=== PATIENT | male | born 1930 | race Caucasian/White ===

== ENCOUNTER 2016-11-18 13:53 | Emergency (ER) | payer OTHER, MEDICARE ==
[~2016-11-18] VITALS: Ht 170.2 cm; Wt 64.0 kg
[~2016-11-18 13:53] MED LIST: AMLO5TAB2 PO; ASPI-435 PO; ATOR-22 PO; METO50TA16 PO
[2016-11-18 13:58] VITALS: TEMP 36.5; Ht 170.2 cm; Wt 64.0 kg
[2016-11-18] MEDS ORDERED: SODIUM CHLORIDE 0.9% 1000ML 500 ML IV STA (14:10)
[2016-11-18] MEDS ORDERED: ACETAMINOPHEN 500 MG TAB PO STA (14:10)
[2016-11-18 14:51] LABS: BASO % 0.6 %; BASO ABS # 0.04 K/uL (0-0.2); COMPLETE YES; EOS % 4.3 %; HEMATOCRIT 41.6 % (42-52); IG% 0.3 %; LYMPH % 16.2 %; LYMPH ABS # 1.08 K/uL (1.2-3.4); MEAN CELL VOLUME 88.5 fL (80-100); MEAN CORPUSCULAR HEMOGLOBIN 30.9 pg (25-34); MEAN CORPUSCULAR HGB CONC 34.9 g/dl (32-36); MEAN PLATELET VOLUME 9.6 fL (7.4-10.4); MONO % 15.4 %; NEUT % 63.2 %; PLATELET COUNT 297 K/uL (130-400); WHITE BLOOD COUNT 6.68 K/uL (4.8-10.8)
--- NOTE | 2016-11-18 14:55 | EMERGENCY ROOM VISIT NOTE ---
History Report prepared by Lamaribaviva: Rom Hinojosa Under the Supervision of: Dr. Nas Mullins M.D. First contact with patient: 14:05 Chief Complaint: HEADACHE Stated Complaint: HEADACHES History of Present Illness The patient is a 86 year old male who presents to the Emergency Room with complaints of a constant headache starting about 3-4 weeks ago. The headache is located on both sides. He was evaluated by his eye doctor who prescribed him eye drops without relief. As per , he has been taking Aspirin without relief. He currently rates a pain intensity of 4-5/10. He denies any activities that improve or worsen his pain. He did not have any recent falls or injuries. He denies any history of glaucoma or sinus infections. 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 As per , he did not have any recent changes in medications. The patient denies any tick bites, fevers, chest pain, shortness of breath, focal weakness, or any other complaints. Source of History: patient, spouse/significant other Onset: about 3-4 weeks ago Position: head Timing: constant Modifying Factors (Relieving): other (eye drops, aspirin without relief) Associated Symptoms: No fevers, No chest pain, No SOB, No weakness (focal) Review of Systems See HPI for pertinent positives & negatives. A total of 10 systems reviewed and were otherwise negative. 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 (2) Diverticulosis Colon (W/O Ment Of Hemorrhage) (3) Hypertension Nos (4) Myocardial infarction (5) Vertigo Family History Cancer Diabetes mellitus FHx: lung disease Hypertension Social History Smoking Status: Never Smoker Alcohol Use: occasionally Marital Status: Housing Status: lives with significant other Occupation Status: retired Current/Historical Medications Scheduled Amlodipine Besylate (Norvasc), 5 MG PO DAILY Aspirin (Aspirin 81), 81 MG PO DAILY Atorvastatin (Lipitor), 20 MG PO DAILY Metoprolol Tartrate (Lopressor) (Lopressor), 50 MG PO BID Scheduled PRN Acetaminophen (Tylenol Arthritis Ext Rel), 650 MG PO Q8H PRN for Pain Acetaminophen (Tylenol), 500 MG PO DAILY PRN for Pain Aspirin (Aspirin Ec), 325 MG PO DIRECTED PRN for Headache Allergies Coded Allergies: Hydrochlorothiazide (Verified Allergy, Unknown, UNKNOWN, 11/18/16) Penicillins (Verified Allergy, Unknown, ., 11/18/16) Sulfa Drugs (Verified Allergy, Unknown, ITCHINESS, RED SKIN, 11/18/16) Oxycodone (Verified Adverse Reaction, Intermediate, CONSTIPATION, MALAISE , 11/18/16) Physical Exam Vital Signs Date Time Temp Pulse Resp B/P (MAP) Pulse Ox O2 Delivery O2 Flow Rate FiO2 11/18/16 16:44 58 16 162/76 97 Room Air 11/18/16 15:50 55 18 141/85 98 Room Air 11/18/16 13:58 36.5 66 18 153/86 96 Room Air Physical Exam GENERAL: Patient is in no acute distress. HEENT: No acute trauma, normocephalic atraumatic, mucous membranes moist, no throat erythema, no nasal congestion, no scleral icterus. Pupils are equal, round, and reactive to light. TMs are clear. NECK: No stridor, no adenopathy, no meningismus, trachea is midline. LUNGS: Clear to auscultation bilaterally, no wheeze, no rhonchi, breath sounds equal. HEART: Without murmurs gallops or rubs, regular rate and rhythm. ABDOMEN: Soft, nontender, bowel sounds positive, no hernias, no peritonitis. EXTREMITIES: No cyanosis or edema, full range of motion of all the joints without pain or difficulty, no signs for acute trauma. NEUROLOGIC: Oriented x 3, no acute motor or sensory deficits, no focal weakness. No pronator drift or cerebellar dysfunction. SKIN: No rash, no jaundice, no diaphoresis. Medical Decision & Procedures ER Provider Diagnostic Interpretation: CT results as stated below per my review and radiologist interpretation: CT SCAN OF THE BRAIN COMBO CLINICAL HISTORY: Headache. COMPARISON STUDY: CT of the brain dated 12/28/2014. MRI of the brain dated 12/06/2015. TECHNIQUE: Unenhanced axial CT scan of the brain is performed from the vertex to the skull base before and following the IV administration of 116 cc of Optiray 320. IV contrast was administered without complication. CT DOSE: 1074.96 mGy.cm FINDINGS: Brain parenchyma: There are age-related involutional changes noting moderate subcortical and periventricular microangiopathic change. There is no hemorrhage, mass effect, or evidence of acute territorial ischemia by CT criteria. Mosqueda-white matter is preserved. No extra-axial fluid collection is seen. Ventricles, sulci, cisterns: Prominent secondary to involutional change. Intracranial vasculature: There is atherosclerotic calcification of the cavernous carotid and vertebral arteries. Calvarium: Unremarkable. Sinuses and mastoids: The visualized paranasal sinuses are clear. The mastoid air cells are well pneumatized. Orbits: The bony orbits are grossly intact. There is a right ocular lens implant. IMPRESSION: There is no hemorrhage, enhancing mass, or evidence of acute territorial ischemia by CT criteria. Electronically signed by: Nas Armando M.D. 11/18/2016 3:49 PM Dictated Date/Time: 11/18/2016 3:46 PM Laboratory Results 11/18/16 14:35 Red Blood Count 4.70, Mean Corpuscular Volume 88.5, Mean Corpuscular Hemoglobin 30.9, Mean Corpuscular Hemoglobin Concent 34.9, Mean Platelet Volume 9.6, Neutrophils (%) (Auto) 63.2, Lymphocytes (%) (Auto) 16.2, Monocytes (%) (Auto) 15.4, Eosinophils (%) (Auto) 4.3, Basophils (%) (Auto) 0.6, Neutrophils # (Auto ) 4.22, Lymphocytes # (Auto) 1.08, Monocytes # (Auto) 1.03, Eosinophils # (Auto ) 0.29, Basophils # (Auto) 0.04 11/18/16 14:35 Test 11/18/16 14:35 White Blood Count 6.68 K/uL (4.8-10.8) Red Blood Count 4.70 M/uL (4.7-6.1) Hemoglobin 14.5 g/dL (14.0-18.0) Hematocrit 41.6 % (42-52) Mean Corpuscular Volume 88.5 fL (80-100) Mean Corpuscular Hemoglobin 30.9 pg (25-34) Mean Corpuscular Hemoglobin Concent 34.9 g/dl (32-36) Platelet Count 297 K/uL (130-400) Mean Platelet Volume 9.6 fL (7.4-10.4) Neutrophils (%) (Auto) 63.2 % Lymphocytes (%) (Auto) 16.2 % Monocytes (%) (Auto) 15.4 % Eosinophils (%) (Auto) 4.3 % Basophils (%) (Auto) 0.6 % Neutrophils # (Auto) 4.22 K/uL (1.4-6.5) Lymphocytes # (Auto) 1.08 K/uL (1.2-3.4) Monocytes # (Auto) 1.03 K/uL (0.11-0.59) Eosinophils # (Auto) 0.29 K/uL (0-0.5) Basophils # (Auto) 0.04 K/uL (0-0.2) RDW Standard Deviation 40.9 fL (36.4-46.3) RDW Coefficient of Variation 12.6 % (11.5-14.5) Immature Granulocyte % (Auto) 0.3 % Immature Granulocyte # (Auto) 0.02 K/uL (0.00-0.02) Erythrocyte Sedimentation Rate 34 mm/hr (0-14) Anion Gap 6.0 mmol/L (3-11) Est Creatinine Clear Calc Drug Dose 41.5 ml/min Estimated GFR () 64.0 Estimated GFR (Non- 55.2 BUN/Creatinine Ratio 15.9 (10-20) Calcium Level 9.0 mg/dl (8.5-10.1) Laboratory results reviewed by me. Medications Administered Medications (Trade) Dose Ordered Sig/Tyrone Route Start Time Stop Time Status Last Admin Dose Admin Sodium Chloride 500 ml @ 999 mls/hr Q31M STAT IV 11/18/16 14:10 11/18/16 14:40 DC 11/18/16 14:41 999 MLS/HR Acetaminophen (Tylenol Tab) 1,000 mg NOW STAT PO 11/18/16 14:10 11/18/16 14:13 DC 11/18/16 14:51 1,000 MG ED Course 1405: The patient was evaluated in room B11B. A complete history and physical exam was performed. 1410: Tylenol Tab 1000 mg PO, Sodium Chloride 500 ml @ 999 mls/hr IV 1528: Reevaluated the patient. His reported that he has been having some memory issues and she will talk to his PCP about it this week. Discussed results and discharge instructions: the patient and his verbalized understanding and agreement. The patient is ready for discharge. Medical Decision Medication Reconciliation: I attest that I have personally reviewed the patient' s current medication list. Blood Pressure Screening: Patient was found to have an elevated blood pressure and was referred to their primary doctor for recheck and further treatment. Differential diagnosis includes but is not limited to intracranial bleeding or mass, tension headache, migraine headache, dehydration, temporal arteritis, sinusitis. There is no leukocytosis or concerning anemia. No significant electrolyte abnormality or kidney failure. Sedimentation rate was not significantly elevated making temporal arteritis less likely. Brain CT without contrast showed no bleed. There is no sinusitis. Brain CT with contrast showed no mass or other pathology. On exam, there were no focal neurologic deficits. There was no fever. The patient did not have meningismus. Of note, the patient has had some memory issues for some time, his thinks he may have dementia. The memory issues are not acutely new she states. The patient was given IV saline, oral Tylenol. He looks well, he is not toxic. He is being discharged to follow with his doctor's office. The cause for the headache is unclear. Nothing emergent or concerning found by workup. The patient was reassured and discharged home. Impression Primary Impression: Headache Scribe Attestation The scribe's documentation has been prepared under my direction and personally reviewed by me in its entirety. I confirm that the note above accurately reflects all work, treatment, procedures, and medical decision making performed by me. Departure Information Dispostion Home / Self-Care Referrals Idris German M.D. (PCP) Forms HOME CARE DOCUMENTATION FORM, IMPORTANT VISIT INFORMATION Patient Instructions [facility] Additional Instructions tylenol for pain rest stay well hydrated see your doctor this week to talk about the headaches and memory issues brain CT scan today was ok as we discussed
[2016-11-18] MEDS ORDERED: ACET-1256 PO (15:10)
[2016-11-18] MEDS ORDERED: ASPI325T39 PO (15:10)
[2016-11-18] MEDS ORDERED: ACET-1487 PO (15:10)
[2016-11-18 15:12] LABS: BUN/CREATININE RATIO 15.9 (10-20); CREATININE 1.2 mg/dl (0.60-1.40); POTASSIUM 4.6 mmol/L (3.5-5.1)
--- NOTE | 2016-11-18 15:51 | DIAGNOSTIC IMAGING REPORT ---
CT SCAN OF THE BRAIN COMBO CLINICAL HISTORY: Headache. COMPARISON STUDY: CT of the brain dated 12/28/2014. MRI of the brain dated 12/06/2015. TECHNIQUE: Unenhanced axial CT scan of the brain is performed from the vertex to the skull base before and following the IV administration of 116 cc of Optiray 320. IV contrast was administered without complication. CT DOSE: 1074.96 mGy.cm FINDINGS: Brain parenchyma: There are age-related involutional changes noting moderate subcortical and periventricular microangiopathic change. There is no hemorrhage, mass effect, or evidence of acute territorial ischemia by CT criteria. Mosqueda-white matter is preserved. No extra-axial fluid collection is seen. Ventricles, sulci, cisterns: Prominent secondary to involutional change. Intracranial vasculature: There is atherosclerotic calcification of the cavernous carotid and vertebral arteries. Calvarium: Unremarkable. Sinuses and mastoids: The visualized paranasal sinuses are clear. The mastoid air cells are well pneumatized. Orbits: The bony orbits are grossly intact. There is a right ocular lens implant. IMPRESSION: There is no hemorrhage, enhancing mass, or evidence of acute territorial ischemia by CT criteria. Electronically signed by: Nas Armando M.D. 11/18/2016 3:49 PM Dictated Date/Time: 11/18/2016 3:46 PM
[2016-11-18 16:44] VITALS: BP 162/76; PULSE 58; O2SAT 97
[2017-02-01] MEDS ORDERED: DONE1TAB11 PO (12:59)
== END 2016-11-18 17:00 | disposition home or self-care (01) ==
LOC: C.EDB 13:54
DX: R51 Headache (principal); I65.29 Occlusion and stenosis of unspecified carotid artery; K57.30 Diverticulosis of large intestine without perforation or abscess without bleeding; I10 Essential (primary) hypertension; I25.2 Old myocardial infarction; Z79.82 Long term (current) use of aspirin; Z83.3 Family history of diabetes mellitus; Z82.49 Family history of ischemic heart disease and other diseases of the circulatory system

== ENCOUNTER → 2016-11-20 | Outpatient (CLI) | payer OTHER, MEDICARE ==
[~2016-11-20] MED LIST changes: +ACET-1256 PO; +ACET-1487 PO; +ASPI325T39 PO
--- NOTE | 2016-11-20 11:58 | DIAGNOSTIC IMAGING REPORT ---
CHEST 2 VIEWS ROUTINE CLINICAL HISTORY: R63.4 Abnormal weight [id number] weight loss. Dyspnea. Pain. COMPARISON STUDY: 02/01/2016 FINDINGS: Mild emphysematous change. No evidence for cardiac enlargement. Diaphragms are smooth. Degenerative change thoracic spine. Small calcified granuloma peripheral right midlung. IMPRESSION: Mild/moderate emphysematous change. No acute process. Electronically signed by: Juan R Carreon M.D. 11/20/2016 11:57 AM Dictated Date/Time: 11/20/2016 11:56 AM
--- NOTE | 2016-11-20 12:00 | DIAGNOSTIC IMAGING REPORT ---
C-SPINE ROUTINE 4 OR 5 VIEWS CLINICAL HISTORY: M54.2 [id number] COMPARISON STUDY: No previous studies for comparison. FINDINGS: The prevertebral soft tissues are normal. There are moderate multilevel degenerative changes with disc space narrowing most pronounced at the C6-7 level. There are exuberant osteophytes C5-6 and C6-7 levels. There is bony foraminal narrowing at the C4-5 through C6-7 level on the right, as well as the C5-6 and C6-7 levels on the left. IMPRESSION: Moderate degenerative changes within the lower cervical spine. No acute fractures or subluxations are visualized. Electronically signed by: Dariel Cruz M.D. 11/20/2016 11:58 AM Dictated Date/Time: 11/20/2016 11:57 AM
== END | disposition home or self-care (01) ==
LOC: C.RADBC 11:15
PROVIDERS: ATTEND Internal Medicine
DX: Z00.00 Encounter for general adult medical examination without abnormal findings (principal); R63.4 Abnormal weight loss; M54.2 Cervicalgia; M50.321 Other cervical disc degeneration at C4-C5 level; M50.323 Other cervical disc degeneration at C6-C7 level; J98.4 Other disorders of lung

== ENCOUNTER → 2017-03-25 | Day surgery (SDC) | payer OTHER, MEDICARE ==
[2017-03-17 11:17] VITALS: Ht 175.3 cm; Wt 63.6 kg
[~2017-03-25] VITALS: Ht 175.3 cm; Wt 63.6 kg
[~2017-03-25] MED LIST changes: +500ML BSS 0.3ML EPI 1:1000PF IRRIG ONE; +ACETAMINOPHEN 325 MG TAB PO PRN; +AMVISC PLUS 0.8ML SYRINGE INT OCU ONE; -ASPI325T39 PO; +ATROPINE SULFATE 0.1 MG/ML 5ML SYR IV PRN; +BETAXOLOL HCL 0.25% OP SUSP PER DROP CHARGE OPL SCH; +BRIMONIDINE TART 0.2% OP SOLN PER DROP CHARGE ONE; +BSS FLUSH ONE; +DONE1TAB26 PO; +ENDOCOAT 0.85ML SYRINGE INT OCU ONE; +EpHEDrine SULFATE INJ 50 MG/ML AMP IV PRN; +EpINEphrine INJ 1MG/ML AMP 1 MG/ML AMP ONE; +LACTATED RINGER'S 1000ML 500 ML IV SCH; +LIDOCAINE 4% OP SOLN DROP CHARGE ONE; +LIDOCAINE 4% OP SOLN DROP CHARGE OPL SCH; +LIDOCAINE HCL 1% MPF 2 ML VIAL ONE; +MIDAZOLAM HCL 1 MG/ML 2ML VIAL ONE; +MIX: 4ML BSS 1ML EPI 1:1000 PF INSTIL ONE; +MOXIFLOXACIN OPH SOLN PER DROP CHARGE ONE; +OCUCOAT 1 ML SOLN IO ONE; +POVIDONE-IODINE OP SOLN 30 ML BTL ONE; +PROPARACAINE 0.5% OP SOLN PER DROP CHARGE OPL SCH; +PROPOFOL IV EMULSION 10 MG/ML 20 ML VIAL IV ONE; +TOBRAMYCIN/DEXAMETHASONE OPH OINT PER APPLN CHARGE ONE
--- NOTE | 2017-03-25 11:25 | History & Physical Bridge - SC ---
H&P Re-Evaluation Bridge Note: I have examined the patient, reviewed the History & Physical and in the interval since the performance of the History & Physical I have noted the following changes of clinical significance: No changes noted
[2017-03-25] MEDS: PHENYLEPHRINE HCL 2.5% OP SOLN PER DROP CHARGE OPL SCH ×2 (11:49→11:54)
[2017-03-25] MEDS: TROPICAMIDE 1% OP SOLN PER DROP CHARGE OPL SCH ×2 (11:50→11:55)
[2017-03-25] MEDS: CYCLOPENTOLATE HCL 1% OP SOLN PER DROP CHARGE OPL SCH ×2 (11:51→11:56)
[2017-03-25] MEDS: MOXIFLOXACIN OPH SOLN PER DROP CHARGE OPL SCH ×2 (11:52→12:02)
--- NOTE | 2017-03-25 12:42 | Discharge Instructions-SurgCtr ---
Discharge Instructions Date of Service Mar 25, 2017. Visit Reason for Visit: Left Cataract Discharge Discharge Diagnosis / Problem: lens implant left eye Discharge Goals Goal(s): Improve function Activity Recommendations Activity Limitations: resume your previous activity Lifting Limitations: no more than 10 pounds Exercise/Sports Limitations: gradually increase as tolerated May Resume Sexual Activity: when tolerated Shower/Bathe: tomorrow Driving or Machine Use: resume 1 day after discharge Anesthesia . Post Anesthesia Instructions: If you have had General Anesthesia or IV Sedation: * Do not drive today. * Resume driving when surgeon permits. * Do not make important decisions or sign legal documents today. * Call surgeon for: 1. Temperature elevations greater than 101 degrees F. 2. Uncontrollable pain. 3. Excessive bleeding. 4. Persistent nausea and vomiting. 5. Medication intolerance (nausea, vomiting or rash). * For nausea and vomiting use only clear liquids such as: tea, soda, bouillon until nausea subsides, then gradually increase diet as tolerated. * If you have any concerns or questions, call your surgeon's office. If physician is unavailable and it is an emergency, call 911 or go to the nearest emergency room. . Instructions / Follow-Up Instructions / Follow-Up ACTIVITY RECOMMENDATIONS: * Light activities. * Mild irritation and blurred vision are common for the first few days. * You may walk outside, read, watch television. * Redness around the white part of the eye is common. MEDICATIONS: Resume previous medications unless instructed otherwise by your surgeon. Start all eye drops at 3 pm today: * Eye drops (today and tomorrow): Prednisone - one drop in operative eye every 3 hours while awake Ofloxacin - one drop in operative eye every 3 hours while awake SPECIAL CARE INSTRUCTIONS: * Tape plastic shield over eye to sleep at night. Call your doctor at with any concerns or problems. FOLLOW UP VISIT: Follow-up with Dr Barroso at [facility] as scheduled. Diet Recommendations Home Diet: no limitations Procedures Procedures Performed: cataract extraction with lens implant Pending Studies Studies pending at discharge: no Medical Emergencies . Who to Call and When: Medical Emergencies: If at any time you feel your situation is an emergency, please call 911 immediately. . Non-Emergent Contact Non-Emergency issues call your: Cooling Room Attendant Call Non-Emergent contact if: your pain is not controlled [phone] . . "Provider Documentation" section prepared by Tyler Barroso. .
--- NOTE | 2017-03-25 12:44 | [facility] Operative Report ---
Operative Report Date of Service Mar 25, 2017. Operative Report 1. PREOPERATIVE DIAGNOSIS: Senile nuclear cataract, left eye. 2. POSTOPERATIVE DIAGNOSIS: Senile nuclear cataract, left eye. 3. PROCEDURE: Phacoemulsification of left cataract with posterior chamber lens implant, type [employer], model MI60L, power +22.0 diopters. ANESTHESIA: Local standby. SURGEON: Dr. Barroso. COMPLICATIONS: None. OPERATING TIME: 10 minutes. 4. OPERATION AND FINDINGS: DESCRIPTION OF PROCEDURE: The left pupil was dilated. The anesthetic was administered using a topicall technique. The eft eye was prepped and draped. A speculum was placed. A clear corneal incision was formed. The chamber was filled with Amvisc Plus and Endocoat. Epinephrine solution was used. A paracentesis was placed. A capsulorrhexis was performed. The nucleus was hydrodissected. The lens was removed with phacoemulsification. Time was 7.72 seconds. The aspiration unit was used to remove the cortex. The capsule was filled with Amvisc Plus. The lens implant was folded and placed into the capsule. The incision was hydrated. The Amvisc was aspirated. The wound was secure. The chamber was deep. The pupil was round. Brimonidine, TobraDex ointment and Vigamox solution were placed. The speculum was removed. The patient was returned to the Recovery Room in stable condition. I attest to the content of the Intraoperative Record and any orders documented therein. Any exceptions are noted below. The scribe's documentation has been prepared in my presence, under my direction and personally reviewed by me in its entirety. I confirm that the note above accurately reflects all work, treatment, procedures, and medical decision making performed by me. I personally scribed for Tyler Barroso M.D. ([email or web address]) on 03/25/17 at 12:44. Electronically submitted by Elis Goldberg ([email or web address]).
[2017-03-25 12:49] VITALS: TEMP 36.5
[2017-03-25 13:07] VITALS: BP 128/78; PULSE 64; O2SAT 98
--- NOTE | 2017-03-25 13:15 | Anesthesia Progress Nt - [facility] ---
Anesthesia Post Op Note Date & Time Mar 25, 2017 at 13:15 Vital Signs Pain Intensity: 0 Vital Signs Past 12 Hours Date Time Temp Pulse Resp B/P (MAP) Pulse Ox O2 Delivery O2 Flow Rate FiO2 03/25/17 12:49 36.5 63 16 106/63 (77) 97 Room Air 03/25/17 11:39 36.6 64 20 133/78 (96) 100 Room Air Notes Mental Status: alert / awake / arousable, participated in evaluation Pt Amnestic to Procedure: Yes Nausea / Vomiting: adequately controlled Pain: adequately controlled Airway Patency, RR, SpO2: stable & adequate BP & HR: stable & adequate Hydration State: stable & adequate Anesthetic Complications: no major complications apparent
== END | disposition home or self-care (01) ==
LOC: X.SURG 11:24
PROVIDERS: ATTEND Specialist
DX: H25.12 Age-related nuclear cataract, left eye (principal); I25.10 Atherosclerotic heart disease of native coronary artery without angina pectoris; I25.2 Old myocardial infarction; I10 Essential (primary) hypertension; F41.9 Anxiety disorder, unspecified; Z87.891 Personal history of nicotine dependence; Z96.652 Presence of left artificial knee joint; Z98.41 Cataract extraction status, right eye; Z88.0 Allergy status to penicillin; Z88.2 Allergy status to sulfonamides; Z88.5 Allergy status to narcotic agent; Z79.899 Other long term (current) drug therapy

== ENCOUNTER 2018-07-27 20:03 | Observation (INO) ==
[2018-07-27] MEDS ORDERED: NITROGLYCERIN SL 0.4 MG/TAB TAB SL PRN (20:24)
[2018-07-27] MEDS ORDERED: NITROGLYCERIN SL 0.4 MG/TAB TAB ONE (20:24)
[2018-07-27 20:32] LABS: Basophils # (auto) 0.02 K/uL (0-0.2); Basophils % (auto) 0.3 %; Eosinophils % (auto) 2.8 %; Hematocrit (blood only) 46.3 % (42-52); Hemoglobin 16.4 g/dL (14.0-18.0); Immature Granulocytes # (auto) 0.03 K/uL (0.00-0.02); Immature Granulocytes % (auto) 0.4 %; Lymphocytes # (auto) 1.79 K/uL (1.2-3.4); Lymphocytes % (auto) 24.6 %; Mean Corpuscular Hgb Conc 35.4 g/dL (32-36); Mean Corpuscular Volume 89.6 fL (80-100); Mean Platelet Volume 10.1 fL (7.4-10.4); Monocytes # (auto) 1.06 K/uL (0.11-0.59); Monocytes % (auto) 14.6 %; Neutrophils # (auto) 4.17 K/uL (1.4-6.5); Neutrophils % (auto) 57.3 %; Platelet Count 210 K/uL (130-400); RDW Coefficient of Variation 12.4 % (11.5-14.5); RDW Standard Deviation 40.6 fL (36.4-46.3); Red Blood Count 5.17 M/uL (4.7-6.1); White Blood Count 7.27 K/uL (4.8-10.8)
[2018-07-27 20:49] LABS: Albumin Level 3.7 gm/dl (3.4-5.0); BUN Creatinine Ratio 11.7 (10-20); Calcium 8.9 mg/dl (8.5-10.1); Creatinine Clr Calc Pharmacy 37.1 ml/min; Est GFR (African American) 54.6; Est GFR (Non-African American) 47.1
[2018-07-27 20:52] LABS: Bilirubin,Total 0.4 mg/dl (0.2-1); Globulin 3.8 gm/dl (2.5-4.0); Total Protein 7.5 gm/dl (6.4-8.2)
--- NOTE | 2018-07-27 20:57 | XRay Report ---
SINGLE VIEW CHEST CLINICAL HISTORY: Atypical chest pain. FINDINGS: 2 AP, portable, upright chest radiographs are compared to chest x-ray and chest CT dated and 09/24/2010. The cardiomediastinal silhouette is unremarkable. Emphysema and chronic inters titial thickening are similar to previous. No airspace consolidation or pleural effusion is identifie d. Small nodular densities likely represent pleural plaques are were seen on prior examinations. Smal l calcified granulomas are noted. No pneumothorax is seen. The skeletal structures are osteopenic. Th e bony thorax is grossly intact. IMPRESSION: Emphysematous change with no acute cardiopulmonary abnormality. Electronically signed by: Nas Armando M.D. 07/27/2018 8:56 PM
--- NOTE | 2018-07-27 22:32 | History & Physical Report ---
Date of Service July 27, 2018 Assessment & Plan (1) Chest pain: Assessment: Chest pain secondary to unstable angina versus musculoskeletal pain versus gastritis/GERD -Per report, there were dynamic ST changes on EKG with chest pain. Possible ST depression seen in inferior lead. Left axis deviation and left bundle branch block stable from previous. 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 Plan -Monitor on telemetry -Continue home Lipitor 20 mg, aspirin 81 mg, and antihypertensive medicines as below. -Morning echo pending -Cardiac isos. Initial troponin negative. FEN/GI: No fluids indicated at this time. Heart healthy diet. DVT ppx: SCDs, aspirin 81 mg. CODE STATUS: Full code, no mechanical ventilation as discussed with patient's POA . She is unsure as to his wishes regarding cardiovascular resuscitation, therefore will assume full. DISPO: Telemetry (2) Abnormal ECG: -Per report, there were dynamic ST changes on EKG with chest pain. P ossible ST depression seen in inferior lead. Left axis deviation and left bundle branch block stable from previous. (3) Alzheimer's dementia: Patient is not alert to self place or time. Patient's states he will need frequent reorientation overnight. -Continue home donepezil 10 mg daily, Namenda 10 mg p.o. twice daily -Sitter as needed ordered -Ativan for anxiety agitation (4) Benign essential hypertension: Continue home metoprolol tartrate 50 mg twice daily, amlodipine 5 mg daily (5) Dyslipidemia: Continue home Lipitor 20 mg daily History of Present Illness Chief Complaint: chest pain Primary Care Provider: Idris German MD This is an 87 yo M who comes to the ED via EMS. His called after the patient complained of left sided chest pain that began at about 7:30 earlier this evening. Patient is an extremely poor historian given his dementia, he does not recall the event and does not understand why he is here in the hospital. provides history. Pt was lying down. She states she did not notice that he was sweaty or in distress, but was concerned because he said he felt pain in the left side of chest. Possible remote MD history, but she is unsure. ED course: Hypertensive, not tachycardic, afebrile, not hypoxic. CBC unremarkable. Chemistry profile reveals no significant abnormalities. Initial troponin was detectable at 0.03. Chest x-ray shows chronic emphysematous change, no acute abnormalities. Per report, possible dynamic ST changes during chest pain. Allergies Allergy/AdvReac Type Severity Reaction Status Date / Time hydrochlorothiazide Allergy Unknown UNKNOWN Verified 07/27/18 21:48 Penicillins Allergy Unknown ? UNKNOWN Verified 07/27/18 21:48 Sulfa (Sulfonamide Allergy Unknown ITCHINESS, Verified 07/27/18 21:48 Antibiotics) RED SKIN oxycodone AdvReac Intermediate CONSTIPATION, Verified 07/27/18 21:48 MALAISE Home Medications Home Medications Medication Instructions Recorded Confirmed Type acetaminophen [Tylenol Arthritis 1 - 2 tabs PO Q12H PRN 07/27/18 07/27/18 History Pain] acetaminophen [Tylenol Extra 500 mg PO QAM PRN 07/27/18 07/27/18 History Strength] amlodipine [Norvasc] 5 mg PO DAILY 07/27/18 07/27/18 History aspirin [Aspir-81] 81 mg PO DAILY 07/27/18 07/27/18 History atorvastatin [Lipitor] 20 mg PO DAILY 07/27/18 07/27/18 History donepezil [Aricept] 10 mg PO DAILY 07/27/18 07/27/18 History memantine [Namenda] 10 mg PO BID 07/27/18 07/27/18 History metoprolol succinate 50 mg PO DAILY #30 tab 07/28/18 Rx Past Med/Surg History Medical History Dyslipidemia (Chronic) Benign essential hypertension (Chronic) Alzheimer's dementia (Chronic) Heart attack (Suspected) Arthritis of neck Surgical History Hx of total knee arthroplasty Family History Other Family history non-contributory Social History Preferred Language: Kazakh Beliefs That Will Affect Care: None marital status: Current Living Situation: Spouse Feels Safe at Home: Yes Smoking Status: Unknown if ever smoked Hx Alcohol Use: No Hx Substance Use: No Review of Systems Unobtainable due to cognitive status Physical Exam Vital Signs (Past 24 Hours): Last Vital Signs Temp 36.5 C 07/27/18 20:09 Pulse 63 03/19/19 20:31 Resp 29 H 07/27/18 20:31 BP 160/83 H 07/27/18 20:31 Pulse Ox 98 07/27/18 20:31 Physical Exam: Patient is seen and examined with at bedside. Vitals noted as above and within normal limits with the exception of hypertension, tachypnea. GENERAL: Awake, not alert to person, place, and time, nontoxic-appearing, in no distress HENT: Normocephalic, atraumatic. . Mucus membranes appear moist. EYES: Normal conjunctiva. Sclera non-icteric. EOMI. NECK: Supple. Full range of motion. No JVD RESPIRATORY: Clear to auscultation. Normal work of breathing. CARDIAC: Regular rate, normal rhythm. Extremities warm and well perfused, 2+ radial pulses bilaterally; 2+ posterior tibialis pulses bilaterally. CHEST: Nontender to palpation in anterior chest. ABDOMEN: Soft, non-distended. No tenderness to palpation in all four quadrants. No rebound or guarding. No masses. Bowel sounds are normal. LOWER EXTREMITIES: Inspection of calves reveal equal size bilaterally. They are non-tender. No edema. No discoloration. NEURO: No focal gross focal motor deficits noted. Sensation in tact. CN II-XII grossly in tact. Dementia. SKIN: Rash not present. No jaundice noted. Significant lesions not present. PSYCH: [Appropriate] mood and affect. [Cooperative]. Exam as done by Sheyla Mckeon MD, Water Meter Reader. Supervising Physician Co-Signing Physician Notes Attending addendum: I have physically seen this patient, have supervised the medical residents activities, and agree with the H&P unless as otherwise noted. Assessment and Plan: Chest pain of uncertain etiology-- The patient will be admitted to telemetry for serial cardiac enzymes, serial EKG's, cardiac rhythm monitoring and a 2-D echocardiogram with Dopplers. Continue aspirin, amlodipine and metoprolol succinate. Hyperlipidemia-- Continue atorvastatin. Check a fasting lipid panel. Dementia-- Continue Namenda and donepezil. Remainder of orders and medications as noted. Resident Activity Tracking Resident Involvement: Resident Care Provided Care Provided: Adult [facility] (1) Chest pain Chest pain type: unspecified Qualified Code(s): R07.9 - Chest pain, unspecified
--- NOTE | 2018-07-28 00:11 | Emergency Department Note ---
Entered by Lexie Kothari acting as a scribe for Ambrosio Castillo MD History of Present Illness General Chief complaint: Cardiac Assessment Stated complaint: MIGHT BE HAVING A HEART ATTACK Source: patient Mode of arrival: ambulatory Limitations: no limitations History of Present Illness Provider complaint: chest pain Onset (ago): hour(s) (1.5) Location: chest and left Radiation: non-radiation Pain Consistency: + other (episode) Maximum Pain Intensity: 10 Current Pain Intensity: 3 Quality: + other (pressure/tightness) Associated symptoms: + headaches and + other (lightheaded); no cough, no diaphoresis, no fever/chills, no nausea/vomiting and no shortness of breath Treatments prior to arrival: aspirin The patient is an 87 year old male who presents to the Emergency Room with complaints of an episode of chest pain that began about 1.5 hours ago. The patient reports that the pain is located on the left side of the chain and describes it as a "pressure" and "tightness." He denies the pain radiating to his arms or neck. He also denies any shortness of breath, diaphoresis, leg pain or swelling, coughs, vomiting, fevers or abdominal pain but notes he has been slightly lightheaded. He rates his current pain a 2-3/10. Per , the patient does have a history of a heart attack. She also reports that the patient took an aspirin prior to arrival. The patient states that he has had a headache since this morning but denies any traumas or being on any blood thinners. Home Medications Home Medications Medication Instructions Recorded Confirmed Type acetaminophen [Tylenol Arthritis 1 - 2 tabs PO Q12H PRN 07/27/18 07/27/18 History Pain] acetaminophen [Tylenol Extra 500 mg PO QAM PRN 07/27/18 07/27/18 History Strength] amlodipine [Norvasc] 5 mg PO DAILY 07/27/18 07/27/18 History aspirin [Aspir-81] 81 mg PO DAILY 07/27/18 07/27/18 History atorvastatin [Lipitor] 20 mg PO DAILY 07/27/18 07/27/18 History donepezil [Aricept] 10 mg PO DAILY 07/27/18 07/27/18 History memantine [Namenda] 10 mg PO BID 07/27/18 07/27/18 History metoprolol tartrate [Lopressor] 50 mg PO DIRECTED 07/27/18 07/27/18 History Allergies Allergy/AdvReac Type Severity Reaction Status Date / Time hydrochlorothiazide Allergy Unknown UNKNOWN Verified 07/27/18 21:48 Penicillins Allergy Unknown ? 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 and A total of 10 systems reviewed and were otherwise negative Physical Exam Vital Signs Vital Signs - 24 hr 07/27/18 20:09 07/27/18 20:30 07/27/18 20:31 Temperature 36.5 C Temperature Source Oral Sepsis Recent Fever Within 48 Hours No Sepsis New/Unexplained Change in Mental Status No Sepsis Action Taken by Nursing No Action Required Pulse Rate 67 67 63 Pulse Rate from SpO2 Sensor 63 Pulse Rhythm Regular Regular Pulse Strength Normal Respiratory Rate 20 20 29 H Respiratory Effort / Characteristics Non-Labored Respiratory Depth Normal Respiratory Pattern Regular Blood Pressure 182/86 H 160/83 H Blood Pressure Mean 118 108 Blood Pressure Position Lying Pulse Oximetry 100 100 98 Oxygen Delivery Method Room Air Room Air Room Air 07/27/18 20:45 07/27/18 21:01 07/27/18 21:31 Temperature Temperature Source Sepsis Recent Fever Within 48 Hours Sepsis New/Unexplained Change in Mental Status Sepsis Action Taken by Nursing Pulse Rate 62 70 Pulse Rate from SpO2 Sensor 63 60 Pulse Rhythm Pulse Strength Respiratory Rate 27 H 22 Respiratory Effort / Characteristics Non-Labored Respiratory Depth Normal Respiratory Pattern Blood Pressure 145/67 H 136/71 Blood Pressure Mean 93 92 Blood Pressure Position Pulse Oximetry 99 98 Oxygen Delivery Method Room Air Room Air Room Air 07/27/18 22:01 07/27/18 22:11 07/27/18 22:31 Temperature Temperature Source Sepsis Recent Fever Within 48 Hours Sepsis New/Unexplained Change in Mental Status Sepsis Action Taken by Nursing Pulse Rate 59 L 76 Pulse Rate from SpO2 Sensor 59 L 55 L Pulse Rhythm Pulse Strength Respiratory Rate 16 21 Respiratory Effort / Characteristics Respiratory Depth Respiratory Pattern Blood Pressure 174/76 H 137/65 Blood Pressure Mean 108 89 Blood Pressure Position Pulse Oximetry 99 97 Oxygen Delivery Method Room Air Room Air Room Air 07/27/18 23:40 Temperature Temperature Source Sepsis Recent Fever Within 48 Hours Sepsis New/Unexplained Change in Mental Status Sepsis Action Taken by Nursing Pulse Rate 70 Pulse Rate from SpO2 Sensor Pulse Rhythm Pulse Strength Respiratory Rate 18 Respiratory Effort / Characteristics Respiratory Depth Respiratory Pattern Blood Pressure 153/77 H Blood Pressure Mean Blood Pressure Position Pulse Oximetry Oxygen Delivery Method Room Air Constitutional: Vital signs reviewed. Eyes: Pupils are equal round reactive to light. Conjunctiva are noninjected. ENT: Pharynx is clear without erythema or exudate. Mucous membranes are moist. Neck supple without meningeal signs. Respiratory: Clear to auscultation bilaterally. Breath sounds are equal bilaterally. Cardiovascular: Regular rate and rhythm. No rubs or gallops. GI: Soft, nondistended and nontender. Bowel sounds are present. Musculoskeletal: No peripheral edema. No lower extremity tenderness. Integumentary: No cyanosis. Neurological: The patient is awake and alert. No focal deficits. Psychiatric: Normal affect. Course 2019: Past medical records reviewed. The patient was evaluated in room A11B, and a complete history and physical examination were performed. 2035: The patient reports that his chest pain is now relieved after 1 sublingual. 2103: I tried to discuss the patient's case with Dr. Mckeon - [facility] Hospitalist but he stated that he is too busy with a critically-ill patient. I updated the patient on tonight's findings and on the treatment plan. He reports that he is still chest pain free. 2123: I reviewed the patient's case with Dr. Mckeon - [facility] Hospitalist. He will evaluate the patient for further management. Administered Medications Nitroglycerin (Nitrostat) 0.4 mg SL UD PRN PRN Reason: Chest Pain Stop: 08/26/18 20:23 Last Admin: 07/27/18 20:28 Dose: 0.4 mg Documented by: [id number] Discontinued Medications Nitroglycerin (Nitrostat) Confirm Administered Dose 0.4 mg .ROUTE .STK-MED ONE Stop: 07/27/18 20:25 Last Admin: 07/27/18 20: Dose: Not Given Documented by: [id number] Medical Decision Making Differential Diagnosis Differential Diagnosis includes: unstable angina, WI, pleurisy, GERD, and pneumonia. Medical Records Attestation: I reviewed the patient's medical records. Home Medications Current Medication List: was personally reviewed by me Laboratory Data Attestation: I reviewed the patient's lab results. Result diagrams: 07/27/18 20:20 07/27/18 20:20 Lab Results 07/27/18 07/27/18 07/27/18 Range/Units 20:20 20:20 20:25 WBC 7.27 (4.8-10.8) K/uL RBC 5.17 (4.7-6.1) M/uL Hgb 16.4 (14.0-18.0) g/dL Hct 46.3 (42-52) % MCV 89.6 (80-100) fL MCH 31.7 (25-34) pg MCHC 35.4 (32-36) g/dL RDW Std Deviation 40.6 (36.4-46.3) fL RDW Coeff of Danii 12.4 (11.5-14.5) % Plt Count 210 (130-400) K/uL MPV 10.1 (7.4-10.4) fL Immature Gran % (Auto) 0.4 % Neut % (Auto) 57.3 % Lymph % (Auto) 24.6 % [place] % (Auto) 14.6 % Eos % (Auto) 2.8 % Baso % (Auto) 0.3 % Immature Gran # (Auto) 0.03 H (0.00-0.02) K/uL Neut # (Auto) 4.17 (1.4-6.5) K/uL Lymph # (Auto) 1.79 (1.2-3.4) K/uL [place] # (Auto) 1.06 H (0.11-0.59) K/uL Eos # (Auto) 0.20 (0-0.5) K/uL Baso # (Auto) 0.02 (0-0.2) K/uL Sodium 143 (136-145) mmol/L Potassium 4.0 (3.5-5.1) mmol/L Chloride 110 H (98-107) mmol/L Carbon Dioxide 28 (21-32) mmol/L Anion Gap 5.0 (3-11) BUN 16 (7-18) mg/dl Creatinine 1.36 (0.6-1.4) mg/dl Est Cr Clr Drug Dosing 37.1 ml/min Est GFR ( Amer) 54.6 Est GFR (Non-Af Amer) 47.1 BUN/Creatinine Ratio 11.7 (10-20) Glucose 93 (70-99) mg/dl Calcium 8.9 (8.5-10.1) mg/dl Total Bilirubin 0.4 (0.2-1) mg/dl AST 16 (15-37) U/L ALT 22 (12-78) U/L Alkaline Phosphatase 120 H (45-117) U/L POC Troponin I < 0.03 (0-0.045) ng/ml Total Protein 7.5 (6.4-8.2) gm/dl Albumin 3.7 (3.4-5.0) gm/dl Globulin 3.8 (2.5-4.0) gm/dl Albumin/Globulin Ratio 1.0 (0.9-2) Imaging Data Radiologist's Impression: Radiology results as stated below per my review and the radiologist's interpretation: SINGLE VIEW CHEST CLINICAL HISTORY: Atypical chest pain. FINDINGS: 2 AP, portable, upright chest radiographs are compared to chest x-ray and chest CT dated 02/01/2017 and 09/24/2010. The cardiomediastinal silhouette is unremarkable. Emphysema and chronic interstitial thickening are similar to previous. No airspace consolidation or pleural effusion is identified. Small nodular densities likely represent pleural plaques are were seen on prior examinations. Small calcified granulomas are noted. No pneumothorax is seen. The skeletal structures are osteopenic. The bony thorax is grossly intact. IMPRESSION: Emphysematous change with no acute cardiopulmonary abnormality. Electronically signed by: Nas Armando M.D. 07/27/2018 8:56 PM ECG Data Attestation: I personally reviewed and interpreted this ECG as follows: Indication: chest pain Rate (beats per minute): 67 Rhythm: normal sinus Findings: + LBBB and + ST depression (slight in inferior leads that are concordant) Comparison ECG Date: from (2016) Change: no significant change (LBBB is old) Additional Comments: REPEAT EKG: sins bradycardia, 59 bpm, LBBB, no concordant ST depressions. Blood Pressure Blood Pressure Findings: Elevated blood pressure Blood Pressure Disposition: Referred to patients primary care provider MDM Narrative I did perform a limited focused review of portions of the patient's old chart on the electronic medical record. The patient has had no recent pertinent visits to this hospital. I did evaluate the patient as noted above. The patient is presenting with chest pain. He has a prior history of heart disease. He did take aspirin prior to arrival. IV access was established. The patient was placed on a continuous manager cardiac cath. I did order and personally review the patient's 12-lead EKG and chest x-ray as described above. His twelve-lead EKG shows an old left bundle branch block but he had some concordant ST depressions in the inferior leads. I did treat him with a sublingual nitroglycerin. His chest pain completely resolved after one nitroglycerin. I did order and review the patient's blood work as noted in the electronic medical record. Troponin is negative. I did repeat another twelve-lead EKG which did not demonstrate the ST depressions as seen earlier. I did discuss the test results with the patient. I did recommend hospitalization for further evaluation. I did discuss case with the hospitalist and case mgr. Impression & Plan Chest pain, Abnormal ECG Discharge Plan Visit Data Chief Complaint: Cardiac Assessment Stated Complaint: MIGHT BE HAVING A HEART ATTACK ED Provider: Ambrosio Castillo Discharge Problem: Chest pain, Abnormal ECG Patient Disposition: Being Evaluated by Hospitalist Discharge Instructions Interventions: ED Discharge Assessment Last Done: 07/27/18 23:40 Forms Stand Alone Forms: My [facility] [employer] Prescriptions Prescriptions: No Action atorvastatin [Lipitor] 20 mg tablet 20 mg PO DAILY RF: 0 donepezil [Aricept] 10 mg tablet 10 mg PO DAILY RF: 0 amlodipine [Norvasc] 5 mg tablet 5 mg PO DAILY RF: 0 aspirin [Aspir-81] 81 mg Tablet,Delayed Release (Dr/Ec) 81 mg PO DAILY RF: 0 acetaminophen [Tylenol Extra Strength] 500 mg Tablet 500 mg PO QAM PRN (Reason: Pain) RF: 0 acetaminophen [Tylenol Arthritis Pain] 650 mg Tablet Extended Release 1 - 2 tabs PO Q12H PRN (Reason: Pain) RF: 0 metoprolol tartrate [Lopressor] 50 mg tablet 50 mg PO DIRECTED RF: 0 memantine [Namenda] 10 mg tablet 10 mg PO BID RF: 0 Referrals Referrals: Idris German MD [Primary Care Provider] - Discharge Problem: Chest pain Qualifiers: Chest pain type: unspecified Qualified Code(s): R07.9 - Chest pain, unspecified The scribe's documentation has been prepared under my direction and personally reviewed by me in its entirety. I confirm that the note above accurately reflects all work, treatment, procedures, and medical decision making performed by me.
[2018-07-28] MEDS ORDERED: MAGNESIUM HYDROXIDE SUSP 30 ML UDC PO PRN (00:17)
[2018-07-28] MEDS ORDERED: NITROGLYCERIN SL 0.4 MG/TAB TAB SL PRN (00:17)
[2018-07-28] MEDS ORDERED: ACETAMINOPHEN 500 MG TAB PO PRN (00:17)
[2018-07-28] MEDS ORDERED: ONDANSETRON INJ 2 MG/ML 2 ML VIAL IV PRN (00:17)
[2018-07-28] MEDS ORDERED: ALUMINUM/MAGNESIUM SUSP 30 ML UDC PO PRN (00:17)
[2018-07-28] MEDS ORDERED: POLYETHYLENE (MIRALAX) 17 GM PACK PO PRN (00:17)
[2018-07-28] MEDS ORDERED: LORazepam 1 MG/2 ML VIAL IV PRN (00:17)
[2018-07-28 00:39] LABS: Troponin I 0.017 ng/ml (0-0.045)
[2018-07-28 04:03] VITALS: O2SAT 97
--- NOTE | 2018-07-28 08:45 | Hospitalist Progress Note ---
Date of Service July 28, 2018 Assessment & Plan (1) Chest pain: Assessment: Chest pain secondary to unstable angina versus musculoskeletal pain versus gastritis/GERD left bundle branch block is chronic confounding history of peptic ulcer Lipitor 20 mg, aspirin 81 mg, and metoprolol echo pending - (2) Abnormal ECG: -Per report, there were dynamic ST changes on EKG with chest pain. Possible ST depression seen in inferior lead. (3) Alzheimer's dementia: Patient frequently sundowns - donepezil 10 mg daily, Namenda 10 mg p.o. twice daily -Ativan for anxiety agitation (4) Benign essential hypertension: metoprolol tartrate 50 mg twice daily, amlodipine 5 mg daily (5) Dyslipidemia: Lipitor 20 mg daily Physical Exam Vital Signs (Past 24 Hours): Last Vital Signs Temp 37.1 C 07/28/18 06:50 Pulse 64 07/28/18 06:50 Resp 18 07/28/18 06:50 BP 169/92 H 07/28/18 06:50 Pulse Ox 97 07/28/18 06:50 (1) Chest pain Chest pain type: unspecified Qualified Code(s): R07.9 - Chest pain, unspecified
[2018-07-28] MEDS ORDERED: ASPIRIN 81 MG ECTAB PO SCH (09:00)
[2018-07-28] MEDS ORDERED: METOPROLOL TARTRATE 50 MG TAB PO SCH (09:00)
[2018-07-28] MEDS ORDERED: MEMANTINE HCL 10 MG TAB PO SCH (09:00)
[2018-07-28] MEDS ORDERED: DONEPEZIL HCL 10 MG TAB PO SCH (09:00)
[2018-07-28] MEDS ORDERED: ATORVASTATIN 20 MG TAB PO SCH (09:00)
[2018-07-28] MEDS ORDERED: AMLODIPINE BESYLATE 5 MG TAB PO SCH (09:00)
[2018-07-28 11:44] VITALS: TEMP 97.3
[2018-07-28 12:08] VITALS: BP 153/67; PULSE 69
--- NOTE | 2018-07-28 15:55 | Discharge Summary ---
Date of Service July 28, 2018 Admission HPI Per Admitting Provider This is an 87 yo M who comes to the ED via EMS. His called after the patient complained of left sided chest pain that began at about 7:30 earlier this evening. Patient is an extremely poor historian given his dementia, he does not recall the event and does not understand why he is here in the hospital. provides history. Pt was lying down. She states she did not notice that he was sweaty or in distress, but was concerned because he said he felt pain in the left side of chest. Possible remote [place] history, but she is unsure. ED course: Hypertensive, not tachycardic, afebrile, not hypoxic. CBC unrem arkable. Chemistry profile reveals no significant abnormalities. Initial troponin was detectable at 0.03. Chest x-ray shows chronic emphysematous change, no acute abnormalities. Per report, possible dynamic ST changes during chest pain. Principal Diagnosis Atypical chest pain, uncontrolled hypertension Discharge Exam The patient appeared well nourished and normally developed. He was pleasantly forgetful Vital signs as documented. Head exam is unremarkable. normocephalic, atraumatic Neck is without jugular venous distension, thyromegaly, or lymphademopathy Lungs are clear to auscultation and percussion. Cardiac exam reveals Rhythm is regular. First and second heart sounds normal. Abdominal exam reveals normal bowel sounds, no masses, no organomegaly Extremities are nonedematous and both pedal pulses are present Neurologic exam is A&Ox2, no focal deficits, strength is equal bilateral his is redirects quite frequently during exam Psychologically seems anxious Skin is warm Dry without bruises or lesions Discharge Data Allergies Allergy/AdvReac Type Severity Reaction Status Date / Time hydrochlorothiazide Allergy Unknown UNKNOWN Verified 07/27/18 21:48 Penicillins Allergy Unknown ? UNKNOWN Verified 07/27/18 21:48 Sulfa (Sulfonamide Allergy Unknown ITCHINESS, Verified 07/27/18 21:48 Antibiotics) RED SKIN oxycodone AdvReac Intermediate CONSTIPATION, Verified 07/27/18 21:48 MALAISE Consultations 07/27/18 20:59 ED Decision to Admit Stat 07/28/18 00:17 Consult Case Management - Discharge Planning Routine Hospital Course (1) Chest pain: Patient's forgetfulness has him not even recollecting the events of eye discomfort that led him to the hospital. He denies any recent events here in the hospital is been ambulating without any challenges. The patient had some elevation of his blood pressure this morning prior to taking his metoprolol tartrate in his symptoms occurred in the evening which is probably near 12 hours after his initial morning dose. He typically was taking tartrate only once a day. His echocardiogram was reviewed without significant valvular heart disease or regional wall motion abnormalities and decision was made to have the patient discharged home changing his tartrate to succinate hoping to have more smooth blood pressure control throughout the day. This medication changes could indicate to him is his and also based on his discharge summary Lipitor 20 mg, aspirin 81 mg, and metoprolol succinate 50 mg once a day echo without significant changes - (2) Abnormal ECG: -No dynamic EKG changes noted (3) Alzheimer's dementia: Patient frequently - donepezil 10 mg daily, Namenda 10 mg p.o. twice daily With case management speak to the patient's who felt she was quite frazzled with the patient's declining mental state. We offered to search to have the patient possibly placed temporarily in a snf facility or possibly even a Alzheimer's type unit per the patient's did not feel she was to pursue this measure at this time. The patient's did choose a home health agency she can have some help from her son and her having case management look into adult daycare to try to give the some time where she can feel safe that the patient is being cared for but also be allowed to take care of her activities of daily living. This patient is dementia is severe and he likely will graduate towards a snf facility in the short-term future (4) Benign essential hypertension: This is not been well controlled we change his metoprolol tartrate to succinate 50 mg once a day in addition to his amlodipine, 5 mg daily (5) Dyslipidemia: Lipitor 20 mg daily Total Time Total Time Spent Total Time Spent (In Minutes): greater than 30 minutes were required to prepare discharge Discharge Plan Discharge Items Patient Disposition: Home - Home Health Services Reason For Visit: CHEST PAIN Discharge Diagnosis: atypical chest pain Discharge Goals: Decrease discomfort Activity: Resume your previous activity Non-emergency contact: Primary Care Provider Call non-emergency contact if: you have any medication questions Follow-up/Referrals: Idris German MD [Primary Care Provider] - 08/06/18 3:00 pm (Please, follow up with Dr. Idris German on ThursdayAugust 06 at 3:00 pm. *If you need to change this appointment, call the office at [phone].) Diet: Regular Addtl Provider Instructions: please follow with your pcp start new toprol medicine tomorrow and stop metoprolol tartrate Prescriptions: New metoprolol succinate 50 mg tablet extended release 24 hr 50 mg PO DAILY Qty: 30 RF: 6 Continued atorvastatin [Lipitor] 20 mg tablet 20 mg PO DAILY RF: 0 donepezil [Aricept] 10 mg tablet 10 mg PO DAILY RF: 0 amlodipine [Norvasc] 5 mg tablet 5 mg PO DAILY RF: 0 aspirin [Aspir-81] 81 mg Tablet,Delayed Release (Dr/Ec) 81 mg PO DAILY RF: 0 acetaminophen [Tylenol Extra Strength] 500 mg Tablet 500 mg PO QAM PRN (Reason: Pain) RF: 0 acetaminophen [Tylenol Arthritis Pain] 650 mg Tablet Extended Release 1 - 2 tabs PO Q12H PRN (Reason: Pain) RF: 0 memantine [Namenda] 10 mg tablet 10 mg PO BID RF: 0 Discontinued metoprolol tartrate [Lopressor] 50 mg tablet 50 mg PO DIRECTED RF: 0 Stand-Alone Forms: [employer]/Other Patient Handouts: GERD Lifestyle Changes Discharge Orders: Discharge Order (Routine); Ordered 07/28/18 Ordered By: Ambrosio Rivera Admission Data Admit Date/Time: 07/27/18 23:17 Attending Provider: Ambrosio Rivera Admit Provider: Sheyla Mckeon Primary Care Provider: Idris German Other Providers: Carlos Mckeon Service: Telemetry Other Interventions: Discharge Summary Assessment (RN) Last Done: 07/28/18 14:09 DC Date/Time DO NOT enter until pt leaves facility: 07/28/18 15:34
--- NOTE | 2018-07-28 16:30 | Medical Student Progress Note ---
Date of Service July 28, 2018 Assessment & Plan (1) Chest pain: 87yo M with dementia, HTN, HLD, remote hx of [place]?, LBBB admitted after presenting with left sided chest pain. No acute changes on EKG x 3. Troponin neg x2 (0.017, 0.017). CXR no acute changes. CBC and CMP unremarkable. Echo shows no new abnormalities. Clinical suspicion is low that this chest pain was cardiac related. Given presentation and time course of event-- reflux may be a contributing factor. Requested pt sit upright for 30min after meals. No GERD medication warranted at this time as does not seem to be chronic problem. Pt BP has been elevated during hospital stay-- will change metoprolol tartrate to metoprolol succinate. Chest pain type: unspecified Qualified Code(s): R07.9 - Chest pain, unspecified Subjective 87yo M with dementia, HTN, HLD, remote hx of [place]?, LBBB admitted after presenting with left sided chest pain. pt describes that the pain was dull; occurred will laying on the couch watching TV; saw him put his hand to his left chest and became concerned-- brought him to ED. fills in details as pt is a poor historian due to Alzheimer's dementia. pain did not radiate, not positional no n/v/diaphoresis pt couldn't report if anything made it better or worse pain lasted 10min pt points to LUQ of abd when asked where the pain was. ate dinner 30 min prior to pain. no f/c/sob Physical Exam Vital Signs (Past 24 Hours): Last Vital Signs Temp 36.3 C L 07/28/18 14:09 Pulse 69 07/28/18 14:09 Resp 20 07/28/18 14:09 BP 153/67 H 07/28/18 14:09 Pulse Ox 97 07/28/18 14:09 Physical Exam: GENERAL: WD/WN, alter, difficulty answering questions due to memory impairment HEENT: Head: Atraumatic, normocephalic. Eyes: EOMI, Nose: No nasal congestion. Mouth: Moist mucous membranes, no lesions. Neck: Supple, no JVD, Nervous System: Mental status: Cranial nerves IIXII grossly intact. Motor: Strength 5/5 in all muscle groups. Chest/Lung: Clear to auscultation bilaterally. No rales, rhonchi, wheezing, or rubs. Heart: Regular rate and rhythm. Normal S1, S2. No murmurs, rubs, or gallops. Abdomen: Soft, nontender, nondistended, BS present, Extremities: No clubbing, cyanosis, or edema.
== END 2018-07-28 15:34 | disposition home health service (06) ==
LOC: 2S 20:03 → ED 20:03 → SUATTDRO 23:17 → 2S 23:40

== ENCOUNTER 2018-07-28 18:30 | Inpatient (IN) ==
[2018-07-28] MEDS ORDERED: SODIUM CHLORIDE 0.9% 500 ML IV SCH (19:15)
--- NOTE | 2018-07-28 19:56 | XRay Report ---
XR chest 1V portable CLINICAL HISTORY: near syncope mental status change COMPARISON STUDY: 07/27/2018 FINDINGS: The bones soft tissues and hemidiaphragms are normal. The cardiomediastinal silhouette is n ormal. The lungs are clear. The pulmonary vasculature is normal. Stable emphysematous change IMPRESSION: Emphysematous change. No acute process. No change from the prior study. The above report was generated using voice recognition software. It may contain grammatical, syntax or spelling errors. Electronically signed by: Juan R Carreon M.D. 07/28/2018 7:55 PM
[2018-07-28 20:09] LABS: Basophils # (auto) 0.03 K/uL (0-0.2); Basophils % (auto) 0.3 %; Eosinophils # (auto) 0.04 K/uL (0-0.5); Eosinophils % (auto) 0.4 %; Hematocrit (blood only) 48.7 % (42-52); Hemoglobin 17.6 g/dL (14.0-18.0); Immature Granulocytes # (auto) 0.06 K/uL (0.00-0.02); Immature Granulocytes % (auto) 0.5 %; Lymphocytes # (auto) 1.35 K/uL (1.2-3.4); Lymphocytes % (auto) 12.2 %; Mean Corpuscular Hgb Conc 36.1 g/dL (32-36); Mean Corpuscular Volume 88.1 fL (80-100); Monocytes # (auto) 1.27 K/uL (0.11-0.59); Monocytes % (auto) 11.5 %; Neutrophils % (auto) 75.1 %; RDW Coefficient of Variation 12.5 % (11.5-14.5); Red Blood Count 5.53 M/uL (4.7-6.1); White Blood Count 11.05 K/uL (4.8-10.8)
[2018-07-28 20:26] LABS: INR 1.2 (0.9-1.1); Partial Thromboplastin Ratio 0.9; Partial Thromboplastin Time 23.4 Seconds (21.0-31.0); Prothrombin Time 11.8 Seconds (9.0-12.0)
[2018-07-28 20:38] LABS: Albumin Level 3.8 gm/dl (3.4-5.0); BUN Creatinine Ratio 9.8 (10-20); Bilirubin,Total 0.8 mg/dl (0.2-1); Calcium 8.9 mg/dl (8.5-10.1); Creatinine Clr Calc Pharmacy 34.7 ml/min; Est GFR (African American) 46.6; Est GFR (Non-African American) 40.2; Potassium 3.7 mmol/L (3.5-5.1); Total Protein 7.8 gm/dl (6.4-8.2)
[2018-07-28] MEDS ORDERED: LORazepam 0.5 MG/1 ML VIAL IV STA (21:41)
[2018-07-28 21:45] LABS: Troponin I 0.031 ng/ml (0-0.045)
[2018-07-28] MEDS ORDERED: cefTRIAXone SODIUM 1,000 MG/50 ML BAG IV STA (23:51)
--- NOTE | 2018-07-29 01:31 | History & Physical Report ---
Date of Service July 29, 2018 Assessment & Plan (1) Altered mental status: Altered mental status/SDAT/syncope and near syncope/then developed unresponsiveness-- Unclear etiology at this time. Initial metabolic workup was normal. I then ordered a CT of brain without contrast which was negative for acute event including bleed. MRI of the brain without contrast to assess for possible stroke is ordered now and pending. EEG will be ordered. IV fluids We will consult neurology to get their opinion. NPO in the interim. Present on Admission?: Yes (2) Alzheimer's dementia: We will hold on medications at this time while NPO Present on Admission?: Yes (3) Near syncope: Presentation was most consistent with that of a CVA or seizure. MRI of brain is ordered and pending. Will order an EEG. Consult neurology Present on Admission?: Yes (4) Dyslipidemia: Present on Admission?: Yes (5) Benign essential hypertension: Hold oral medications while n.p.o. Permissive hypertension overnight Present on Admission?: Yes History of Present Illness Chief Complaint: The patient was brought to the emergency department after sudden loss of consciousness at the dinner table just prior to arrival. Primary Care Provider: Idris German MD The patient is a 87-year-old male status post hospitalization at this hospital from July 27. He had been discharged earlier in the day on the , after being admitted for chest pain with a negative cardiac workup at that time. His and son report that he appeared to be doing reasonably well until after dinner, when he suddenly lost consciousness. They said that his eyes rolled backwards, and after awakening he had a headache was sweaty and vomited. The patient himself is nonresponsive during my assessment, and family has already left, so information is gathered through ED notes. Allergies Allergy/AdvReac Type Severity Reaction Status Date / Time hydrochlorothiazide Allergy Unknown UNKNOWN Verified 07/27/18 21:48 Penicillins Allergy Unknown ? UNKNOWN Verified 07/27/18 21:48 Sulfa (Sulfonamide Allergy Unknown ITCHINESS, Verified 07/27/18 21:48 Antibiotics) RED SKIN oxycodone AdvReac Intermediate CONSTIPATION, Verified 07/27/18 21:48 MALAISE Home Medications Home Medications Medication Instructions Recorded Confirmed Type acetaminophen [Tylenol Arthritis 1 - 2 tabs PO Q12H PRN 07/27/18 07/28/18 History Pain] acetaminophen [Tylenol Extra 500 mg PO QAM PRN 07/27/18 07/28/18 History Strength] amlodipine [Norvasc] 5 mg PO DAILY 07/27/18 07/28/18 History aspirin [Aspir-81] 81 mg PO DAILY 07/27/18 07/28/18 History atorvastatin [Lipitor] 20 mg PO DAILY 07/27/18 07/28/18 History donepezil [Aricept] 10 mg PO DAILY 07/27/18 07/28/18 History memantine [Namenda] 10 mg PO BID 07/27/18 07/28/18 History metoprolol succinate 50 mg PO DAILY #30 tab 07/28/18 07/28/18 Rx Past Med/Surg History Medical History Dyslipidemia (Chronic) Benign essential hypertension (Chronic) Alzheimer's dementia (Chronic) Heart attack (Suspected) Arthritis of neck Surgical History Hx of total knee arthroplasty Family History Other Family history non-contributory Social History Preferred Language: Togolese Communication Ability: Impaired Communication Ability Comment: Dementia [employer] Required: Yes Beliefs That Will Affect Care: None marital status: Current Living Situation: Spouse Feels Safe at Home: Yes Smoking Status: Former smoker Hx Alcohol Use: No Hx Substance Use: No Review of Systems Review of systems is limited due to patient's present mental state. Physical Exam Vital Signs (Past 24 Hours): Last Vital Signs Temp 36.5 C 07/28/18 18:43 Pulse 98 H 07/28/18 23:57 Resp 18 07/28/18 23:57 BP 166/84 H 07/28/18 23:57 Pulse Ox 98 07/28/18 23:57 Physical Exam: The patient is nonresponsive, normocephalic and atraumatic, lying in bed and in no acute distress. HEENT--PERRL, EOMI, mucous membranes and oropharynx dry. Neck--supple. No JVD. No bruits. Thyroid normal, trachea midline, no adenopathy. Heart--normal S1 and S2. No murmurs, rubs or gallops. Lungs--clear bilaterally, no respiratory distress, no accessory muscle use. Abdomen--normal bowel sounds and soft. Nontender. Nondistended. Extremities--no cyanosis or clubbing. No edema. There are good distal pulses b/l. Dermatologic--normal skin turgor, normal color, no abnormal lymph nodes, no rash. Neurologic--cranial nerves II through XII grossly intact. Rheumatologic--limited exam due to mental state Psychiatric--limited exam due to mental state Results & Data Laboratory Results Laboratory Results WBC 11.05 K/uL (4.8-10.8) H 07/28/18 19:25 RBC 5.53 M/uL (4.7-6.1) 07/28/18 19:25 Hgb 17.6 g/dL (14.0-18.0) 07/28/18:25 Hct 48.7 % (42-52) 07/28/18: MCV 88.1 fL (80-100) 07/28/18:25 MCH 31.8 pg (25-34) 07/28/18: MCHC 36.1 g/dL (32-36) H 07/28/18:25 RDW Std Deviation 40.0 fL (36.4-46.3) 07/28/18:25 RDW Coeff of Danii 12.5 % (11.5-14.5) 07/28/18 19:25 Plt Count K/uL (130-400) 07/28/18: MPV fL (7.4-10.4) 07/28/18:25 Immature Gran % (Auto) 0.5 % 07/28/18 19:25 Neut % (Auto) 75.1 % 07/28/18 19:25 Lymph % (Auto) 12.2 % 07/28/18:25 Mason % (Auto) 11.5 % 07/28/18 19:25 Eos % (Auto) 0.4 % 07/28/18 19:25 Baso % (Auto) 0.3 % 07/28/18 19:25 Immature Gran # (Auto) 0.06 K/uL (0.00-0.02) H 07/28/18:25 Neut # (Auto) 8.30 K/uL (1.4-6.5) H 07/28/18 19:25 Lymph # (Auto) 1.35 K/uL (1.2-3.4) 07/28/18 19:25 Mason # (Auto) 1.27 K/uL (0.11-0.59) H 07/28/18 19:25 Eos # (Auto) 0.04 K/uL (0-0.5) 07/28/18 19:25 Baso # (Auto) 0.03 K/uL (0-0.2) 07/28/18 19:25 Plt Count ,Citrate 202 K/uL (130-400) 07/28/18 20:24 PT 11.8 Seconds (9.0-12.0) 07/28/18 20:03 INR 1.2 (0.9-1.1) H 07/28/18 20:03 APTT 23.4 Seconds (21.0-31.0) 07/28/18 20:03 PTT Ratio 0.9 07/28/18 20:03 Sodium 142 mmol/L (136-145) 07/28/18 20:03 Potassium 3.7 mmol/L (3.5-5.1) 07/28/18 20:03 Chloride 109 mmol/L (98-107) H 07/28/18 20:03 Carbon Dioxide 22 mmol/L (21-32) 07/28/18 20:03 Anion Gap 11.0 (3-11) 07/28/18 20:03 BUN 15 mg/dl (7-18) 07/28/18 20:03 Creatinine 1.55 mg/dl (0.6-1.4) H 07/28/18 20:03 Est Cr Clr Drug Dosing 34.7 ml/min 07/28/18 20:03 Est GFR ( Amer) 46.6 07/28/18 20:03 Est GFR (Non-Af Amer) 40.2 07/28/18 20:03 BUN/Creatinine Ratio 9.8 (10-20) L 07/28/18 20:03 Glucose 129 mg/dl (70-99) H 07/28/18 20:03 Calcium 8.9 mg/dl (8.5-10.1) 07/28/18 20:03 Magnesium 2.0 mg/dl (1.8-2.4) 07/28/18 20:03 Total Bilirubin 0.8 mg/dl (0.2-1) 07/28/18 20:03 AST 19 U/L (15-37) 07/28/18 20:03 ALT 22 U/L (12-78) 07/28/18 20:03 Alkaline Phosphatase 126 U/L (45-117) H 07/28/18 20:03 Troponin I 0.031 ng/ml (0-0.045) 07/28/18 20:03 Total Protein 7.8 gm/dl (6.4-8.2) 07/28/18 20:03 Albumin 3.8 gm/dl (3.4-5.0) 07/28/18 20:03 Globulin 4.0 gm/dl (2.5-4.0) 07/28/18 20:03 Albumin/Globulin Ratio 1.0 (0.9-2) 07/28/18 20:03 Lipase 175 U/L (73-393) 07/28/18 20:03 TSH 2.720 uIu/ml (0.300-4.500) 07/28/18 20:03 Diagnostic Findings [place], [place] [phone] XRay Report Patient: GÉNESIS DAVISON Date: 07/28/18 MR#: [id number]: Joi GABRIEL Acct ID:[id number]: Date: 1930[facility] Zip: [place] [address] Age: 87Location: ED Sex: M Room/Bed: Att Phy: Diagnosis: NEAR SYNCOPE, AB PAIN [place] Phy: Idris German M.D.Service Date: 07/28/18 Fam Phy: Interpreting Phy: Juan R Carreon MD Admit Phy: Ordering Phy: Jacinto Guerra M.D. cc: ~ XR chest 1V portable CLINICAL HISTORY: near syncope mental status change COMPARISON STUDY: 07/27/2018 FINDINGS: The bones soft tissues and hemidiaphragms are normal. The cardiomediastinal silhouette is normal. The lungs are clear. The pulmonary vasculature is normal. Stable emphysematous change IMPRESSION: Emphysematous change. No acute process. No change from the prior study. The above report was generated using voice recognition software. It may contain grammatical, syntax or spelling errors. Electronically signed by: Juan R Carreon M.D. 07/28/2018 7:55 PM Dictated: 07/28/181953 Transcribed: 07/28/181953 Code Status & VTE Plan Code Status Full code VTE Prophylaxis Plan VTE Prophylaxis will be ordered: Yes
--- NOTE | 2018-07-29 01:57 | Emergency Department Note ---
Entered by Serg Meng acting as a scribe for History of Present Illness General Chief complaint: Illness Stated complaint: NEAR SYNCOPE, AB PAIN Time Seen by Provider: 07/28/18 18:51 Source: patient and family History of Present Illness Provider complaint: Syncope Onset (ago): hour(s) (Just prior to arrival) Location: head Radiation: non-radiation Pain Consistency: + intermittent Relieved By: + none Exacerbated By: + none Associated symptoms: + chest pain, + diaphoresis, + fever/chills (No fever), + headaches and + nausea/vomiting The patient is an 87 year old male w/ PMHx Alzheimer's dementia, [place], dyslipidemia, and HTN who presents to the ED after losing consciousness at the dinner table just prior to arrival, per the family. They state the episode was sudden and he could not be woken up at first. They also said his eyes rolled back. Upon awakening, he had a headache, was very diaphoretic and vomited. The patient was just discharged from the hospital today and states he is currently nauseous, has the chills and has non-radiating left sided chest pain. Majority of HPI was given by family secondary to patient dementia. Home Medications Home Medications Medication Instructions Recorded Confirmed Type acetaminophen [Tylenol Arthritis 1 - 2 tabs PO Q12H PRN 07/27/18 07/28/18 History Pain] acetaminophen [Tylenol Extra 500 mg PO QAM PRN 07/27/18 07/28/18 History Strength] amlodipine [Norvasc] 5 mg PO DAILY 07/27/18 07/28/18 History aspirin [Aspir-81] 81 mg PO DAILY 07/27/18 07/28/18 History atorvastatin [Lipitor] 20 mg PO DAILY 07/27/18 07/28/18 History donepezil [Aricept] 10 mg PO DAILY 07/27/18 07/28/18 History memantine [Namenda] 10 mg PO BID 07/27/18 07/28/18 History metoprolol succinate 50 mg PO DAILY #30 tab 07/28/18 07/28/18 Rx Allergies Allergy/AdvReac Type Severity Reaction Status Date / Time hydrochlorothiazide Allergy Unknown UNKNOWN Verified 07/27/18 21:48 Penicillins Allergy Unknown ? UNKNOWN Verified 07/27/18 21:48 Sulfa (Sulfonamide Allergy Unknown ITCHINESS, Verified 07/27/18 21:48 Antibiotics) RED SKIN oxycodone AdvReac Intermediate CONSTIPATION, Verified 07/27/18 21:48 MALAISE Past Med/Surg History Medical History Dyslipidemia (Chronic) Benign essential hypertension (Chronic) Alzheimer's dementia (Chronic) Heart attack (Suspected) Arthritis of neck Surgical History Hx of total knee arthroplasty Family History Other Family history non-contributory Social History Preferred Language: Hungarian Communication Ability: Impaired Communication Ability Comment: Dementia [employer] Required: Yes Beliefs That Will Affect Care: None marital status: Current Living Situation: Spouse Feels Safe at Home: Yes Smoking Status: Former smoker Hx Alcohol Use: No Hx Substance Use: No Review of Systems See HPI for pertinent positives & negatives. and A total of 10 systems reviewed and were otherwise negative Physical Exam Vital Signs Vital Signs - 24 hr 07/29/18 01:40 07/29/18 02:27 07/29/18 02:47 Temperature 36.6 C Temperature Source Oral Pulse Rate - Lying Pulse Rate - Sitting Pulse Rate - Standing Pulse Rate 75 Pulse Rate [Finger] 67 69 Pulse Rhythm [Finger] Regular Regular Pulse Strength [Finger] Normal Normal Respiratory Rate 16 16 Respiratory Effort / Characteristics Non-Labored Non-Labored Spontaneous Respiratory Depth Normal Normal Respiratory Pattern Regular Regular Blood Pressure - Lying Blood Pressure - Sitting Blood Pressure- Standing Blood Pressure [Left Arm] Blood Pressure [Right Arm] 148/79 H 144/69 H Blood Pressure Mean [Left Arm] Blood Pressure Mean [Right Arm] 102 94 Blood Pressure Position [Left Arm] Blood Pressure Position [Right Arm] Lying Lying Pulse Oximetry 97 97 Oxygen Delivery Method Room Air Room Air 07/29/18 09:31 07/29/18 11:29 07/29/18 15:15 Temperature 36.7 C 36.5 C Temperature Source Oral Oral Pulse Rate - Lying 79 Pulse Rate - Sitting 76 Pulse Rate - Standing 93 H Pulse Rate Pulse Rate [Finger] 91 H 80 Pulse Rhythm [Finger] Pulse Strength [Finger] Respiratory Rate 18 18 Respiratory Effort / Characteristics Respiratory Depth Respiratory Pattern Blood Pressure - Lying 142/66 H Blood Pressure - Sitting 124/73 Blood Pressure- Standing 132/74 Blood Pressure [Left Arm] 136/73 189/64 H Blood Pressure [Right Arm] Blood Pressure Mean [Left Arm] 94 105 Blood Pressure Mean [Right Arm] Blood Pressure Position [Left Arm] Lying Lying Blood Pressure Position [Right Arm] Pulse Oximetry 96 98 Oxygen Delivery Method Room Air Room Air 07/29/18 16:42 07/29/18 20:00 07/29/18 23:48 Temperature 36.6 C 36.6 C Temperature Source Oral Oral Pulse Rate - Lying Pulse Rate - Sitting Pulse Rate - Standing Pulse Rate 77 Pulse Rate [Finger] 89 69 Pulse Rhythm [Finger] Pulse Strength [Finger] Respiratory Rate 22 18 Respiratory Effort / Characteristics Respiratory Depth Respiratory Pattern Blood Pressure - Lying Blood Pressure - Sitting Blood Pressure- Standing Blood Pressure [Left Arm] 176/80 H 175/81 H Blood Pressure [Right Arm] Blood Pressure Mean [Left Arm] 112 112 Blood Pressure Mean [Right Arm] Blood Pressure Position [Left Arm] Blood Pressure Position [Right Arm] Pulse Oximetry 97 98 Oxygen Delivery Method Room Air GENERAL: Well appearing, well nourished, NAD, non-toxic.Tachypneic. EYE EXAM: Normal conjunctiva. PERRL, no anisocoria and EOM's grossly intact w/o pain. OROPHARYNX: Moist MM. NECK: Supple, no nuchal rigidity, no adenopathy, non-tender. No signs of meningismus. LUNGS: Clear to auscultation. Normal chest wall mechanics. Tachypneic. HEART: NSR, no MRG. ABDOMEN: Abdomen soft, non-tender, normo-active bowel sounds, no masses, no rebound or guarding. CHEST: No reproducible chest wall pain. BACK: No CVA TTP. SKIN: No rashes and no bruising. UPPER EXTREMITIES: Upper extremities are grossly normal. LOWER EXTREMITIES: No pitting edema. No calf pain. NEURO EXAM: Alert with some repetitive speech. Follows commands. Moves all 4 extremities w/o issue. Course 1910: Past medical records reviewed. The patient was evaluated in room D03B, and a complete history and physical examination were performed. 2129: I updated and spoke with the family about the patient's results and plan for treatment. 2350: I spoke to Dr. Mckeon [facility] Hospitalist about the patient's case and he is going to accept him for further observation. Consultations Consultation #1: I spoke to Dr. Mckeon [facility] Hospitalist about the patient's case and he is going to accept him for further observation. Time: 23:50 Administered Medications Amlodipine Besylate (Norvasc) 5 mg PO QAM DIPESH Stop: 08/28/18 16:29 Last Admin: 07/29/18 17:29 Dose: 5 mg Documented by: [id number] Aspirin (Ecotrin Ectab) 81 mg PO DAILY DIPESH Stop: 08/28/18 16:29 Last Admin: 07/29/18 17:28 Dose: 81 mg Documented by: [id number] Atorvastatin Calcium (Lipitor) 20 mg PO DAILY DIPESH Stop: 08/28/18 16:29 Last Admin: 07/29/18 17:28 Dose: 20 mg Documented by: [id number] Donepezil HCl (Aricept) 10 mg PO DAILY DIPESH Stop: 08/28/18 16:29 Last Admin: 07/29/18 17:28 Dose: 10 mg Documented by: [id number] Heparin Sodium (Porcine) (Heparin Sodium (Porcine)) 5,000 units SQ Q12 DIPESH Stop: 08/28/18 08:59 Last Admin: 07/29/18 19:51 Dose: 5,000 units Documented by: [id number] Cosigned by: [id number] Admin: 07/29/18 09:24 Dose: 5,000 units Documented by: [id number] Cosigned by: [id number] Sodium Chloride (Nss 1000ml) 1,000 mls @ 80 mls/hr IV .[id number] DIPESH Stop: 08/28/18 02:15 Last Admin: 07/29/18 23:57 Dose: 80 mls/hr Documented by: [id number] Infusion: 07/29/18 23:57 Dose: 80 mls/hr Documented by: [id number] Admin: 07/29/18 15:07 Dose: 80 mls/hr Documented by: [id number] Infusion: 07/29/18 15:07 Dose: 80 mls/hr Documented by: [id number] Infusion: 07/29/18 14:32 Dose: 80 mls/hr Documented by: [id number] Admin: 07/29/18 03:00 Dose: 80 mls/hr Documented by: [id number] Memantine (Namenda) 10 mg PO BID [facility] Stop: 08/28/18 20:59 Last Admin: 07/29/18 19:50 Dose: 10 mg Documented by: [id number] Metoprolol Succinate (Toprol Xl) 50 mg PO DAILY DIPESH Stop: 08/28/18 16:29 Last Admin: 07/29/18 17:29 Dose: 50 mg Documented by: [id number] Discontinued Medications Aspirin (Ecotrin Ectab) 81 mg PO QAM DIPESH Stop: 08/28/18 16:14 Last Admin: 07/29/18 16:28 Dose: Not Given Documented by: [id number] Donepezil HCl (Aricept) 10 mg PO QAM [facility] Stop: 08/28/18 16:14 Last Admin: 07/29/18 16:28 Dose: Not Given Documented by: [id number] Sodium Chloride (Nss) 500 mls @ 999 mls/hr IV .Q31M DIPESH Stop: 07/28/18 19:45 Last Infusion: 07/28/18 20:11 Dose: 0 mls/hr Documented by: [id number] Admin: 07/28/18 19:36 Dose: 999 mls/hr Documented by: [id number] Lorazepam (Ativan) 0.5 mg in 1 mls @ 1 mls/min IV NOW STA Stop: 07/28/18 21:42 Last Admin: 07/28/18 21:57 Dose: 1 mls/min Documented by: [id number] Ceftriaxone Sodium (Rocephin) 1,000 mg in 50 mls @ 100 mls/hr IV NOW STA Stop: 07/29/18 00:20 Last Infusion: 07/29/18 00:48 Dose: 0 mls/hr Documented by: [id number] Admin: 07/29/18 00:09 Dose: 100 mls/hr Documented by: [id number] Sodium Chloride (Nss 1000ml) 500 mls @ 999 mls/hr IV .Q31M ONE Stop: 07/29/18 12:36 Last Infusion: 07/29/18 14:32 Dose: 0 mls/hr Documented by: [id number] Admin: 07/29/18 13:16 Dose: 999 mls/hr Documented by: [id number] Memantine (Namenda) 10 mg PO QAM [facility] Stop: 08/28/18 16:14 Last Admin: 07/29/18 16:29 Dose: Not Given Documented by: [id number] Medical Decision Making Medical Records Attestation: I reviewed the patient's medical records. Home Medications Current Medication List: was personally reviewed by me Laboratory Data Attestation: I reviewed the patient's lab results. Result diagrams: 07/29/18 09:08 07/29/18 09:08 Lab Results 07/28/18 07/28/18 07/28/18 Range/Units 19:25 19:25 19:25 WBC 11.05 H (4.8-10.8) K/uL RBC 5.53 (4.7-6.1) M/uL Hgb 17.6 (14.0-18.0) g/dL Hct 48.7 (42-52) % MCV 88.1 (80-100) fL MCH 31.8 (25-34) pg MCHC 36.1 H (32-36) g/dL RDW Std Deviation 40.0 (36.4-46.3) fL RDW Coeff of Danii 12.5 (11.5-14.5) % Plt Count (130-400) K/uL MPV (7.4-10.4) fL Immature Gran % (Auto) 0.5 % Neut % (Auto) 75.1 % Lymph % (Auto) 12.2 % Brooks % (Auto) 11.5 % Eos % (Auto) 0.4 % Baso % (Auto) 0.3 % Immature Gran # (Auto) 0.06 H (0.00-0.02) K/uL Neut # (Auto) 8.30 H (1.4-6.5) K/uL Lymph # (Auto) 1.35 (1.2-3.4) K/uL Brooks # (Auto) 1.27 H (0.11-0.59) K/uL Eos # (Auto) 0.04 (0-0.5) K/uL Baso # (Auto) 0.03 (0-0.2) K/uL Plt Count ,Citrate (130-400) K/uL PT Cancelled INR Cancelled APTT Cancelled PTT Ratio Cancelled Sodium Cancelled Potassium Cancelled Chloride Cancelled Carbon Dioxide Cancelled Anion Gap Cancelled BUN Cancelled Creatinine Cancelled Est Cr Clr Drug Dosing Cancelled Est GFR ( Amer) Cancelled Est GFR (Non-Af Amer) Cancelled BUN/Creatinine Ratio Cancelled Glucose Cancelled Calcium Cancelled Magnesium Cancelled Total Bilirubin Cancelled AST Cancelled ALT Cancelled Alkaline Phosphatase Cancelled Troponin I Cancelled Total Protein Cancelled Albumin Cancelled Globulin Cancelled Albumin/Globulin Ratio Cancelled Lipase Cancelled TSH Cancelled Urine Color Urine Appearance (Clear) Urine pH (4.5-7.5) Ur Specific [place] (1.000-1.030) Urine Protein (Negative) Urine Glucose (UA) (Negative) Urine Ketones (Negative) Urine Blood (Negative) Urine Nitrite (Negative) Urine Bilirubin (Negative) Urine Urobilinogen (Negative) Ur Leukocyte Esterase (Negative) Urine WBC (Auto) (0-5) /hpf Urine RBC (Auto) (0-4) /hpf U Hyaline Cast (Auto) (0-5) /lpf U Epithel Cells (Auto) (0-5) /lpf Urine Bacteria (Auto) (Negative) Ur Renal Epithelial Cell Urine Yeast 07/28/18 07/28/18 07/28/18 Range/Units 20:03 20:03 20:24 WBC (4.8-10.8) K/uL RBC (4.7-6.1) M/uL Hgb (14.0-18.0) g/dL Hct (42-52) % MCV (80-100) fL MCH (25-34) pg MCHC (32-36) g/dL RDW Std Deviation (36.4-46.3) fL RDW Coeff of Danii (11.5-14.5) % Plt Count (130-400) K/uL MPV (7.4-10.4) fL Immature Gran % (Auto) % Neut % (Auto) % Lymph % (Auto) % Brooks % (Auto) % Eos % (Auto) % Baso % (Auto) % Immature Gran # (Auto) (0.00-0.02) K/uL Neut # (Auto) (1.4-6.5) K/uL Lymph # (Auto) (1.2-3.4) K/uL Brooks # (Auto) (0.11-0.59) K/uL Eos # (Auto) (0-0.5) K/uL Baso # (Auto) (0-0.2) K/uL Plt Count ,Citrate 202 (130-400) K/uL PT 11.8 INR 1.2 H APTT 23.4 PTT Ratio 0.9 Sodium 142 Potassium 3.7 Chloride 109 H Carbon Dioxide 22 Anion Gap 11.0 BUN 15 Creatinine 1.55 H Est Cr Clr Drug Dosing 34.7 Est GFR ( Amer) 46.6 Est GFR (Non-Af Amer) 40.2 BUN/Creatinine Ratio 9.8 L Glucose 129 H Calcium 8.9 Magnesium 2.0 Total Bilirubin 0.8 AST 19 ALT 22 Alkaline Phosphatase 126 H Troponin I 0.031 Total Protein 7.8 Albumin 3.8 Globulin 4.0 Albumin/Globulin Ratio 1.0 Lipase 175 TSH 2.720 Urine Color Urine Appearance (Clear) Urine pH (4.5-7.5) Ur Specific [place] (1.000-1.030) Urine Protein (Negative) Urine Glucose (UA) (Negative) Urine Ketones (Negative) Urine Blood (Negative) Urine Nitrite (Negative) Urine Bilirubin (Negative) Urine Urobilinogen (Negative) Ur Leukocyte Esterase (Negative) Urine WBC (Auto) (0-5) /hpf Urine RBC (Auto) (0-4) /hpf U Hyaline Cast (Auto) (0-5) /lpf U Epithel Cells (Auto) (0-5) /lpf Urine Bacteria (Auto) (Negative) Ur Renal Epithelial Cell Urine Yeast 07/29/18 07/29/18 07/29/18 Range/Units 09:08 09:08 Unknown WBC 10.24 (4.8-10.8) K/uL RBC 4.94 (4.7-6.1) M/uL Hgb 15.3 (14.0-18.0) g/dL Hct 44.1 (42-52) % MCV 89.3 (80-100) fL MCH 31.0 (25-34) pg MCHC 34.7 (32-36) g/dL RDW Std Deviation 42.2 (36.4-46.3) fL RDW Coeff of Danii 13.0 (11.5-14.5) % Plt Count 216 (130-400) K/uL MPV 10.6 H (7.4-10.4) fL Immature Gran % (Auto) 0.3 % Neut % (Auto) 59.2 % Lymph % (Auto) 20.7 % Brooks % (Auto) 18.8 % Eos % (Auto) 0.7 % Baso % (Auto) 0.3 % Immature Gran # (Auto) 0.03 H (0.00-0.02) K/uL Neut # (Auto) 6.06 (1.4-6.5) K/uL Lymph # (Auto) 2.12 (1.2-3.4) K/uL Brooks # (Auto) 1.93 H (0.11-0.59) K/uL Eos # (Auto) 0.07 (0-0.5) K/uL Baso # (Auto) 0.03 (0-0.2) K/uL Plt Count ,Citrate (130-400) K/uL PT INR APTT PTT Ratio Sodium 144 Potassium 3.7 Chloride 112 H Carbon Dioxide 28 Anion Gap 4.0 BUN 22 H Creatinine 1.68 H Est Cr Clr Drug Dosing 30.1 Est GFR ( Amer) 42.3 Est GFR (Non-Af Amer) 36.5 BUN/Creatinine Ratio 12.9 Glucose 98 Calcium 8.6 Magnesium Total Bilirubin 0.6 AST 16 ALT 19 Alkaline Phosphatase 103 Troponin I Total Protein 6.8 Albumin 3.4 Globulin 3.4 Albumin/Globulin Ratio 1.0 Lipase TSH Urine Color Dark Yellow Urine Appearance Cloudy H (Clear) Urine pH 5.0 (4.5-7.5) Ur Specific [place] 1.026 (1.000-1.030) Urine Protein Trace H (Negative) Urine Glucose (UA) Negative (Negative) Urine Ketones 1+ H (Negative) Urine Blood Trace H (Negative) Urine Nitrite Negative (Negative) Urine Bilirubin Negative (Negative) Urine Urobilinogen Negative (Negative) Ur Leukocyte Esterase Trace H (Negative) Urine WBC (Auto) 5-10 H (0-5) /hpf Urine RBC (Auto) 5-10 H (0-4) /hpf U Hyaline Cast (Auto) 10-30 H (0-5) /lpf U Epithel Cells (Auto) >30 H (0-5) /lpf Urine Bacteria (Auto) Negative (Negative) Ur Renal Epithelial Cell Not Reportable Urine Yeast Not Reportable Imaging Data Radiologist's Impression: Radiology results as stated below per my review and the radiologist's interpretation: XR chest 1V portable CLINICAL HISTORY: near syncope mental status change COMPARISON STUDY: 07/27/2018 FINDINGS: The bones soft tissues and hemidiaphragms are normal. The cardiomediastinal silhouette is normal. The lungs are clear. The pulmonary vasculature is normal. Stable emphysematous change IMPRESSION: Emphysematous change. No acute process. No change from the prior study. The above report was generated using voice recognition software. It may contain grammatical, syntax or spelling errors. Electronically signed by: Juan R Carreon M.D. 07/28/2018 7:55 PM ECG Data Attestation: I personally reviewed and interpreted this ECG as follows: Indication: syncope Rate (beats per minute): 77 Rhythm: sinus with SA Findings: + other (Borderline QRS interval), + Q waves (Inferior and anterior ) and + left axis deviation Comparison ECG Date: from (07/2018) Change: the following changes noted (Sinus arrhythmia is new, rate has increased) Additional Comments: Repeat of EKG from 20:12 showed no change. Blood Pressure Blood Pressure Findings: Elevated blood pressure Blood Pressure Disposition: further management by hospitalist MDM Narrative The patient is an 87 year old male w/ PMHx Alzheimer's dementia, [place], dyslipidemia, and HTN who presents to the ED after losing consciousness at the dinner table just prior to arrival, per the family. Differential diagnosis includes etiologies such as vasovagal event, infection, hypoglycemia, electrolyte abnormalities, cardiac sources, intracerebral event, toxicologic, neurologic, as well as others were entertained. Patient was seen and evaluated the bedside. The patient reportedly had a syncopal event and associated vomiting prior to arrival. Patient on exam does not have any acute complaints. He is somewhat tachypneic. Patient does have some repetitive speech does have a known history of Alzheimer's. Patient family states that he has been compliant with medications. The patient was recently seen and admitted and discharged recently. Patient's blood work is fairly unremarkable. No overt major changes compared to yesterday. EKG does show some sinus arrhythmia but is otherwise unchanged. I did offer to admit the patient for safety issues the patient has become more agitated during his stay does live with his who is also elderly. They initially reported take the patient home but has become slightly more confused. I did speak the on-call hospitalist who agreed to further evaluate treat the patient. Patient was admitted to the medicine service. We will treat empirically for a possible UTI. The patient was given Rocephin. Impression & Plan Syncope, Agitation, Acute UTI Discharge Plan Visit Data *Final* Discharge Date/Time: 07/29/18 02:02 Chief Complaint: Illness Stated Complaint: NEAR SYNCOPE, AB PAIN ED Provider: Jacinto Guerra Discharge Problem: Syncope, Agitation, Acute UTI Patient Disposition: Admitted As Inpatient Condition: Good Discharge Instructions Interventions: ED Discharge Assessment Last Done: 07/29/18 02:02 Discharge Problem: Syncope Qualifiers: Syncope type: unspecified Qualified Code(s): R55 - Syncope and collapse The scribe's documentation has been prepared under my direction and personally reviewed by me in its entirety. I confirm that the note above accurately reflects all work, treatment, procedures, and medical decision making performed by me.
[2018-07-29] MEDS ORDERED: ONDANSETRON INJ 2 MG/ML 2 ML VIAL IV PRN (02:16)
[2018-07-29] MEDS: SODIUM CHLORIDE 0.9% 1000ML 1,000 ML IV SCH ×3 (03:00→23:57)
--- NOTE | 2018-07-29 07:09 | CT Scan Report ---
HEAD CT NONCONTRAST CT DOSE: 614.27 mGy.cm HISTORY: altered mental status TECHNIQUE: Multiaxial CT images of the head were performed without the use of intravenous contrast. A utomated exposure control was utilized for this study. A dose lowering technique was utilized adheri ng to the principles of ALARA. Comparison: Head CT 11/18/2016. Findings: The paranasal sinuses and mastoid air cells are clear. The calvarium and skull base are int act. There is no mass, hematoma, midline shift, acute infarct. White matter hypodensity is nonspecifi c but suggestive of microvascular ischemic change. The ventricles and sulci demonstrate mild age-rela annika involutional changes. Impression: No acute intracranial abnormality. Atrophy and microvascular ischemic changes. Electronically signed by: Edy Byrd M.D. 07/29/2018 7:08 AM
[2018-07-29] MEDS: HEPARIN SOD 5,000 UNIT/0.5 ML VIAL SQ SCH ×2 (09:24→19:51)
--- NOTE | 2018-07-29 09:28 | Neurology Consultation ---
Date of Consultation July 29, 2018 Assessment & Plan (1) Acute encephalopathy: This is a 87-year-old male with what sounds like a brief syncopal event at home followed by sweatiness and vomiting. Overall there is no signs or symptoms consistent with seizure or stroke. Patient may have worsening encephalopathy due to underlying dementia and acute illness. Recommendations: Agree with MRI of the brain to rule out stroke. Recommend checking UA to rule out UTI and ammonia level to rule out metabolic causes for encephalopathy. EEG done this morning showed moderate encephalopathy but no signs of seizures or epilepsy. Patient likely needs additional cardiac workup. Would consider 30-day hall monitor and follow-up with cardiology regarding syncope. Can follow-up in neurology clinic with Dr. Mascorro or our physician payroll human resources assistant if needed. History of Present Illness Reason for Consultation: Altered mental status Attending Physician: Sreedhar Thomason, History of Present Illness This is a 87-year-old male who was recently hospitalized July 27 for evaluation of chest pain. Patient went home yesterday and while he was at home had an episode which was described as loss of consciousness with eyes rolling back. When he came to he reportedly complained of a headache, was sweaty, and vomited. The patient himself does not remember these events and he does have Alzheimer's dementia which limits history. There was no reports of seizure-like activity or focal neurological deficits. Patient has no complaints this morning. Echocardiogram done on the was unremarkable with the exception of asymmetric hypertrophy of the anteroseptum CT of the head this admission was unremarkable. TSH was within normal limits. Creatinine noted to be 1.5. Outpatient notes reviewed. Patient follows with Dr. Mascorro in neurology clinic for Alzheimer's dementia on Namenda and Aricept. Past medical history includes Alzheimer's dementia, dyslipidemia, and hypertension Allergies Allergy/AdvReac Type Severity Reaction Status Date / Time hydrochlorothiazide Allergy Unknown UNKNOWN Verified 07/27/18 21:48 Penicillins Allergy Unknown ? UNKNOWN Verified 07/27/18 21:48 Sulfa (Sulfonamide Allergy Unknown ITCHINESS, Verified 07/27/18 21:48 Antibiotics) RED SKIN oxycodone AdvReac Intermediate CONSTIPATION, Verified 07/27/18 21:48 MALAISE Home Medications Home Medications Medication Instructions Recorded Confirmed Type acetaminophen [Tylenol Arthritis 1 - 2 tabs PO Q12H PRN 07/27/18 07/28/18 History Pain] acetaminophen [Tylenol Extra 500 mg PO QAM PRN 07/27/18 07/28/18 History Strength] amlodipine [Norvasc] 5 mg PO DAILY 07/27/18 07/28/18 History aspirin [Aspir-81] 81 mg PO DAILY 07/27/18 07/28/18 History atorvastatin [Lipitor] 20 mg PO DAILY 07/27/18 07/28/18 History donepezil [Aricept] 10 mg PO DAILY 07/27/18 07/28/18 History memantine [Namenda] 10 mg PO BID 07/27/18 07/28/18 History metoprolol succinate 50 mg PO DAILY #30 tab 07/28/18 07/28/18 Rx Patient History Medical History Dyslipidemia (Chronic) Benign essential hypertension (Chronic) Alzheimer's dementia (Chronic) Heart attack (Suspected) Arthritis of neck Surgical History Hx of total knee arthroplasty Family History Other Family history non-contributory Social History Preferred Language: Tajik Communication Ability: Impaired Communication Ability 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 Safety Council Required: Yes Beliefs That Will Affect Care: None marital status: Current Living Situation: Spouse Feels Safe at Home: Yes Smoking Status: Former smoker Hx Alcohol Use: No Hx Substance Use: No Review of Systems Complete review of systems otherwise negative except for the above-noted in HPI Physical Exam Vital Signs (Past 24 Hours): Last Vital Signs Temp 36.6 C 07/29/18 02:27 Pulse 75 07/29/18 02:47 Resp 16 07/29/18 02:27 BP 144/69 H 07/29/18 02:27 Pulse Ox 97 07/29/18 02:27 Physical Exam: Gen.: Patient is alert and oriented to person in no acute distress lying in bed Heart: Regular rate and rhythm Extremities: No gross deformities or rashes noted Neurological examination: Mental status: Patient is alert and oriented to person only. He is pleasant and cooperative, but a poor historian. Poor fund of knowledge. Attention concentration normal for the situation. Remote and recent memory impaired Speech is fluent without any dysarthria or aphasia noted Cranial nerves: Visual schwab intact to confrontation. Funduscopic examination was unremarkable with no signs of papilledema. Pupils equally round and reactive to light. Extraocular muscles intact without nystagmus. No facial asymmetry noted. Facial sensation intact. Tongue midline. Good palatal elevation. Good shoulder shrug bilaterally. Hearing grossly intact voice. Strength: 5/5 both proximal and distal in all extremities. No arm drift.Tone is normal. Sensation: Grossly intact to light touch in all extremities Deep tendon reflexes: +1 in bilateral biceps and patellar. Toes are downgoing to plantar stimulation bilaterally Coordination: Patient has good finger to nose without dysmetria. Station within the bed is normal.
[2018-07-29 09:30] LABS: Basophils # (auto) 0.03 K/uL (0-0.2); Basophils % (auto) 0.3 %; Eosinophils # (auto) 0.07 K/uL (0-0.5); Eosinophils % (auto) 0.7 %; Hematocrit (blood only) 44.1 % (42-52); Hemoglobin 15.3 g/dL (14.0-18.0); Immature Granulocytes # (auto) 0.03 K/uL (0.00-0.02); Immature Granulocytes % (auto) 0.3 %; Lymphocytes # (auto) 2.12 K/uL (1.2-3.4); Lymphocytes % (auto) 20.7 %; Mean Corpuscular Hgb Conc 34.7 g/dL (32-36); Mean Corpuscular Volume 89.3 fL (80-100); Mean Platelet Volume 10.6 fL (7.4-10.4); Monocytes # (auto) 1.93 K/uL (0.11-0.59); Monocytes % (auto) 18.8 %; Neutrophils # (auto) 6.06 K/uL (1.4-6.5); Neutrophils % (auto) 59.2 %; Platelet Count 216 K/uL (130-400); RDW Standard Deviation 42.2 fL (36.4-46.3); Red Blood Count 4.94 M/uL (4.7-6.1); White Blood Count 10.24 K/uL (4.8-10.8)
--- NOTE | 2018-07-29 09:37 | Procedure Note ---
EEG Procedure Note Date of Service July 29, 2018 Start / End Times Start Time: 8:14 AM End Time: 8:34 AM Referring Physician Carlos Mckeon History This is a 87-year-old male with a history of dementia and worsening mental status with episode of syncope. EEG for further evaluation of possible seizure etiology. Home Medication List Home Medications Medication Instructions Recorded Confirmed Type acetaminophen [Tylenol Arthritis 1 - 2 tabs PO Q12H PRN 07/27/18 07/28/18 History Pain] acetaminophen [Tylenol Extra 500 mg PO QAM PRN 07/27/18 07/28/18 History Strength] amlodipine [Norvasc] 5 mg PO DAILY 07/27/18 07/28/18 History aspirin [Aspir-81] 81 mg PO DAILY 07/27/18 07/28/18 History atorvastatin [Lipitor] 20 mg PO DAILY 07/27/18 07/28/18 History donepezil [Aricept] 10 mg PO DAILY 07/27/18 07/28/18 History memantine [Namenda] 10 mg PO BID 07/27/18 07/28/18 History metoprolol succinate 50 mg PO DAILY #30 tab 07/28/18 07/28/18 Rx Inpatient Medication List Heparin Sodium (Porcine) (Heparin Sodium (Porcine)) 5,000 units SQ Q12 DIPESH Stop: 08/28/18 08:59 Last Admin: 07/29/18 09:24 Dose: 5,000 units Documented by: [id number] Cosigned by: [id number] Sodium Chloride (Nss 1000ml) 1,000 mls @ 80 mls/hr IV .[id number] [facility] Stop: 08/28/18 02:15 Last Admin: 07/29/18 03:00 Dose: 80 mls/hr Documented by: [id number] Discontinued Medications Sodium Chloride (Nss) 500 mls @ 999 mls/hr IV .Q31M DIPESH Stop: 07/28/18 19:45 Last Infusion: 07/28/18 20:11 Dose: 0 mls/hr Documented by: [id number] Admin: 07/28/18 19:36 Dose: 999 mls/hr Documented by: [id number] Lorazepam (Ativan) 0.5 mg in 1 mls @ 1 mls/min IV NOW STA Stop: 07/28/18 21:42 Last Admin: 07/28/18 21:57 Dose: 1 mls/min Documented by: [id number] Ceftriaxone Sodium (Rocephin) 1,000 mg in 50 mls @ 100 mls/hr IV NOW STA Stop: 07/29/18 00:20 Last Infusion: 07/29/18 00:48 Dose: 0 mls/hr Documented by: [id number] Admin: 07/29/18 00:09 Dose: 100 mls/hr Documented by: [id number] Description This is a 21 electrode EEG with a single channel dedicated to limited EKG. The electrodes were placed in accordance with the International 10-20 system. At the start of the recording the patient was in an awake state. Background was poorly organized with a poorly formed anterior posterior gradient. Background was composed of predominantly 5-6 Hz theta frequency with intermixed alpha and beta frequencies. Hyperventilation was not done. Intermittent photic stimulation at various frequencies produced no abnormalities. Sleep was indicated by vertex waves and symmetric sleep spindles Interpretation This is an abnormal routine EEG secondary to moderate background disorganization and slowing There was no electrographic seizures or epileptiform discharges. Clinical Correlation This EEG indicates moderate encephalopathy of nonspecific etiology.
[2018-07-29 09:57] LABS: Albumin Level 3.4 gm/dl (3.4-5.0); BUN Creatinine Ratio 12.9 (10-20); Calcium 8.6 mg/dl (8.5-10.1); Creatinine Clr Calc Pharmacy 30.1 ml/min; Est GFR (African American) 42.3; Est GFR (Non-African American) 36.5; Potassium 3.7 mmol/L (3.5-5.1)
[2018-07-29 09:59] LABS: Bilirubin,Total 0.6 mg/dl (0.2-1); Globulin 3.4 gm/dl (2.5-4.0); Total Protein 6.8 gm/dl (6.4-8.2)
[2018-07-29] MEDS ORDERED: SODIUM CHLORIDE 0.9% 1000ML 500 ML IV ONE (12:06)
--- NOTE | 2018-07-29 13:51 | Family Medicine Progress Note ---
Date of Service July 29, 2018 Assessment & Plan (1) Altered mental status: Unsure of patient's neuro baseline. is a vague historian and was available for discussion but she couldn't answer if he was at his neuro baseline. She did comment that he is sleepy. There is concern that could have some cognitive impairment. After rounding in room, a page was placed to return and discuss update on patient's status. Unfortunately, this happened less than 10 minutes after discussing with her. I wasn't sure if she remembered me being in the room less than 15 minutes after talking with her. Also, nursing was attempting to get a hold of son to help answer questions so that patient could get MRI that was ordered on admission. However, she wasn't able to provide accurate phone number to contact son. Suspect altered mental status was secondary to dehydration in the setting of al zheimer's disease. He had positive orthostatics with increase in HR greater than 10 from sitting to standing, with value of 17. Metabolic workup was normal. CT of brain was negative for acute process MRI of brain could not be performed as son could not be reached to answer screening questions and is unfortunately unreliable historian. But do not suspect this test will be needed. EEG showed (2) Alzheimer's dementia: (3) Near syncope: (4) Dyslipidemia: (5) Benign essential hypertension: Supervising Physician Co-Signing Physician Notes I personally examined the patient and verified all ross points of history and exam, discussed case, and agree with decision making with Dr Cabrera. Notes no complaints. He is quite confused. seems fairly confused as well. She notes that she has been there since 11 and is been sleeping the whole time and nobody has seen him. Then shortly after we leave the room nursing page is Dr. Cabrera to return, as the wonders when somebody would be seeing the patient. Vitals noted, in general he is awake but disoriented no distress. Mucous membranes are now moist. Skin shows no rashes no pallor or icterus. Deliriumsuspect superimposed on dementiahis acute encephalopathy appears to be a mild metabolic encephalopathy most likely due to dehydration, given that his creatinine was up from before, and given that there are no other clear exacerbating factors. Certainly his ability to be okay at home seems concerning, especially given that his significant other seems to have significant confusion herself. PT/OT/case management evaluation and follow. Continue IV fluids, continue serial exams. Syncopelikely due to dehydration. Continue to follow. Given his septal asymmetric hypertrophy, it seems quite plausible that if his LV were to be at all hyperdynamic (such as what would occur with dehydration) he would be much more prone to syncope. Continue IV fluids, continue metoprolol. Subjective Caveat History Limited by Dementia. Patient oriented to self but does not know where he is and thinks it is year 2011. He has only one complaints when asked stating he is tired and denies chest pain, shortness of breath, nausea, vomiting, fever, chills, diarrhea. Physical Exam Vital Signs (Past 24 Hours): Last Vital Signs Temp 36.7 C 07/29/18 11:29 Pulse 91 H 07/29/18 11:29 Resp 18 07/29/18 11:29 BP 136/73 07/29/18 11:29 Pulse Ox 96 07/29/18 11:29 Constitutional: WD/WN, vitals as above Eyes: + anicteric sclerae and EOM intact bilaterally Neck: normal visual inspection and trachea midline Respiratory: normal respiratory effort, lungs clear to auscultation Cardiovascular: Rate/Rhythm: regular rate and regular rhythm Extremities: no pedal edema Gastrointestinal (Abdomen): Inspection/Auscultation: normal bowel sounds Percussion/Palpation: abdomen soft; abdomen nontender and no guarding Musculoskeletal: Head/Neck/Chest: normocephalic and head atraumatic Skin: no rashes, warm and dry Neurologic: moves all extremities sleeping but easily arousable Psychiatric: Orientation: oriented to person; + not oriented to place (thinks he is in home kitchen) and + not oriented to time (2011) Results & Data Laboratory Results Laboratory Results - last 24 hr 07/28/18 07/28/18 07/28/18 19:25 19:25 19:25 WBC 11.05 H RBC 5.53 Hgb 17.6 Hct 48.7 MCV 88.1 MCH 31.8 MCHC 36.1 H RDW Std Deviation 40.0 RDW Coeff of Danii 12.5 Plt Count MPV Immature Gran % (Auto) 0.5 Neut % (Auto) 75.1 Lymph % (Auto) 12.2 [place] % (Auto) 11.5 Eos % (Auto) 0.4 Baso % (Auto) 0.3 Immature Gran # (Auto) 0.06 H Neut # (Auto) 8.30 H Lymph # (Auto) 1.35 [place] # (Auto) 1.27 H Eos # (Auto) 0.04 Baso # (Auto) 0.03 Plt Count ,Citrate PT Cancelled INR Cancelled APTT Cancelled PTT Ratio Cancelled Sodium Cancelled Potassium Cancelled Chloride Cancelled Carbon Dioxide Cancelled Anion Gap Cancelled BUN Cancelled Creatinine Cancelled Est Cr Clr Drug Dosing Cancelled Est GFR ( Amer) Cancelled Est GFR (Non-Af Amer) Cancelled BUN/Creatinine Ratio Cancelled Glucose Cancelled Calcium Cancelled Magnesium Cancelled Total Bilirubin Cancelled AST Cancelled ALT Cancelled Alkaline Phosphatase Cancelled Troponin I Cancelled Total Protein Cancelled Albumin Cancelled Globulin Cancelled Albumin/Globulin Ratio Cancelled Lipase Cancelled TSH Cancelled 07/28/18 07/28/18 07/28/18 20:03 20:03 20:24 WBC RBC Hgb Hct MCV MCH MCHC RDW Std Deviation RDW Coeff of Danii Plt Count MPV Immature Gran % (Auto) Neut % (Auto) Lymph % (Auto) [place] % (Auto) Eos % (Auto) Baso % (Auto) Immature Gran # (Auto) Neut # (Auto) Lymph # (Auto) [place] # (Auto) Eos # (Auto) Baso # (Auto) Plt Count ,Citrate 202 PT 11.8 INR 1.2 H APTT 23.4 PTT Ratio 0.9 Sodium 142 Potassium 3.7 Chloride 109 H Carbon Dioxide 22 Anion Gap 11.0 BUN 15 Creatinine 1.55 H Est Cr Clr Drug Dosing 34.7 Est GFR ( Amer) 46.6 Est GFR (Non-Af Amer) 40.2 BUN/Creatinine Ratio 9.8 L Glucose 129 H Calcium 8.9 Magnesium 2.0 Total Bilirubin 0.8 AST 19 ALT 22 Alkaline Phosphatase 126 H Troponin I 0.031 Total Protein 7.8 Albumin 3.8 Globulin 4.0 Albumin/Globulin Ratio 1.0 Lipase 175 TSH 2.720 07/29/18 07/29/18 09:08 09:08 WBC 10.24 RBC 4.94 Hgb 15.3 Hct 44.1 MCV 89.3 MCH 31.0 MCHC 34.7 RDW Std Deviation 42.2 RDW Coeff of Danii 13.0 Plt Count 216 MPV 10.6 H Immature Gran % (Auto) 0.3 Neut % (Auto) 59.2 Lymph % (Auto) 20.7 [place] % (Auto) 18.8 Eos % (Auto) 0.7 Baso % (Auto) 0.3 Immature Gran # (Auto) 0.03 H Neut # (Auto) 6.06 Lymph # (Auto) 2.12 [place] # (Auto) 1.93 H Eos # (Auto) 0.07 Baso # (Auto) 0.03 Plt Count ,Citrate PT INR APTT PTT Ratio Sodium 144 Potassium 3.7 Chloride 112 H Carbon Dioxide 28 Anion Gap 4.0 BUN 22 H Creatinine 1.68 H Est Cr Clr Drug Dosing 30.1 Est GFR ( Amer) 42.3 Est GFR (Non-Af Amer) 36.5 BUN/Creatinine Ratio 12.9 Glucose 98 Calcium 8.6 Magnesium Total Bilirubin 0.6 AST 16 ALT 19 Alkaline Phosphatase 103 Troponin I Total Protein 6.8 Albumin 3.4 Globulin 3.4 Albumin/Globulin Ratio 1.0 Lipase TSH Medications Administered Heparin Sodium (Porcine) (Heparin Sodium (Porcine)) 5,000 units SQ Q12 DIPESH Stop: 08/28/18 08:59 Last Admin: 07/29/18 09:24 Dose: 5,000 units Documented by: [id number] Cosigned by: [id number] Sodium Chloride (Nss 1000ml) 1,000 mls @ 80 mls/hr IV .[id number] [facility] Stop: 08/28/18 02:15 Last Admin: 07/29/18 15:07 Dose: 80 mls/hr Documented by: [id number] Infusion: 07/29/18 15:07 Dose: 80 mls/hr Documented by: [id number] Infusion: 07/29/18 14:32 Dose: 80 mls/hr Documented by: [id number] Admin: 07/29/18 03:00 Dose: 80 mls/hr Documented by: [id number]
[2018-07-29] MEDS ORDERED: ASPIRIN 81 MG ECTAB PO SCH (16:15)
[2018-07-29] MEDS ORDERED: DONEPEZIL HCL 10 MG TAB PO SCH (16:15)
[2018-07-29] MEDS ORDERED: MEMANTINE HCL 10 MG TAB PO SCH (16:15)
[2018-07-29] MEDS: ATORVASTATIN 20 MG TAB PO SCH (17:28)
[2018-07-29] MEDS: DONEPEZIL HCL 10 MG TAB PO SCH (17:28)
[2018-07-29] MEDS: ASPIRIN 81 MG ECTAB PO SCH (17:28)
[2018-07-29] MEDS: AMLODIPINE BESYLATE 5 MG TAB PO SCH (17:29)
[2018-07-29] MEDS: METOPROLOL SUCC 50MG EXT REL TAB PO SCH (17:29)
[2018-07-29 17:43] LABS: Appearance Urine Cloudy (Clear); Bacteria Urine Automated Negative (Negative); Blood Urine Trace (Negative); Color Urine Dark Yellow; Epithelial Cell Urine Auto >30 /lpf (0-5); Glucose Urine UA Negative (Negative); Ketones Urine 1+ (Negative); Leukocyte Esterase Urine Trace (Negative); Nitrite Urine Negative (Negative); Protein Urine Trace (Negative); Specific Gravity Urine 1.026 (1.000-1.030); Urobilinogen Urine Negative (Negative)
[2018-07-29 17:51] LABS: Bilirubin Urine Negative (Negative); Ictotest Urine Negative (Negative)
[2018-07-29] MEDS: MEMANTINE HCL 10 MG TAB PO SCH (19:50)
[2018-07-30 07:03] LABS: Basophils # (auto) 0.05 K/uL (0-0.2); Basophils % (auto) 0.7 %; Eosinophils # (auto) 0.12 K/uL (0-0.5); Eosinophils % (auto) 1.7 %; Hematocrit (blood only) 40.2 % (42-52); Hemoglobin 13.8 g/dL (14.0-18.0); Immature Granulocytes # (auto) 0.02 K/uL (0.00-0.02); Immature Granulocytes % (auto) 0.3 %; Lymphocytes # (auto) 1.85 K/uL (1.2-3.4); Lymphocytes % (auto) 26.9 %; Mean Corpuscular Hgb Conc 34.3 g/dL (32-36); Mean Corpuscular Volume 90.1 fL (80-100); Mean Platelet Volume 10.3 fL (7.4-10.4); Monocytes # (auto) 1.14 K/uL (0.11-0.59); Monocytes % (auto) 16.5 %; Neutrophils # (auto) 3.71 K/uL (1.4-6.5); Neutrophils % (auto) 53.9 %; Platelet Count 176 K/uL (130-400); RDW Coefficient of Variation 12.8 % (11.5-14.5); RDW Standard Deviation 42.4 fL (36.4-46.3); Red Blood Count 4.46 M/uL (4.7-6.1); White Blood Count 6.89 K/uL (4.8-10.8)
[2018-07-30 07:41] LABS: BUN Creatinine Ratio 17.1 (10-20); Creatinine Clr Calc Pharmacy 39.4 ml/min; Est GFR (African American) 58.8; Est GFR (Non-African American) 50.7; Potassium 3.7 mmol/L (3.5-5.1)
[2018-07-30] MEDS ORDERED: ATORVASTATIN 20 MG TAB PO SCH (09:00)
[2018-07-30] MEDS ORDERED: METOPROLOL SUCC 50MG EXT REL TAB PO SCH (09:00)
[2018-07-30] MEDS: MEMANTINE HCL 10 MG TAB PO SCH (09:11)
[2018-07-30] MEDS: HEPARIN SOD 5,000 UNIT/0.5 ML VIAL SQ SCH (09:11)
[2018-07-30] MEDS: ATORVASTATIN 20 MG TAB PO SCH (09:12)
[2018-07-30] MEDS: METOPROLOL SUCC 50MG EXT REL TAB PO SCH (09:12)
[2018-07-30] MEDS: AMLODIPINE BESYLATE 5 MG TAB PO SCH (09:12)
[2018-07-30] MEDS: ASPIRIN 81 MG ECTAB PO SCH (09:13)
[2018-07-30] MEDS: DONEPEZIL HCL 10 MG TAB PO SCH (09:13)
--- NOTE | 2018-07-30 10:21 | Discharge Summary ---
Date of Service July 30, 2018 Admission HPI Per Admitting Provider The patient is a 87-year-old male status post hospitalization at this hospital from July 27. He had been discharged earlier in the day on the , after being admitted for chest pain with a negative cardiac workup at that time. His and son report that he appeared to be doing reasonably well until after dinner, when he suddenly lost consciousness. They said that his eyes rolled backwards, and after awakening he had a headache was sweaty and vomited. The patient himself is nonresponsive during my assessment, and family has already left, so information is gathered through ED notes. Admission Exam Per Admitting Provider The patient is nonresponsive, normocephalic and atraumatic, lying in bed and in no acute distress. HEENT--PERRL, EOMI, mucous membranes and oropharynx dry. Neck--supple. No JVD. No bruits. Thyroid normal, trachea midline, no adenopathy. Heart--normal S1 and S2. No murmurs, rubs or gallops. Lungs--clear bilaterally, no respiratory distress, no accessory muscle use. Abdomen--normal bowel sounds and soft. Nontender. Nondistended. Extremities--no cyanosis or clubbing. No edema. There are good distal pulses b/l. Dermatologic--normal skin turgor, normal color, no abnormal lymph nodes, no rash. Neurologic--cranial nerves II through XII grossly intact. Rheumatologic--limited exam due to mental state Psychiatric--limited exam due to mental state Principal Diagnosis Altered mental status Discharge Exam Constitutional WD/WN, vitals as above comfortable and + combative Eyes + anicteric sclerae and EOM intact bilaterally Neck normal visual inspection and trachea midline Respiratory normal respiratory effort, lungs clear to auscultation Cardiovascular Rate/Rhythm: regular rate and regular rhythm Extremities: no pedal edema Gastrointestinal (Abdomen) Inspection/Auscultation: normal bowel sounds Percussion/Palpation: abdomen soft; abdomen nontender and no guarding Musculoskeletal Head/Neck/Chest: normocephalic and head atraumatic Skin no rashes, warm and dry Neurologic moves all extremities and awake Psychiatric Orientation: alert, oriented to person and cooperative; + not oriented to place (knew was in the hospital today, but thought city was [place], improved) and + not oriented to time (cannot name year/president but stated month of August, which is improvement) Eye Contact: good eye contact Discharge Data Allergies Allergy/AdvReac Type Severity Reaction Status Date / Time hydrochlorothiazide Allergy Unknown UNKNOWN Verified 07/27/18 21:48 Penicillins Allergy Unknown ? UNKNOWN Verified 07/27/18 21:48 Sulfa (Sulfonamide Allergy Unknown ITCHINESS, Verified 07/27/18 21:48 Antibiotics) RED SKIN oxycodone AdvReac Intermediate CONSTIPATION, Verified 07/27/18 21:48 MALAISE Consultations 07/28/18 23:51 ED Decision to Admit Stat 07/29/18 02:16 Consult Neurology Routine 07/30/18 08:16 Consult Case Management - Discharge Planning Routine Ordered Studies 07/29/18 00:16 CT head/brain wo con Urgent - no acute process 07/30/18 02:16 MR brain wo con Stat - was not performed as no reliable historian for screening questions for safety Hospital Course (1) Altered mental status: Unsure of patient's neuro baseline. is a vague historian and was available for discussion but she couldn't answer if he was at his neuro baseline. She did comment that he is sleepy. There is concern that could have some cognitive impairment. After rounding in room, a page was placed to return and discuss update on patient's status. Unfortunately, this happened less than 10 minutes after discussing with her. I wasn't sure if she remembered me being in the room less than 15 minutes after talking with her. Also, nursing was attempting to get a hold of son to help answer questions so that patient could get MRI that was ordered on admission. However, she wasn't able to provide accurate phone number to contact son. Suspect altered mental status was secondary to dehydration in the setting of alzheimer's disease. He had positive orthostatics with increase in HR greater than 10 from sitting to standing, with value of 17. Metabolic workup was normal. CT of brain was negative for acute process MRI of brain could not be performed as son could not be reached to answer screening questions and is unfortunately unreliable historian. But do not suspect this test will be needed. EEG showed On day of discharge, he is improved. He is alert, which has improved. His orientation was improved, he knew he was at a hospital (yesterday thought kitchen at home). He thought city was [place] that hospital is in right now. He deferred answering what year or who the president was as he "doesn't pay attention to that stuff." He was able to get close proximity to the month with August. Daughter in law present and notes that he and actually do fairly OK taking care of themselves at home - expressed concerns on what we saw yesterday/made her aware -- she noted that mother in law was underslept and overstressed, but there are family nearby to help keep an eye on things. Foster that they were safe at home, asked case management to set up home nursing. * Suspect episode was secondary to dehydration in the setting of alzheimer's dementia. * Reinforced to stay hydrated, discussed to make sure he drinks water following drinking coffee. (2) Alzheimer's dementia: continue with Aricept 10mg daily and Namenda 10mg PO BID (3) Near syncope: appears secondary to dehydration, supported by positive orthostatics here, rise in creatinine from pre-renal cause of volume down, positive orthostatics, and also resolution with IV fluids (4) Dyslipidemia: Continue with Lipitor 20mg PO day (5) Benign essential hypertension: Continue with Amlodipine 5mg daily Continue with Metoprolol succinate 50mg ana Total Time Total Time Spent Total Time Spent (In Minutes): >30 Total Time Includes: Examination of the Patient, Discharge Planning and Medication Reconciliation Discharge Plan Discharge Items Patient Disposition: Home - Home Health Services Reason For Visit: ALTERED MENTAL STATUS Discharge Diagnosis: Altered Mental Status Condition: Good Discharge Goals: Prevent disease and Therapeutic intervention Activity: Per 'Additional Instructions' section Non-emergency contact: Primary Care Provider Call non-emergency contact if: you have any medication questions, your symptoms worsen and your temperature is above 100.5 Follow-up/Referrals: Idris German MD [Primary Care Provider] - Diet: Heart Healthy Addtl Provider Instructions: You were admitted for Altered Mental Status and decreased alertness. This is suspected to be from being dehydrated. You were treated with IV fluids that appeared to have improved your symptoms. Blood work performed did not show any infection. Your urine was checked for any potential bladder or urinary tract infection, which it did not show any infection. Your other blood work showed that your electrolyte levels were normal. You also had imaging of your head with a CT head that did not show any acute disease. You did have a raise in your creatinine level, which was caused by being dehydration. This value improved within normal levels on discharge, which again supports that you were dehydrated as this value improved with IV fluids. Please ensure you drink 60 ounces of water per day to stay hydrated. Please contact your primary care physician for next available appointment for hospital follow up. Prescriptions: Continued atorvastatin [Lipitor] 20 mg tablet 20 mg PO DAILY RF: 0 donepezil [Aricept] 10 mg tablet 10 mg PO DAILY RF: 0 amlodipine [Norvasc] 5 mg tablet 5 mg PO DAILY RF: 0 aspirin [Aspir-81] 81 mg Tablet,Delayed Release (Dr/Ec) 81 mg PO DAILY RF: 0 acetaminophen [Tylenol Extra Strength] 500 mg Tablet 500 mg PO QAM PRN (Reason: Pain) RF: 0 acetaminophen [Tylenol Arthritis Pain] 650 mg Tablet Extended Release 1 - 2 tabs PO Q12H PRN (Reason: Pain) RF: 0 memantine [Namenda] 10 mg tablet 10 mg PO BID RF: 0 metoprolol succinate 50 mg tablet extended release 24 hr 50 mg PO DAILY Qty: 30 RF: 6 Stand-Alone Forms: [facility]/Other Patient Handouts: Dehydration Discharge Orders: Discharge Order (Routine); Ordered 07/30/18 Ordered By: Mohan Cabrera Admission Data Admit Date/Time: 07/29/18 01:30 Attending Provider: Sreedhar Thomason Admit Provider: Carlos Mckeon Primary Care Provider: Idris German Other Providers: Carlos Mckeon ; Maico Mascorro Service: Telemetry Medical Other Interventions: Discharge Summary Assessment (RN) Last Done: 07/30/18 13:27 DC Date/Time DO NOT enter until pt leaves facility: 07/30/18 14:15 Supervising Physician Co-Signing Physician Notes I personally examined the patient and verified all ross points of history and exam, discussed case, and agree with decision making with Dr Cabrera feeling better wants to go home. family present. no issues with them going home after discussion with family vitals noted nad breathing unlabored no pallor or icterus, mmm metabolic encephalopathy caused by dehydration (VAISHNAVI on ?possible baseline CKD2) likely from poor oral intake -- improved with rehydration, encouraged 60+ounces fluid daily (and gave family strategies to help make this easier/easier to track given the dementia) syncope - most likely was dehydration + septal hypertrophy accentuated by dehydration. stable for home. no room to increase beta aj w HR ~60. stable for home, home nursing, PCP f/u otherwise as above
[2018-07-30] MEDS: SODIUM CHLORIDE 0.9% 1000ML 1,000 ML IV SCH (12:20)
== END 2018-07-30 14:15 | disposition home health service (06) | DRG 682 ==
LOC: ED 18:30 → 2N 07-29 01:30 → SUATTDRO 07-29 01:30 → 2N 07-29 02:02

== ENCOUNTER 2019-12-28 08:35 | Inpatient (IN) ==
[2019-12-28] MEDS ORDERED: SODIUM CHLORIDE 0.9% 500 ML IV SCH (08:45)
--- NOTE | 2019-12-28 08:49 | Emergency Department Note ---
Impression & Plan Dehydration, VAISHNAVI (acute kidney injury), Syncope ED Provider Note NAME: GÉNESIS DAVISON AGE: 89 SEX: M : 1930 ARRIVES VIA: Ambulance INFORMANT: Patient, ED PROVIDER(S): Jacinto Guerra MD Chief Complaint: Possible sycnope, decreased mentation HPI: History is limited secondary to the patient's history of dementia and ability to communicate. They receive medical command call as the patient currently resides at [facility] and there is concern about the possibility of syncope as the patient may have had some decreased arousability. No reported falls. Patient's BSG prior to arrival is in the 90s. No reported infectious symptoms. EMS did state that they thought he was pale and diaphoretic on arrival. His initial blood pressure was in the 80s. The patient did receive 4 mg of IV Zofran and 500 cc bolus of normal saline fluid. Patient's blood pressure has improved. ROS: Unable to obtain secondary to the patient's history of dementia. Past medical history: See below Surgical history: See below Social history: See below Physical Exam: GENERAL: Nontoxic, intermittently communicative. EYE EXAM: Normal conjunctiva. PERRL, no anisocoria and EOM's grossly intact w/o pain. NECK: Supple, no nuchal rigidity, no adenopathy, non-tender. No signs of meningismus. LUNGS: Clear to auscultation. Normal chest wall mechanics. HEART: NSR, no MRG. ABDOMEN: Abdomen soft, non-tender, normo-active bowel sounds, no masses, no rebound or guarding. BACK: No CVA TTP. SKIN: No rashes and no bruising. UPPER EXTREMITIES: Upper extremities are grossly normal. LOWER EXTREMITIES: Grossly normal, no edema. NEURO EXAM: A&O x3, cranial nerves II-XII grossly intact, normal speech, moves all 4 extremities on command w/o issue. Differential diagnoses: Infection, dehydration, metabolic abnormality, hypo/hyperglycemia, electrolyte disturbance, anemia, hypoxia, cardiac sources, intracerebral event, toxicologic, neurologic, as well as other pathologies. Course: Patient was seen and evaluated the bedside. Full history physical exam was performed. EKG: Indication: Syncope weakness Normal sinus rhythm, rate of 68, wide QRS and prolonged QT, left bundle branch block pleasant with T wave inversions in the lateral leads slight elevation in V3. The patient may have some slight concordant elevation in V5 which does appear slightly changed from his prehospital as well as his prior EKG completed September 08, 2019. Repeat EKG Normal sinus rhythm, rate of 61, wide QRS mild prolonged QTC, left bundle branch block, T wave inversion in the high lateral leads and the slight elevation in V5 does not appear as pronounced. Imaging Studies: Radiology results as stated below per my review in the radiologist's interpretation: Cardiac monitoring: An order was placed for continuous cardiac monitoring. The monitor shows a rate of 54 with sinus bradycardia rhythm. MDM: Patient was seen due to concern for possible syncope. Patient did have blood are completed along with an EKG troponin chest x-ray. The patient may have some mild concordant elevation in V5. Patient's repeat EKG does not appear as pronou nced. Patient's repeat EKG is relatively unchanged but the slight elevation in V5 does not appear to be as pronounced. Patient has a normal white count H&H and platelet count. Kidney function is slightly worsened compared to prior with creatinine 1.6. The patient did receive a total of 1 L of IV fluids. TSH unremarkable. Troponin is detectable but not elevated. Given the undifferentiated story possible syncope as well as potential EKG changes I did speak the on-call hospitalist and the patient was admitted to the [facility] physician group by Dr. Martinez. Past Med/Surg History Medical History Alzheimer's dementia Arthritis of neck Benign essential hypertension Dyslipidemia Heart attack Hypertension Surgical History History of colonoscopy History of hernia repair History of vasectomy Hx of total knee arthroplasty Family History Father , age 73 stroke and [place] Myocardial infarction Stroke Mother , age 73 parkinson's Parkinsons disease Brother Prostate cancer Unknown Heart disease Hypertension Liver cancer Lung cancer Osteoarthritis Social History Smoking Status: Former smoker Smoking End Date: 1999 about; Second Hand Exposure: No; Do You Dip or Chew Tobacco: No; Tobacco Cessation Education Requested by Patient: No Hx Alcohol Use: No Hx Substance Use: No Preferred Language: Andorran Communication Ability: Impaired Communication Ability Comment: follows commands, alert to person only, history of dementia Mail Carrier And Clerk Required: No Beliefs That Will Affect Care: None marital status: Current Living Situation: Personal Care Facility Current Living Situation Comment: [facility] residence current occupational status: retired How many Children do You have: 6 Other Information That Helps Us Care for You: No Feels Safe at Home: Yes Safety Concerns: Feels Safe At This Time Allergies Allergies Allergy/AdvReac Type Severity Reaction Status Date / Time hydrochlorothiazide Allergy Unknown UNKNOWN Verified 12/28/19 09:21 Penicillins Allergy Unknown ? UNKNOWN Verified 12/28/19 09:21 Sulfa (Sulfonamide Allergy Unknown ITCHINESS, Verified 12/28/19 09:21 Antibiotics) RED SKIN oxycodone AdvReac Intermediate CONSTIPATION, Verified 12/28/19 09:21 MALAISE Home Meds Home Medications Medication Instructions Recorded Confirmed food supplemt, lactose-reduced 1 ea PO TID 09/08/19 12/28/19 [Ensure] Previous Rx's Medication Instructions Recorded acetaminophen 500 mg tablet 500 mg PO QAM PRN #90 tab 05/10/19 acetaminophen 650 mg 650 mg PO Q12H PRN #90 tab 05/10/19 tablet,extended release aspirin 81 mg tablet,delayed 81 mg PO DAILY #90 tab 05/10/19 release atorvastatin 20 mg tablet 20 mg PO DAILY #90 tab 05/10/19 donepezil 10 mg tablet 10 mg PO DAILY #90 tab 05/10/19 memantine 10 mg tablet 10 mg PO BID 90 Days #180 tab 05/10/19 metoprolol succinate 50 mg 50 mg PO DAILY #90 tab 05/10/19 tablet,extended release 24 hr amlodipine 5 mg tablet 5 mg PO DAILY #90 tab 05/30/19 Results & Data (ED) Vital Signs Vital Signs - 24 hr 12/28/19 08:40 12/28/19 08:47 12/28/19 08:52 Temperature 36.4 C L Temperature Source Oral Pulse Rate 66 56 L 63 Pulse Rate from SpO2 Sensor 56 L 60 Pulse Rhythm Regular Pulse Strength Normal Respiratory Rate 18 14 14 Respiratory Effort / Characteristics Non-Labored Spontaneous Respiratory Depth Normal Respiratory Pattern Regular Blood Pressure 133/69 133/69 Blood Pressure Mean 90 84 Blood Pressure Position Lying Pulse Oximetry 100 97 97 Oxygen Delivery Method Room Air Room Air Room Air Sepsis Recent Fever Within 48 Hours No Sepsis New/Unexplained Change in Mental Status No Sepsis Action Taken by Nursing No Action Required 12/28/19 09:07 12/28/19 09:13 12/28/19 09:30 Temperature Temperature Source Pulse Rate 80 57 L 68 Pulse Rate from SpO2 Sensor 66 57 L 73 Pulse Rhythm Pulse Strength Respiratory Rate 15 19 13 Respiratory Effort / Characteristics Respiratory Depth Respiratory Pattern Blood Pressure 131/67 139/81 Blood Pressure Mean 90 98 Blood Pressure Position Pulse Oximetry 96 95 96 Oxygen Delivery Method Room Air Room Air Room Air Sepsis Recent Fever Within 48 Hours Sepsis New/Unexplained Change in Mental Status Sepsis Action Taken by Nursing 12/28/19 09:31 12/28/19 10:00 12/28/19 10:01 Temperature Temperature Source Pulse Rate 71 66 74 Pulse Rate from SpO2 Sensor 79 66 75 Pulse Rhythm Pulse Strength Respiratory Rate 15 19 19 Respiratory Effort / Characteristics Respiratory Depth Respiratory Pattern Blood Pressure 124/64 Blood Pressure Mean 95 Blood Pressure Position Pulse Oximetry 96 98 98 Oxygen Delivery Method Room Air Room Air Room Air Sepsis Recent Fever Within 48 Hours Sepsis New/Unexplained Change in Mental Status Sepsis Action Taken by Nursing 12/28/19 10:30 12/28/19 10:31 Temperature Temperature Source Pulse Rate 72 63 Pulse Rate from SpO2 Sensor 64 63 Pulse Rhythm Pulse Strength Respiratory Rate 20 15 Respiratory Effort / Characteristics Respiratory Depth Respiratory Pattern Blood Pressure 139/62 Blood Pressure Mean 81 Blood Pressure Position Pulse Oximetry 98 96 Oxygen Delivery Method Room Air Room Air Sepsis Recent Fever Within 48 Hours Sepsis New/Unexplained Change in Mental Status Sepsis Action Taken by Assisted Medications Current Medication List: was personally reviewed by me Laboratory Data Attestation: I reviewed the patient's lab results. Result diagrams: 12/28/19 08:55 12/28/19 08:55 Lab Results 12/28/19 12/28/19 12/28/19 Range/Units 08:55 08:55 08:59 WBC 9.95 (4.8-10.8) K/uL RBC 4.79 (4.7-6.1) M/uL Hgb 15.1 (14.0-18.0) g/dL Hct 43.9 (42-52) % MCV 91.6 (80-100) fL MCH 31.5 (25-34) pg MCHC 34.4 (32-36) g/dL RDW Std Deviation 43.1 (36.4-46.3) fL RDW Coeff of Danii 12.9 (11.5-14.5) % Plt Count 219 (130-400) K/uL MPV 10.5 H (7.4-10.4) fL Immature Gran % (Auto) 0.4 % Neut % (Auto) 59.6 % Lymph % (Auto) 23.0 % Bartholomew % (Auto) 15.0 % Eos % (Auto) 1.6 % Baso % (Auto) 0.4 % Neut # (Auto) 5.93 (1.4-6.5) K/uL Lymph # (Auto) 2.29 (1.2-3.4) K/uL Bartholomew # (Auto) 1.49 H (0.11-0.59) K/uL Eos # (Auto) 0.16 (0-0.5) K/uL Baso # (Auto) 0.04 (0-0.2) K/uL Immature Gran # (Auto) 0.04 H (0.00-0.02) K/uL Sodium 143 (136-145) mmol/L Potassium 3.9 (3.5-5.1) mmol/L Chloride 110 H (98-107) mmol/L Carbon Dioxide 26 (21-32) mmol/L Anion Gap 7.0 (3-11) BUN 23 H (7-18) mg/dl Creatinine 1.60 H (0.6-1.4) mg/dl Est Cr Clr Drug Dosing 32.1 ml/min Est GFR ( Amer) 44.2 Est GFR (Non-Af Amer) 38.2 BUN/Creatinine Ratio 14.3 (10-20) Glucose 96 (70-99) mg/dl Calcium 8.9 (8.5-10.1) mg/dl Phosphorus 4.4 (2.5-4.9) mg/dl Total Bilirubin 0.6 (0.2-1) mg/dl AST 22 (15-37) U/L ALT 27 (12-78) U/L Alkaline Phosphatase 97 (45-117) U/L POC Troponin I 0.03 (0-0.045) ng/ml Troponin I 0.027 (0-0.045) ng/ml Total Protein 6.7 (6.4-8.2) gm/dl Albumin 3.2 L (3.4-5.0) gm/dl Globulin 3.5 (2.5-4.0) gm/dl Albumin/Globulin Ratio 0.9 (0.9-2) TSH 3.810 (0.300-4.500) uIu/ml Administered Medications Potassium Chloride/Sodium Chloride (1/2 Nss + 20meq Kcl 1000ml) 20 meq in 1,000 mls @ 125 mls/hr IV .Q8H DIPESH Stop: 01/27/20 11:14 Last Admin: 12/28/19 12:35 Dose: 125 mls/hr Documented by: [id number] Discontinued Medications Sodium Chloride (Nss) 500 mls @ 999 mls/hr IV .Q31M DIPESH Stop: 12/28/19 09:15 Last Infusion: 12/28/19 09:46 Dose: 0 mls/hr Documented by: [id number] Admin: 12/28/19 09:15 Dose: 999 mls/hr Documented by: [id number] Discharge Plan Visit Data Chief Complaint: Syncope ED Provider: Jacinto Guerra Discharge Problem: Dehydration, VAISHNAVI (acute kidney injury), Syncope Patient Disposition: Admitted As Inpatient Discharge Instructions Interventions: ED Discharge Assessment Last Done: 12/28/19 11:05 Discharge Problem: Syncope Qualifiers: Syncope type: unspecified Qualified Code(s): R55 - Syncope and collapse
[2019-12-28 09:05] LABS: Basophils # (auto) 0.04 K/uL (0-0.2); Basophils % (auto) 0.4 %; Eosinophils # (auto) 0.16 K/uL (0-0.5); Eosinophils % (auto) 1.6 %; Hematocrit (blood only) 43.9 % (42-52); Hemoglobin 15.1 g/dL (14.0-18.0); Immature Granulocytes # (auto) 0.04 K/uL (0.00-0.02); Immature Granulocytes % (auto) 0.4 %; Lymphocytes # (auto) 2.29 K/uL (1.2-3.4); Mean Corpuscular Hemoglobin 31.5 pg (25-34); Mean Corpuscular Hgb Conc 34.4 g/dL (32-36); Mean Corpuscular Volume 91.6 fL (80-100); Mean Platelet Volume 10.5 fL (7.4-10.4); Monocytes # (auto) 1.49 K/uL (0.11-0.59); Neutrophils # (auto) 5.93 K/uL (1.4-6.5); Neutrophils % (auto) 59.6 %; Platelet Count 219 K/uL (130-400); RDW Coefficient of Variation 12.9 % (11.5-14.5); RDW Standard Deviation 43.1 fL (36.4-46.3); Red Blood Count 4.79 M/uL (4.7-6.1); White Blood Count 9.95 K/uL (4.8-10.8)
--- NOTE | 2019-12-28 09:09 | CT Scan Report ---
CT head/brain wo con CLINICAL HISTORY: Syncope COMPARISON STUDY: 09/08/2019 TECHNIQUE: Axial CT of the brain is performed from the vertex to the skull base. IV contrast was not administered for this examination. A dose lowering technique was utilized adhering to the principles of ALARA. CT DOSE: 614.27 mGy.cm FINDINGS: No intra or extra-axial mass lesions are visualized. There is no CT evidence of acute cortical infarc tion. There is no evidence of midline shift. There is no acute hemorrhage. No calvarial fractures ar e visualized. There are patchy white matter hypodensities likely on a small vessel basis. There is persistent ventricular dilatation similar to the prior study and likely secondary to volume loss. There is no evidence of acute sinusitis IMPRESSION: No acute intracranial findings ACT 112: Negative or not required by law. Electronically signed by: Dariel Cruz M.D. 12/28/2019 9:08 AM
--- NOTE | 2019-12-28 09:14 | XRay Report ---
XR chest 1V portable CLINICAL HISTORY: weakness COMPARISON STUDY: 09/08/2019 FINDINGS: The cardiac and mediastinal contours are normal. There is no evidence of focal pulmonary co nsolidation. There is no evidence of failure. No pleural effusions are visualized.[ IMPRESSION: No active disease in the chest. ACT 112: Negative or not required by law. Electronically signed by: Dareil rCuz M.D. 12/28/2019 9:13 AM
[2019-12-28 09:36] LABS: Albumin Level 3.2 gm/dl (3.4-5.0); BUN Creatinine Ratio 14.3 (10-20); Calcium 8.9 mg/dl (8.5-10.1); Creatinine Clr Calc Pharmacy 32.1 ml/min; Est GFR (African American) 44.2; Est GFR (Non-African American) 38.2; Potassium 3.9 mmol/L (3.5-5.1)
[2019-12-28 09:47] LABS: Albumin Globulin Ratio 0.9 (0.9-2); Bilirubin,Total 0.6 mg/dl (0.2-1); Globulin 3.5 gm/dl (2.5-4.0); Phosphorus 4.4 mg/dl (2.5-4.9); Thyroid Stimulating Hormone 3.81 uIu/ml (0.300-4.500); Total Protein 6.7 gm/dl (6.4-8.2); Troponin I 0.027 ng/ml (0-0.045)
--- NOTE | 2019-12-28 11:06 | History & Physical Report ---
Date of Service December 28, 2019 Assessment & Plan (1) Syncope: Suspect combination of dehydration from not drinking and excessive antihypertensive use. Rx Hold anti-hypertensives, IV fluids Ix Monitor on telemetry for arrhythmia, trend troponin to assess for PR, TTE (2) Benign essential hypertension: Holding amlodipine and metoprolol. However he is already have this today. (3) Dyslipidemia: Continue atorvastatin 20 mg p.o. daily (4) LBBB (left bundle branch block): Noted not to be new (5) Alzheimer's dementia: Risk of delirium while admitted. Continue memantine and donepezil (6) DVT prophylaxis: Not for SCDs given falls risk Chemical prophylaxis deferred given low risk, recent fall, increased risk of delirium Admission and Anticipated Discharge Date Admission Date: 12/28/2019 History of Present Illness Chief Complaint: Syncopal episode Primary Care Provider: Raad Askewfranklin Martell is an 89-year-old male who presents to the ER via EMS from [facility] due to a syncopal event this morning. The patient or his at bedside are unable to provide any history. Discussed with nurse Raad who reports he took all his usual morning medication. While being helped up with the nursing assistants he became pale, fainted and unresponsive. This is never happened before. He was pale appearing, breathing but otherwise nonresponsive, diaphoretic. He sat him up and he would have occasional eyes rolling to the back of his head with unresponsive episodes for 30 seconds at a time. This will occur every 3 to 5 minutes. They called 911. When EMS arrived his systolic blood pressure was in the 80s, he appeared pale and diaphoretic at that time. She reports no changes to medication in the last few weeks. He has been otherwise well. He is DNR/DNI. Allergies Allergy/AdvReac Type Severity Reaction Status Date / Time hydrochlorothiazide Allergy Unknown UNKNOWN Verified 12/28/19 09:21 Penicillins Allergy Unknown ? UNKNOWN Verified 12/28/19 09:21 Sulfa (Sulfonamide Allergy Unknown ITCHINESS, Verified 12/28/19 09:21 Antibiotics) RED SKIN oxycodone AdvReac Intermediate CONSTIPATION, Verified 12/28/19 09:21 MALAISE Home Medications Home Medications Medication Instructions Recorded Confirmed Type acetaminophen 500 mg tablet 500 mg PO QAM PRN #90 tab 05/10/19 12/28/19 Rx acetaminophen 650 mg 650 mg PO Q12H PRN #90 tab 05/10/19 12/28/19 Rx tablet,extended release aspirin 81 mg tablet,delayed 81 mg PO DAILY #90 tab 05/10/19 12/28/19 Rx release atorvastatin 20 mg tablet 20 mg PO DAILY #90 tab 05/10/19 12/28/19 Rx donepezil 10 mg tablet 10 mg PO DAILY #90 tab 05/10/19 12/28/19 Rx memantine 10 mg tablet 10 mg PO BID 90 Days #180 tab 05/10/19 12/28/19 Rx metoprolol succinate 50 mg 50 mg PO DAILY #90 tab 05/10/19 12/28/19 Rx tablet,extended release 24 hr amlodipine 5 mg tablet 5 mg PO DAILY #90 tab 05/30/19 12/28/19 Rx food supplemt, lactose-reduced 1 ea PO TID 09/08/19 12/28/19 History [Ensure] Past Med/Surg History Medical History Alzheimer's dementia Arthritis of neck Benign essential hypertension Dyslipidemia Heart attack Hypertension Surgical History History of colonoscopy History of hernia repair History of vasectomy Hx of total knee arthroplasty Family History Father , age 73 stroke and PR Myocardial infarction Stroke Mother , age 73 parkinson's Parkinsons disease Brother Prostate cancer Unknown Heart disease Hypertension Liver cancer Lung cancer Osteoarthritis Social History Smoking Status: Former smoker Smoking End Date: 1999 about; Second Hand Exposure: No; Do You Dip or Chew Tobacco: No; Tobacco Cessation Education Requested by Patient: No Hx Alcohol Use: No Hx Substance Use: No Preferred Language: Botswanan Communication Ability: Impaired Communication Ability Comment: follows commands, alert to person only, history of dementia Raise Drill Operator Required: No Beliefs That Will Affect Care: None marital status: Current Living Situation: Personal Care Facility Current Living Situation Comment: [facility] residence current occupational status: retired How many Children do You have: 6 Other Information That Helps Us Care for You: No Feels Safe at Home: Yes Safety Concerns: Feels Safe At This Time Review of Systems Review of Systems: Unobtainable due to cognitive status Physical Exam Constitutional: well developed and + frail appearing; + not well nourished and no acute distress Eyes: PERRL, conjunctivae normal, anicteric sclerae ENMT: external ear and nose normal, oropharynx normal Neck: trachea midline, no thyromegaly Respiratory: normal respiratory effort, lungs clear to auscultation Cardiovascular: RRR, no murmur, no edema Gastrointestinal (Abdomen): normal bowel sounds, soft, nontender, no hepatosplenomegaly Musculoskeletal: no cyanosis or clubbing, extremities motor strength 5/5 Skin: no rashes, warm and dry Neurologic: moves all extremities (Difficult neurological exam as patient has difficulty following directions due to chronic cognitive impairment) and awake Psychiatric: Orientation: alert; + not oriented to person (Tells me it is his sitting next to him but does not know her name), + not oriented to place and + not oriented to time Genitourinary: no CVA tenderness Lymphatic: no cervical or axillary lymphadenopathy Results & Data Results & Data ([facility] Vital Signs (Past 12 Hours) Vital Signs Temp Pulse Resp BP Pulse Ox 12/28/19 11:00 65 19 127/68 96 12/28/19 10:31 63 15 96 12/28/19 10:30 72 20 139/62 98 12/28/19 10:01 74 19 98 12/28/19 10:00 66 19 124/64 98 12/28/19 09:31 71 15 96 12/28/19 09:30 68 13 139/81 96 12/28/19 09:13 57 L 19 131/67 95 12/28/19 09:07 80 15 96 12/28/19 08:52 63 14 97 12/28/19 08:47 56 L 14 133/69 97 12/28/19 08:40 36.4 C L 66 18 133/69 100 Diagnostic Findings XR chest 1V portable IMPRESSION: No active disease in the chest. CT head/brain wo con IMPRESSION: No acute intracranial findings ECG Rate (beats per minute): 68 Findings: + LBBB (Not new) Comparison ECG Date: from (September 08, 2019) Change: the following changes noted (PACs no longer present) Code Status & VTE Plan Code Status DNR/DNI VTE Prophylaxis Plan VTE Prophylaxis will be ordered: No Reason for no VTE drug order: Treatment not indicated Reason for no VTE mechanical prophylaxis: Treatment not indicated PG Care Time/CCT Total # of Minutes Spent Total Time Spent with Patient: Total time spent is greater than 50% in coordination of care (as documented) at patient's floor/unit and/or counseling patient: Coding Level of Care Code 12338 Initial Inpt Care Lvl 3 Diagnoses Syncope R55 Benign essential hypertension I10 Dyslipidemia E78.5 LBBB (left bundle branch block) I44.7 Alzheimer's dementia G30.9; F02.80 DVT prophylaxis Z29.9
[2019-12-28] MEDS ORDERED: ONDANSETRON INJ 2 MG/ML 2 ML VIAL IV PRN (11:49)
[2019-12-28] MEDS ORDERED: ACETAMINOPHEN 325 MG TAB PO PRN (11:49)
[2019-12-28] MEDS ORDERED: ALUMINUM/MAGNESIUM SUSP 30 ML UDC PO PRN (11:49)
[2019-12-28] MEDS ORDERED: POLYETHYLENE (MIRALAX) 17 GM PACK PO PRN (11:49)
--- NOTE | 2019-12-28 12:34 | Electrocardiogram Report ---
Test Reason : Blood Pressure : / mmHG Vent. Rate : 068 BPM Atrial Rate : 068 BPM P-R Int : 160 ms QRS Dur : 126 ms QT Int : 472 ms P-R-T Axes : 070 -15 135 degrees QTc Int : 501 ms Normal sinus rhythm Left bundle branch block Abnormal ECG When compared with ECG of 08-SEP-2019 16:21, Premature atrial complexes are no longer Present Confirmed by Tyler Cunha ([id number]) on 12/28/2019 12:34:01 PM Referred By: ED Confirmed By:Tyler Cunha
[2019-12-28] MEDS: SODIUM CHLOR 0.45% + 20MEQ KCL 20 MEQ/1,000 ML BAG IV SCH ×2 (12:35→20:21)
--- NOTE | 2019-12-28 12:35 | Electrocardiogram Report ---
Test Reason : Blood Pressure : / mmHG Vent. Rate : 061 BPM Atrial Rate : 061 BPM P-R Int : 158 ms QRS Dur : 122 ms QT Int : 482 ms P-R-T Axes : 076 -08 161 degrees QTc Int : 485 ms Normal sinus rhythm Left bundle branch block Abnormal ECG When compared with ECG of 28-DEC-2019 08:40, (unconfirmed) No significant change was found Confirmed by Tyler Cunha ([id number]) on 12/28/2019 12:35:06 PM Referred By: REFERRED SELF Confirmed By:Tyler Cunha
--- NOTE | 2019-12-28 13:18 | XRay Report ---
[facility] CLINICAL HISTORY: fecal impaction COMPARISON STUDY: CT of the abdomen and pelvis March 25, 2011. FINDINGS: There is a large amount of stool within the rectum. There is a moderate amount stool within the colon. There is no evidence for a bowel obstruction. Pelvic calcifications could reflect phlebol iths or bladder calculi. IMPRESSION: 1. Large amount stool within the rectum. Moderate amount stool within the colon. 2. No evidence for a bowel obstruction. ACT 112: Negative or not required by law. Electronically signed by: Guillaume Irwin M.D. 12/28/2019 1:16 PM
--- NOTE | 2019-12-28 15:33 | XCELERA ---
[id number]
[2019-12-28] MEDS ORDERED: POLYETHYLENE (MIRALAX) 17 GM PACK PO ONE (17:40)
[2019-12-28 19:36] LABS: Appearance Urine Clear (Clear); Bilirubin Urine Negative (Negative); Blood Urine Negative (Negative); Color Urine Yellow; Glucose Urine UA Negative (Negative); Ketones Urine Negative (Negative); Leukocyte Esterase Urine Negative (Negative); Nitrite Urine Negative (Negative); Protein Urine Negative (Negative); Specific Gravity Urine 1.017 (1.000-1.030); Urobilinogen Urine Negative (Negative); pH Urine 7.5 (4.5-7.5)
[2019-12-28] MEDS: POLYETHYLENE (MIRALAX) 17 GM PACK PO SCH (20:22)
[2019-12-28] MEDS: MEMANTINE HCL 10 MG TAB PO SCH (20:23)
[2019-12-29] MEDS: SODIUM CHLOR 0.45% + 20MEQ KCL 20 MEQ/1,000 ML BAG IV SCH ×3 (05:20→22:03)
[2019-12-29 07:27] LABS: Basophils # (auto) 0.05 K/uL (0-0.2); Basophils % (auto) 0.5 %; Eosinophils # (auto) 0.21 K/uL (0-0.5); Eosinophils % (auto) 2.2 %; Hematocrit (blood only) 42.3 % (42-52); Hemoglobin 14.4 g/dL (14.0-18.0); Immature Granulocytes # (auto) 0.04 K/uL (0.00-0.02); Immature Granulocytes % (auto) 0.4 %; Lymphocytes # (auto) 2.21 K/uL (1.2-3.4); Lymphocytes % (auto) 23.4 %; Mean Corpuscular Hemoglobin 31.3 pg (25-34); Mean Platelet Volume 10.6 fL (7.4-10.4); Monocytes # (auto) 1.19 K/uL (0.11-0.59); Monocytes % (auto) 12.6 %; Neutrophils # (auto) 5.76 K/uL (1.4-6.5); Neutrophils % (auto) 60.9 %; Platelet Count 206 K/uL (130-400); RDW Coefficient of Variation 12.9 % (11.5-14.5); RDW Standard Deviation 43.4 fL (36.4-46.3); White Blood Count 9.46 K/uL (4.8-10.8)
[2019-12-29 08:00] LABS: BUN Creatinine Ratio 13.6 (10-20); Calcium 8.4 mg/dl (8.5-10.1); Creatinine Clr Calc Pharmacy 37.4 ml/min; Est GFR (African American) 55.3; Est GFR (Non-African American) 47.7
[2019-12-29 08:05] LABS: Albumin Globulin Ratio 0.9 (0.9-2); Bilirubin,Total 0.6 mg/dl (0.2-1); Globulin 3.2 gm/dl (2.5-4.0); Total Protein 6.2 gm/dl (6.4-8.2); Troponin I 0.022 ng/ml (0-0.045)
[2019-12-29] MEDS: DONEPEZIL HCL 10 MG TAB PO SCH (08:25)
[2019-12-29] MEDS: ATORVASTATIN 20 MG TAB PO SCH (08:25)
[2019-12-29] MEDS: MEMANTINE HCL 10 MG TAB PO SCH ×2 (08:25→20:56)
[2019-12-29] MEDS: POLYETHYLENE (MIRALAX) 17 GM PACK PO SCH ×3 (08:26→20:55)
[2019-12-29] MEDS: ASPIRIN 81 MG ECTAB PO SCH (09:39)
--- NOTE | 2019-12-29 23:21 | Hospitalist Progress Note ---
Date of Service December 29, 2019 Assessment & Plan (1) Syncope: Suspect combination of dehydration from not drinking and excessive antihypertensive use. Rx Hold anti-hypertensives, IV fluids at 125cc/hr initially, decreased to 100cc/hr today no arrhythmia, troponin negative, echo with preserved EF, no evidence of aortic stenosis continue therapy, plan for discharge tomorrow, will likely hold BP medications or at least reduce (2) Benign essential hypertension: Holding amlodipine and metoprolol BP up to 150's systolic but pretty stable question if he needs any BP control, check BP tomorrow if elevated > 160 then would only add back the Norvasc (3) Dyslipidemia: Continue atorvastatin 20 mg p.o. daily (4) LBBB (left bundle branch block): Noted not to be new (5) Alzheimer's dementia: Risk of delirium while admitted. Continue memantine and donepezil (6) DVT prophylaxis: Not for SCDs given falls risk Chemical prophylaxis deferred given low risk, recent fall, increased risk of delirium Admission and Anticipated Discharge Date Admission Date: December 29, 2019 Subjective patient doing well today after aggressive IV fluids and rest he is eating okay today, not great BP is stable, actually a little elevated which is okay in this patient's age group labs show normal CBC, Cr improved to 1.33 from 1.6, electrolytes stable d/w CM, keep here today, will change to full admission since he will be staying some issues with voiding, going frequently, bladder scanned for 390mL, ordered straight cath Review of Systems Review of Systems: Unobtainable due to cognitive status Physical Exam Constitutional: well developed, + thin and + disheveled; no acute distress Eyes: PERRL, conjunctivae normal, anicteric sclerae ENMT: external ear and nose normal, oropharynx normal Mouth: + poor dentition Neck: trachea midline, no thyromegaly Respiratory: normal respiratory effort, lungs clear to auscultation Cardiovascular: RRR, no murmur, no edema Gastrointestinal (Abdomen): normal bowel sounds, soft, nontender, no hepatosplenomegaly Musculoskeletal: no cyanosis or clubbing, extremities motor strength 5/5 Skin: no rashes, warm and dry Neurologic: patellar DTR's 2+ bilat, sensation intact and PERRL, EOMI, accommodation nl, no face palsy, no dysarthria Psychiatric: Orientation: alert, oriented to person and cooperative; + not oriented to place and + not oriented to time Lymphatic: no cervical or axillary lymphadenopathy Results & Data Results & Data ([facility]) Vital Signs (Past 12 Hours) Vital Signs Temp Pulse Pulse Resp BP Pulse Ox 12/29/19 19:40 36.3 C L 84 22 153/76 H 98 12/29/19 16:30 64 12/29/19 15:12 36.8 C 74 18 138/80 99 12/29/19 15:11 36.5 C 74 18 138/80 99 Laboratory Results Laboratory Results - last 24 hr 12/29/19 12/29/19 07:00 07:00 WBC 9.46 RBC 4.60 L Hgb 14.4 Hct 42.3 MCV 92.0 MCH 31.3 MCHC 34.0 RDW Std Deviation 43.4 RDW Coeff of Danii 12.9 Plt Count 206 MPV 10.6 H Immature Gran % (Auto) 0.4 Neut % (Auto) 60.9 Lymph % (Auto) 23.4 [place] % (Auto) 12.6 Eos % (Auto) 2.2 Baso % (Auto) 0.5 Neut # (Auto) 5.76 Lymph # (Auto) 2.21 [place] # (Auto) 1.19 H Eos # (Auto) 0.21 Baso # (Auto) 0.05 Immature Gran # (Auto) 0.04 H Sodium 139 Potassium 4.0 Chloride 109 H Carbon Dioxide 25 Anion Gap 6.0 BUN 18 Creatinine 1.33 Est Cr Clr Drug Dosing 37.4 Est GFR ( Amer) 55.3 Est GFR (Non-Af Amer) 47.7 BUN/Creatinine Ratio 13.6 Glucose 86 Calcium 8.4 L Total Bilirubin 0.6 AST 21 ALT 22 Alkaline Phosphatase 96 Troponin I 0.022 Total Protein 6.2 L Albumin 3.0 L Globulin 3.2 Albumin/Globulin Ratio 0.9 Medications Administered Current Inpatient Medications Acetaminophen (Acetaminophen 325 Mg Tab) 650 mg PO Q4H PRN PRN Reason: Pain or Fever Stop: 01/27/20 11:48 Al Hydrox/Mg Hydrox/Simethicone (Aluminum/Magnesium Susp 30 Ml Udc) 15 ml PO Q4H PRN PRN Reason: Dyspepsia Stop: 01/27/20 11:48 Aspirin (Aspirin 81 Mg Ectab) 81 mg PO DAILY DIPESH Stop: 01/28/20 08:59 Last Admin: 12/29/19 09:39 Dose: 81 mg Documented by: Atorvastatin Calcium (Atorvastatin 20 Mg Tab) 20 mg PO DAILY DIPESH Stop: 01/28/20 08:59 Last Admin: 12/29/19 08:25 Dose: 20 mg Documented by: Donepezil HCl (Donepezil Hcl 10 Mg Tab) 10 mg PO DAILY DIPESH Stop: 01/28/20 08:59 Last Admin: 12/29/19 08:25 Dose: 10 mg Documented by: Potassium Chloride/Sodium Chloride (1/2 Nss + 20meq Kcl 1000ml) 20 meq in 1,000 mls @ 125 mls/hr IV .Q8H [facility] Stop: 01/27/20 11:14 Last Admin: 12/29/19 22:03 Dose: 125 mls/hr Documented by: Memantine (Memantine Hcl 10 Mg Tab) 10 mg PO BID DIPESH Stop: 01/27/20 20:59 Last Admin: 12/29/19 20:56 Dose: 10 mg Documented by: Ondansetron HCl (Ondansetron Inj 2 Mg/Ml 2 Ml Vial) 4 mg IV Q6H PRN PRN Reason: Nausea Stop: 01/27/20 11:48 Polyethylene Glycol (Polyethylene (Miralax) 17 Gm Pack) 17 gm PO DAILY PRN PRN Reason: Constipation Stop: 01/27/20 11:48 Polyethylene Glycol (Polyethylene (Miralax) 17 Gm Pack) 17 gm PO TID DIPESH Stop: 01/27/20 20:59 Last Admin: 12/29/19 20:55 Dose: Not Given Documented by: PG Care Time/CCT Total # of Minutes Spent Total Time Spent with Patient: Total time spent is greater than 50% in coordination of care (as documented) at patient's floor/unit and/or counseling patient: Coding Level of Care Code 72627 Subseq Hosp Care Lvl 2 Diagnoses Syncope R55 Benign essential hypertension I10 Dyslipidemia E78.5 LBBB (left bundle branch block) I44.7 Alzheimer's dementia G30.9; F02.80 DVT prophylaxis Z29.9
[2019-12-30] MEDS ORDERED: Nursing to Pharmacy Communication SCH (00:30)
[2019-12-30] MEDS: SODIUM CHLOR 0.45% + 20MEQ KCL 20 MEQ/1,000 ML BAG IV SCH (05:31)
[2019-12-30] MEDS: MEMANTINE HCL 10 MG TAB PO SCH (07:58)
[2019-12-30] MEDS: POLYETHYLENE (MIRALAX) 17 GM PACK PO SCH (07:59)
[2019-12-30] MEDS: ATORVASTATIN 20 MG TAB PO SCH (07:59)
[2019-12-30] MEDS: DONEPEZIL HCL 10 MG TAB PO SCH (07:59)
[2019-12-30] MEDS ORDERED: AMLODIPINE BESYLATE 5 MG TAB PO SCH (09:00)
[2019-12-30] MEDS: ASPIRIN 81 MG ECTAB PO SCH (09:01)
--- NOTE | 2019-12-30 12:50 | Discharge Summary ---
Date of Service December 30, 2019 Admission HPI Per Admitting Provider Raymundo Martell is an 89-year-old male who presents to the ER via EMS from [facility] due to a syncopal event this morning. The patient or his at bedside are unable to provide any history. Discussed with nurse [facility] who reports he took all his usual morning medication. While being helped up with the nursing assistants he became pale, fainted and unresponsive. This is never happened before. He was pale ap pearing, breathing but otherwise nonresponsive, diaphoretic. He sat him up and he would have occasional eyes rolling to the back of his head with unresponsive episodes for 30 seconds at a time. This will occur every 3 to 5 minutes. They called 911. When EMS arrived his systolic blood pressure was in the 80s, he appeared pale and diaphoretic at that time. She reports no changes to medication in the last few weeks. He has been otherwise well. He is DNR/DNI. Principal Diagnosis Syncope due to dehydration Discharge Exam Constitutional well developed, + thin and + disheveled; no acute distress Eyes PERRL, conjunctivae normal, anicteric sclerae ENMT external ear and nose normal, oropharynx normal Mouth: + poor dentition Neck trachea midline, no thyromegaly Respiratory normal respiratory effort, lungs clear to auscultation Cardiovascular RRR, no murmur, no edema Gastrointestinal (Abdomen) normal bowel sounds, soft, nontender, no hepatosplenomegaly Musculoskeletal no cyanosis or clubbing, extremities motor strength 5/5 Skin no rashes, warm and dry Neurologic patellar DTR's 2+ bilat, sensation intact and PERRL, EOMI, accommodation nl, no face palsy, no dysarthria Psychiatric Orientation: alert, oriented to person and cooperative; + not oriented to place and + not oriented to time Lymphatic no cervical or axillary lymphadenopathy Discharge Data Allergies Allergy/AdvReac Type Severity Reaction Status Date / Time hydrochlorothiazide Allergy Unknown UNKNOWN Verified 12/28/19 09:21 Penicillins Allergy Unknown ? UNKNOWN Verified 12/28/19 09:21 Sulfa (Sulfonamide Allergy Unknown ITCHINESS, Verified 12/28/19 09:21 Antibiotics) RED SKIN oxycodone AdvReac Intermediate CONSTIPATION, Verified 12/28/19 09:21 MALAISE Consultations 12/28/19 10:27 ED Decision to Admit Stat Ordered Studies 12/28/19 08:39 CT head/brain wo con Stat Hospital Course (1) Syncope: Suspect combination of dehydration from not drinking and excessive antihypertensive use. Rx Hold anti-hypertensives, IV fluids at 125cc/hr initially, decreased to 100cc/hr day prior to discharge and then discontinued no arrhythmia, troponin negative, echo with preserved EF, no evidence of aortic stenosis continue therapy, plan for discharge back to [facility] (2) Benign essential hypertension: initially held amlodipine and metoprolol due to low BP on arrival BP up to 170 systolic the morning of discharge when off his medications will resume Norvasc 5mg daily, continue to hold metoprolol reasonable BP goal for this patient would be 160 systolic given his age and fraility (3) Dyslipidemia: Continue atorvastatin 20 mg p.o. daily (4) LBBB (left bundle branch block): Noted not to be new (5) Alzheimer's dementia: Risk of delirium while admitted. Continue memantine and donepezil (6) Acute renal failure (ARF): ARF present on arrival resolved with IV fluids Total Time Total Time Spent Total Time Spent (In Minutes): 32 minutes Total Time Includes: Examination of the Patient, Discharge Planning and Medication Reconciliation Discharge Plan Discharge Items Patient Disposition: [facility] Reason For Visit: SYNCOPE,DEHYDRATION Discharge Diagnosis: Syncope due to dehydration Low blood pressure due to excessive anti-hypertensives Condition on Discharge: Good Goals: maintain nutrition and hydration discontinue metoprolol to allow for higher blood pressures Activity: Resume your previous activity Weightbearing: Full weightbearing Non-emergency contact: Primary Care Provider Call non-emergency contact if: you have any medication questions and your symptoms worsen Follow-up/Referrals: Raad [Primary Care Provider] - Diet: Regular Addtl Attending Provider Instructions: Medications: please note that metoprolol has been STOPPED Syncope, dehydration, hypotensive passed out due to combination of poor oral intake and anti-hypertensives causing low blood pressure resolved with IV fluids and holding BP medications BP up to 170 systolic this morning off of medications, will resume Norvasc 5mg daily, continue to hold metoprolol stay well hydrated no arrhythmia seen on monitor, echocardiogram normal EF and no aortic stenosis if he would have recurrent episodes of syncope, I would recommend stopping the Donepezil as it can cause syncope and likely not helping his dementia discharge back to [facility] Pending Studies at Discharge: No Stand-Alone Forms: My [employer], Smoking Cessation Skilled Items Patient informed of condition?: Yes DNR: Yes Discharge Level of Care: Other Communicable Disease: No Discharge Prognosis: Stable Lines: None Urinary Catheter: No Medications and DC Order Prescriptions: Continued acetaminophen [Tylenol Extra Strength] 500 mg tablet 500 mg PO QAM PRN (Reason: Pain) Qty: 90 RF: 3 acetaminophen [Tylenol Arthritis Pain] 650 mg tablet extended release 650 mg PO Q12H PRN (Reason: Pain) Qty: 90 RF: 1 aspirin [Aspir-81] 81 mg tablet,delayed release (DR/EC) 81 mg PO DAILY Qty: 90 RF: 3 atorvastatin 20 mg tablet 20 mg PO DAILY Qty: 90 RF: 3 donepezil [Aricept] 10 mg tablet 10 mg PO DAILY Qty: 90 RF: 3 memantine [Namenda] 10 mg tablet 10 mg PO BID 90 Days Qty: 180 RF: 3 amlodipine [Norvasc] 5 mg tablet 5 mg PO DAILY Qty: 90 RF: 3 Ensure Liquid 1 ea PO TID RF: 0 Discontinued metoprolol succinate 50 mg tablet extended release 24 hr 50 mg PO DAILY Qty: 90 RF: 1 Discharge Orders: Discharge Order (Routine); Ordered 12/30/19 Ordered By: Jr Valente Admission Data Admit Date/Time: 12/29/19 17:01 Attending Provider: Jr Valente Admit Provider: Cristiano Martinez Primary Care Provider: Raad, Other Providers: Cristiano Martinez Other Interventions: Discharge Summary Assessment (RN) Last Done: 12/30/19 13:46 Coding Level of Care Code D/C Day Management >30 mins Diagnoses Syncope R55 Benign essential hypertension I10 Dyslipidemia E78.5 LBBB (left bundle branch block) I44.7 Alzheimer's dementia G30.9; F02.80 Acute renal failure (ARF) N17.9
== END 2019-12-30 14:13 | disposition home or self-care (01) | DRG 641 ==
LOC: ED 08:35 → 2N 08:35 → SUATTDRO 10:32 → 2N 11:05

== ENCOUNTER 2020-04-26 21:19 | Observation (INO) ==
[2020-04-26] MEDS ORDERED: ACETAMINOPHEN 1,000 MG/100 ML VIAL IV STA (22:14)
[2020-04-26] MEDS ORDERED: SODIUM CHLORIDE 0.9% 1000ML 500 ML IV ONE (22:14)
--- NOTE | 2020-04-26 22:21 | Emergency Department Note ---
Impression & Plan Respiratory distress, Tachypnea, Fever, COVID-19 ED Provider Note NAME: GÉNESIS DAVISON AGE: 89 SEX: M : 1930 ARRIVES VIA: Ambulance INFORMANT: [ems, nursing] ED PROVIDER(S): [Nas Mullins MD] CHIEF COMPLAINT: Shortness of breath HISTORY OF PRESENT ILLNESS: The patient is an 89-year-old male who resides at [facility]. He was found to be Covid positive recently. Tonight, he seemed to be having some difficulty breathing and was sent by ambulance to the ED. Patient has dementia, he cannot really give me any history. He does not answer questions when questions are asked. Given the circumstances, no further history obtainable. Of note, patient does present with DNR paperwork. REVIEW OF SYSTEMS: Unobtainable given the mental state and dementia. PMHx/PSHx: See Below SOCIAL HISTORY: See Below. PHYSICAL EXAM: GENERAL: Patient is in mild respiratory distress. HEENT: No acute trauma, normocephalic atraumatic, mucous membranes moist, no nasal congestion, no scleral icterus. NECK: No stridor, no adenopathy, no meningismus, trachea is midline. LUNGS: No obvious wheezing, increased respiratory rate, mild respiratory distress. HEART: Regular rate and rhythm, equal radial pulses bilaterally. ABDOMEN: Soft, nontender, bowel sounds positive, no hernias, no peritonitis. EXTREMITIES: No cyanosis or edema, full range of motion of all the joints without pain or difficulty, no signs for acute trauma. NEUROLOGIC: Awake, does not answer any questions. No focal motor deficits. SKIN: No rash, no jaundice, no diaphoresis. DIFFERENTIAL DIAGNOSIS: Sepsis, UTI, pneumonia, metabolic abnormality, coronavirus, dehydration, electrolyte abnormalities, cardiac sources, intracerebral event, toxicologic, neurologic, as well as other pathologies. EMERGENCY DEPARTMENT COURSE/PROCEDURES: ECG: Indication was shortness of breath. The ECG shows a normal sinus rhythm with a rate of 98. 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 There were inverted T waves in the lateral leads. There was some ST elevation across the anterior leads. The QTc was 520. Compared to an ECG from 10 January 2020, the rate has increased. The lateral T wave inversions appear similar. The anterior ST elevation appears similar. Continuous Cardiac Monitoring: An order was placed for continuous cardiac monitoring. The monitor shows a rate of 72 with normal sinus rhythm. Critical Care Note: I have personally spent 45 minutes of critical care time in the direct management of this patient. This includes bedside care, interpreta tion of diagnostic studies, and testing, discussion with consultants, patient, and family members, and other required patient management activities. This 45 minutes is in excess of all separately billable procedures. MEDICAL DECISION MAKING: There is no leukocytosis or concerning anemia. There is a normal platelet count. No coagulopathy. Creatinine was somewhat elevated at 1.65, this type of elevation has been documented before when looking back at his previous laboratory testing. Lactic acid level was ordered but the result is still pending. There was no significant liver enzyme elevation. Procalcitonin level returned normal. ECG showed a sinus rhythm, no acute ischemia. Cardiac enzyme testing x1 is not consistent with acute cardiac injury. Urinalysis does not show infection. Chest film showed some subtle chronic findings, no obvious pneumonia, no CHF. On exam, patient was febrile and seemed dyspneic. He had an increased respiratory rate. The patient received IV Tylenol for his fever. He was given IV saline. I did speak with [facility]. Nursing staff there were concerned about the patient's dyspnea this evening. His O2 saturation on room air for them was in the mid 80s. The patient does not typically wear oxygen. They felt he seemed more confused and was having a very hard time catching his breath. He was sent by ambulance for evaluation at our hospital. Patient is clearly dyspneic, he is febrile with COVID-19. He had a very low O2 saturation earlier today. Given the circumstances, hospitalization is warranted. I have ordered for a CT of the chest to better evaluate the lungs not only for pneumonia but for the possibility of PE. The patient is going to be hospitalized. I did speak with case management, the on-call hospitalist was consulted. Of note, the patient did arrive with DNR paperwork. Past Med/Surg History Medical History VAISHNAVI (acute kidney injury) Alzheimer's dementia Arthritis of neck Benign essential hypertension Dehydration Dyslipidemia Heart attack Hypertension Syncope Surgical History History of colonoscopy History of hernia repair History of vasectomy Hx of total knee arthroplasty Family History Father , age 73 stroke and [place] Myocardial infarction Stroke Mother , age 73 parkinson's Parkinsons disease Brother Prostate cancer Unknown Heart disease Hypertension Liver cancer Lung cancer Osteoarthritis Social History Smoking Status: Unknown if ever smoked Second Hand Exposure: No; Hx Alcohol Use: No Hx Substance Use: No Preferred Language: Nepali Communication Ability: Impaired 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 UNKNOWN Verified 04/26/20 23:11 Sulfa (Sulfonamide Allergy Unknown ITCHINESS, Verified 04/26/20 23:11 Antibiotics) RED SKIN oxycodone AdvReac Intermediate CONSTIPATION, Verified 04/26/20 23:11 MALAISE Home Meds Home Medications Medication Instructions Recorded Confirmed Ensure 1 ea PO TID 09/08/19 04/26/20 acetaminophen 325 mg PO Q4 PRN MDD 3g 04/26/20 04/26/20 aspirin [Aspirin Low Dose] 81 mg PO DAILY 04/26/20 04/26/20 metoprolol succinate 50 mg PO DAILY 04/26/20 04/26/20 polyethylene glycol 3350 [Miralax] 17 g PO DAILY PRN 04/26/20 04/26/20 tramadol 50 mg PO Q4 PRN 04/26/20 04/26/20 Previous Rx's Medication Instructions Recorded acetaminophen 500 mg tablet 500 mg PO QAM PRN #90 tab 05/10/19 acetaminophen 650 mg 650 mg PO Q12H PRN #90 tab 05/10/19 tablet,extended release donepezil 10 mg tablet 10 mg PO DAILY #90 tab 05/10/19 memantine 10 mg tablet 10 mg PO BID 90 Days #180 tab 05/10/19 amlodipine 5 mg tablet 5 mg PO DAILY #90 tab 05/30/19 atorvastatin 20 mg tablet 20 mg PO DAILY #90 tab 03/19/20 Results & Data (ED) Vital Signs Vital Signs - 24 hr 04/26/20 21:31 04/26/20 21:32 04/26/20 22:00 Temperature 38.7 C H Temperature Source Oral Pulse Rate 87 90 85 Pulse Rate from SpO2 Sensor Respiratory Rate 30 H 28 H 28 H Respiratory Effort / Characteristics Non-Labored Blood Pressure 110/69 139/79 136/66 Blood Pressure Mean 78 99 84 Blood Pressure Position Lying Pulse Oximetry 97 98 98 Oxygen Delivery Method Room Air Room Air Sepsis Recent Fever Within 48 Hours Yes Sepsis New/Unexplained Change in Mental Status No Sepsis Action Taken by Nursing No Action Required 04/26/20 22:30 04/26/20 23:00 04/26/20 23:30 Temperature Temperature Source Pulse Rate 77 72 75 Pulse Rate from SpO2 Sensor 77 72 Respiratory Rate 30 H 23 19 Respiratory Effort / Characteristics Blood Pressure 124/69 151/71 H 137/75 Blood Pressure Mean 90 109 104 Blood Pressure Position Pulse Oximetry 98 98 95 Oxygen Delivery Method Room Air Room Air Sepsis Recent Fever Within 48 Hours Sepsis New/Unexplained Change in Mental Status Sepsis Action Taken by Longterm Medications Current Medication List: was personally reviewed by me Laboratory Data Attestation: I reviewed the patient's lab results. Result diagrams: 04/26/20 21:51 04/26/20 21:51 Lab Results 04/26/20 04/26/20 04/26/20 Range/Units 21:51 21:51 21:51 WBC 6.00 (4.8-10.8) K/uL RBC 5.54 (4.7-6.1) M/uL Hgb 17.1 (14.0-18.0) g/dL Hct 50.3 (42-52) % MCV 90.8 (80-100) fL MCH 30.9 (25-34) pg MCHC 34.0 (32-36) g/dL RDW Std Deviation 42.4 (36.4-46.3) fL RDW Coeff of Danii 12.7 (11.5-14.5) % Plt Count 176 (130-400) K/uL MPV 11.6 H (7.4-10.4) fL Immature Gran % (Auto) 0.3 % Neut % (Auto) 65.3 % Lymph % (Auto) 12.7 % [place] % (Auto) 20.5 % Eos % (Auto) 1.0 % Baso % (Auto) 0.2 % Neut # (Auto) 3.92 (1.4-6.5) K/uL Lymph # (Auto) 0.76 L (1.2-3.4) K/uL [place] # (Auto) 1.23 H (0.11-0.59) K/uL Eos # (Auto) 0.06 (0-0.5) K/uL Baso # (Auto) 0.01 (0-0.2) K/uL Immature Gran # (Auto) 0.02 (0.00-0.02) K/uL PT 11.8 (9.0-12.0) Seconds INR 1.1 (0.9-1.1) APTT 26.8 (21.0-31.0) Seconds PTT Ratio 1.0 Sodium 141 (136-145) mmol/L Potassium 4.1 (3.5-5.1) mmol/L Chloride 108 H (98-107) mmol/L Carbon Dioxide 23 (21-32) mmol/L Anion Gap 9.0 (3-11) BUN 33 H (7-18) mg/dl Creatinine 1.65 H (0.6-1.4) mg/dl Est Cr Clr Drug Dosing Not Reportable Est GFR ( Amer) 42.6 Est GFR (Non-Af Amer) 36.8 BUN/Creatinine Ratio 20.1 H (10-20) Glucose 107 H (70-99) mg/dl Calcium 9.0 (8.5-10.1) mg/dl Magnesium 2.1 (1.8-2.4) mg/dl Total Bilirubin 0.6 (0.2-1) mg/dl AST 23 (15-37) U/L ALT 22 (12-78) U/L Alkaline Phosphatase 106 (45-117) U/L Troponin I 0.025 (0-0.045) ng/ml Total Protein 8.3 H (6.4-8.2) gm/dl Albumin 3.4 (3.4-5.0) gm/dl Globulin 4.9 H (2.5-4.0) gm/dl Albumin/Globulin Ratio 0.7 L (0.9-2) Procalcitonin (0-0.5) ng/ml Urine Color Urine Appearance (Clear) Urine pH (4.5-7.5) Ur Specific [place] (1.000-1.030) Urine Protein (Negative) Urine Glucose (UA) (Negative) Urine Ketones (Negative) Urine Blood (Negative) Urine Nitrite (Negative) Urine Bilirubin (Negative) Urine Urobilinogen (Negative) Ur Leukocyte Esterase (Negative) Urine WBC (Auto) (0-5) /hpf Urine RBC (Auto) (0-4) /hpf U Hyaline Cast (Auto) (0-5) /lpf U Epithel Cells (Auto) (0-5) /lpf Urine Bacteria (Auto) (Negative) 04/26/20 04/26/20 Range/Units 21:51 23:00 WBC (4.8-10.8) K/uL RBC (4.7-6.1) M/uL Hgb (14.0-18.0) g/dL Hct (42-52) % MCV (80-100) fL MCH (25-34) pg MCHC (32-36) g/dL RDW Std Deviation (36.4-46.3) fL RDW Coeff of Danii (11.5-14.5) % Plt Count (130-400) K/uL MPV (7.4-10.4) fL Immature Gran % (Auto) % Neut % (Auto) % Lymph % (Auto) % [place] % (Auto) % Eos % (Auto) % Baso % (Auto) % Neut # (Auto) (1.4-6.5) K/uL Lymph # (Auto) (1.2-3.4) K/uL [place] # (Auto) (0.11-0.59) K/uL Eos # (Auto) (0-0.5) K/uL Baso # (Auto) (0-0.2) K/uL Immature Gran # (Auto) (0.00-0.02) K/uL PT (9.0-12.0) Seconds INR (0.9-1.1) APTT (21.0-31.0) Seconds PTT Ratio Sodium (136-145) mmol/L Potassium (3.5-5.1) mmol/L Chloride (98-107) mmol/L Carbon Dioxide (21-32) mmol/L Anion Gap (3-11) BUN (7-18) mg/dl Creatinine (0.6-1.4) mg/dl Est Cr Clr Drug Dosing Est GFR ( Amer) Est GFR (Non-Af Amer) BUN/Creatinine Ratio (10-20) Glucose (70-99) mg/dl Calcium (8.5-10.1) mg/dl Magnesium (1.8-2.4) mg/dl Total Bilirubin (0.2-1) mg/dl AST (15-37) U/L ALT (12-78) U/L Alkaline Phosphatase (45-117) U/L Troponin I (0-0.045) ng/ml Total Protein (6.4-8.2) gm/dl Albumin (3.4-5.0) gm/dl Globulin (2.5-4.0) gm/dl Albumin/Globulin Ratio (0.9-2) Procalcitonin 0.05 (0-0.5) ng/ml Urine Color Dark Yellow Urine Appearance Clear (Clear) Urine pH 5.0 (4.5-7.5) Ur Specific [place] 1.025 (1.000-1.030) Urine Protein Trace H (Negative) Urine Glucose (UA) Negative (Negative) Urine Ketones Trace H (Negative) Urine Blood Negative (Negative) Urine Nitrite Negative (Negative) Urine Bilirubin Negative (Negative) Urine Urobilinogen Negative (Negative) Ur Leukocyte Esterase Negative (Negative) Urine WBC (Auto) 0 (0-5) /hpf Urine RBC (Auto) 0-4 (0-4) /hpf U Hyaline Cast (Auto) 0 (0-5) /lpf U Epithel Cells (Auto) 0-5 (0-5) /lpf Urine Bacteria (Auto) Negative (Negative) Administered Medications Discontinued Medications Sodium Chloride (Nss 1000ml) 500 mls @ 999 mls/hr IV .Q31M ONE Stop: 04/26/20 22:44 Last Infusion: 04/26/20 23:12 Dose: 0 mls/hr Documented by: [id number] Admin: 04/26/20 22:43 Dose: 999 mls/hr Documented by: [id number] Acetaminophen (Ofirmev) 1,000 mg in 100 mls @ 400 mls/hr IV NOW STA Stop: 04/26/20 22:28 Last Infusion: 04/26/20 22:57 Dose: 0 mls/hr Documented by: [id number] Admin: 04/26/20 22:42 Dose: 400 mls/hr Documented by: [id number] Imaging Data Attestation: I personally reviewed and interpreted this imaging study as follows: My Impression: Chest x-ray: There is no pneumonia, pneumothorax or free air. There are some subtle chronic findings seen. The film looks similar to previous chest films. Radiologist's Impression: Chest CT for PE: Pending. Discharge Plan Visit Data Chief Complaint: Shortness of Breath/Dyspnea Stated Complaint: SOB, COVID + ED Provider: Nas Mullins Discharge Problem: Respiratory distress, Tachypnea, Fever, COVID-19 Patient Disposition: Admitted As Inpatient Condition: Fair Forms Stand Alone Forms: My [facility] Prescriptions Prescriptions: No Action acetaminophen [Tylenol Extra Strength] 500 mg tablet 500 mg PO QAM PRN (Reason: Pain) Qty: 90 RF: 3 acetaminophen [Tylenol Arthritis Pain] 650 mg tablet extended release 650 mg PO Q12H PRN (Reason: Pain) Qty: 90 RF: 1 donepezil [Aricept] 10 mg tablet 10 mg PO DAILY Qty: 90 RF: 3 memantine [Namenda] 10 mg tablet 10 mg PO BID 90 Days Qty: 180 RF: 3 amlodipine [Norvasc] 5 mg tablet 5 mg PO DAILY Qty: 90 RF: 3 atorvastatin 20 mg tablet 20 mg PO DAILY Qty: 90 RF: 3 Ensure Liquid 1 ea PO TID RF: 0 metoprolol succinate 50 mg tablet extended release 24 hr 50 mg PO DAILY RF: 0 tramadol 50 mg tablet 50 mg PO Q4 PRN (Reason: Moderate Pain (Scale Score 5-6)) RF: 0 polyethylene glycol 3350 [Miralax] 17 gram/dose Powder 17 g PO DAILY PRN (Reason: Constipation) RF: 0 aspirin [Aspirin Low Dose] 81 mg Tablet,Delayed Release (Dr/Ec) 81 mg PO DAILY RF: 0 acetaminophen 325 mg Tablet 325 mg PO Q4 MDD 3g PRN (Reason: Fever Or Pain) RF: 0 [facility]errals [facility] - Discharge Problem: Fever Qualifiers: Fever type: unspecified Qualified Code(s): R50.9 - Fever, unspecified
[2020-04-26 22:30] LABS: Basophils # (auto) 0.01 K/uL (0-0.2); Basophils % (auto) 0.2 %; Eosinophils # (auto) 0.06 K/uL (0-0.5); Hematocrit (blood only) 50.3 % (42-52); Hemoglobin 17.1 g/dL (14.0-18.0); Immature Granulocytes # (auto) 0.02 K/uL (0.00-0.02); Immature Granulocytes % (auto) 0.3 %; Lymphocytes # (auto) 0.76 K/uL (1.2-3.4); Lymphocytes % (auto) 12.7 %; Mean Corpuscular Hemoglobin 30.9 pg (25-34); Mean Corpuscular Volume 90.8 fL (80-100); Mean Platelet Volume 11.6 fL (7.4-10.4); Monocytes # (auto) 1.23 K/uL (0.11-0.59); Monocytes % (auto) 20.5 %; Neutrophils # (auto) 3.92 K/uL (1.4-6.5); Neutrophils % (auto) 65.3 %; Platelet Count 176 K/uL (130-400); RDW Coefficient of Variation 12.7 % (11.5-14.5); RDW Standard Deviation 42.4 fL (36.4-46.3); Red Blood Count 5.54 M/uL (4.7-6.1)
[2020-04-26 22:37] LABS: Alanine Aminotransferase 22 U/L (12-78); Albumin Level 3.4 gm/dl (3.4-5.0); Aspartate Aminotransferase 23 U/L (15-37); BUN Creatinine Ratio 20.1 (10-20); Blood Urea Nitrogen 33 mg/dl (7-18); Carbon Dioxide 23 mmol/L (21-32); Chloride 108 mmol/L (98-107); Est GFR (African American) 42.6; Est GFR (Non-African American) 36.8; Glucose 107 mg/dl (70-99); Magnesium 2.1 mg/dl (1.8-2.4); Potassium 4.1 mmol/L (3.5-5.1); Sodium 141 mmol/L (136-145)
[2020-04-26 22:41] LABS: INR 1.1 (0.9-1.1); Partial Thromboplastin Time 26.8 Seconds (21.0-31.0); Prothrombin Time 11.8 Seconds (9.0-12.0)
[2020-04-26 22:42] LABS: Albumin Globulin Ratio 0.7 (0.9-2); Alkaline Phosphatase 106 U/L (45-117); Bilirubin,Total 0.6 mg/dl (0.2-1); Globulin 4.9 gm/dl (2.5-4.0); Total Protein 8.3 gm/dl (6.4-8.2); Troponin I 0.025 ng/ml (0-0.045)
[2020-04-26 23:17] LABS: Appearance Urine Clear (Clear); Bacteria Urine Automated Negative (Negative); Bilirubin Urine Negative (Negative); Blood Urine Negative (Negative); Cast Urine Automated 0 /lpf (0-5); Color Urine Dark Yellow; Epithelial Cell Urine Auto 0-5 /lpf (0-5); Glucose Urine UA Negative (Negative); Ketones Urine Trace (Negative); Leukocyte Esterase Urine Negative (Negative); Nitrite Urine Negative (Negative); Protein Urine Trace (Negative); RBC Urine Automated 0-4 /hpf (0-4); Specific Gravity Urine 1.025 (1.000-1.030); Urobilinogen Urine Negative (Negative); WBC Urine Automated 0 /hpf (0-5)
[2020-04-27] MEDS ORDERED: OPTIRAY 320 125ml IV ONE (00:15)
--- NOTE | 2020-04-27 01:00 | History & Physical Report ---
Date of Service April 27, 2020 Assessment & Plan (1) COVID-19: 89yo C male resident at [facility] with recently diagnosed Covid-19 presents with reported hypoxia at his nursing facility. Patient is tachypneic here, initially with some mild respiratory distress. His saturations have been ac ceptable on room air since arrival. He is lymphopenic, has elevation of BUN and Cr that may be secondary to Covid-19 vs volume contraction. -Admit to medical -Maintain isolation precautions - Airborne and Contact -Check inflammatory markers - ESR, CRP, Ferritin, Ddimer -Check BNP -Continuous pulse oximetry with supplemental O2 as needed if saturations on room air are <94% -No indication for Remdesivir or Decadron at this time -Tylenol PRN Present on Admission?: Yes (2) Respiratory distress: Patient with reported respiratory distress and hypoxia prior to arrival. Currently comfortable with adequate saturation on room air. custodial states that they are unable to accept him back at this time as he needs to have supplemental oxygen arranged. ?if respiratory distress secondary to Covid-19, possible aspiration event? Procalcitonin negative. No obvious infiltrated noted on imaging -Monitor saturation -Supplemental O2 as needed Present on Admission?: Yes (3) Dyslipidemia: Chronic -Continue Atorvastatin Present on Admission?: Yes (4) Benign essential hypertension: Blood pressure stable -Continue Amlodipine -Continue Metoprolol Present on Admission?: Yes (5) Alzheimer's dementia: Patient with poor functional baseline. Does not answer questions or follow commands at this time per ER attending's assessment -Continue Memantine -Continue Aricept -Delirium prevention strategies with maintenance of sleep/wake cycle and frequent orientation where needed Present on Admission?: Yes (6) VAISHNAVI (acute kidney injury): Elevation of BUN and Cr. ?secondary to Covid-19 infection -Gentle IVF with LR at 80mL/hr x 1 liter -Avoid nephrotoxic agents -Renal dosing where needed -Repeat chemistry in AM F/E/N - LR at 80mL/hr, monitor electrolytes, AHA diet as tolerated with aspiration precautions Ppx - Lovenox 30 BID Code - DNR/DNI per review of paperwork Dispo - Observation to medical with isolation precautions Present on Admission?: Yes History of Present Illness Chief Complaint: Hypoxemia Primary Care Provider: [facility] Azarfranklin Martell is an 89yo C male presenting from [facility] with recently diagnosed Covid-19, fever and hypoxemia. Patient with dementia and unable to provide details of events prior to arrival. History obtained through discussion with ER attending and chart review. Patient was recently diagnosed with Covid-19. He was reportedly hypoxic on room air this evening with saturations in the mid 80's. The nursing staff at [facility] also reported that he was in some respiratory distress with tachypnea and slighlty more confused than baseline. Upon arrival to the ER he was found to be febrile at 38.7, tachypneic at 30 breaths/minute. Oxygenation has been adequate on room air - ranging 95-98% ER Course: Tylenol 1gm, NSS x 500mL Allergies Allergy/AdvReac Type Severity Reaction Status Date / Time hydrochlorothiazide Allergy Unknown UNKNOWN Verified 04/26/20 23:11 Penicillins Allergy Unknown ? UNKNOWN Verified 04/26/20 23:11 Sulfa (Sulfonamide Allergy Unknown ITCHINESS, Verified 04/26/20 23:11 Antibiotics) RED SKIN oxycodone AdvReac Intermediate CONSTIPATION, Verified 04/26/20 23:11 MALAISE Home Medications Medication Instructions Recorded Confirmed Type acetaminophen 500 mg tablet 500 mg PO QAM PRN #90 tab 05/10/19 04/26/20 Rx acetaminophen 650 mg 650 mg PO Q12H PRN #90 tab 05/10/19 04/26/20 Rx tablet,extended release donepezil 10 mg tablet 10 mg PO DAILY #90 tab 05/10/19 04/26/20 Rx memantine 10 mg tablet 10 mg PO BID 90 Days #180 tab 05/10/19 04/26/20 Rx amlodipine 5 mg tablet 5 mg PO DAILY #90 tab 05/30/19 04/26/20 Rx Ensure 1 ea PO TID 09/08/19 04/26/20 History atorvastatin 20 mg tablet 20 mg PO DAILY #90 tab 03/19/20 04/26/20 Rx acetaminophen 325 mg PO Q4 PRN MDD 3g 04/26/20 04/26/20 History aspirin [Aspirin Low Dose] 81 mg PO DAILY 04/26/20 04/26/20 History metoprolol succinate 50 mg PO DAILY 04/26/20 04/26/20 History polyethylene glycol 3350 [Miralax] 17 g PO DAILY PRN 04/26/20 04/26/20 History tramadol 50 mg PO Q4 PRN 04/26/20 04/26/20 History Past Med/Surg History Medical History (Updated 04/27/20 @ 00:54 by Darcy Hartmann DO) VAISHNAVI (acute kidney injury) Alzheimer's dementia Arthritis of neck Benign essential hypertension Dehydration Dyslipidemia Heart attack Hypertension Syncope Surgical History History of colonoscopy History of hernia repair History of vasectomy Hx of total knee arthroplasty Family History Father , age 73 stroke and [place] Myocardial infarction Stroke Mother , age 73 parkinson's Parkinsons disease Brother Prostate cancer Unknown Heart disease Hypertension Liver cancer Lung cancer Osteoarthritis Social History Smoking Status: Unknown if ever smoked Second Hand Exposure: No; Hx Alcohol Use: No Hx Substance Use: No Preferred Language: [place] Communication Ability: Impaired Lab Tester Required: No Beliefs That Will Affect Care: None marital status: Current Living Situation: Personal Care Facility Current Living Situation Comment: [facility] residence current occupational status: retired How many Children do You have: 6 Feels Safe at Home: Yes Assistive Devices: Glasses Review of Systems Review of Systems: Unobtainable due to cognitive status Physical Exam Physical Exam: Physical exam deferred in setting of Covid-19. Please see ER note for details of physical exam. Patient resting comfortably in bed with no respiratory distress Results & Data Results & Data ([facility]) Vital Signs (Past 12 Hours) Vital Signs Temp Pulse Resp BP Pulse Ox 04/27/20 00:11 83 20 148/84 H 97 04/26/20 23:30 75 19 137/75 95 04/26/20 23:00 72 23 151/71 H 98 04/26/20 22:30 77 30 H 124/69 98 04/26/20 22:00 85 28 H 136/66 98 04/26/20 21:32 38.7 C H 90 28 H 139/79 98 04/26/20 21:31 87 30 H 110/69 97 Laboratory Results Lab Results 04/26/20 04/26/20 04/26/20 Range/Units 21:51 21:51 21:51 WBC 6.00 (4.8-10.8) K/uL RBC 5.54 (4.7-6.1) M/uL Hgb 17.1 (14.0-18.0) g/dL Hct 50.3 (42-52) % MCV 90.8 (80-100) fL MCH 30.9 (25-34) pg MCHC 34.0 (32-36) g/dL RDW Std Deviation 42.4 (36.4-46.3) fL RDW Coeff of Danii 12.7 (11.5-14.5) % Plt Count 176 (130-400) K/uL MPV 11.6 H (7.4-10.4) fL Immature Gran % (Auto) 0.3 % Neut % (Auto) 65.3 % Lymph % (Auto) 12.7 % [place] % (Auto) 20.5 % Eos % (Auto) 1.0 % Baso % (Auto) 0.2 % Neut # (Auto) 3.92 (1.4-6.5) K/uL Lymph # (Auto) 0.76 L (1.2-3.4) K/uL [place] # (Auto) 1.23 H (0.11-0.59) K/uL Eos # (Auto) 0.06 (0-0.5) K/uL Baso # (Auto) 0.01 (0-0.2) K/uL Immature Gran # (Auto) 0.02 (0.00-0.02) K/uL PT 11.8 (9.0-12.0) Seconds INR 1.1 (0.9-1.1) APTT 26.8 (21.0-31.0) Seconds PTT Ratio 1.0 Sodium 141 (136-145) mmol/L Potassium 4.1 (3.5-5.1) mmol/L Chloride 108 H (98-107) mmol/L Carbon Dioxide 23 (21-32) mmol/L Anion Gap 9.0 (3-11) BUN 33 H (7-18) mg/dl Creatinine 1.65 H (0.6-1.4) mg/dl Est Cr Clr Drug Dosing Not Reportable Est GFR ( Amer) 42.6 Est GFR (Non-Af Amer) 36.8 BUN/Creatinine Ratio 20.1 H (10-20) Glucose 107 H (70-99) mg/dl Lactate (0.4-2.0) mmol/L Calcium 9.0 (8.5-10.1) mg/dl Magnesium 2.1 (1.8-2.4) mg/dl Total Bilirubin 0.6 (0.2-1) mg/dl AST 23 (15-37) U/L ALT 22 (12-78) U/L Alkaline Phosphatase 106 (45-117) U/L Troponin I 0.025 (0-0.045) ng/ml Total Protein 8.3 H (6.4-8.2) gm/dl Albumin 3.4 (3.4-5.0) gm/dl Globulin 4.9 H (2.5-4.0) gm/dl Albumin/Globulin Ratio 0.7 L (0.9-2) Procalcitonin (0-0.5) ng/ml Urine Color Urine Appearance (Clear) Urine pH (4.5-7.5) Ur Specific [place] (1.000-1.030) Urine Protein (Negative) Urine Glucose (UA) (Negative) Urine Ketones (Negative) Urine Blood (Negative) Urine Nitrite (Negative) Urine Bilirubin (Negative) Urine Urobilinogen (Negative) Ur Leukocyte Esterase (Negative) Urine WBC (Auto) (0-5) /hpf Urine RBC (Auto) (0-4) /hpf U Hyaline Cast (Auto) (0-5) /lpf U Epithel Cells (Auto) (0-5) /lpf Urine Bacteria (Auto) (Negative) 04/26/20 04/26/20 04/26/20 Range/Units 21:51 23:00 23:49 WBC (4.8-10.8) K/uL RBC (4.7-6.1) M/uL Hgb (14.0-18.0) g/dL Hct (42-52) % MCV (80-100) fL MCH (25-34) pg MCHC (32-36) g/dL RDW Std Deviation (36.4-46.3) fL RDW Coeff of Danii (11.5-14.5) % Plt Count (130-400) K/uL MPV (7.4-10.4) fL Immature Gran % (Auto) % Neut % (Auto) % Lymph % (Auto) % [place] % (Auto) % Eos % (Auto) % Baso % (Auto) % Neut # (Auto) (1.4-6.5) K/uL Lymph # (Auto) (1.2-3.4) K/uL [place] # (Auto) (0.11-0.59) K/uL Eos # (Auto) (0-0.5) K/uL Baso # (Auto) (0-0.2) K/uL Immature Gran # (Auto) (0.00-0.02) K/uL PT (9.0-12.0) Seconds INR (0.9-1.1) APTT (21.0-31.0) Seconds PTT Ratio Sodium (136-145) mmol/L Potassium (3.5-5.1) mmol/L Chloride (98-107) mmol/L Carbon Dioxide (21-32) mmol/L Anion Gap (3-11) BUN (7-18) mg/dl Creatinine (0.6-1.4) mg/dl Est Cr Clr Drug Dosing Est GFR ( Amer) Est GFR (Non-Af Amer) BUN/Creatinine Ratio (10-20) Glucose (70-99) mg/dl Lactate 1.6 (0.4-2.0) mmol/L Calcium (8.5-10.1) mg/dl Magnesium (1.8-2.4) mg/dl Total Bilirubin (0.2-1) mg/dl AST (15-37) U/L ALT (12-78) U/L Alkaline Phosphatase (45-117) U/L Troponin I (0-0.045) ng/ml Total Protein (6.4-8.2) gm/dl Albumin (3.4-5.0) gm/dl Globulin (2.5-4.0) gm/dl Albumin/Globulin Ratio (0.9-2) Procalcitonin 0.05 (0-0.5) ng/ml Urine Color Dark Yellow Urine Appearance Clear (Clear) Urine pH 5.0 (4.5-7.5) Ur Specific [place] 1.025 (1.000-1.030) Urine Protein Trace H (Negative) Urine Glucose (UA) Negative (Negative) Urine Ketones Trace H (Negative) Urine Blood Negative (Negative) Urine Nitrite Negative (Negative) Urine Bilirubin Negative (Negative) Urine Urobilinogen Negative (Negative) Ur Leukocyte Esterase Negative (Negative) Urine WBC (Auto) 0 (0-5) /hpf Urine RBC (Auto) 0-4 (0-4) /hpf U Hyaline Cast (Auto) 0 (0-5) /lpf U Epithel Cells (Auto) 0-5 (0-5) /lpf Urine Bacteria (Auto) Negative (Negative) Diagnostic Findings CTA Chest - Per STAT-rad: comparison is made to CT chest 09/24/10 - No acute PE. Mild peribronchial thickening within the right greater than left lower lobes. Mild opacities within the basilar right greater than left lower lobes, compatible with dependent atelectasis and possible superimposed infectious/inflammatory process such as aspiration pneumonitis. Multifocal areas of pleural thickening as seen previously. Large cystic structure measuring up to 8cm in greatest axial dimension is visualized beneath the right hemidiaphragm, posterior to the right hepatic lobe, likelyl arising from the kidney and only partially included in the field of view Code Status & VTE Plan VTE Prophylaxis Plan VTE Prophylaxis will be ordered: Yes PG Care Time/CCT Total # of Minutes Spent Total Time Spent with Patient: Total time spent is greater than 50% in coordination of care (as documented) at patient's floor/unit and/or counseling patient: Coding Level of Care Code 30956 OBS Care - Level 3 Diagnoses COVID-19 U07.1 Respiratory distress R06.03 Dyslipidemia E78.5 Benign essential hypertension I10 Alzheimer's dementia G30.9; F02.80 Alzheimer's disease onset: unspecified onset Dementia behavioral disturbance: without behavioral disturbance VAISHNAVI (acute kidney injury) N17.9 (1) Alzheimer's dementia Alzheimer's disease onset: unspecified onset Dementia behavioral disturbance: without behavioral disturbance Qualified Code(s): G30.9 - Alzheimer's disease, unspecified; F02.80 - Dementia in other diseases classified elsewhere without behavioral disturbance
[2020-04-27] MEDS ORDERED: LACTATED RINGER'S 1,000 ML IV SCH (02:15)
[2020-04-27] MEDS ORDERED: ONDANSETRON INJ 2 MG/ML 2 ML VIAL IV PRN (02:15)
[2020-04-27] MEDS ORDERED: POLYETHYLENE (MIRALAX) 17 GM PACK PO PRN (02:15)
[2020-04-27] MEDS ORDERED: traMADol HCL 50 MG TABLET PO PRN (02:15)
[2020-04-27] MEDS ORDERED: ACETAMINOPHEN 325 MG TAB PO PRN (02:15)
[2020-04-27 02:48] LABS: C Reactive Protein 1.98 mg/dl (0-0.29); Ferritin 445.6 ng/ml (8-388); NT Pro B Type Natriuretic Pept 1054 pg/ml (0-1800); Phosphorus 2.3 mg/dl (2.5-4.9)
[2020-04-27 03:05] LABS: D Dimer 440 ug/L FEU (0-500)
[2020-04-27] MEDS: ENOXAPARIN INJ 30 MG/0.3 ML SYR SQ SCH ×2 (03:33→18:14)
[2020-04-27] MEDS: ASPIRIN 81 MG ECTAB PO SCH (07:26)
[2020-04-27] MEDS: DONEPEZIL HCL 10 MG TAB PO SCH (07:27)
[2020-04-27] MEDS: amLODIPine BESYLATE 5 MG TAB PO SCH (07:28)
[2020-04-27] MEDS: METOPROLOL SUCC 50MG EXT REL TAB PO SCH (07:29)
[2020-04-27] MEDS: ATORVASTATIN 20 MG TAB PO SCH (07:29)
[2020-04-27] MEDS: MEMANTINE HCL 10 MG TAB PO SCH ×2 (07:30→20:31)
--- NOTE | 2020-04-27 07:52 | CT Scan Report ---
CHEST CTA for PULMONARY ARTERIES CT DOSE: 549.56 mGycm HISTORY: Shortness of breath. Positive Covid. TECHNIQUE: Multiaxial CT images of the chest were performed following the intravenous administration of contrast to evaluate the pulmonary arteries. Maximal intensity projection images were also obtaine d. A dose lowering technique was utilized adhering to the principles of ALARA. COMPARISON STUDY: Chest CTA 02/01/2017. FINDINGS: Limited views of the upper abdomen demonstrate normal liver and spleen. There is a large ri ght renal cyst which is partially visualized. The adrenal glands unremarkable. The heart is mildly en larged. A few prominent right hilar lymph nodes which are likely reactive. Normal caliber thoracic ao rta with no evidence for dissection. The right lower lobe segmental and subsegmental pulmonary arteri es are nondiagnostic due to the motion artifact. Otherwise, no filling defects within the remaining p ulmonary arteries to suggest pulmonary embolus. No fractures within the visualized osseous structures . No pneumothorax. Mild emphysema. A few punctate calcified granulomas are seen within the lungs. Bro nchial wall thickening most pronounced within the lower lobes with a few partially opacified bilatera l lower lobe bronchi. Small patchy densities within the lower lobes posteriorly. This favors dependen t change. A pneumonia is considered less likely but not entirely excluded. A few small noncalcified p leural plaques. IMPRESSION: 1. No evidence for pulmonary embolus with limitations as described above. 2. Noncalcified pleural plaques are again noted. 3. Mild bronchial wall thickening most pronounced within the lower lobes with a few partially opacifi ed lower lobe bronchi. Small patchy density within the lower lobes posteriorly favor dependent change /atelectasis. A low-grade aspiration pneumonitis cannot be excluded. 4. Additional findings as described above. ACT 112: Negative or not required by law. Electronically signed by: Edy Byrd M.D. 04/27/2020 7:51 AM
--- NOTE | 2020-04-27 08:08 | XRay Report ---
XR chest 1V portable HISTORY: SEPSIS COMPARISON: Chest 01/10/2020. FINDINGS: Cardiac silhouette remains borderline enlarged. Interstitial thickening at the lung bases. Otherwise, lungs are clear. No pleural effusions. No pneumothorax. No evidence for pulmonary edema. IMPRESSION: Bibasilar interstitial thickening which favors dependent change/atelectasis. A low-grade pneumonitis cannot be excluded. ACT 112: Negative or not required by law. Electronically signed by: Edy Byrd M.D. 04/27/2020 8:07 AM
[2020-04-27] MEDS ORDERED: NON-FORMULARY MEDICATION (Food Supplemt, Lactose-Reduced [Ensure] Liquid) PO SCH (09:00)
[2020-04-27 09:36] LABS: Basophils # (auto) 0.02 K/uL (0-0.2); Basophils % (auto) 0.3 %; Eosinophils # (auto) 0.11 K/uL (0-0.5); Eosinophils % (auto) 1.4 %; Hematocrit (blood only) 44.9 % (42-52); Immature Granulocytes # (auto) 0.02 K/uL (0.00-0.02); Immature Granulocytes % (auto) 0.3 %; Lymphocytes # (auto) 1.44 K/uL (1.2-3.4); Lymphocytes % (auto) 18.9 %; Mean Corpuscular Hemoglobin 30.7 pg (25-34); Mean Corpuscular Hgb Conc 33.4 g/dL (32-36); Mean Corpuscular Volume 91.8 fL (80-100); Mean Platelet Volume 11.1 fL (7.4-10.4); Monocytes # (auto) 1.19 K/uL (0.11-0.59); Monocytes % (auto) 15.6 %; Neutrophils # (auto) 4.83 K/uL (1.4-6.5); Neutrophils % (auto) 63.5 %; Platelet Count 154 K/uL (130-400); RDW Coefficient of Variation 13.1 % (11.5-14.5); RDW Standard Deviation 43.8 fL (36.4-46.3); Red Blood Count 4.89 M/uL (4.7-6.1); White Blood Count 7.61 K/uL (4.8-10.8)
[2020-04-27 09:50] LABS: Albumin Level 2.9 gm/dl (3.4-5.0); BUN Creatinine Ratio 21.5 (10-20); Calcium 8.2 mg/dl (8.5-10.1); Creatinine Clr Calc Pharmacy 38.4 ml/min; Est GFR (Non-African American) 44.9; Potassium 4.1 mmol/L (3.5-5.1)
[2020-04-27 09:57] LABS: Albumin Globulin Ratio 0.7 (0.9-2); Bilirubin,Total 0.5 mg/dl (0.2-1); Total Protein 6.9 gm/dl (6.4-8.2)
--- NOTE | 2020-04-27 12:52 | Hospitalist Progress Note ---
Date of Service April 27, 2020 Assessment & Plan (1) COVID-19: 89yo C male resident at [facility] with recently diagnosed Covid-19 presents with reported hypoxia at his nursing facility, however he has not been hypoxic here at all. Patient initially was tachypneic here, but this is now resolved and was in the setting of fever upon admission. Very stable on room air since admission with pulse ox 99% No further fever since admission, dehydration has improved with IV fluids He is tolerating p.o. Of note, as per report from the personal long-term, his Covid test was positive first on 04/19, then he had an inconclusive repeat result on 04/23. ESR minimally elevated for age at 42, D-dimer is normal at 440, and procalcitonin is negative CT angiogram of chest with minimal bronchial wall thickening in the lower lobes and a few partially opacified lower lobe bronchi, with small patchy density in the lower lobes posteriorly favoring dependent change/atelectasis but cannot exclude low-grade aspiration pneumonitis -Continued stay on observation as he was just admitted after midnight today- watch for return of fevers and hypoxia -Maintain isolation precautions - Airborne and Contact -Continuous pulse oximetry with supplemental O2 as needed if saturations on room air are <94% -No indication for Remdesivir or Decadron at this time -Tylenol PRN (2) Respiratory distress: Patient with reported respiratory distress and hypoxia prior to arrival as above. Currently comfortable with adequate saturation on room air. ?if respiratory distress secondary to Covid-19, possible aspiration event? CT angiogram chest with findings as above Procalcitonin negative-no antibiotics needed at this time -Monitor saturation -Supplemental O2 as needed (3) Dyslipidemia: Chronic -Continue Atorvastatin (4) Benign essential hypertension: Blood pressure stable -Continue Amlodipine -Continue Metoprolol and aspirin (5) Alzheimer's dementia: Patient with poor functional baseline. Does not answer questions or follow commands at this time It appears based on previous notes that he is usually oriented x1 and tends to get agitated with nursing care -Continue Memantine -Continue Aricept -Delirium prevention strategies with maintenance of sleep/wake cycle and frequent orientation where needed (6) VAISHNAVI (acute kidney injury): Elevation of BUN and Cr. Upon admission likely secondary to poor p.o. intake and febrile illness from Covid-19 infection -Received gentle IVF with LR at 80mL/hr x 1 liter and creatinine now down to 1.4 -Discontinue IV fluids -Avoid nephrotoxic agents -Renal dosing where needed -No further labs needed (7) DVT prophylaxis: Ppx - Lovenox 30 BID Code - DNR/DNI per review of paperwork Dispo -continued stay on observation to medical with isolation precautions, but most likely can discharge back to personal long-term on 04/28 if remains stable without fever or hypoxia Admission and Anticipated Discharge Date Admission Date: April 27, 2020 Subjective Patient was sleeping when I saw him but would wake up and answer simple questions with yes or no answers. He denied pain or shortness of breath. He appeared comfortable and was not requiring any oxygen. I offered him a drink of water and he sat up and took some sips from the straw while he held it for him. Review of Systems Review of Systems: Unobtainable due to cognitive status Physical Exam Constitutional: WD/WN, vitals as above Eyes: + anicteric sclerae Neck: trachea midline, no thyromegaly Respiratory: normal respiratory effort, lungs clear to auscultation Cardiovascular: RRR, no murmur, no edema Chest (Breasts): Chest: normal inspection of chest Gastrointestinal (Abdomen): normal bowel sounds, soft, nontender, no hepatosplenomegaly Musculoskeletal: Extremities: extremities normal to inspection; no cyanosis and no clubbing Skin: no rashes, warm and dry Neurologic: moves all extremities and awake; no focal motor deficits Psychiatric: Orientation: alert and oriented to person; + uncooperative (Would not sit up when asked to listen to his back) Lymphatic: no lymphedema Results & Data Results & Data ([facility]) Vital Signs (Past 12 Hours) Vital Signs Temp Pulse Pulse Resp BP BP Pulse Ox 04/27/20 07:23 36.3 C L 65 14 134/58 L 98 04/27/20 02:00 36.6 C 65 18 128/76 93 04/27/20 01:30 68 16 116/60 95 04/27/20 01:00 68 17 118/57 L 94 04/27/20 00:55 36.9 C Laboratory Results 04/27/20 04/27/20 04/27/20 Range/Units 09:12 09:12 04:15 WBC 7.61 (4.8-10.8) K/uL RBC 4.89 (4.7-6.1) M/uL Hgb 15.0 (14.0-18.0) g/dL Hct 44.9 (42-52) % MCV 91.8 (80-100) fL MCH 30.7 (25-34) pg MCHC 33.4 (32-36) g/dL RDW Std Deviation 43.8 (36.4-46.3) fL RDW Coeff of Danii 13.1 (11.5-14.5) % Plt Count 154 (130-400) K/uL MPV 11.1 H (7.4-10.4) fL Immature Gran % (Auto) 0.3 % Neut % (Auto) 63.5 % Lymph % (Auto) 18.9 % Cuming % (Auto) 15.6 % Eos % (Auto) 1.4 % Baso % (Auto) 0.3 % Neut # (Auto) 4.83 (1.4-6.5) K/uL Lymph # (Auto) 1.44 (1.2-3.4) K/uL Cuming # (Auto) 1.19 H (0.11-0.59) K/uL Eos # (Auto) 0.11 (0-0.5) K/uL Baso # (Auto) 0.02 (0-0.2) K/uL Immature Gran # (Auto) 0.02 (0.00-0.02) K/uL ESR (0-14) mm/hr PT (9.0-12.0) Seconds INR (0.9-1.1) APTT (21.0-31.0) Seconds PTT Ratio D-Dimer (0-500) ug/L FEU Sodium 142 (136-145) mmol/L Potassium 4.1 (3.5-5.1) mmol/L Chloride 111 H (98-107) mmol/L Carbon Dioxide 28 (21-32) mmol/L Anion Gap 3.0 (3-11) BUN 30 H (7-18) mg/dl Creatinine 1.40 (0.6-1.4) mg/dl Est Cr Clr Drug Dosing 38.4 ml/min Est GFR ( Amer) 52.0 Est GFR (Non-Af Amer) 44.9 BUN/Creatinine Ratio 21.5 H (10-20) Glucose 91 (70-99) mg/dl Lactate (0.4-2.0) mmol/L Calcium 8.2 L (8.5-10.1) mg/dl Phosphorus (2.5-4.9) mg/dl Ferritin (8-388) ng/ml Total Bilirubin 0.5 (0.2-1) mg/dl AST 19 (15-37) U/L ALT 19 (12-78) U/L Alkaline Phosphatase 93 (45-117) U/L Troponin I (0-0.045) ng/ml C-Reactive Protein (0-0.29) mg/dl NT-Pro-B Natriuret Pep (0-1800) pg/ml Total Protein 6.9 (6.4-8.2) gm/dl Albumin 2.9 L (3.4-5.0) gm/dl Globulin 4.0 (2.5-4.0) gm/dl Albumin/Globulin Ratio 0.7 L (0.9-2) Procalcitonin (0-0.5) ng/ml Urine Color Urine Appearance (Clear) Urine pH (4.5-7.5) Ur Specific [place] (1.000-1.030) Urine Protein (Negative) Urine Glucose (UA) (Negative) Urine Ketones (Negative) Urine Blood (Negative) Urine Nitrite (Negative) Urine Bilirubin (Negative) Urine Urobilinogen (Negative) Ur Leukocyte Esterase (Negative) Urine WBC (Auto) (0-5) /hpf Urine RBC (Auto) (0-4) /hpf U Hyaline Cast (Auto) (0-5) /lpf U Epithel Cells (Auto) (0-5) /lpf Urine Bacteria (Auto) (Negative) Nasal Screen MRSA (PCR) Negative (Negative) Bld Cult Staph aureus PCR Blood Culture MRSA PCR 04/26/20 04/26/20 04/26/20 Range/Units 23:49 23:49 23:49 WBC (4.8-10.8) K/uL RBC (4.7-6.1) M/uL Hgb (14.0-18.0) g/dL Hct (42-52) % MCV (80-100) fL MCH (25-34) pg MCHC (32-36) g/dL RDW Std Deviation (36.4-46.3) fL RDW Coeff of Danii (11.5-14.5) % Plt Count (130-400) K/uL MPV (7.4-10.4) fL Immature Gran % (Auto) % Neut % (Auto) % Lymph % (Auto) % Cuming % (Auto) % Eos % (Auto) % Baso % (Auto) % Neut # (Auto) (1.4-6.5) K/uL Lymph # (Auto) (1.2-3.4) K/uL Cuming # (Auto) (0.11-0.59) K/uL Eos # (Auto) (0-0.5) K/uL Baso # (Auto) (0-0.2) K/uL Immature Gran # (Auto) (0.00-0.02) K/uL ESR 40 H (0-14) mm/hr PT (9.0-12.0) Seconds INR (0.9-1.1) APTT (21.0-31.0) Seconds PTT Ratio D-Dimer 440 (0-500) ug/L FEU Sodium (136-145) mmol/L Potassium (3.5-5.1) mmol/L Chloride (98-107) mmol/L Carbon Dioxide (21-32) mmol/L Anion Gap (3-11) BUN (7-18) mg/dl Creatinine (0.6-1.4) mg/dl Est Cr Clr Drug Dosing ml/min Est GFR ( Amer) Est GFR (Non-Af Amer) BUN/Creatinine Ratio (10-20) Glucose (70-99) mg/dl Lactate (0.4-2.0) mmol/L Calcium (8.5-10.1) mg/dl Phosphorus (2.5-4.9) mg/dl Ferritin (8-388) ng/ml Total Bilirubin (0.2-1) mg/dl AST (15-37) U/L ALT (12-78) U/L Alkaline Phosphatase (45-117) U/L Troponin I (0-0.045) ng/ml C-Reactive Protein (0-0.29) mg/dl NT-Pro-B Natriuret Pep (0-1800) pg/ml Total Protein (6.4-8.2) gm/dl Albumin (3.4-5.0) gm/dl Globulin (2.5-4.0) gm/dl Albumin/Globulin Ratio (0.9-2) Procalcitonin (0-0.5) ng/ml Urine Color Urine Appearance (Clear) Urine pH (4.5-7.5) Ur Specific [place] (1.000-1.030) Urine Protein (Negative) Urine Glucose (UA) (Negative) Urine Ketones (Negative) Urine Blood (Negative) Urine Nitrite (Negative) Urine Bilirubin (Negative) Urine Urobilinogen (Negative) Ur Leukocyte Esterase (Negative) Urine WBC (Auto) (0-5) /hpf Urine RBC (Auto) (0-4) /hpf U Hyaline Cast (Auto) (0-5) /lpf U Epithel Cells (Auto) (0-5) /lpf Urine Bacteria (Auto) (Negative) Nasal Screen MRSA (PCR) (Negative) Bld Cult Staph aureus PCR Pending Blood Culture MRSA PCR Pending 04/26/20 04/26/20 04/26/20 Range/Units 23:49 23:00 21:51 WBC (4.8-10.8) K/uL RBC (4.7-6.1) M/uL Hgb (14.0-18.0) g/dL Hct (42-52) % MCV (80-100) fL MCH (25-34) pg MCHC (32-36) g/dL RDW Std Deviation (36.4-46.3) fL RDW Coeff of Danii (11.5-14.5) % Plt Count (130-400) K/uL MPV (7.4-10.4) fL Immature Gran % (Auto) % Neut % (Auto) % Lymph % (Auto) % Cuming % (Auto) % Eos % (Auto) % Baso % (Auto) % Neut # (Auto) (1.4-6.5) K/uL Lymph # (Auto) (1.2-3.4) K/uL Cuming # (Auto) (0.11-0.59) K/uL Eos # (Auto) (0-0.5) K/uL Baso # (Auto) (0-0.2) K/uL Immature Gran # (Auto) (0.00-0.02) K/uL ESR (0-14) mm/hr PT (9.0-12.0) Seconds INR (0.9-1.1) APTT (21.0-31.0) Seconds PTT Ratio D-Dimer (0-500) ug/L FEU Sodium (136-145) mmol/L Potassium (3.5-5.1) mmol/L Chloride (98-107) mmol/L Carbon Dioxide (21-32) mmol/L Anion Gap (3-11) BUN (7-18) mg/dl Creatinine (0.6-1.4) mg/dl Est Cr Clr Drug Dosing ml/min Est GFR ( Amer) Est GFR (Non-Af Amer) BUN/Creatinine Ratio (10-20) Glucose (70-99) mg/dl Lactate 1.6 (0.4-2.0) mmol/L Calcium (8.5-10.1) mg/dl Phosphorus (2.5-4.9) mg/dl Ferritin (8-388) ng/ml Total Bilirubin (0.2-1) mg/dl AST (15-37) U/L ALT (12-78) U/L Alkaline Phosphatase (45-117) U/L Troponin I (0-0.045) ng/ml C-Reactive Protein (0-0.29) mg/dl NT-Pro-B Natriuret Pep (0-1800) pg/ml Total Protein (6.4-8.2) gm/dl Albumin (3.4-5.0) gm/dl Globulin (2.5-4.0) gm/dl Albumin/Globulin Ratio (0.9-2) Procalcitonin 0.05 (0-0.5) ng/ml Urine Color Dark Yellow Urine Appearance Clear (Clear) Urine pH 5.0 (4.5-7.5) Ur Specific [place] 1.025 (1.000-1.030) Urine Protein Trace H (Negative) Urine Glucose (UA) Negative (Negative) Urine Ketones Trace H (Negative) Urine Blood Negative (Negative) Urine Nitrite Negative (Negative) Urine Bilirubin Negative (Negative) Urine Urobilinogen Negative (Negative) Ur Leukocyte Esterase Negative (Negative) Urine WBC (Auto) 0 (0-5) /hpf Urine RBC (Auto) 0-4 (0-4) /hpf U Hyaline Cast (Auto) 0 (0-5) /lpf U Epithel Cells (Auto) 0-5 (0-5) /lpf Urine Bacteria (Auto) Negative (Negative) Nasal Screen MRSA (PCR) (Negative) Bld Cult Staph aureus PCR Blood Culture MRSA PCR 04/26/20 04/26/20 Range/Units 21:51 21:51 WBC (4.8-10.8) K/uL RBC (4.7-6.1) M/uL Hgb (14.0-18.0) g/dL Hct (42-52) % MCV (80-100) fL MCH (25-34) pg MCHC (32-36) g/dL RDW Std Deviation (36.4-46.3) fL RDW Coeff of Danii (11.5-14.5) % Plt Count (130-400) K/uL MPV (7.4-10.4) fL Immature Gran % (Auto) % Neut % (Auto) % Lymph % (Auto) % Cuming % (Auto) % Eos % (Auto) % Baso % (Auto) % Neut # (Auto) (1.4-6.5) K/uL Lymph # (Auto) (1.2-3.4) K/uL Cuming # (Auto) (0.11-0.59) K/uL Eos # (Auto) (0-0.5) K/uL Baso # (Auto) (0-0.2) K/uL Immature Gran # (Auto) (0.00-0.02) K/uL ESR (0-14) mm/hr PT 11.8 (9.0-12.0) Seconds INR 1.1 (0.9-1.1) APTT 26.8 (21.0-31.0) Seconds PTT Ratio 1.0 D-Dimer (0-500) ug/L FEU Sodium (136-145) mmol/L Potassium (3.5-5.1) mmol/L Chloride (98-107) mmol/L Carbon Dioxide (21-32) mmol/L Anion Gap (3-11) BUN (7-18) mg/dl Creatinine (0.6-1.4) mg/dl Est Cr Clr Drug Dosing ml/min Est GFR ( Amer) Est GFR (Non-Af Amer) BUN/Creatinine Ratio (10-20) Glucose (70-99) mg/dl Lactate (0.4-2.0) mmol/L Calcium (8.5-10.1) mg/dl Phosphorus 2.3 L (2.5-4.9) mg/dl Ferritin 445.6 H (8-388) ng/ml Total Bilirubin 0.6 (0.2-1) mg/dl AST (15-37) U/L ALT (12-78) U/L Alkaline Phosphatase 106 (45-117) U/L Troponin I 0.025 (0-0.045) ng/ml C-Reactive Protein 1.98 H (0-0.29) mg/dl NT-Pro-B Natriuret Pep 1054 (0-1800) pg/ml Total Protein 8.3 H (6.4-8.2) gm/dl Albumin (3.4-5.0) gm/dl Globulin 4.9 H (2.5-4.0) gm/dl Albumin/Globulin Ratio 0.7 L (0.9-2) Procalcitonin (0-0.5) ng/ml Urine Color Urine Appearance (Clear) Urine pH (4.5-7.5) Ur Specific [place] (1.000-1.030) Urine Protein (Negative) Urine Glucose (UA) (Negative) Urine Ketones (Negative) Urine Blood (Negative) Urine Nitrite (Negative) Urine Bilirubin (Negative) Urine Urobilinogen (Negative) Ur Leukocyte Esterase (Negative) Urine WBC (Auto) (0-5) /hpf Urine RBC (Auto) (0-4) /hpf U Hyaline Cast (Auto) (0-5) /lpf U Epithel Cells (Auto) (0-5) /lpf Urine Bacteria (Auto) (Negative) Nasal Screen MRSA (PCR) (Negative) Bld Cult Staph aureus PCR Blood Culture MRSA PCR PG Care Time/CCT Total # of Minutes Spent Total Time Spent with Patient: Total time spent is greater than 50% in coordination of care (as documented) at patient's floor/unit and/or counseling patient: Coding Level of Care Code None Diagnoses COVID-19 U07.1 Respiratory distress R06.03 Dyslipidemia E78.5 Benign essential hypertension I10 Alzheimer's dementia G30.9; F02.80 Alzheimer's disease onset: unspecified onset Dementia behavioral disturbance: without behavioral disturbance VAISHNAVI (acute kidney injury) N17.9 DVT prophylaxis Z29.9 (1) Alzheimer's dementia Alzheimer's disease onset: unspecified onset Dementia behavioral disturbance: without behavioral disturbance Qualified Code(s): G30.9 - Alzheimer's disease, unspecified; F02.80 - Dementia in other diseases classified elsewhere without behavioral disturbance
[2020-04-27] MEDS ORDERED: VANCOMYCIN HCL 1,500 MG in SODIUM CHLORIDE 0.9% 500 ML IV ONE (22:49)
[2020-04-27] MEDS ORDERED: VANCOMYCIN CONSULT ACTIVE PRN (22:49)
--- NOTE | 2020-04-28 06:02 | Electrocardiogram Report ---
Test Reason : Blood Pressure : / mmHG Vent. Rate : 098 BPM Atrial Rate : 098 BPM P-R Int : 144 ms QRS Dur : 120 ms QT Int : 408 ms P-R-T Axes : 078 -47 111 degrees QTc Int : 520 ms Normal sinus rhythm Left axis deviation Left bundle branch block Abnormal ECG When compared with ECG of 10-JAN-2020 15:02, Vent. rate has increased BY 36 BPM Confirmed by Dc Ramírez ([id number]) on 04/28/2020 6:02:24 AM Referred By: Kanhollie Confirmed By:Dc Ramírez
[2020-04-28] MEDS: ENOXAPARIN INJ 30 MG/0.3 ML SYR SQ SCH (06:30)
[2020-04-28] MEDS: ASPIRIN 81 MG ECTAB PO SCH (07:25)
[2020-04-28] MEDS: ATORVASTATIN 20 MG TAB PO SCH (07:26)
[2020-04-28] MEDS: MEMANTINE HCL 10 MG TAB PO SCH (07:26)
[2020-04-28] MEDS: amLODIPine BESYLATE 5 MG TAB PO SCH (07:26)
[2020-04-28] MEDS: METOPROLOL SUCC 50MG EXT REL TAB PO SCH (07:27)
[2020-04-28] MEDS: DONEPEZIL HCL 10 MG TAB PO SCH (07:37)
[2020-04-28 08:39] LABS: Creatinine Clr Calc Pharmacy 47.1 ml/min; Est GFR (African American) 66.6; Est GFR (Non-African American) 57.5
--- NOTE | 2020-04-28 09:16 | Pharmacy Report ---
Pharmacy Abx Initial Consult - Date of Service April 28, 2020 - Pharmacy Dosing Scope Date of Consult: 04/27/20 Consultation requested by: Dr. Thomas Pharmacy is consulted to initiate Vancomycin IV dosing therapy, order appropriate labs and adjust drug dose/frequency. - Subjective The patient is a 89 year old M admitted on 04/27/20 00:18. - Objective Height: 5 ft 10 in Weight: 76.9 kg Vital Signs (Past 12hrs): Vital Signs Temp Pulse Resp BP Pulse Ox 04/28/20 07:39 36.6 C 74 16 149/81 H 94 04/28/20 07:09 36.6 C 74 16 149/81 H 94 04/27/20 23:44 36.8 C 85 18 175/80 H 100 Lab Results (24hrs): Laboratory Tests (24 Hours) 04/28/20 04/28/20 04/27/20 07:23 07:23 09:12 WBC Neut # (Auto) Creatinine 1.14 1.40 Est Cr Clr Drug Dosing 47.1 38.4 Random Vancomycin 15.9 04/27/20 09:12 WBC 7.61 Neut # (Auto) 4.83 Creatinine Est Cr Clr Drug Dosing Random Vancomycin - Risk Factors for Resistance * Resident in a [facility]ci or extended-care facility - Assessment & Plan Assessment 89 year old M admitted with Covid-19 and VAISHNAVI from assisted living/ [facility] facility. Currently blood culture 1 of 2 positive for G+ cocci. Vancomycin started last night for possible Bacteremia with loading dose. Since patient had poor renal function on admission a loading dose of Vanco was ordered and a random Vanc level was checked this AM. Laboratory Tests 04/28/20 07:23 Random Vancomycin 15.9 Plan Vancomycin IV * Estimated PK Parameters: Vd 0.7 L/kg, Manav 0.039 hr-1, t1/2 17.7 hr * Loading dose: 1500 mg (20 mg/kg) IV x 1 dose given yesterday close to midnight. * Random Vanc level today AM of 15.9 mcg/ml shows patient is ready for a re- dose. * Maintenance dose: 1250 mg IV (16.3 mg/kg) every 24 hours ordered to start today at 1000. * Goal trough level for Bacteremia: 15 to 20 mcg/mL * Trough level ordered for 04/30/20 before dose at 1000. Pharmacy will continue to follow and will adjust dose/frequency as necessary. Thank you.
[2020-04-28] MEDS ORDERED: VANCOMYCIN HCL 1,250 MG in SODIUM CHLORIDE 0.9% 250 ML IV SCH (10:00)
--- NOTE | 2020-04-28 16:37 | Discharge Summary ---
Date of Service April 28, 2020 Admission HPI Per Admitting Provider Raymundo Martell is an 89yo C male presenting from [facility] with recently diagnosed Covid-19, fever and hypoxemia. Patient with dementia and unable to provide details of events prior to arrival. History obtained through discussion with ER attending and chart review. Patient was recently diagnosed with Covid-19. He was reportedly hypoxic on room air this evening with saturations in the mid 80's. The nursing staff at [facility] also reported that he was in some respiratory distress with tachypnea and slighlty more confused than baseline. Upon arrival to the ER he was found to be febrile at 38.7, tachypneic at 30 breaths/minute. Oxygenation has been adequate on room air - ranging 95-98% ER Course: Tylenol 1gm, NSS x 500mL Principal Diagnosis COVID 19 pneumonia Discharge Exam Constitutional WD/WN, vitals as above + thin and + frail appearing; no acute distress Neck trachea midline, no thyromegaly Respiratory normal respiratory effort, lungs clear to auscultation Cardiovascular RRR, no murmur, no edema Gastrointestinal (Abdomen) normal bowel sounds, soft, nontender, no hepatosplenomegaly Musculoskeletal no cyanosis or clubbing, extremities motor strength 5/5 Skin no rashes, warm and dry Neurologic patellar DTR's 2+ bilat, sensation intact and PERRL, EOMI, accommodation nl, no face palsy, no dysarthria + confused; no focal motor deficits Psychiatric Orientation: alert, oriented to person and + guarded; + not oriented to place and + not oriented to time Lymphatic no cervical or axillary lymphadenopathy Discharge Data Allergies Allergy/AdvReac Type Severity Reaction Status Date / Time hydrochlorothiazide Allergy Unknown UNKNOWN Verified 04/26/20 23:11 Penicillins Allergy Unknown ? UNKNOWN Verified 04/26/20 23:11 Sulfa (Sulfonamide Allergy Unknown ITCHINESS, Verified 04/26/20 23:11 Antibiotics) RED SKIN oxycodone AdvReac Intermediate CONSTIPATION, Verified 04/26/20 23:11 MALAISE Consultations 04/26/20 23:52 ED Decision to Admit Stat Ordered Studies 04/26/20 23:23 CT angio chest PE protocol Urgent Hospital Course (1) COVID-19: 89yo C male resident at [facility] with recently diagnosed Covid-19 presents with reported hypoxia at his nursing facility, however he has not been hypoxic here at all. Patient initially was tachypneic here, but this is now resolved and was in the setting of fever upon admission. Very stable on room air since admission with pulse ox 99% No further fever since admission, dehydration has improved with IV fluids He is tolerating p.o. Of note, as per report from the personal intermediate, his Covid test was positive first on 04/19, then he had an inconclusive repeat result on 04/23. ESR minimally elevated for age at 40, D-dimer is normal at 440, and procalcitonin is negative CT angiogram of chest with minimal bronchial wall thickening in the lower lobes and a few partially opacified lower lobe bronchi, with small patchy density in the lower lobes posteriorly favoring dependent change/atelectasis but cannot exclude low-grade aspiration pneumonitis -observed on medical floor, never had hypoxia, no need for dexamethasone -No indication for Remdesivir at this time -Tylenol PRN can return to personal intermediate, monitor for any worsening symptoms (2) Respiratory distress: Patient with reported respiratory distress and hypoxia prior to arrival as above. Currently comfortable with adequate saturation on room air. ?if respiratory distress secondary to Covid-19, possible aspiration event? CT angiogram chest with findings as above Procalcitonin negative-no antibiotics needed at this time -Monitor saturation -Supplemental O2 never needed while on observation (3) Dyslipidemia: Chronic -Continue Atorvastatin (4) Benign essential hypertension: Blood pressure stable -Continue Amlodipine -Continue Metoprolol and aspirin (5) Alzheimer's dementia: Patient with poor functional baseline. Does not answer questions or follow commands at this time It appears based on previous notes that he is usually oriented x1 and tends to get agitated with nursing care -Continue Memantine -Continue Aricept -Delirium prevention strategies with maintenance of sleep/wake cycle and frequent orientation where needed (6) VAISHNAVI (acute kidney injury): Elevation of BUN and Cr. Upon admission likely secondary to poor p.o. intake and febrile illness from Covid-19 infection -Received gentle IVF with LR at 80mL/hr x 1 liter and creatinine now down to 1.1 which is his baseline -Discontinue IV fluids -Avoid nephrotoxic agents -Renal dosing where needed -No further labs needed (7) DVT prophylaxis: Ppx - Lovenox 30 BID Code - DNR/DNI per review of paperwork Dispo - discharge back to personal intermediate Total Time Total Time Spent Total Time Spent (In Minutes): 35 Total Time Includes: Examination of the Patient, Discharge Planning and Medication Reconciliation Discharge Plan Discharge Items Patient Disposition: Personal [facility] Living Reason For Visit: COVID-19 Discharge Diagnosis: COVID 19 infection Acute kidney injury Dehydration Condition on Discharge: Good Goals: encourage him to eat and drink Activity: Resume your previous activity Non-emergency contact: Primary Care Provider Call non-emergency contact if: you have any medication questions, your symptoms worsen and you have a fever Follow-up/Referrals: Raad [Primary Care Provider] - Diet: Regular Addtl Attending Provider Instructions: Medications: no changes COVID 19 positive: has not required oxygen his entire stay, no respiratory distress had a fever at time of admission, late evening 04/26 no fever since that time he was hydrated with IV fluids, his BUN/Cr have returned to baseline encourage him to eat and drink monitor for any worsening symptoms he is 9 days out from his positive test on 04/19 Pending Studies at Discharge: No Stand-Alone Forms: My teextee, Smoking Cessation Skilled Items Patient informed of condition?: Yes DNR: Yes Discharge Level of Care: Other Communicable Disease: Yes Discharge Prognosis: Stable Lines: None Urinary Catheter: No Medications and DC Order Prescriptions: Continued acetaminophen [Tylenol Extra Strength] 500 mg tablet 500 mg PO QAM PRN (Reason: Pain) Qty: 90 RF: 3 acetaminophen [Tylenol Arthritis Pain] 650 mg tablet extended release 650 mg PO Q12H PRN (Reason: Pain) Qty: 90 RF: 1 donepezil [Aricept] 10 mg tablet 10 mg PO DAILY Qty: 90 RF: 3 memantine [Namenda] 10 mg tablet 10 mg PO BID 90 Days Qty: 180 RF: 3 amlodipine [Norvasc] 5 mg tablet 5 mg PO DAILY Qty: 90 RF: 3 atorvastatin 20 mg tablet 20 mg PO DAILY Qty: 90 RF: 3 Ensure Liquid 1 ea PO TID RF: 0 metoprolol succinate 50 mg tablet extended release 24 hr 50 mg PO DAILY RF: 0 tramadol 50 mg tablet 50 mg PO Q4 PRN (Reason: Moderate Pain (Scale Score 5-6)) RF: 0 polyethylene glycol 3350 [Miralax] 17 gram/dose Powder 17 g PO DAILY PRN (Reason: Constipation) RF: 0 aspirin [Aspirin Low Dose] 81 mg Tablet,Delayed Release (Dr/Ec) 81 mg PO DAILY RF: 0 acetaminophen 325 mg Tablet 325 mg PO Q4 MDD 3g PRN (Reason: Fever Or Pain) RF: 0 Discharge Orders: Discharge Order (Routine); Ordered 04/28/20 Ordered By: Jr Hernandez/Other Patient Handouts: COVID-19 Prevention, Caring for Someone Who Has COVID-19 Admission Data Admit Date/Time: 04/27/20 00:18 Attending Provider: Jr Valente Admit Provider: Darcy Hartmann Primary Care Provider: Raad, Other Providers: Darcy Hartmann Other Interventions: Discharge Summary Assessment (RN) Last Done: 04/28/20 16:20 Coding Level of Care Code 52099 OBS Care - Discharge Diagnoses COVID-19 U07.1 Respiratory distress R06.03 Dyslipidemia E78.5 Benign essential hypertension I10 Alzheimer's dementia G30.9; F02.80 Alzheimer's disease onset: unspecified onset Dementia behavioral disturbance: without behavioral disturbance VAISHNAVI (acute kidney injury) N17.9 DVT prophylaxis Z29.9
[2020-04-30] MEDS ORDERED: VANCOMYCIN TROUGH ONE (09:30)
== END 2020-04-28 18:55 | disposition home or self-care (01) ==
LOC: 3E 21:19 → ED 21:19 → SUATTDRO 04-27 00:18 → 3E 04-27 01:51

== ENCOUNTER 2020-09-01 23:21 | Inpatient (IN) ==
[2020-09-01] MEDS ORDERED: SODIUM CHLORIDE 0.9% 1000ML 1,000 ML IV SCH (23:30)
[2020-09-01] MEDS ORDERED: CEFEPIME 2,000 MG/20 ML VIAL IV STA (23:33)
--- NOTE | 2020-09-01 23:38 | Emergency Department Note ---
History of Present Illness General Chief complaint: Respiratory Problems Stated complaint: FEVER; LOSS OF APPETITE; DOES NOT RESPOND Time Seen by Provider: 09/01/20 23:22 Source: EMS Mode of arrival: EMS Limitations: altered mental status History of Present Illness Provider complaint: Altered mental status Onset (ago): day(s) 3 This is an 89-year-old male brought in by EMS due to altered mental status. EMS reports halfway staff told them he had been more lethargic than usual over the last approximately 3 days. They states he does intermittently have episodes like this and this is not uncommon. Patient does have a prior history of dementia. Patient has been vaccinated for coronavirus. They state this evening he seemed more confused and began to feel warm as though he was developing a fever. EMS reports he did feel warm for them however otherwise had stable vital signs. Patient otherwise unable to provide any additional history. Pt seen during a time of high acuity and national emergency pandemic while wearing PPE. Home Medications Medication Instructions Recorded Confirmed Type acetaminophen 500 mg tablet 500 mg PO QAM PRN #90 tab 05/10/19 09/02/20 Rx acetaminophen 650 mg 650 mg PO Q12H PRN #90 tab 05/10/19 09/02/20 Rx tablet,extended release donepezil 10 mg tablet 10 mg PO DAILY #90 tab 05/10/19 09/02/20 Rx memantine 10 mg tablet 10 mg PO BID 90 Days #180 tab 05/10/19 09/02/20 Rx amlodipine 5 mg tablet 5 mg PO DAILY #90 tab 05/30/19 09/02/20 Rx Ensure 1 ea PO TID 09/08/19 09/02/20 History atorvastatin 20 mg tablet 20 mg PO DAILY #90 tab 03/19/20 09/02/20 Rx acetaminophen 325 mg PO Q4 PRN MDD 3g 04/26/20 09/02/20 History aspirin [Aspirin Low Dose] 81 mg PO DAILY 04/26/20 09/02/20 History metoprolol succinate 50 mg PO DAILY 04/26/20 09/02/20 History tramadol 50 mg PO Q4 PRN 04/26/20 09/02/20 History tctzdzzm-ynb-AL-lycopen-lutein 1 tab PO DAILY 09/02/20 09/02/20 History [Centrum Silver] sertraline 25 mg PO DAILY 09/02/20 09/02/20 History Allergies Allergy/AdvReac Type Severity Reaction Status Date / Time hydrochlorothiazide Allergy Unknown UNKNOWN Verified 09/02/20 00:25 Penicillins Allergy Unknown ? UNKNOWN Verified 09/02/20 00:25 Sulfa (Sulfonamide Allergy Unknown ITCHINESS, Verified 09/02/20 00:25 Antibiotics) RED SKIN oxycodone AdvReac Intermediate CONSTIPATION, Verified 09/02/20 00:25 MALAISE Past Med/Surg History Medical History VAISHNAVI (acute kidney injury) Alzheimer's dementia Arthritis of neck Benign essential hypertension Dehydration Dyslipidemia Fever Heart attack Hypertension Respiratory distress Syncope Tachypnea Surgical History History of colonoscopy History of hernia repair History of vasectomy Hx of total knee arthroplasty Family History Father , age 73 stroke and [place] Myocardial infarction Stroke Mother , age 73 parkinson's Parkinsons disease Brother Prostate cancer Unknown Heart disease Hypertension Liver cancer Lung cancer Osteoarthritis Social History Smoking Status: Unknown if ever smoked Second Hand Exposure: No; Hx Substance Use: No Preferred Language: Chilean Communication Ability: Effective Partition Assembler Required: No Beliefs That Will Affect Care: None marital status: Current Living Situation: Correction Current Living Situation Comment: [facility] residence current occupational status: retired How many Children do You have: 6 Feels Safe at Home: Declines to Answer Assistive Devices: None Review of Systems See HPI for pertinent positives & negatives. Unobtainable due to cognitive status Physical Exam Vital Signs Vital Signs - 24 hr 09/01/20 23:24 09/01/20 23:30 09/01/20 23:31 Temperature 38.6 C H Temperature Source Rectal Pulse Rate 88 78 79 Pulse Rate from SpO2 Sensor 80 Respiratory Rate 22 36 H 21 Respiratory Effort / Characteristics Blood Pressure 169/96 H 169/96 H Blood Pressure Mean 120 120 Pulse Oximetry 97 98 97 Oxygen Delivery Method Room Air Room Air Sepsis Recent Fever Within 48 Hours Yes Sepsis New/Unexplained Change in Mental Status Yes Sepsis Action Taken by Nursing Physician Notified 09/01/20 23:36 09/01/20 23:45 09/01/20 23:46 Temperature Temperature Source Pulse Rate 95 H 82 82 Pulse Rate from SpO2 Sensor 82 86 82 Respiratory Rate 23 46 H 41 H Respiratory Effort / Characteristics Blood Pressure 170/75 H Blood Pressure Mean 106 Pulse Oximetry 97 90 98 Oxygen Delivery Method Sepsis Recent Fever Within 48 Hours Sepsis New/Unexplained Change in Mental Status Sepsis Action Taken by Nursing 09/02/20 00:00 09/02/20 00:01 09/02/20 00:02 Temperature Temperature Source Pulse Rate 78 82 87 Pulse Rate from SpO2 Sensor 80 83 89 Respiratory Rate 33 H 15 21 Respiratory Effort / Characteristics Blood Pressure 162/83 H Blood Pressure Mean 109 Pulse Oximetry 98 97 94 Oxygen Delivery Method Sepsis Recent Fever Within 48 Hours Sepsis New/Unexplained Change in Mental Status Sepsis Action Taken by Nursing 09/02/20 00:15 09/02/20 00:16 09/02/20 00:27 Temperature Temperature Source Pulse Rate 92 H 88 Pulse Rate from SpO2 Sensor 91 H 90 Respiratory Rate 40 H 27 H Respiratory Effort / Characteristics Blood Pressure 146/117 H Blood Pressure Mean 126 Pulse Oximetry 100 98 97 Oxygen Delivery Method Room Air Sepsis Recent Fever Within 48 Hours Sepsis New/Unexplained Change in Mental Status Sepsis Action Taken by Nursing 09/02/20 00:30 09/02/20 00:31 09/02/20 00:45 Temperature Temperature Source Pulse Rate 87 80 80 Pulse Rate from SpO2 Sensor 82 79 81 Respiratory Rate 33 H 28 H 37 H Respiratory Effort / Characteristics Labored Blood Pressure 170/76 H Blood Pressure Mean 107 Pulse Oximetry 96 96 97 Oxygen Delivery Method Room Air Sepsis Recent Fever Within 48 Hours Sepsis New/Unexplained Change in Mental Status Sepsis Action Taken by Nursing 09/02/20 00:46 Temperature Temperature Source Pulse Rate 79 Pulse Rate from SpO2 Sensor 79 Respiratory Rate 46 H Respiratory Effort / Characteristics Blood Pressure 146/86 H Blood Pressure Mean 106 Pulse Oximetry 97 Oxygen Delivery Method Sepsis Recent Fever Within 48 Hours Sepsis New/Unexplained Change in Mental Status Sepsis Action Taken by Nursing GENERAL: alert, well appearing, well nourished, anxious appearing, non-toxic, warm to touch EYE EXAM: normal conjunctiva, PERRL and EOM's grossly intact OROPHARYNX: no exudate, no erythema, lips, buccal mucosa, and tongue normal and mucous membranes are dry NECK: supple, no nuchal rigidity, no adenopathy, non-tender LUNGS: Clear to auscultation. Normal chest wall mechanics, no w/r/r, tachypneic HEART: no murmurs, S1 normal and S2 normal, tachycardic ABDOMEN: abdomen soft, non-tender, normo-active bowel sounds, no masses, no rebound or guarding. BACK: Back is symmetrical on inspection and there is no deformity, no midline tenderness, no CVA tenderness. SKIN: no rashes and no bruising, no petechiae UPPER EXTREMITIES: upper extremities are grossly normal. FROM, nml pulses b/l. LOWER EXTREMITIES: No pitting edema. FROM, nml pulses b/l. NEURO EXAM: Patient awake, alert, will follow simple commands, did answer yes and no to 1 or 2 questions but otherwise cannot participate and cannot give any additional history, no obvious focal neuro deficit, no facial droop Course Course 0042: Discussed with Dr Hartmann. Administered Medications Amlodipine Besylate (Amlodipine Besylate 5 Mg Tab) 5 mg PO DAILY [facility] Stop: 10/02/20 08:59 Last Admin: 09/02/20 08:14 Dose: 5 mg Documented by: [id number] Aspirin (Aspirin 81 Mg Ectab) 81 mg PO DAILY DIP[facility] Stop: 10/02/20 08:59 Last Admin: 09/02/20 08:14 Dose: 81 mg Documented by: [id number] Atorvastatin Calcium (Atorvastatin 20 Mg Tab) 20 mg PO DAILY [facility] Stop: 10/02/20 08:59 Last Admin: 09/02/20 08:14 Dose: 20 mg Documented by: [id number] Donepezil HCl (Donepezil Hcl 10 Mg Tab) 10 mg PO DAILY [facility] Stop: 10/02/20 08:59 Last Admin: 09/02/20 08:14 Dose: 10 mg Documented by: [id number] Enoxaparin Sodium (Enoxaparin Inj 40 Mg/0.4 Ml Syr) 40 mg SQ QAM [facility] Stop: 10/02/20 08:59 Last Admin: 09/02/20 08:15 Dose: 40 mg Documented by: [id number] Cefepime HCl 1,000 mg/ Syringe 11.3 mls @ 5.5 mls/min IV Q24H [facility]; Protocol Stop: 09/12/20 21:59 Last Admin: 09/02/20 23:18 Dose: 5.5 mls/min Documented by: [id number] Parenteral Electrolytes (Normosol-R) 1,000 mls @ 80 mls/hr IV .[id number] DIP[facility] Stop: 10/02/20 13:44 Last Admin: 09/03/20 03:06 Dose: 80 mls/hr Documented by: [id number] Infusion: 09/03/20 02:28 Dose: 80 mls/hr Documented by: [id number] Admin: 09/02/20 13:58 Dose: 80 mls/hr Documented by: [id number] Memantine (Memantine Hcl 10 Mg Tab) 10 mg PO BID [facility] Stop: 10/02/20 08:59 Last Admin: 09/02/20 23:19 Dose: 10 mg Documented by: [id number] Admin: 09/02/20 08:14 Dose: 10 mg Documented by: [id number] Metoprolol Succinate (Metoprolol Succ 50mg Ext Rel Tab) 50 mg PO DAILY [facility] Stop: 10/02/20 08:59 Last Admin: 09/02/20 08:15 Dose: 50 mg Documented by: [id number] Sertraline HCl (Sertraline Hcl 50 Mg Tablet) 25 mg PO DAILY [facility] Stop: 10/02/20 08:59 Last Admin: 09/02/20 08:14 Dose: 25 mg Documented by: [id number] Discontinued Medications Sodium Chloride (Nss 1000ml) 1,000 mls @ 999 mls/hr IV .Q1H1M [facility]IP[facility] Stop: 09/02/20 00:30 Last Infusion: 09/02/20 01:04 Dose: 0 mls/hr Documented by: [id number] Admin: 09/02/20 00:03 Dose: 999 mls/hr Documented by: [id number] Cefepime HCl (Maxipime) 2,000 mg in 20 mls @ 5 mls/min IV NOW STA Stop: 09/01/20 23:36 Last Admin: 09/02/20 00:02 Dose: 5 mls/min Documented by: [id number] Acetaminophen (Ofirmev) 1,000 mg in 100 mls @ 400 mls/hr IV NOW STA Stop: 09/02/20 00:45 Last Infusion: 09/02/20 01:05 Dose: 0 mls/hr Documented by: [id number] Admin: 09/02/20 00:50 Dose: 400 mls/hr Documented by: [id number] Sodium Chloride (Nss 1000ml) 1,000 mls @ 250 mls/hr IV .Q4H [facility]IP[facility] Stop: 10/02/20 00:44 Last Admin: 09/02/20 06:10 Dose: Not Given Documented by: [id number] Infusion: 09/02/20 06:10 Dose: 0 mls/hr Documented by: [id number] Admin: 09/02/20 00:52 Dose: 250 mls/hr Documented by: [id number] Lactated Ringer's (Lr) 1,000 mls @ 100 mls/hr IV .Q10H [facility]IP[facility] Stop: 09/02/20 14:52 Last Infusion: 09/02/20 13:49 Dose: 0 mls/hr Documented by: [id number] Admin: 09/02/20 06:08 Dose: 100 mls/hr Documented by: [id number] Medical Decision Making Differential Diagnosis Differential diagnosis: Etiologies such as viral syndrome, otitis, pharyngitis, pneumonia, influenza, meningitis, urinary tract infection, sepsis, bacteremia, as well as others were entertained. Medical Records Attestation: I reviewed the patient's medical records. Home Medications Current Medication List: was personally reviewed by me Laboratory Data Attestation: I reviewed the patient's lab results. Result diagrams: 09/02/20 06:27 09/02/20 05:27 Lab Results 09/01/20 09/01/20 09/01/20 Range/Units 23:30 23:50 23:50 WBC 18.20 H (4.8-10.8) K/uL RBC 4.69 L (4.7-6.1) M/uL Hgb 14.8 (14.0-18.0) g/dL Hct 42.3 (42-52) % MCV 90.2 (80-100) fL MCH 31.6 (25-34) pg MCHC 35.0 (32-36) g/dL RDW Std Deviation 40.8 (36.4-46.3) fL RDW Coeff of Danii 12.4 (11.5-14.5) % Plt Count 258 (130-400) K/uL MPV 10.3 (7.4-10.4) fL Immature Gran % (Auto) 0.2 % Neut % (Auto) 80.7 % Lymph % (Auto) 7.0 % Glasscock % (Auto) 11.4 % Eos % (Auto) 0.5 % Baso % (Auto) 0.2 % Neut # (Auto) 14.68 H (1.4-6.5) K/uL Lymph # (Auto) 1.27 (1.2-3.4) K/uL Glasscock # (Auto) 2.08 H (0.11-0.59) K/uL Eos # (Auto) 0.09 (0-0.5) K/uL Baso # (Auto) 0.04 (0-0.2) K/uL Immature Gran # (Auto) 0.04 H (0.00-0.02) K/uL PT 10.6 (9.0-12.0) Seconds INR 1.0 (0.9-1.1) APTT 22.5 (21.0-31.0) Seconds PTT Ratio 0.9 Sodium (136-145) mmol/L Potassium (3.5-5.1) mmol/L Chloride (98-107) mmol/L Carbon Dioxide (21-32) mmol/L Anion Gap (3-11) BUN (7-18) mg/dl Creatinine (0.6-1.4) mg/dl Est Cr Clr Drug Dosing ml/min Est GFR ( Amer) Est GFR (Non-Af Amer) BUN/Creatinine Ratio (10-20) Glucose (70-99) mg/dl Lactate (0.4-2.0) mmol/L Calcium (8.5-10.1) mg/dl Magnesium (1.8-2.4) mg/dl Total Bilirubin (0.2-1) mg/dl AST (15-37) U/L ALT (12-78) U/L Alkaline Phosphatase (45-117) U/L Troponin I (0-0.045) ng/ml Total Protein (6.4-8.2) gm/dl Albumin (3.4-5.0) gm/dl Globulin (2.5-4.0) gm/dl Albumin/Globulin Ratio (0.9-2) Procalcitonin (0-0.5) ng/ml Urine Color Yellow Urine Appearance Cloudy A (Clear) Urine pH 8.0 H (4.5-7.5) Ur Specific Garibaldi 1.014 (1.000-1.030) Urine Protein Negative (Negative) Urine Glucose (UA) Negative (Negative) Urine Ketones Negative (Negative) Urine Blood Negative (Negative) Urine Nitrite Positive A (Negative) Urine Bilirubin Negative (Negative) Urine Urobilinogen Negative (Negative) Ur Leukocyte Esterase 1+ H (Negative) Urine WBC (Auto) >30 H (0-5) /hpf Urine RBC (Auto) 0-4 (0-4) /hpf U Hyaline Cast (Auto) 1-5 (0-5) /lpf U Epithel Cells (Auto) 0-5 (0-5) /lpf Urine Bacteria (Auto) 1+ H (Negative) COVID-19 Eval Order SARS-CoV-2 (PCR) (Negative) Influenza Type A (PCR) (Neg) Influenza Type B (PCR) (Neg) RSV (RT-PCR) (Neg) 09/01/20 09/01/20 09/01/20 Range/Units 23:50 23:50 23:50 WBC (4.8-10.8) K/uL RBC (4.7-6.1) M/uL Hgb (14.0-18.0) g/dL Hct (42-52) % MCV (80-100) fL MCH (25-34) pg MCHC (32-36) g/dL RDW Std Deviation (36.4-46.3) fL RDW Coeff of Danii (11.5-14.5) % Plt Count (130-400) K/uL MPV (7.4-10.4) fL Immature Gran % (Auto) % Neut % (Auto) % Lymph % (Auto) % Glasscock % (Auto) % Eos % (Auto) % Baso % (Auto) % Neut # (Auto) (1.4-6.5) K/uL Lymph # (Auto) (1.2-3.4) K/uL Glasscock # (Auto) (0.11-0.59) K/uL Eos # (Auto) (0-0.5) K/uL Baso # (Auto) (0-0.2) K/uL Immature Gran # (Auto) (0.00-0.02) K/uL PT (9.0-12.0) Seconds INR (0.9-1.1) APTT (21.0-31.0) Seconds PTT Ratio Sodium 141 (136-145) mmol/L Potassium 4.1 (3.5-5.1) mmol/L Chloride 109 H (98-107) mmol/L Carbon Dioxide 25 (21-32) mmol/L Anion Gap 7.0 (3-11) BUN 26 H (7-18) mg/dl Creatinine 1.39 (0.6-1.4) mg/dl Est Cr Clr Drug Dosing 38.7 ml/min Est GFR ( Amer) 52.4 Est GFR (Non-Af Amer) 45.2 BUN/Creatinine Ratio 18.5 (10-20) Glucose 100 H (70-99) mg/dl Lactate 3.4 H* (0.4-2.0) mmol/L Calcium 9.0 (8.5-10.1) mg/dl Magnesium 2.1 (1.8-2.4) mg/dl Total Bilirubin 0.7 (0.2-1) mg/dl AST 15 (15-37) U/L ALT 23 (12-78) U/L Alkaline Phosphatase 99 (45-117) U/L Troponin I 0.023 (0-0.045) ng/ml Total Protein 7.4 (6.4-8.2) gm/dl Albumin 3.2 L (3.4-5.0) gm/dl Globulin 4.2 H (2.5-4.0) gm/dl Albumin/Globulin Ratio 0.8 L (0.9-2) Procalcitonin < 0.05 (0-0.5) ng/ml Urine Color Urine Appearance (Clear) Urine pH (4.5-7.5) Ur Specific Garibaldi (1.000-1.030) Urine Protein (Negative) Urine Glucose (UA) (Negative) Urine Ketones (Negative) Urine Blood (Negative) Urine Nitrite (Negative) Urine Bilirubin (Negative) Urine Urobilinogen (Negative) Ur Leukocyte Esterase (Negative) Urine WBC (Auto) (0-5) /hpf Urine RBC (Auto) (0-4) /hpf U Hyaline Cast (Auto) (0-5) /lpf U Epithel Cells (Auto) (0-5) /lpf Urine Bacteria (Auto) (Negative) COVID-19 Eval Order SARS-CoV-2 (PCR) (Negative) Influenza Type A (PCR) (Neg) Influenza Type B (PCR) (Neg) RSV (RT-PCR) (Neg) 09/02/20 09/02/20 Range/Units 00:10 00:10 WBC (4.8-10.8) K/uL RBC (4.7-6.1) M/uL Hgb (14.0-18.0) g/dL Hct (42-52) % MCV (80-100) fL MCH (25-34) pg MCHC (32-36) g/dL RDW Std Deviation (36.4-46.3) fL RDW Coeff of Danii (11.5-14.5) % Plt Count (130-400) K/uL MPV (7.4-10.4) fL Immature Gran % (Auto) % Neut % (Auto) % Lymph % (Auto) % Glasscock % (Auto) % Eos % (Auto) % Baso % (Auto) % Neut # (Auto) (1.4-6.5) K/uL Lymph # (Auto) (1.2-3.4) K/uL Glasscock # (Auto) (0.11-0.59) K/uL Eos # (Auto) (0-0.5) K/uL Baso # (Auto) (0-0.2) K/uL Immature Gran # (Auto) (0.00-0.02) K/uL PT (9.0-12.0) Seconds INR (0.9-1.1) APTT (21.0-31.0) Seconds PTT Ratio Sodium (136-145) mmol/L Potassium (3.5-5.1) mmol/L Chloride (98-107) mmol/L Carbon Dioxide (21-32) mmol/L Anion Gap (3-11) BUN (7-18) mg/dl Creatinine (0.6-1.4) mg/dl Est Cr Clr Drug Dosing ml/min Est GFR ( Amer) Est GFR (Non-Af Amer) BUN/Creatinine Ratio (10-20) Glucose (70-99) mg/dl Lactate (0.4-2.0) mmol/L Calcium (8.5-10.1) mg/dl Magnesium (1.8-2.4) mg/dl Total Bilirubin (0.2-1) mg/dl AST (15-37) U/L ALT (12-78) U/L Alkaline Phosphatase (45-117) U/L Troponin I (0-0.045) ng/ml Total Protein (6.4-8.2) gm/dl Albumin (3.4-5.0) gm/dl Globulin (2.5-4.0) gm/dl Albumin/Globulin Ratio (0.9-2) Procalcitonin (0-0.5) ng/ml Urine Color Urine Appearance (Clear) Urine pH (4.5-7.5) Ur Specific Garibaldi (1.000-1.030) Urine Protein (Negative) Urine Glucose (UA) (Negative) Urine Ketones (Negative) Urine Blood (Negative) Urine Nitrite (Negative) Urine Bilirubin (Negative) Urine Urobilinogen (Negative) Ur Leukocyte Esterase (Negative) Urine WBC (Auto) (0-5) /hpf Urine RBC (Auto) (0-4) /hpf U Hyaline Cast (Auto) (0-5) /lpf U Epithel Cells (Auto) (0-5) /lpf Urine Bacteria (Auto) (Negative) COVID-19 Eval Order CovFluRsv at [facility] SARS-CoV-2 (PCR) NEGATIVE (Negative) Influenza Type A (PCR) Negative (Neg) Influenza Type B (PCR) Negative (Neg) RSV (RT-PCR) Negative (Neg) Imaging Data Radiologist's Impression: Chest X-Ray 09/01/20 23:30 SINGLE VIEW CHEST CLINICAL HISTORY: Sepsis. Fever. FINDINGS: An AP, portable, upright chest radiograph is compared to study dated 05/04/2020. Correlation is made with chest CT dated 04/27/2020. The heart is enlarged noting mild atherosclerotic calcification of the thoracic aorta. The pulmonary vasculature is noncongested. Chronic interstitial thickening is similar to previous. No airspace consolidation or large pleural effusion is identified. No pneumothorax is seen. The skeletal structures are osteopenic. The bony thorax is grossly intact. Degenerative change is seen throughout the thoracic spine. IMPRESSION: Cardiomegaly with no active disease in the chest. ACT 112: Negative or not required by law. Electronically signed by: Nas Armando M.D. 09/02/2020 12:02 AM ECG Data Attestation: I personally reviewed and interpreted this ECG as follows: Indication: + altered mental status Rate (beats per minute): 82 Rhythm: + normal sinus ECG Intervals/blocks: + Left bundle branch block and + Prolonged QT ECG Union: + Left axis deviation ECG ST segments: + Nonspecific ST abnormalities MDM Narrative This is an 89-year-old male who presents via EMS from a local halfway facility. Patient with hx of dementia and NH staff felt he was more lethargic than usual. Patient here was warm to the touch, tachypneic and tachycardic initially, and there was concern for sepsis. Patient was found to be incontinent of urine, there was a strong odor to the urine. Labs are drawn and sent for sepsis evaluation. Patient was not hypotensive, he was given 30 mL/kg based on ideal body weight. Patient with leukocytosis noted, and likely urinary source of infection. Patient started on cefepime IV. Given elevated lactic acid, I am concerned for evolving sepsis at this time. No evidence of acute kidney injury, pro calcitonin reassuring. EKG otherwise unchanged. Patient remained hemodynamically stable here, case discussed with hospitalist for additional evaluation and management. Given benign abdominal exam, I do not suspect obstructive uropathy or pyelonephritis at this time. An order was placed for continuous cardiac monitoring. The monitor shows a rate of _76_ with _normal sinus_ rhythm. Impression & Plan Sepsis, Alzheimer's dementia, LBBB (left bundle branch block), Acute UTI (urinary tract infection), AMS (altered mental status) Discharge Plan Visit Data Chief Complaint: Respiratory Problems Stated Complaint: FEVER; LOSS OF APPETITE; DOES NOT RESPOND ED Provider: Dayana Johnson Discharge Problem: Sepsis, Alzheimer's dementia, LBBB (left bundle branch block), Acute UTI (urinary tract infection), AMS (altered mental status) Patient Disposition: Admitted As Inpatient Discharge Instructions Interventions: ED Discharge Assessment Last Done: 09/02/20 04:23 Discharge Problem: Sepsis Qualifiers: Sepsis type: sepsis due to unspecified organism Sepsis acute organ dysfunction status: without acute organ dysfunction Qualified Code(s): A41.9 - Sepsis, unspecified organism AMS (altered mental status) Qualifiers: Altered mental status type: unspecified Qualified Code(s): R41.82 - Altered mental status, unspecified
[2020-09-01 23:46] LABS: Appearance Urine Cloudy (Clear); Bacteria Urine Automated 1+ (Negative); Bilirubin Urine Negative (Negative); Blood Urine Negative (Negative); Color Urine Yellow; Epithelial Cell Urine Auto 0-5 /lpf (0-5); Glucose Urine UA Negative (Negative); Ketones Urine Negative (Negative); Leukocyte Esterase Urine 1+ (Negative); Nitrite Urine Positive (Negative); Protein Urine Negative (Negative); RBC Urine Automated 0-4 /hpf (0-4); Specific Gravity Urine 1.014 (1.000-1.030); Urobilinogen Urine Negative (Negative); WBC Urine Automated >30 /hpf (0-5)
[2020-09-02 00:02] LABS: Basophils # (auto) 0.04 K/uL (0-0.2); Basophils % (auto) 0.2 %; Eosinophils # (auto) 0.09 K/uL (0-0.5); Eosinophils % (auto) 0.5 %; Hematocrit (blood only) 42.3 % (42-52); Hemoglobin 14.8 g/dL (14.0-18.0); Immature Granulocytes # (auto) 0.04 K/uL (0.00-0.02); Immature Granulocytes % (auto) 0.2 %; Lymphocytes # (auto) 1.27 K/uL (1.2-3.4); Mean Corpuscular Hemoglobin 31.6 pg (25-34); Mean Corpuscular Volume 90.2 fL (80-100); Mean Platelet Volume 10.3 fL (7.4-10.4); Monocytes # (auto) 2.08 K/uL (0.11-0.59); Monocytes % (auto) 11.4 %; Neutrophils # (auto) 14.68 K/uL (1.4-6.5); Neutrophils % (auto) 80.7 %; Platelet Count 258 K/uL (130-400); RDW Coefficient of Variation 12.4 % (11.5-14.5); RDW Standard Deviation 40.8 fL (36.4-46.3); Red Blood Count 4.69 M/uL (4.7-6.1)
--- NOTE | 2020-09-02 00:03 | XRay Report ---
SINGLE VIEW CHEST CLINICAL HISTORY: Sepsis. Fever. FINDINGS: An AP, portable, upright chest radiograph is compared to study dated 05/04/2020. Correlatio n is made with chest CT dated 04/27/2020. The heart is enlarged noting mild atherosclerotic calcifica tion of the thoracic aorta. The pulmonary vasculature is noncongested. Chronic interstitial thickenin g is similar to previous. No airspace consolidation or large pleural effusion is identified. No pneum othorax is seen. The skeletal structures are osteopenic. The bony thorax is grossly intact. Degenerat ha change is seen throughout the thoracic spine. IMPRESSION: Cardiomegaly with no active disease in the chest. ACT 112: Negative or not required by law. Electronically signed by: Nas Armando M.D. 09/02/2020 12:02 AM
[2020-09-02 00:14] LABS: Partial Thromboplastin Ratio 0.9; Partial Thromboplastin Time 22.5 Seconds (21.0-31.0); Prothrombin Time 10.6 Seconds (9.0-12.0)
[2020-09-02 00:31] LABS: Albumin Globulin Ratio 0.8 (0.9-2); Albumin Level 3.2 gm/dl (3.4-5.0); BUN Creatinine Ratio 18.5 (10-20); Bilirubin,Total 0.7 mg/dl (0.2-1); Creatinine Clr Calc Pharmacy 38.7 ml/min; Est GFR (African American) 52.4; Est GFR (Non-African American) 45.2; Globulin 4.2 gm/dl (2.5-4.0); Magnesium 2.1 mg/dl (1.8-2.4); Potassium 4.1 mmol/L (3.5-5.1); Total Protein 7.4 gm/dl (6.4-8.2); Troponin I 0.023 ng/ml (0-0.045)
[2020-09-02] MEDS ORDERED: ACETAMINOPHEN 1,000 MG/100 ML VIAL IV STA (00:31)
[2020-09-02] MEDS: SODIUM CHLORIDE 0.9% 1000ML 1,000 ML IV SCH ×2 (00:52→06:10)
[2020-09-02 02:20] LABS: Influenza A virus by PCR Negative (Neg); Influenza B virus by PCR Negative (Neg); RSV by PCR Negative (Neg); SARS CoV2 RNA(COVID-19) InHosp NEGATIVE (Negative)
--- NOTE | 2020-09-02 03:19 | History & Physical Report ---
Date of Service September 02, 2020 Assessment & Plan (1) Sepsis: Patient febrile, tachycardic, tachypneic, leukocytosis with WBC=18.2 with neutrophil predominance and bands. Lactic acid elevated initially to 3.4, improved to 2 with IVF. Most likely source is urine - positive UA. CXR with no PNA. Covid-19 is NEGATIVE. Patient mildly hypertensive at present, otherwise HD stable -Admit to medical with ttelemetry -Check VBG, Procalcitonin -Follow cultures -Cefepime 1gm IV q 12 hours -Tylenol PRN fever Present on Admission?: Yes (2) Dyslipidemia: Chronic -Continue Atorvastatin 20mg daily Present on Admission?: Yes (3) Alzheimer's dementia: Patient awake, oriented x 0. Not following commands presently. Uncertain baseline functional status -Continue Aricept -Continue Namenda -Frequent orientation/delirium prevention strategies Present on Admission?: Yes (4) Benign essential hypertension: Blood pressure elevated -Continue Amlodipine 5mg po daily -Contineu metoprolol -Continue to monitor F/E/N - LR at 100mL/hr x 1 liter, electrolytes WNL, AHA diet as tolerated with aspiration precautions Ppx - Lovenox Code - DNR/DNI per review of records Dispo - Admit to medical Present on Admission?: Yes History of Present Illness Chief Complaint: fever, sepsis Primary Care Provider: Kanhollie Patient is a poor historian due to underlying dementia as well as possible metabolic encephalopathy from infection. History obtained through chart review and discussion with ER. staff. Raymundo Martell is an 89yo C male NH resident with history of Dementia, HTN and HLP. Patient has been lethargic at the [facility] for the last 3 days. Today he was found to be febrile therefore was brought to the ER. No additional complaints - no cough, SOB, chest pain. Patient had Covid-19 infection in April 2020 In the ER patient febrile, tachycardic and tachypneic. Blood pressure maintained as well as appropriate saturation on room air. ER Course: Acetaminophen, Cefepime, NSS x 2L Allergies Allergy/AdvReac Type Severity Reaction Status Date / Time hydrochlorothiazide Allergy Unknown UNKNOWN Verified 09/02/20 00:25 Penicillins Allergy Unknown ? UNKNOWN Verified 09/02/20 00:25 Sulfa (Sulfonamide Allergy Unknown ITCHINESS, Verified 09/02/20 00:25 Antibiotics) RED SKIN oxycodone AdvReac Intermediate CONSTIPATION, Verified 09/02/20 00:25 MALAISE Home Medications Medication Instructions Recorded Confirmed Type acetaminophen 500 mg tablet 500 mg PO QAM PRN #90 tab 05/10/19 09/02/20 Rx acetaminophen 650 mg 650 mg PO Q12H PRN #90 tab 05/10/19 09/02/20 Rx tablet,extended release donepezil 10 mg tablet 10 mg PO DAILY #90 tab 05/10/19 09/02/20 Rx memantine 10 mg tablet 10 mg PO BID 90 Days #180 tab 05/10/19 09/02/20 Rx amlodipine 5 mg tablet 5 mg PO DAILY #90 tab 05/30/19 09/02/20 Rx Ensure 1 ea PO TID 09/08/19 09/02/20 History atorvastatin 20 mg tablet 20 mg PO DAILY #90 tab 03/19/20 09/02/20 Rx acetaminophen 325 mg PO Q4 PRN MDD 3g 04/26/20 09/02/20 History aspirin [Aspirin Low Dose] 81 mg PO DAILY 04/26/20 09/02/20 History metoprolol succinate 50 mg PO DAILY 04/26/20 09/02/20 History tramadol 50 mg PO Q4 PRN 04/26/20 09/02/20 History wdqoehdj-wrn-XY-lycopen-lutein 1 tab PO DAILY 09/02/20 09/02/20 History [Centrum Silver] sertraline 25 mg PO DAILY 09/02/20 09/02/20 History Past Med/Surg History Medical History VAISHNAVI (acute kidney injury) Alzheimer's dementia Arthritis of neck Benign essential hypertension Dehydration Dyslipidemia Fever Heart attack Hypertension Respiratory distress Syncope Tachypnea Surgical History History of colonoscopy History of hernia repair History of vasectomy Hx of total knee arthroplasty Family History Father , age 73 stroke and [place] Myocardial infarction Stroke Mother , age 73 parkinson's Parkinsons disease Brother Prostate cancer Unknown Heart disease Hypertension Liver cancer Lung cancer Osteoarthritis Social History (Reviewed 09/02/20 @ 03:06 by MARVIN Curiel Smoking Status: Unknown if ever smoked Second Hand Exposure: No; Hx Substance Use: No Preferred Language: Colombian Communication Ability: Effective 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 Beliefs That Will Affect Care: None marital status: Current Living Situation: Longterm Current Living Situation Comment: [facility] residence current occupational status: retired How many Children do You have: 6 Feels Safe at Home: Declines to Answer Assistive Devices: None Review of Systems Review of Systems: Unobtainable due to cognitive status Patient denies pain or discomfort Physical Exam Physical Exam: General: patient resting comfortably, NAD, ill in appearance, not oriented, following some commands Skin: warm, dry, intact, no rashes or lesions HEENT: NC/AT, PERRL, EOMI, anicteric sclera, conjunctiva without injection, external ear normal to inspection and nontender, nares patent, moist mucus membranes, dentition intact, no oropharyngeal lesions, neck supple, trachea midline, no LAD, no thyromegaly, no JVD Heart: +S1/S2, regular, tachycardic, no m/r/g Lungs: equal air entry bilaterally, no rales/rhonchi/wheezes Abd: +BS, soft, NT/ND, no masses/organomegaly/ascites Ext: warm, 2+ pulses in UE/LE bilaterally, no clubbing/cyanosis or edema Neuro: nonfocal Results & Data Results & Data ([facility]) Vital Signs (Past 12 Hours) Vital Signs Temp Pulse Resp BP Pulse Ox 09/02/20 02:30 67 26 H 160/62 H 95 09/02/20 02:16 80 18 93 09/02/20 02:15 73 16 148/78 H 94 09/02/20 02:01 65 13 77 L 09/02/20 02:00 70 19 137/72 96 09/02/20 01:46 68 23 95 09/02/20 01:45 68 26 H 130/68 95 09/02/20 01:31 71 21 96 09/02/20 01:30 72 41 H 133/74 96 09/02/20 01:16 74 34 H 95 09/02/20 01:15 75 35 H 145/71 H 94 09/02/20 01:01 104 H 22 96 09/02/20 01:00 79 41 H 156/88 H 96 09/02/20 00:47 81 39 H 97 09/02/20 00:46 79 46 H 146/86 H 97 09/02/20 00:45 80 37 H 97 09/02/20 00:31 80 28 H 96 09/02/20 00:30 87 33 H 170/76 H 96 09/02/20 00:27 97 09/02/20 00:16 88 27 H 98 09/02/20 00:15 92 H 40 H 146/117 H 100 09/02/20 00:02 87 21 94 09/02/20 00:01 82 15 162/83 H 97 09/02/20 00:00 78 33 H 98 09/01/20 23:46 82 41 H 98 09/01/20 23:45 82 46 H 170/75 H 90 09/01/20 23:36 95 H 23 97 09/01/20 23:31 79 21 169/96 H 97 09/01/20 23:30 78 36 H 98 09/01/20 23:24 38.6 C H 88 22 169/96 H 97 Laboratory Results Lab Results 09/01/20 09/01/20 09/01/20 Range/Units 23:30 23:50 23:50 WBC 18.20 H (4.8-10.8) K/uL RBC 4.69 L (4.7-6.1) M/uL Hgb 14.8 (14.0-18.0) g/dL Hct 42.3 (42-52) % MCV 90.2 (80-100) fL MCH 31.6 (25-34) pg MCHC 35.0 (32-36) g/dL RDW Std Deviation 40.8 (36.4-46.3) fL RDW Coeff of Danii 12.4 (11.5-14.5) % Plt Count 258 (130-400) K/uL MPV 10.3 (7.4-10.4) fL Immature Gran % (Auto) 0.2 % Neut % (Auto) 80.7 % Lymph % (Auto) 7.0 % Weber % (Auto) 11.4 % Eos % (Auto) 0.5 % Baso % (Auto) 0.2 % Neut # (Auto) 14.68 H (1.4-6.5) K/uL Lymph # (Auto) 1.27 (1.2-3.4) K/uL Weber # (Auto) 2.08 H (0.11-0.59) K/uL Eos # (Auto) 0.09 (0-0.5) K/uL Baso # (Auto) 0.04 (0-0.2) K/uL Immature Gran # (Auto) 0.04 H (0.00-0.02) K/uL PT 10.6 (9.0-12.0) Seconds INR 1.0 (0.9-1.1) APTT 22.5 (21.0-31.0) Seconds PTT Ratio 0.9 Sodium (136-145) mmol/L Potassium (3.5-5.1) mmol/L Chloride (98-107) mmol/L Carbon Dioxide (21-32) mmol/L Anion Gap (3-11) BUN (7-18) mg/dl Creatinine (0.6-1.4) mg/dl Est Cr Clr Drug Dosing ml/min Est GFR ( Amer) Est GFR (Non-Af Amer) BUN/Creatinine Ratio (10-20) Glucose (70-99) mg/dl Lactate (0.4-2.0) mmol/L Calcium (8.5-10.1) mg/dl Magnesium (1.8-2.4) mg/dl Total Bilirubin (0.2-1) mg/dl AST (15-37) U/L ALT (12-78) U/L Alkaline Phosphatase (45-117) U/L Troponin I (0-0.045) ng/ml Total Protein (6.4-8.2) gm/dl Albumin (3.4-5.0) gm/dl Globulin (2.5-4.0) gm/dl Albumin/Globulin Ratio (0.9-2) Procalcitonin (0-0.5) ng/ml Urine Color Yellow Urine Appearance Cloudy A (Clear) Urine pH 8.0 H (4.5-7.5) Ur Specific [place] 1.014 (1.000-1.030) Urine Protein Negative (Negative) Urine Glucose (UA) Negative (Negative) Urine Ketones Negative (Negative) Urine Blood Negative (Negative) Urine Nitrite Positive A (Negative) Urine Bilirubin Negative (Negative) Urine Urobilinogen Negative (Negative) Ur Leukocyte Esterase 1+ H (Negative) Urine WBC (Auto) >30 H (0-5) /hpf Urine RBC (Auto) 0-4 (0-4) /hpf U Hyaline Cast (Auto) 1-5 (0-5) /lpf U Epithel Cells (Auto) 0-5 (0-5) /lpf Urine Bacteria (Auto) 1+ H (Negative) COVID-19 Eval Order SARS-CoV-2 (PCR) (Negative) Influenza Type A (PCR) (Neg) Influenza Type B (PCR) (Neg) RSV (RT-PCR) (Neg) 09/01/20 09/01/20 09/01/20 Range/Units 23:50 23:50 23:50 WBC (4.8-10.8) K/uL RBC (4.7-6.1) M/uL Hgb (14.0-18.0) g/dL Hct (42-52) % MCV (80-100) fL MCH (25-34) pg MCHC (32-36) g/dL RDW Std Deviation (36.4-46.3) fL RDW Coeff of Danii (11.5-14.5) % Plt Count (130-400) K/uL MPV (7.4-10.4) fL Immature Gran % (Auto) % Neut % (Auto) % Lymph % (Auto) % Weber % (Auto) % Eos % (Auto) % Baso % (Auto) % Neut # (Auto) (1.4-6.5) K/uL Lymph # (Auto) (1.2-3.4) K/uL Weber # (Auto) (0.11-0.59) K/uL Eos # (Auto) (0-0.5) K/uL Baso # (Auto) (0-0.2) K/uL Immature Gran # (Auto) (0.00-0.02) K/uL PT (9.0-12.0) Seconds INR (0.9-1.1) APTT (21.0-31.0) Seconds PTT Ratio Sodium 141 (136-145) mmol/L Potassium 4.1 (3.5-5.1) mmol/L Chloride 109 H (98-107) mmol/L Carbon Dioxide 25 (21-32) mmol/L Anion Gap 7.0 (3-11) BUN 26 H (7-18) mg/dl Creatinine 1.39 (0.6-1.4) mg/dl Est Cr Clr Drug Dosing 38.7 ml/min Est GFR ( Amer) 52.4 Est GFR (Non-Af Amer) 45.2 BUN/Creatinine Ratio 18.5 (10-20) Glucose 100 H (70-99) mg/dl Lactate 3.4 H* (0.4-2.0) mmol/L Calcium 9.0 (8.5-10.1) mg/dl Magnesium 2.1 (1.8-2.4) mg/dl Total Bilirubin 0.7 (0.2-1) mg/dl AST 15 (15-37) U/L ALT 23 (12-78) U/L Alkaline Phosphatase 99 (45-117) U/L Troponin I 0.023 (0-0.045) ng/ml Total Protein 7.4 (6.4-8.2) gm/dl Albumin 3.2 L (3.4-5.0) gm/dl Globulin 4.2 H (2.5-4.0) gm/dl Albumin/Globulin Ratio 0.8 L (0.9-2) Procalcitonin < 0.05 (0-0.5) ng/ml Urine Color Urine Appearance (Clear) Urine pH (4.5-7.5) Ur Specific [place] (1.000-1.030) Urine Protein (Negative) Urine Glucose (UA) (Negative) Urine Ketones (Negative) Urine Blood (Negative) Urine Nitrite (Negative) Urine Bilirubin (Negative) Urine Urobilinogen (Negative) Ur Leukocyte Esterase (Negative) Urine WBC (Auto) (0-5) /hpf Urine RBC (Auto) (0-4) /hpf U Hyaline Cast (Auto) (0-5) /lpf U Epithel Cells (Auto) (0-5) /lpf Urine Bacteria (Auto) (Negative) COVID-19 Eval Order SARS-CoV-2 (PCR) (Negative) Influenza Type A (PCR) (Neg) Influenza Type B (PCR) (Neg) RSV (RT-PCR) (Neg) 09/02/20 09/02/20 09/02/20 Range/Units 00:10 00:10 02:31 WBC (4.8-10.8) K/uL RBC (4.7-6.1) M/uL Hgb (14.0-18.0) g/dL Hct (42-52) % MCV (80-100) fL MCH (25-34) pg MCHC (32-36) g/dL RDW Std Deviation (36.4-46.3) fL RDW Coeff of Danii (11.5-14.5) % Plt Count (130-400) K/uL MPV (7.4-10.4) fL Immature Gran % (Auto) % Neut % (Auto) % Lymph % (Auto) % Weber % (Auto) % Eos % (Auto) % Baso % (Auto) % Neut # (Auto) (1.4-6.5) K/uL Lymph # (Auto) (1.2-3.4) K/uL Weber # (Auto) (0.11-0.59) K/uL Eos # (Auto) (0-0.5) K/uL Baso # (Auto) (0-0.2) K/uL Immature Gran # (Auto) (0.00-0.02) K/uL PT (9.0-12.0) Seconds INR (0.9-1.1) APTT (21.0-31.0) Seconds PTT Ratio Sodium (136-145) mmol/L Potassium (3.5-5.1) mmol/L Chloride (98-107) mmol/L Carbon Dioxide (21-32) mmol/L Anion Gap (3-11) BUN (7-18) mg/dl Creatinine (0.6-1.4) mg/dl Est Cr Clr Drug Dosing ml/min Est GFR ( Amer) Est GFR (Non-Af Amer) BUN/Creatinine Ratio (10-20) Glucose (70-99) mg/dl Lactate 2.0 (0.4-2.0) mmol/L Calcium (8.5-10.1) mg/dl Magnesium (1.8-2.4) mg/dl Total Bilirubin (0.2-1) mg/dl AST (15-37) U/L ALT (12-78) U/L Alkaline Phosphatase (45-117) U/L Troponin I (0-0.045) ng/ml Total Protein (6.4-8.2) gm/dl Albumin (3.4-5.0) gm/dl Globulin (2.5-4.0) gm/dl Albumin/Globulin Ratio (0.9-2) Procalcitonin (0-0.5) ng/ml Urine Color Urine Appearance (Clear) Urine pH (4.5-7.5) Ur Specific [place] (1.000-1.030) Urine Protein (Negative) Urine Glucose (UA) (Negative) Urine Ketones (Negative) Urine Blood (Negative) Urine Nitrite (Negative) Urine Bilirubin (Negative) Urine Urobilinogen (Negative) Ur Leukocyte Esterase (Negative) Urine WBC (Auto) (0-5) /hpf Urine RBC (Auto) (0-4) /hpf U Hyaline Cast (Auto) (0-5) /lpf U Epithel Cells (Auto) (0-5) /lpf Urine Bacteria (Auto) (Negative) COVID-19 Eval Order CovFluRsv at [facility] SARS-CoV-2 (PCR) NEGATIVE (Negative) Influenza Type A (PCR) Negative (Neg) Influenza Type B (PCR) Negative (Neg) RSV (RT-PCR) Negative (Neg) Diagnostic Findings SINGLE VIEW CHEST CLINICAL HISTORY: Sepsis. Fever. FINDINGS: An AP, portable, upright chest radiograph is compared to study dated 05/04/2020. Correlation is made with chest CT dated 04/27/2020. The heart is enlarged noting mild atherosclerotic calcification of the thoracic aorta. The pulmonary vasculature is noncongested. Chronic interstitial thickening is similar to previous. No airspace consolidation or large pleural effusion is identified. No pneumothorax is seen. The skeletal structures are osteopenic. The bony thorax is grossly intact. Degenerative change is seen throughout the thoracic spine. IMPRESSION: Cardiomegaly with no active disease in the chest. ACT 112: Negative or not required by law. Electronically signed by: Nas Armando M.D. 09/02/2020 12:02 AM Dictated: 09/02/20 0001Transcribed: 09/02/20 0001 ECG Additional Comments: EKG wtih NSR at 82, left axis deviation, IS=576, FJI=060, CVr=228 PG Care Time/CCT Total # of Minutes Spent Total Time Spent with Patient: Total time spent is greater than 50% in coordination of care (as documented) at patient's floor/unit and/or counseling patient: Coding Level of Care Code 28404 Initial Inpt Care Lvl 3 Diagnoses Sepsis A41.9 Sepsis type: sepsis due to unspecified organism Sepsis acute organ dysfunction status: unspecified Dyslipidemia E78.5 Alzheimer's dementia G30.9; F02.80 Benign essential hypertension I10 (1) Sepsis Sepsis type: sepsis due to unspecified organism Sepsis acute organ dysfunction status: unspecified Qualified Code(s): A41.9 - Sepsis, unspecified organism
[2020-09-02] MEDS ORDERED: traMADol HCL 50 MG TABLET PO PRN (04:53)
[2020-09-02] MEDS ORDERED: ONDANSETRON INJ 2 MG/ML 2 ML VIAL IV PRN (04:53)
[2020-09-02] MEDS ORDERED: ACETAMINOPHEN 325 MG TAB PO PRN (04:53)
[2020-09-02] MEDS ORDERED: LACTATED RINGER'S 1,000 ML IV SCH (04:53)
[2020-09-02 05:36] LABS: Base Excess VBG 1.1 mEq/L; HCO3 VBG 26 mmol/L; PCO2 VBG 41 mmHg (38-50); PO2 VBG 27 mmHg; pH VBG 7.42 (7.36-7.41)
[2020-09-02 05:37] LABS: Oxygen Saturation VBG < 60.0 %
[2020-09-02] MEDS ORDERED: ACETAMINOPHEN 500 MG TAB PO PRN (05:44)
[2020-09-02] MEDS: MEMANTINE HCL 10 MG TAB PO SCH ×2 (08:14→23:19)
[2020-09-02] MEDS: ATORVASTATIN 20 MG TAB PO SCH (08:14)
[2020-09-02] MEDS: SERTRALINE HCL 50 MG TABLET PO SCH (08:14)
[2020-09-02] MEDS: ASPIRIN 81 MG ECTAB PO SCH (08:14)
[2020-09-02] MEDS: amLODIPine BESYLATE 5 MG TAB PO SCH (08:14)
[2020-09-02] MEDS: DONEPEZIL HCL 10 MG TAB PO SCH (08:14)
[2020-09-02] MEDS: METOPROLOL SUCC 50MG EXT REL TAB PO SCH (08:15)
[2020-09-02] MEDS: ENOXAPARIN INJ 40 MG/0.4 ML SYR SQ SCH (08:15)
[2020-09-02] MEDS ORDERED: NON-FORMULARY MEDICATION (Food Supplemt, Lactose-Reduced [Ensure] Liquid) PO SCH (09:00)
--- NOTE | 2020-09-02 09:48 | Electrocardiogram Report ---
Test Reason : Blood Pressure : / mmHG Vent. Rate : 082 BPM Atrial Rate : 082 BPM P-R Int : 150 ms QRS Dur : 116 ms QT Int : 438 ms P-R-T Axes : 081 -52 097 degrees QTc Int : 511 ms Normal sinus rhythm Left axis deviation Left bundle branch block Prolonged QT Abnormal ECG When compared with ECG of 04-MAY-2020 07:08, Premature atrial complexes are no longer Present Confirmed by Shaun Ridley ([id number]) on 09/02/2020 9:48:22 AM Referred By: Raad Confirmed By:Shaun Ridley
[2020-09-02 10:35] LABS: Hematocrit (blood only) 39.7 % (42-52); Hemoglobin 13.8 g/dL (14.0-18.0); Mean Corpuscular Hemoglobin 31.9 pg (25-34); Mean Corpuscular Hgb Conc 34.8 g/dL (32-36); Mean Corpuscular Volume 91.7 fL (80-100); Mean Platelet Volume 10.9 fL (7.4-10.4); Platelet Count 230 K/uL (130-400); RDW Coefficient of Variation 12.7 % (11.5-14.5); RDW Standard Deviation 43.1 fL (36.4-46.3); Red Blood Count 4.33 M/uL (4.7-6.1); White Blood Count 14.83 K/uL (4.8-10.8)
--- NOTE | 2020-09-02 10:48 | Hospitalist Progress Note ---
Date of Service September 02, 2020 Assessment & Plan (1) Sepsis: Patient febrile, tachycardic, tachypneic, leukocytosis with WBC=18.2 with neutrophil predominance and bands. Lactic acid elevated initially to 3.4, improved to 2 with IVF. Most likely source is urine - positive UA. CXR with no PNA. Covid-19 is NEGATIVE. Patient mildly hypertensive on admission, otherwise HD stable Sepsis suspected secondary to UTI Admit to medical with telemetry (of note patient was admitted to med/surg) EKG on admission with normal sinus rhythm, left axis deviation, left bundle branch block, prolonged QT and was read as an abnormal EKG however compared to April 2020 only changes are premature atrial complexes no longer. (Last echocardiogram December 2019 with left ventricular systolic function normal, EF 60 to 65%. Severe concentric LVH, no wall motion abnormalities. There is mild mitral regurgitation mild tricuspid regurgitation Chest x-ray on admission without acute process however should be noted that the patient did have a history of COVID-19 in April 2020 but did not require any remdesivir or Decadron. Repeat COVID-19 testing negative on admission It does appear that his blood cultures 1 out of 2 sets did have coag negative staph not lugdunensis during that time but no note of treatment and antibiotics were not given. Repeat blood cultures are pending as the patient did have a reported fever at [facility] prior to admission --> temperature was found to be elevated up to 38.6 C evening of 09/01 Continued on cefepime 1 g every 12 hours VBG -- with pH 7.42 however all other values are within normal limits with PCO2 41, PO2 27, HCO3 26 Lactic acid 3.4 but improved to 2.0 on repeat after fluids Procalcitonin negative UA on admission cloudy with nitrates, 1+ leuk esterase, greater than 30 WBCs 1+ bacteria Blood cultures are pending and will need to continue to monitor No further temperatures WBC decreased from 18-14.8 K Tylenol as needed for fever Normosol @ 80cc/hr AHA diet - Urine culture growing Gram(-) bacilli. Continue cefepime while awaiting speciation. (2) Dyslipidemia: Chronic Continue Atorvastatin 20mg daily (3) Alzheimer's dementia: Patient awake, oriented x 0. Not following commands at times but agreeable to care at times when explained to patient. Uncertain baseline functional status Continue Aricept, [facility] staff to frequently orient play delirium prevention strategies (4) Benign essential hypertension: Blood pressure elevated on admission Continued on amlodipine 5 mg, metoprolol succinate 50 mg p.o. daily Blood pressure 157/74 Continue to monitor (5) CKD (chronic kidney disease) stage 3, GFR 30-59 ml/min: Baseline Cr appears to range from 1.1 - 1.4. - Cr presently 1.47, so mildly higher than baseline, but not reaching level of acute kidney injury. - Monitor (6) DVT prophylaxis: Admission and Anticipated Discharge Date Admission Date: September 02, 2020 Supervising Physician Co-Signing Physician Notes CAITLIN Supervision Note: I did not personally see or examine the patient today, but I verified all ross points of CAITLIN Thompson's assessment and plan with the following exceptions/additions: None Subjective BRIDGE NOTE (ADMITTED AFTER MIDNIGHT) Patient seen sitting up in bed eating lunch. No specific complaints voiced. Feels weak, no pain. Able to follow commands but not oriented. Hard of hearing but pleasant and responsive to repeat questioning. Physical Exam Physical Exam: General: patient resting comfortably, NAD, ill in appearance, not oriented, following some commands Skin: warm, dry, intact, no rashes or lesions HEENT: NC/AT, PERRL, EOMI, anicteric sclera, conjunctiva without injection, external ear normal to inspection and nontender, nares patent, slightly mucus membranes, dentition intact, no oropharyngeal lesions, neck supple, trachea midline, no LAD, no thyromegaly, no JVD Heart: +S1/S2, regular, tachycardic, no m/r/g Lungs: equal air entry bilaterally, no rales/rhonchi/wheezes Abd: +BS, soft, NT/ND, no masses/organomegaly/ascites Ext: warm, 2+ pulses in UE/LE bilaterally, no clubbing/cyanosis or edema Neuro: nonfocal Results & Data Results & Data ([facility]) Vital Signs (Past 12 Hours) Vital Signs Temp Pulse Pulse Resp BP BP Pulse Ox 09/02/20 07:20 68 16 157/74 H 96 09/02/20 04:53 37.0 C 73 20 162/82 H 96 09/02/20 04:23 36.9 C 67 20 139/64 98 09/02/20 04:00 20 95 09/02/20 03:30 18 95 09/02/20 03:00 18 95 09/02/20 02:30 67 20 160/62 H 95 09/02/20 02:16 80 18 93 09/02/20 02:15 73 16 148/78 H 94 09/02/20 02:01 65 13 77 L 09/02/20 02:00 70 22 137/72 95 09/02/20 01:46 68 23 95 09/02/20 01:45 68 26 H 130/68 95 09/02/20 01:31 71 21 96 09/02/20 01:30 72 20 133/74 94 09/02/20 01:16 74 34 H 95 09/02/20 01:15 75 35 H 145/71 H 94 09/02/20 01:01 104 H 22 96 09/02/20 01:00 79 20 156/88 H 95 09/02/20 00:47 81 39 H 97 09/02/20 00:46 79 46 H 146/86 H 97 09/02/20 00:45 80 37 H 97 09/02/20 00:31 80 28 H 96 09/02/20 00:30 87 33 H 170/76 H 96 09/02/20 00:27 97 09/02/20 00:16 88 27 H 98 09/02/20 00:15 92 H 40 H 146/117 H 100 09/02/20 00:02 87 21 94 09/02/20 00:01 82 15 162/83 H 97 09/02/20 00:00 78 33 H 98 09/01/20 23:46 82 41 H 98 09/01/20 23:45 82 46 H 170/75 H 90 09/01/20 23:36 95 H 23 97 09/01/20 23:31 79 21 169/96 H 97 09/01/20 23:30 78 36 H 98 09/01/20 23:24 38.6 C H 88 22 169/96 H 97 Laboratory Results 09/02/20 09/02/20 09/02/20 Range/Units 06:27 06:00 05:26 WBC 14.83 H (4.8-10.8) K/uL RBC 4.33 L (4.7-6.1) M/uL Hgb 13.8 L (14.0-18.0) g/dL Hct 39.7 L (42-52) % MCV 91.7 (80-100) fL MCH 31.9 (25-34) pg MCHC 34.8 (32-36) g/dL RDW Std Deviation 43.1 (36.4-46.3) fL RDW Coeff of Danii 12.7 (11.5-14.5) % Plt Count 230 (130-400) K/uL MPV 10.9 H (7.4-10.4) fL Immature Gran % (Auto) % Neut % (Auto) % Lymph % (Auto) % Bureau % (Auto) % Eos % (Auto) % Baso % (Auto) % Neut # (Auto) (1.4-6.5) K/uL Lymph # (Auto) (1.2-3.4) K/uL Bureau # (Auto) (0.11-0.59) K/uL Eos # (Auto) (0-0.5) K/uL Baso # (Auto) (0-0.2) K/uL Immature Gran # (Auto) (0.00-0.02) K/uL PT (9.0-12.0) Seconds INR (0.9-1.1) APTT (21.0-31.0) Seconds PTT Ratio VBG pH 7.42 H (7.36-7.41) VBG pCO2 41 (38-50) mmHg VBG pO2 27 mmHg VBG HCO3 26 mmol/L VBG O2 Saturation < 60.0 % VBG Base Excess 1.1 mEq/L Barometric Pressure 726.4 mm/Hg Sodium (136-145) mmol/L Potassium (3.5-5.1) mmol/L Chloride (98-107) mmol/L Carbon Dioxide (21-32) mmol/L Anion Gap (3-11) BUN (7-18) mg/dl Creatinine (0.6-1.4) mg/dl Est Cr Clr Drug Dosing ml/min Est GFR ( Amer) Est GFR (Non-Af Amer) BUN/Creatinine Ratio (10-20) Glucose (70-99) mg/dl Lactate (0.4-2.0) mmol/L Calcium (8.5-10.1) mg/dl Magnesium (1.8-2.4) mg/dl Total Bilirubin (0.2-1) mg/dl AST (15-37) U/L ALT (12-78) U/L Alkaline Phosphatase (45-117) U/L Troponin I (0-0.045) ng/ml Total Protein (6.4-8.2) gm/dl Albumin (3.4-5.0) gm/dl Globulin (2.5-4.0) gm/dl Albumin/Globulin Ratio (0.9-2) Procalcitonin (0-0.5) ng/ml Urine Color Urine Appearance (Clear) Urine pH (4.5-7.5) Ur Specific [place] (1.000-1.030) Urine Protein (Negative) Urine Glucose (UA) (Negative) Urine Ketones (Negative) Urine Blood (Negative) Urine Nitrite (Negative) Urine Bilirubin (Negative) Urine Urobilinogen (Negative) Ur Leukocyte Esterase (Negative) Urine WBC (Auto) (0-5) /hpf Urine RBC (Auto) (0-4) /hpf U Hyaline Cast (Auto) (0-5) /lpf U Epithel Cells (Auto) (0-5) /lpf Urine Bacteria (Auto) (Negative) Nasal Screen MRSA (PCR) Negative (Negative) COVID-19 Eval Order SARS-CoV-2 (PCR) (Negative) Influenza Type A (PCR) (Neg) Influenza Type B (PCR) (Neg) RSV (RT-PCR) (Neg) 09/02/20 09/02/20 09/02/20 Range/Units 05:26 02:31 00:10 WBC (4.8-10.8) K/uL RBC (4.7-6.1) M/uL Hgb (14.0-18.0) g/dL Hct (42-52) % MCV (80-100) fL MCH (25-34) pg MCHC (32-36) g/dL RDW Std Deviation (36.4-46.3) fL RDW Coeff of Danii (11.5-14.5) % Plt Count (130-400) K/uL MPV (7.4-10.4) fL Immature Gran % (Auto) % Neut % (Auto) % Lymph % (Auto) % Bureau % (Auto) % Eos % (Auto) % Baso % (Auto) % Neut # (Auto) (1.4-6.5) K/uL Lymph # (Auto) (1.2-3.4) K/uL Bureau # (Auto) (0.11-0.59) K/uL Eos # (Auto) (0-0.5) K/uL Baso # (Auto) (0-0.2) K/uL Immature Gran # (Auto) (0.00-0.02) K/uL PT (9.0-12.0) Seconds INR (0.9-1.1) APTT (21.0-31.0) Seconds PTT Ratio VBG pH (7.36-7.41) VBG pCO2 (38-50) mmHg VBG pO2 mmHg VBG HCO3 mmol/L VBG O2 Saturation % VBG Base Excess mEq/L Barometric Pressure mm/Hg Sodium (136-145) mmol/L Potassium (3.5-5.1) mmol/L Chloride (98-107) mmol/L Carbon Dioxide (21-32) mmol/L Anion Gap (3-11) BUN (7-18) mg/dl Creatinine (0.6-1.4) mg/dl Est Cr Clr Drug Dosing ml/min Est GFR ( Amer) Est GFR (Non-Af Amer) BUN/Creatinine Ratio (10-20) Glucose (70-99) mg/dl Lactate 2.0 (0.4-2.0) mmol/L Calcium (8.5-10.1) mg/dl Magnesium (1.8-2.4) mg/dl Total Bilirubin (0.2-1) mg/dl AST (15-37) U/L ALT (12-78) U/L Alkaline Phosphatase (45-117) U/L Troponin I (0-0.045) ng/ml Total Protein (6.4-8.2) gm/dl Albumin (3.4-5.0) gm/dl Globulin (2.5-4.0) gm/dl Albumin/Globulin Ratio (0.9-2) Procalcitonin < 0.05 (0-0.5) ng/ml Urine Color Urine Appearance (Clear) Urine pH (4.5-7.5) Ur Specific [place] (1.000-1.030) Urine Protein (Negative) Urine Glucose (UA) (Negative) Urine Ketones (Negative) Urine Blood (Negative) Urine Nitrite (Negative) Urine Bilirubin (Negative) Urine Urobilinogen (Negative) Ur Leukocyte Esterase (Negative) Urine WBC (Auto) (0-5) /hpf Urine RBC (Auto) (0-4) /hpf U Hyaline Cast (Auto) (0-5) /lpf U Epithel Cells (Auto) (0-5) /lpf Urine Bacteria (Auto) (Negative) Nasal Screen MRSA (PCR) (Negative) COVID-19 Eval Order SARS-CoV-2 (PCR) NEGATIVE (Negative) Influenza Type A (PCR) Negative (Neg) Influenza Type B (PCR) Negative (Neg) RSV (RT-PCR) Negative (Neg) 09/02/20 09/01/20 09/01/20 Range/Units 00:10 23:50 23:50 WBC (4.8-10.8) K/uL RBC (4.7-6.1) M/uL Hgb (14.0-18.0) g/dL Hct (42-52) % MCV (80-100) fL MCH (25-34) pg MCHC (32-36) g/dL RDW Std Deviation (36.4-46.3) fL RDW Coeff of Danii (11.5-14.5) % Plt Count (130-400) K/uL MPV (7.4-10.4) fL Immature Gran % (Auto) % Neut % (Auto) % Lymph % (Auto) % Bureau % (Auto) % Eos % (Auto) % Baso % (Auto) % Neut # (Auto) (1.4-6.5) K/uL Lymph # (Auto) (1.2-3.4) K/uL Bureau # (Auto) (0.11-0.59) K/uL Eos # (Auto) (0-0.5) K/uL Baso # (Auto) (0-0.2) K/uL Immature Gran # (Auto) (0.00-0.02) K/uL PT (9.0-12.0) Seconds INR (0.9-1.1) APTT (21.0-31.0) Seconds PTT Ratio VBG pH (7.36-7.41) VBG pCO2 (38-50) mmHg VBG pO2 mmHg VBG HCO3 mmol/L VBG O2 Saturation % VBG Base Excess mEq/L Barometric Pressure mm/Hg Sodium (136-145) mmol/L Potassium (3.5-5.1) mmol/L Chloride (98-107) mmol/L Carbon Dioxide (21-32) mmol/L Anion Gap (3-11) BUN (7-18) mg/dl Creatinine (0.6-1.4) mg/dl Est Cr Clr Drug Dosing ml/min Est GFR ( Amer) Est GFR (Non-Af Amer) BUN/Creatinine Ratio (10-20) Glucose (70-99) mg/dl Lactate 3.4 H* (0.4-2.0) mmol/L Calcium (8.5-10.1) mg/dl Magnesium (1.8-2.4) mg/dl Total Bilirubin (0.2-1) mg/dl AST (15-37) U/L ALT (12-78) U/L Alkaline Phosphatase (45-117) U/L Troponin I (0-0.045) ng/ml Total Protein (6.4-8.2) gm/dl Albumin (3.4-5.0) gm/dl Globulin (2.5-4.0) gm/dl Albumin/Globulin Ratio (0.9-2) Procalcitonin < 0.05 (0-0.5) ng/ml Urine Color Urine Appearance (Clear) Urine pH (4.5-7.5) Ur Specific [place] (1.000-1.030) Urine Protein (Negative) Urine Glucose (UA) (Negative) Urine Ketones (Negative) Urine Blood (Negative) Urine Nitrite (Negative) Urine Bilirubin (Negative) Urine Urobilinogen (Negative) Ur Leukocyte Esterase (Negative) Urine WBC (Auto) (0-5) /hpf Urine RBC (Auto) (0-4) /hpf U Hyaline Cast (Auto) (0-5) /lpf U Epithel Cells (Auto) (0-5) /lpf Urine Bacteria (Auto) (Negative) Nasal Screen MRSA (PCR) (Negative) COVID-19 Eval Order CovFluRsv at [facility] SARS-CoV-2 (PCR) (Negative) Influenza Type A (PCR) (Neg) Influenza Type B (PCR) (Neg) RSV (RT-PCR) (Neg) 09/01/20 09/01/20 09/01/20 Range/Units 23:50 23:50 23:50 WBC 18.20 H (4.8-10.8) K/uL RBC 4.69 L (4.7-6.1) M/uL Hgb 14.8 (14.0-18.0) g/dL Hct 42.3 (42-52) % MCV 90.2 (80-100) fL MCH 31.6 (25-34) pg MCHC 35.0 (32-36) g/dL RDW Std Deviation 40.8 (36.4-46.3) fL RDW Coeff of Danii 12.4 (11.5-14.5) % Plt Count 258 (130-400) K/uL MPV 10.3 (7.4-10.4) fL Immature Gran % (Auto) 0.2 % Neut % (Auto) 80.7 % Lymph % (Auto) 7.0 % Bureau % (Auto) 11.4 % Eos % (Auto) 0.5 % Baso % (Auto) 0.2 % Neut # (Auto) 14.68 H (1.4-6.5) K/uL Lymph # (Auto) 1.27 (1.2-3.4) K/uL Bureau # (Auto) 2.08 H (0.11-0.59) K/uL Eos # (Auto) 0.09 (0-0.5) K/uL Baso # (Auto) 0.04 (0-0.2) K/uL Immature Gran # (Auto) 0.04 H (0.00-0.02) K/uL PT 10.6 (9.0-12.0) Seconds INR 1.0 (0.9-1.1) APTT 22.5 (21.0-31.0) Seconds PTT Ratio 0.9 VBG pH (7.36-7.41) VBG pCO2 (38-50) mmHg VBG pO2 mmHg VBG HCO3 mmol/L VBG O2 Saturation % VBG Base Excess mEq/L Barometric Pressure mm/Hg Sodium 141 (136-145) mmol/L Potassium 4.1 (3.5-5.1) mmol/L Chloride 109 H (98-107) mmol/L Carbon Dioxide 25 (21-32) mmol/L Anion Gap 7.0 (3-11) BUN 26 H (7-18) mg/dl Creatinine 1.39 (0.6-1.4) mg/dl Est Cr Clr Drug Dosing 38.7 ml/min Est GFR ( Amer) 52.4 Est GFR (Non-Af Amer) 45.2 BUN/Creatinine Ratio 18.5 (10-20) Glucose 100 H (70-99) mg/dl Lactate (0.4-2.0) mmol/L Calcium 9.0 (8.5-10.1) mg/dl Magnesium 2.1 (1.8-2.4) mg/dl Total Bilirubin 0.7 (0.2-1) mg/dl AST 15 (15-37) U/L ALT 23 (12-78) U/L Alkaline Phosphatase 99 (45-117) U/L Troponin I 0.023 (0-0.045) ng/ml Total Protein 7.4 (6.4-8.2) gm/dl Albumin 3.2 L (3.4-5.0) gm/dl Globulin 4.2 H (2.5-4.0) gm/dl Albumin/Globulin Ratio 0.8 L (0.9-2) Procalcitonin (0-0.5) ng/ml Urine Color Urine Appearance (Clear) Urine pH (4.5-7.5) Ur Specific [place] (1.000-1.030) Urine Protein (Negative) Urine Glucose (UA) (Negative) Urine Ketones (Negative) Urine Blood (Negative) Urine Nitrite (Negative) Urine Bilirubin (Negative) Urine Urobilinogen (Negative) Ur Leukocyte Esterase (Negative) Urine WBC (Auto) (0-5) /hpf Urine RBC (Auto) (0-4) /hpf U Hyaline Cast (Auto) (0-5) /lpf U Epithel Cells (Auto) (0-5) /lpf Urine Bacteria (Auto) (Negative) Nasal Screen MRSA (PCR) (Negative) COVID-19 Eval Order SARS-CoV-2 (PCR) (Negative) Influenza Type A (PCR) (Neg) Influenza Type B (PCR) (Neg) RSV (RT-PCR) (Neg) 09/01/20 Range/Units 23:30 WBC (4.8-10.8) K/uL RBC (4.7-6.1) M/uL Hgb (14.0-18.0) g/dL Hct (42-52) % MCV (80-100) fL MCH (25-34) pg MCHC (32-36) g/dL RDW Std Deviation (36.4-46.3) fL RDW Coeff of Danii (11.5-14.5) % Plt Count (130-400) K/uL MPV (7.4-10.4) fL Immature Gran % (Auto) % Neut % (Auto) % Lymph % (Auto) % Bureau % (Auto) % Eos % (Auto) % Baso % (Auto) % Neut # (Auto) (1.4-6.5) K/uL Lymph # (Auto) (1.2-3.4) K/uL Bureau # (Auto) (0.11-0.59) K/uL Eos # (Auto) (0-0.5) K/uL Baso # (Auto) (0-0.2) K/uL Immature Gran # (Auto) (0.00-0.02) K/uL PT (9.0-12.0) Seconds INR (0.9-1.1) APTT (21.0-31.0) Seconds PTT Ratio VBG pH (7.36-7.41) VBG pCO2 (38-50) mmHg VBG pO2 mmHg VBG HCO3 mmol/L VBG O2 Saturation % VBG Base Excess mEq/L Barometric Pressure mm/Hg Sodium (136-145) mmol/L Potassium (3.5-5.1) mmol/L Chloride (98-107) mmol/L Carbon Dioxide (21-32) mmol/L Anion Gap (3-11) BUN (7-18) mg/dl Creatinine (0.6-1.4) mg/dl Est Cr Clr Drug Dosing ml/min Est GFR ( Amer) Est GFR (Non-Af Amer) BUN/Creatinine Ratio (10-20) Glucose (70-99) mg/dl Lactate (0.4-2.0) mmol/L Calcium (8.5-10.1) mg/dl Magnesium (1.8-2.4) mg/dl Total Bilirubin (0.2-1) mg/dl AST (15-37) U/L ALT (12-78) U/L Alkaline Phosphatase (45-117) U/L Troponin I (0-0.045) ng/ml Total Protein (6.4-8.2) gm/dl Albumin (3.4-5.0) gm/dl Globulin (2.5-4.0) gm/dl Albumin/Globulin Ratio (0.9-2) Procalcitonin (0-0.5) ng/ml Urine Color Yellow Urine Appearance Cloudy A (Clear) Urine pH 8.0 H (4.5-7.5) Ur Specific [place] 1.014 (1.000-1.030) Urine Protein Negative (Negative) Urine Glucose (UA) Negative (Negative) Urine Ketones Negative (Negative) Urine Blood Negative (Negative) Urine Nitrite Positive A (Negative) Urine Bilirubin Negative (Negative) Urine Urobilinogen Negative (Negative) Ur Leukocyte Esterase 1+ H (Negative) Urine WBC (Auto) >30 H (0-5) /hpf Urine RBC (Auto) 0-4 (0-4) /hpf U Hyaline Cast (Auto) 1-5 (0-5) /lpf U Epithel Cells (Auto) 0-5 (0-5) /lpf Urine Bacteria (Auto) 1+ H (Negative) Nasal Screen MRSA (PCR) (Negative) COVID-19 Eval Order SARS-CoV-2 (PCR) (Negative) Influenza Type A (PCR) (Neg) Influenza Type B (PCR) (Neg) RSV (RT-PCR) (Neg) Diagnostic Findings Chest X-Ray 09/01/20 23:30 SINGLE VIEW CHEST CLINICAL HISTORY: Sepsis. Fever. FINDINGS: An AP, portable, upright chest radiograph is compared to study dated 05/04/2020. Correlation is made with chest CT dated 04/27/2020. The heart is enlarged noting mild atherosclerotic calcification of the thoracic aorta. The pulmonary vasculature is noncongested. Chronic interstitial thickening is similar to previous. No airspace consolidation or large pleural effusion is identified. No pneumothorax is seen. The skeletal structures are osteopenic. The bony thorax is grossly intact. Degenerative change is seen throughout the thoracic spine. IMPRESSION: Cardiomegaly with no active disease in the chest. ACT 112: Negative or not required by law. Electronically signed by: Nas Armando M.D. 09/02/2020 12:02 AM PG Care Time/CCT Total # of Minutes Spent Total Time Spent with Patient: Total time spent is greater than 50% in coordination of care (as documented) at patient's floor/unit and/or counseling patient: Coding Level of Care Code None Diagnoses Sepsis A41.9 Sepsis acute organ dysfunction status: unspecified Sepsis type: sepsis due to unspecified organism Dyslipidemia E78.5 Alzheimer's dementia G30.9; F02.80 Benign essential hypertension I10 CKD (chronic kidney disease) stage 3, GFR 30-59 ml/min N18.30 DVT prophylaxis Z29.9 (1) Sepsis Sepsis acute organ dysfunction status: unspecified Sepsis type: sepsis due to unspecified organism Qualified Code(s): A41.9 - Sepsis, unspecified organism
[2020-09-02 11:12] LABS: BUN Creatinine Ratio 18.6 (10-20); Calcium 8.3 mg/dl (8.5-10.1); Creatinine Clr Calc Pharmacy 37.8 ml/min; Est GFR (African American) 51.1; Est GFR (Non-African American) 44.1; Potassium 4.8 mmol/L (3.5-5.1)
[2020-09-02] MEDS: NORMOSOL-R 1,000 ML IV SCH (13:58)
[2020-09-02] MEDS: CEFEPIME 1,000 MG in SYRINGE 0 ML IV SCH (23:18)
[2020-09-03] MEDS: NORMOSOL-R 1,000 ML IV SCH ×2 (03:06→14:05)
[2020-09-03 06:21] LABS: Basophils # (auto) 0.03 K/uL (0-0.2); Basophils % (auto) 0.2 %; Eosinophils # (auto) 0.08 K/uL (0-0.5); Eosinophils % (auto) 0.6 %; Hematocrit (blood only) 36.3 % (42-52); Hemoglobin 12.5 g/dL (14.0-18.0); Immature Granulocytes # (auto) 0.02 K/uL (0.00-0.02); Immature Granulocytes % (auto) 0.1 %; Lymphocytes # (auto) 1.65 K/uL (1.2-3.4); Lymphocytes % (auto) 12.3 %; Mean Corpuscular Hemoglobin 31.2 pg (25-34); Mean Corpuscular Hgb Conc 34.4 g/dL (32-36); Mean Corpuscular Volume 90.5 fL (80-100); Mean Platelet Volume 10.7 fL (7.4-10.4); Monocytes # (auto) 1.31 K/uL (0.11-0.59); Monocytes % (auto) 9.8 %; Neutrophils # (auto) 10.34 K/uL (1.4-6.5); Platelet Count 214 K/uL (130-400); RDW Coefficient of Variation 12.8 % (11.5-14.5); RDW Standard Deviation 42.5 fL (36.4-46.3); Red Blood Count 4.01 M/uL (4.7-6.1); White Blood Count 13.43 K/uL (4.8-10.8)
[2020-09-03 06:54] LABS: BUN Creatinine Ratio 18.1 (10-20); Calcium 8.3 mg/dl (8.5-10.1); Creatinine Clr Calc Pharmacy 36.6 ml/min; Est GFR (Non-African American) 42.3; Potassium 3.9 mmol/L (3.5-5.1)
[2020-09-03] MEDS: METOPROLOL SUCC 50MG EXT REL TAB PO SCH (07:41)
[2020-09-03] MEDS: SERTRALINE HCL 50 MG TABLET PO SCH (07:41)
[2020-09-03] MEDS: ATORVASTATIN 20 MG TAB PO SCH (07:42)
[2020-09-03] MEDS: amLODIPine BESYLATE 5 MG TAB PO SCH (07:42)
[2020-09-03] MEDS: ASPIRIN 81 MG ECTAB PO SCH (07:42)
[2020-09-03] MEDS: ENOXAPARIN INJ 40 MG/0.4 ML SYR SQ SCH (07:42)
[2020-09-03] MEDS: DONEPEZIL HCL 10 MG TAB PO SCH (07:42)
[2020-09-03] MEDS: MEMANTINE HCL 10 MG TAB PO SCH ×2 (07:43→21:57)
--- NOTE | 2020-09-03 15:19 | Hospitalist Progress Note ---
Date of Service September 03, 2020 Assessment & Plan (1) Sepsis: Patient febrile, tachycardic, tachypneic, leukocytosis with WBC=18.2 with neutrophil predominance and bands. Lactic acid elevated initially to 3.4, improved to 2 with IVF. Most likely source is urine - positive UA. CXR with no PNA. Covid-19 is NEGATIVE. Patient mildly hypertensive on admission, otherwise HD stable Sepsis suspected secondary to UTI Admit to medical with telemetry (of note patient was admitted to med/surg) EKG on admission with normal sinus rhythm, left axis deviation, left bundle branch block, prolonged QT and was read as an abnormal EKG however compared to April 2020 only changes are premature atrial complexes no longer. (Last echocardiogram December 2019 with left ventricular systolic function normal, EF 60 to 65%. Severe concentric LVH, no wall motion abnormalities. There is mild mitral regurgitation mild tricuspid regurgitation Chest x-ray on admission without acute process however should be noted that the patient did have a history of COVID-19 in April 2020 but did not require any remdesivir or Decadron. Repeat COVID-19 testing negative on admission It does appear that his blood cultures 1 out of 2 sets did have coag negative staph not lugdunensis during that time but no note of treatment and antibiotics were not given. Repeat blood cultures are pending as the patient did have a reported fever at [facility] prior to admission --> temperature was found to be elevated up to 38.6 C evening of 09/01 Continued on cefepime 1 g every 12 hours VBG -- with pH 7.42 however all other values are within normal limits with PCO2 41, PO2 27, HCO3 26 Lactic acid 3.4 but improved to 2.0 on repeat after fluids Procalcitonin negative UA on admission cloudy with nitrates, 1+ leuk esterase, greater than 30 WBCs 1+ bacteria Blood cultures are pending and will need to continue to monitor No further temperatures WBC decreased from 18-14.8 K Tylenol as needed for fever Normosol @ 80cc/hr AHA diet - Urine culture growing Gram(-) bacilli. Continue cefepime while awaiting speciation. (2) CKD (chronic kidney disease) stage 3, GFR 30-59 ml/min: Baseline Cr appears to range from 1.1 - 1.4. - Cr presently 1.47, so mildly higher than baseline, but not reaching level of acute kidney injury. - Monitor (3) Benign essential hypertension: Blood pressure elevated on admission Continued on amlodipine 5 mg, metoprolol succinate 50 mg p.o. daily Blood pressure 157/74 Continue to monitor (4) Dyslipidemia: Chronic Continue Atorvastatin 20mg daily (5) Alzheimer's dementia: Patient awake, oriented x 0. Not following commands at times but agreeable to care at times when explained to patient. Uncertain baseline functional status Continue [facility] staff to frequently orient play delirium prevention strategies (6) DVT prophylaxis: Admission and Anticipated Discharge Date Admission Date: September 02, 2020 Subjective Unable to participate today either due to hearing or dementia. For any question, he answers "Yes", "No", or "I don't know." but switches them all interchangably answering the same question (eg "Are you having shortness of breath?") with all 3 at different times. Able to follow simple commands. Review of Systems Review of Systems: Unobtainable due to cognitive status Physical Exam Constitutional: WD/WN, vitals as above Eyes: EOM intact bilaterally; no conjunctival abnormality ENMT: external ear and nose normal, oropharynx normal Neck: trachea midline, no thyromegaly normal visual inspection Respiratory: normal respiratory effort, lungs clear to auscultation no respiratory distress Cardiovascular: RRR, no murmur, no edema Gastrointestinal (Abdomen): Inspection/Auscultation: abdomen normal to inspection; abdomen not distended Musculoskeletal: no cyanosis or clubbing, extremities motor strength 5/5 Skin: no rashes, warm and dry Neurologic: moves all extremities and awake Psychiatric: Orientation: alert, oriented to person and cooperative Results & Data Results & Data ([facility]) Vital Signs (Past 12 Hours) Vital Signs Temp Pulse Resp BP Pulse Ox 09/03/20 08:24 36.6 C 64 16 142/65 H 95 PG Care Time/CCT Total # of Minutes Spent Total Time Spent with Patient: Total time spent is greater than 50% in coordination of care (as documented) at patient's floor/unit and/or counseling patient: Coding Level of Care Code 70700 Subseq Hosp Care Lvl 3 Diagnoses Sepsis A41.9 Sepsis type: sepsis due to unspecified organism Sepsis acute organ dysfunction status: without acute organ dysfunction CKD (chronic kidney disease) stage 3, GFR 30-59 ml/min N18.30 Benign essential hypertension I10 Dyslipidemia E78.5 Alzheimer's dementia G30.9; F02.80 DVT prophylaxis Z29.9 (1) Sepsis Sepsis type: sepsis due to unspecified organism Sepsis acute organ dysfunction status: without acute organ dysfunction Qualified Code(s): A41.9 - Sepsis, unspecified organism
[2020-09-03] MEDS: CEFEPIME 1,000 MG in SYRINGE 0 ML IV SCH (21:58)
[2020-09-04] MEDS: NORMOSOL-R 1,000 ML IV SCH (02:26)
[2020-09-04 07:48] LABS: Hematocrit (blood only) 37.9 % (42-52); Hemoglobin 13.2 g/dL (14.0-18.0); Mean Corpuscular Hemoglobin 31.4 pg (25-34); Mean Corpuscular Hgb Conc 34.8 g/dL (32-36); Mean Platelet Volume 10.7 fL (7.4-10.4); Platelet Count 198 K/uL (130-400); RDW Coefficient of Variation 12.6 % (11.5-14.5); RDW Standard Deviation 41.5 fL (36.4-46.3); Red Blood Count 4.21 M/uL (4.7-6.1); White Blood Count 9.37 K/uL (4.8-10.8)
[2020-09-04 07:53] LABS: BUN Creatinine Ratio 21.3 (10-20); Calcium 8.4 mg/dl (8.5-10.1); Creatinine Clr Calc Pharmacy 45.5 ml/min; Est GFR (African American) 63.9; Est GFR (Non-African American) 55.2; Magnesium 2.1 mg/dl (1.8-2.4); Potassium 3.8 mmol/L (3.5-5.1)
[2020-09-04] MEDS: MEMANTINE HCL 10 MG TAB PO SCH ×2 (08:28→21:07)
[2020-09-04] MEDS: DONEPEZIL HCL 10 MG TAB PO SCH (08:29)
[2020-09-04] MEDS: SERTRALINE HCL 50 MG TABLET PO SCH (08:29)
[2020-09-04] MEDS: ATORVASTATIN 20 MG TAB PO SCH (08:30)
[2020-09-04] MEDS: amLODIPine BESYLATE 5 MG TAB PO SCH (08:30)
[2020-09-04] MEDS: ASPIRIN 81 MG ECTAB PO SCH (08:30)
[2020-09-04] MEDS: METOPROLOL SUCC 50MG EXT REL TAB PO SCH ×2 (08:30→08:39)
[2020-09-04] MEDS: ENOXAPARIN INJ 40 MG/0.4 ML SYR SQ SCH ×2 (08:30→08:39)
--- NOTE | 2020-09-04 13:01 | Hospitalist Progress Note ---
Date of Service September 04, 2020 Assessment & Plan (1) Sepsis: Patient febrile, tachycardic, tachypneic, leukocytosis with WBC=18.2 with neutrophil predominance and bands. Lactic acid elevated initially to 3.4, improved to 2 with IVF. Most likely source is urine - positive UA. CXR with no PNA. Covid-19 is NEGATIVE. Patient mildly hypertensive on admission, otherwise HD stable Sepsis suspected secondary to UTI Admit to medical with telemetry (of note patient was admitted to med/surg) EKG on admission with normal sinus rhythm, left axis deviation, left bundle branch block, prolonged QT and was read as an abnormal EKG however compared to April 2020 only changes are premature atrial complexes no longer. (Last echocardiogram December 2019 with left ventricular systolic function normal, EF 60 to 65%. Severe concentric LVH, no wall motion abnormalities. There is mild mitral regurgitation mild tricuspid regurgitation Chest x-ray on admission without acute process however should be noted that the patient did have a history of COVID-19 in April 2020 but did not require any remdesivir or Decadron. Repeat COVID-19 testing negative on admission It does appear that his blood cultures 1 out of 2 sets did have coag negative staph not lugdunensis during that time but no note of treatment and antibiotics were not given. Repeat blood cultures are pending as the patient did have a reported fever at [facility] prior to admission --> temperature was found to be elevated up to 38.6 C evening of 09/01 Continued on cefepime 1 g every 12 hours VBG -- with pH 7.42 however all other values are within normal limits with PCO2 41, PO2 27, HCO3 26 Lactic acid 3.4 but improved to 2.0 on repeat after fluids Procalcitonin negative UA on admission cloudy with nitrates, 1+ leuk esterase, greater than 30 WBCs 1+ bacteria Blood cultures are pending and will need to continue to monitor No further temperatures WBC decreased from 18-14.8 K Tylenol as needed for fever Normosol @ 80cc/hr [facility] diet - Urine culture growing ciprofloxacin-sensitive E. coli. Will switch to ceftr iaxone while inpatient and can switch to Cipro to finish out 7-day course when ready for discharge. (2) CKD (chronic kidney disease) stage 3, GFR 30-59 ml/min: Baseline Cr appears to range from 1.1 - 1.4. - Cr presently 1.2, so at baseline. - Monitor (3) Benign essential hypertension: Blood pressure elevated on admission. Blood pressure today is 130/70. - Continued on amlodipine 5 mg, metoprolol succinate 50 mg p.o. daily - Continue to monitor (4) Dyslipidemia: Chronic Continue Atorvastatin 20mg daily (5) Alzheimer's dementia: Patient awake, oriented x 0. Very pleasant, but really not able to answer any questions due to either hearing loss or dementia. - Continue Aricept, Namenda - Hospital staff to frequently orient play delirium prevention strategies (6) DVT prophylaxis: Lovenox 40 mg SQ daily Admission and Anticipated Discharge Date Admission Date: September 02, 2020 Subjective Unable to give ROS. Answers "Yes" "No" and "I don't know." in general sequence, even to same question asked several times. Physical Exam Constitutional: WD/WN, vitals as above Eyes: EOM intact bilaterally; no conjunctival abnormality ENMT: external ear and nose normal, oropharynx normal Neck: trachea midline, no thyromegaly normal visual inspection Respiratory: normal respiratory effort, lungs clear to auscultation no respiratory distress Cardiovascular: RRR, no murmur, no edema Gastrointestinal (Abdomen): Inspection/Auscultation: abdomen normal to inspection; abdomen not distended Musculoskeletal: no cyanosis or clubbing, extremities motor strength 5/5 Skin: no rashes, warm and dry Neurologic: moves all extremities and awake Psychiatric: Orientation: alert, oriented to person and cooperative Results & Data Results & Data ([facility]) Vital Signs (Past 12 Hours) Vital Signs Temp Pulse Resp BP Pulse Ox 09/04/20 11:45 87 131/68 09/04/20 08:26 36.6 C 62 16 152/94 H 95 PG Care Time/CCT Total # of Minutes Spent Total Time Spent with Patient: Total time spent is greater than 50% in coordination of care (as documented) at patient's floor/unit and/or counseling patient: Coding Level of Care Code 99178 Subseq Hosp Care Lvl 2 Diagnoses Sepsis A41.9 Sepsis type: sepsis due to unspecified organism Sepsis acute organ dysfunction status: without acute organ dysfunction CKD (chronic kidney disease) stage 3, GFR 30-59 ml/min N18.30 Benign essential hypertension I10 Dyslipidemia E78.5 Alzheimer's dementia G30.9; F02.80 DVT prophylaxis Z29.9 (1) Sepsis Sepsis type: sepsis due to unspecified organism Sepsis acute organ dysfunction status: without acute organ dysfunction Qualified Code(s): A41.9 - Sepsis, unspecified organism
[2020-09-04] MEDS ORDERED: cefTRIAXone SODIUM 2,000 MG in DEXTROSE 5% 50 ML IV SCH (22:00)
[2020-09-05 08:25] LABS: Hematocrit (blood only) 39.3 % (42-52); Hemoglobin 13.3 g/dL (14.0-18.0); Mean Corpuscular Hemoglobin 30.7 pg (25-34); Mean Corpuscular Hgb Conc 33.8 g/dL (32-36); Mean Corpuscular Volume 90.8 fL (80-100); Mean Platelet Volume 10.9 fL (7.4-10.4); Platelet Count 183 K/uL (130-400); RDW Coefficient of Variation 12.8 % (11.5-14.5); RDW Standard Deviation 42.5 fL (36.4-46.3); Red Blood Count 4.33 M/uL (4.7-6.1); White Blood Count 10.62 K/uL (4.8-10.8)
[2020-09-05 08:46] LABS: Calcium 8.6 mg/dl (8.5-10.1); Creatinine Clr Calc Pharmacy 44.4 ml/min; Est GFR (Non-African American) 53.5; Potassium 4.2 mmol/L (3.5-5.1)
[2020-09-05] MEDS: amLODIPine BESYLATE 5 MG TAB PO SCH (10:06)
[2020-09-05] MEDS: ATORVASTATIN 20 MG TAB PO SCH (10:06)
[2020-09-05] MEDS: ASPIRIN 81 MG ECTAB PO SCH (10:06)
[2020-09-05] MEDS: MEMANTINE HCL 10 MG TAB PO SCH (10:06)
[2020-09-05] MEDS: SERTRALINE HCL 50 MG TABLET PO SCH (10:07)
[2020-09-05] MEDS: METOPROLOL SUCC 50MG EXT REL TAB PO SCH (10:07)
[2020-09-05] MEDS: ENOXAPARIN INJ 40 MG/0.4 ML SYR SQ SCH (10:08)
[2020-09-05] MEDS: DONEPEZIL HCL 10 MG TAB PO SCH (10:08)
--- NOTE | 2020-09-05 11:04 | Hospitalist Progress Note ---
Date of Service September 05, 2020 Assessment & Plan (1) Sepsis: Patient febrile, tachycardic, tachypneic, leukocytosis with WBC=18.2 with neutrophil predominance and bands. Lactic acid elevated initially to 3.4, improved to 2 with IVF. Most likely source is urine - positive UA. CXR with no PNA. Covid-19 is NEGATIVE. Patient mildly hypertensive on admission, otherwise HD stable Sepsis suspected secondary to UTI Admit to medical with telemetry (of note patient was admitted to med/surg) EKG on admission with normal sinus rhythm, left axis deviation, left bundle branch block, prolonged QT and was read as an abnormal EKG however compared to April 2020 only changes are premature atrial complexes no longer. (Last echocardiogram December 2019 with left ventricular systolic function normal, EF 60 to 65%. Severe concentric LVH, no wall motion abnormalities. There is mild mitral regurgitation mild tricuspid regurgitation Chest x-ray on admission without acute process however should be noted that the patient did have a history of COVID-19 in April 2020 but did not require any remdesivir or Decadron. Repeat COVID-19 testing negative on admission It does appear that his blood cultures 1 out of 2 sets did have coag negative staph not lugdunensis during that time but no note of treatment and antibiotics were not given. Repeat blood cultures are pending as the patient did have a reported fever at [facility] prior to admission --> temperature was found to be elevated up to 38.6 C evening of 09/01 Initially treated with cefepime, then switched to Rocephin based on E. coli s ensitivities. He will be discharged on oral Cipro. VBG -- with pH 7.42 however all other values are within normal limits with PCO2 41, PO2 27, HCO3 26 Lactic acid 3.4 but improved to 2.0 on repeat after fluids Procalcitonin negative UA on admission cloudy with nitrates, 1+ leuk esterase, greater than 30 WBCs 1+ bacteria Blood cultures are negative - Urine culture growing ciprofloxacin-sensitive E. coli. Will switch to ceftriaxone while inpatient and can switch to Cipro to finish out 7-day course when ready for discharge. (2) CKD (chronic kidney disease) stage 3, GFR 30-59 ml/min: Baseline Cr appears to range from 1.1 - 1.4. - Cr at baseline. - Monitor (3) Benign essential hypertension: Blood pressure elevated on admission but now normal - Continued on amlodipine 5 mg, metoprolol succinate 50 mg p.o. daily - Continue to monitor (4) Dyslipidemia: Chronic Continue Atorvastatin 20mg daily (5) Alzheimer's dementia: Supportive care. Continue Aricept, Namenda (6) DVT prophylaxis: Lovenox 40 mg SQ daily Disposition: Return to [facility] today, September 05 Admission and Anticipated Discharge Date Admission Date: September 02, 2020 Subjective Severe dementia. Nonverbal with me. Afebrile. Vital signs stable. E. coli isolated in the urine. Sensitivities noted. He will be discharged on oral Cipro. Return to [facility] home today. Review of Systems Review of Systems: All systems reviewed & are unremarkable except as noted in HPI & below Physical Exam Physical Exam: General-alert, severe baseline dementia, no fevers, no chills HEENT-head atraumatic and normocephalic, TMs intact bilaterally, pupils equal and reactive to light, extraocular muscles intact Neck-no lymphadenopathy or thyromegaly, trachea midline Chest-clear to auscultation percussion. No rales wheezing or rhonchi Cardiac-regular rate and rhythm, normal S1 and S2, no murmurs Abdomen-normal bowel sounds, nontender, no hepatosplenomegaly Extremities-no cyanosis, clubbing, or edema Neuro-cranial nerves II through XII intact, motor and sensory function within normal limits, strength symmetrical , no focal deficits Psych-severe baseline dementia Results & Data Results & Data ([facility]) Vital Signs (Past 12 Hours) Vital Signs Temp Pulse Resp BP Pulse Ox 09/05/20 07:50 36.6 C 72 16 144/77 H 95 09/05/20 00:02 36.7 C 63 16 147/76 H 99 Laboratory Results 09/05/20 07:50 09/05/20 07:50 PG Care Time/CCT Total # of Minutes Spent Total Time Spent with Patient: Total time spent is greater than 50% in coordination of care (as documented) at patient's floor/unit and/or counseling patient: Coding Level of Care Code 03437 Subseq Hosp Care Lvl 3 Diagnoses Sepsis A41.9 Sepsis type: sepsis due to unspecified organism Sepsis acute organ dysfunction status: without acute organ dysfunction CKD (chronic kidney disease) stage 3, GFR 30-59 ml/min N18.30 Benign essential hypertension I10 Dyslipidemia E78.5 Alzheimer's dementia G30.9; F02.80 DVT prophylaxis Z29.9 (1) Sepsis Sepsis type: sepsis due to unspecified organism Sepsis acute organ dysfunction status: without acute organ dysfunction Qualified Code(s): A41.9 - Sepsis, unspecified organism
--- NOTE | 2020-09-06 14:33 | Discharge Summary ---
Date of Service September 06, 2020 Admission HPI Per Admitting Provider Patient is a poor historian due to underlying dementia as well as possible metabolic encephalopathy from infection. History obtained through chart review and discussion with ER. staff. Raymundo Martell is an 89yo C male NH resident with history of Dementia, HTN and HLP. Patient has been [facility]argic [facility] [place] [facility] for the last 3 days. Today he was found to be febrile therefore was brought to the ER. No additional complaints - no cough, SOB, chest pain. Patient had Covid-19 infection in April 2020 In the ER patient febrile, tachycardic and tachypneic. Blood pressure maintained as well as appropriate saturation on room air. ER Course: Acetaminophen, Cefepime, NSS x 2L Principal Diagnosis Sepsis Discharge Data Allergies Allergy/AdvReac Type Severity Reaction Status Date / Time hydrochlorothiazide Allergy Unknown UNKNOWN Verified 09/02/20 00:25 Penicillins Allergy Unknown ? UNKNOWN Verified 09/02/20 00:25 Sulfa (Sulfonamide Allergy Unknown ITCHINESS, Verified 09/02/20 00:25 Antibiotics) RED SKIN oxycodone AdvReac Intermediate CONSTIPATION, Verified 09/02/20 00:25 MALAISE Consultations 09/02/20 01:07 ED Decision to Admit Stat Hospital Course (1) Sepsis: Patient febrile, tachycardic, tachypneic, leukocytosis with WBC=18.2 with neutrophil predominance and bands. Lactic acid elevated initially to 3.4, improved to 2 with IVF. Most likely source is urine - positive UA. CXR with no PNA. Covid-19 is NEGATIVE. Patient mildly hypertensive on admission, otherwise HD stable Sepsis suspected secondary to UTI Admit to medical with telemetry (of note patient was admitted to med/surg) EKG on admission with normal sinus rhythm, left axis deviation, left bundle branch block, prolonged QT and was read as an abnormal EKG however compared to April 2020 only changes are premature atrial complexes no longer. (Last echocardiogram December 2019 with left ventricular systolic function normal, EF 60 to 65%. Severe concentric LVH, no wall motion abnormalities. There is mild mitral regurgitation mild tricuspid regurgitation Chest x-ray on admission without acute process however should be noted that the patient did have a history of COVID-19 in April 2020 but did not require any remdesivir or Decadron. Repeat COVID-19 testing negative on admission It does appear that his blood cultures 1 out of 2 sets did have coag negative staph not lugdunensis during that time but no note of treatment and antibiotics were not given. Repeat blood cultures are pending as the patient did have a reported fever at [facility] prior to admission --> temperature was found to be elevated up to 38.6 C evening of 09/01 Initially treated with cefepime, then switched to Rocephin based on E. coli sensitivities. He will be discharged on oral Cipro. VBG -- with pH 7.42 however all other values are within normal limits with PCO2 41, PO2 27, HCO3 26 Lactic acid 3.4 but improved to 2.0 on repeat after fluids Procalcitonin negative UA on admission cloudy with nitrates, 1+ leuk esterase, greater than 30 WBCs 1+ bacteria Blood cultures are negative - Urine culture growing ciprofloxacin-sensitive E. coli. Will switch to ceftriaxone while inpatient and can switch to Cipro to finish out 7-day course when ready for discharge. (2) CKD (chronic kidney disease) stage 3, GFR 30-59 ml/min: Baseline Cr appears to range from 1.1 - 1.4. - Cr at baseline. - Monitor (3) Benign essential hypertension: Blood pressure elevated on admission but now normal - Continued on amlodipine 5 mg, metoprolol succinate 50 mg p.o. daily - Continue to monitor (4) Dyslipidemia: Chronic Continue Atorvastatin 20mg daily (5) Alzheimer's dementia: Supportive care. Continue Aricept, Namenda (6) DVT prophylaxis: Lovenox 40 mg SQ daily Disposition: Return to [facility] today, September 05 Total Time Total Time Spent Total Time Spent (In Minutes): 35 minutes Total Time Includes: Examination of the Patient, Discharge Planning and Medication Reconciliation Discharge Plan Discharge Items Patient Disposition: Personal Intermediate Reason For Visit: SEPSIS Discharge Diagnosis: E. coli UTI, sepsis Activity: Resume your previous activity Non-emergency contact: Primary Care Provider Call non-emergency contact if: you have any medication questions Follow-up/Referrals: Kanhollie, [Primary Care Provider] - Diet: Heart Healthy Addtl Attending Provider Instructions: Take Cipro for 5 more days Pending Studies at Discharge: No Stand-Alone Forms: TwitChat, Smoking Cessation Skilled Items Patient informed of condition?: Yes DNR: Yes Discharge Level of Care: Other Communicable Disease: No Discharge Prognosis: Stable Lines: None Urinary Catheter: No Medications and DC Order Prescriptions: New ciprofloxacin HCl [Cipro] 500 mg tablet 500 mg PO BID Qty: 10 RF: 0 Continued acetaminophen [Tylenol Extra Strength] 500 mg tablet 500 mg PO QAM PRN (Reason: Pain) Qty: 90 RF: 3 acetaminophen [Tylenol Arthritis Pain] 650 mg tablet extended release 650 mg PO Q12H PRN (Reason: Pain) Qty: 90 RF: 1 donepezil [Aricept] 10 mg tablet 10 mg PO DAILY Qty: 90 RF: 3 memantine [Namenda] 10 mg tablet 10 mg PO BID 90 Days Qty: 180 RF: 3 amlodipine [Norvasc] 5 mg tablet 5 mg PO DAILY Qty: 90 RF: 3 atorvastatin 20 mg tablet 20 mg PO DAILY Qty: 90 RF: 3 Ensure Liquid 1 ea PO TID RF: 0 metoprolol succinate 50 mg tablet extended release 24 hr 50 mg PO DAILY RF: 0 tramadol 50 mg tablet 50 mg PO Q4 PRN (Reason: Moderate Pain (Scale Score 5-6)) RF: 0 aspirin [Aspirin Low Dose] 81 mg Tablet,Delayed Release (Dr/Ec) 81 mg PO DAILY RF: 0 acetaminophen 325 mg Tablet 325 mg PO Q4 MDD 3g PRN (Reason: Fever Or Pain) RF: 0 sertraline 25 mg tablet 25 mg PO DAILY RF: 0 Centrum Silver 0.4-300-250 mg-mcg-mcg Tablet 1 tab PO DAILY RF: 0 Discharge Orders: Discharge Order (Routine); Ordered 09/05/20 Ordered By: Serg Hernandez/Other Patient Handouts: Urinary Tract Infections in Men Admission Data Admit Date/Time: 09/02/20 01:54 Attending Provider: Serg Bonds Admit Provider: Darcy Hartmann [facility] Other Providers: Estrada Harvey Other Interventions: Discharge Summary Assessment (RN) Last Done: 09/05/20 14:44 Coding Level of Care Code D/C Day Management >30 mins Diagnoses Sepsis A41.9 Sepsis type: sepsis due to unspecified organism Sepsis acute organ dysfunction status: without acute organ dysfunction CKD (chronic kidney disease) stage 3, GFR 30-59 ml/min N18.30 Benign essential hypertension I10 Dyslipidemia E78.5 Alzheimer's dementia G30.9; F02.80 DVT prophylaxis Z29.9
--- NOTE | 2020-09-18 11:41 | Coding Query ---
To promote full compliance with coding requirements relating to patient care, provider participation is requested in all cases of care rep uncertainty. Please assist us with the question(s) below: Coding Question(s): The query below was placed to Dr. Bonds, however, Dr. Bonds will be out for some time and I was given permission to query another provider. The diagnosis below was documented in the H&P, and on the Admission HPI section at the top of the Discharge Summary, then subsequently fell off all further documentation. Please indicate if it is still a possible diagnosis or ruled out. Physician's Response(s): POSSIBLE METABOLIC ENCEPHALOPATHY from infection ( ) Diagnosed and POA ( ) Diagnosed and not POA ( x ) Ruled out ( ) Other (please specify) ) MTDD
== END 2020-09-05 16:08 | disposition home or self-care (01) | DRG 872 ==
LOC: ED 23:21 → 3W 09-02 01:54 → SUATTDRO 09-02 01:54 → 3W 09-02 04:23

== ENCOUNTER 2021-10-02 04:01 | Inpatient (IN) ==
[2021-10-02] MEDS ORDERED: SODIUM CHLORIDE 0.9% 1000ML 1,000 ML IV SCH (04:30)
[2021-10-02 04:43] LABS: Basophils # (auto) 0.02 K/uL (0-0.2); Basophils % (auto) 0.2 %; Eosinophils # (auto) 0.01 K/uL (0-0.5); Eosinophils % (auto) 0.1 %; Hematocrit (blood only) 39.5 % (42-52); Hemoglobin 13.5 g/dL (14.0-18.0); Immature Granulocytes # (auto) 0.02 K/uL (0.00-0.02); Immature Granulocytes % (auto) 0.2 %; Lymphocytes # (auto) 1.04 K/uL (1.2-3.4); Lymphocytes % (auto) 11.7 %; Mean Corpuscular Hemoglobin 31.8 pg (25-34); Mean Corpuscular Hgb Conc 34.2 g/dL (32-36); Mean Corpuscular Volume 92.9 fL (80-100); Mean Platelet Volume 10.7 fL (7.4-10.4); Monocytes # (auto) 1.16 K/uL (0.11-0.59); Neutrophils # (auto) 6.64 K/uL (1.4-6.5); Neutrophils % (auto) 74.8 %; Platelet Count 183 K/uL (130-400); RDW Coefficient of Variation 14.1 % (11.5-14.5); RDW Standard Deviation 47.9 fL (36.4-46.3); Red Blood Count 4.25 M/uL (4.7-6.1); White Blood Count 8.89 K/uL (4.8-10.8)
[2021-10-02] MEDS ORDERED: ACETAMINOPHEN 650 MG SUPP PR STA (04:50)
[2021-10-02 04:59] LABS: INR 1.1 (0.9-1.1); Partial Thromboplastin Time 27.9 Seconds (21.0-31.0); Prothrombin Time 11.9 Seconds (9.0-12.0)
--- NOTE | 2021-10-02 05:01 | Emergency Department Note ---
Impression & Plan Influenza A, Altered mental status, Right lower lobe pneumonia Admit to the [facility] ED Provider Note NAME: GÉNESIS DAVISON AGE: 89 SEX: M ARRIVES VIA: Ambulance INFORMANT: EMS ED PROVIDER(S): Gladys Ward DO CHIEF COMPLAINT: Unresponsiveness and fever PLAN: Disposition: Admit to the [facility] Condition: Guarded MEDICAL DECISION MAKING: This is an 89-year-old male patient with dementia who presents to the emergency department from [facility] with an altered mental state. The patient was noted to be febrile and showing signs of sepsis. He received a liter of normal saline solution as he had signs of dehydration. There was concern for possible urosepsis as he has a history of this however the urine was not convincingly positive for infection. He was influenza A positive and had a right lower lobe pneumonia on chest x-ray. The patient has a significant alteration to his mental status as he is completely obtunded and somnolent. The patient remains hemodynamically stable. [facility]. Triage Nursing notes reviewed and agree with them. Prior medical records reviewed Vital Signs: reviewed and remarkable for fever Differential diagnosis: Sepsis, UTI, pneumonia, COVID, intracranial process ER treatment provided: Rectal Tylenol, IV normal saline bolus Diagnostics interpreted by me: ECG: Normal sinus rhythm at a rate of 95 with T wave inversions in leads V6 and lead I compared to an EKG from 09/01/2020 this is somewhat concerning for ischemia. No ectopy. Cardiac Monitoring: Normal sinus rhythm at 88 Laboratory studies: See below Imaging studies: As Per my interpretation Portable chest x-ray: Right lower lobe airspace opacity concerning for pneumonia HPI: 89/M arrives for evaluation of fever and altered mental status. According to EMS, the patient had a fever over the past couple of days which was being treated at the home. Over the past 24 hours, the patient has had an alteration of mental status until he became unresponsive later this evening. ROS: Unobtainable due to alteration in mental status PAST MEDICAL HISTORY:See Below PAST SURGICAL HISTORY:See Below FAMILY HISTORY:See Below SOCIAL HISTORY: Lives at [facility] HOME MEDICATIONS: See list ALLERGIES: See list VITALS:See Below PHYSICAL EXAMINATION: General: The patient was in an unresponsive state. He did not follow commands. He would grimace to pain. HEENT: Head - normocephalic and atraumatic Pupils are equal, round, and reactive to light. Extraocular eye muscles are intact, and sclera are anicteric. Nose - moist nasal mucosa without discharge. Mouth - moist buccal mucosa. Oropharynx is nonerythematous and there is no tonsillar exudate or edema noted. Neck: Supple; no cervical lymphadenopathy Heart: Regular rate and rhythm. There is a normal S1 and S2 with no murmurs, clicks, or gallops appreciated. Lungs: Clear to auscultation bilaterally with no wheezes, rales, or rhonchi. Abdomen: Soft, completely nontender, nondistended, with good bowel sounds. There are no palpable pulsatile masses or hepatosplenomegaly. There is no guarding, rigidity, or rebound noted. Extremities: No evidence of cyanosis, clubbing, or edema. There are easily palpable peripheral pulses. Skin: warm and dry with good turgor and no rashes. ED COURSE: Times/Reassessments: 415: The patient was evaluated in room B9. A complete history and physical was performed. A septic protocol was performed. An order was placed for continuous cardiac monitoring. The patient was in a normal sinus rhythm at a rate of 88. Laboratory studies were drawn as above. The patient was bolused with 1 L of normal saline solution. He was given rectal Tylenol. He was catheterized for a urine specimen. He had a chest x-ray which was concerning for right lower lobe pneumonia. I discussed the case with the [facility] Hospitalist and they will evaluate for further management. Gladys Ward DO Past Med/Surg History Medical History (Updated 10/02/21 @ 19:31 by Gladys Ward DO) VAISHNAVI (acute kidney injury) Alzheimer's dementia Arthritis of neck Benign essential hypertension Dehydration Dyslipidemia Fever Heart attack Hypertension LBBB (left bundle branch block) Respiratory distress Syncope Tachypnea Surgical History History of colonoscopy History of hernia repair History of vasectomy Hx of total knee arthroplasty Family History Father , age 73 stroke and [place] Myocardial infarction Stroke Mother , age 73 parkinson's Parkinsons disease Brother Prostate cancer Unknown Heart disease Hypertension Liver cancer Lung cancer Osteoarthritis Social History Smoking Status: Unknown if ever smoked Second Hand Exposure: No; Hx Substance Use: No Preferred Language: Georgian Communication Ability: Effective Doctor Of Naturopathic Medicine Required: No Beliefs That Will Affect Care: None marital status: Current Living Situation: Assisted Current Living Situation Comment: [facility] residence current occupational status: retired How many Children do You have: 6 Feels Safe at Home: Yes Assistive Devices: None Allergies Allergies Allergy/AdvReac Type Severity Reaction Status Date / Time hydrochlorothiazide Allergy Unknown UNKNOWN Verified 10/02/21 06:39 Penicillins Allergy Unknown ? UNKNOWN Verified 10/02/21 06:39 Sulfa (Sulfonamide Allergy Unknown ITCHINESS, Verified 10/02/21 06:39 Antibiotics) RED SKIN oxycodone AdvReac Intermediate CONSTIPATION, Verified 10/02/21 06:39 MALAISE Home Meds Home Medications Medication Instructions Recorded Confirmed acetaminophen 325 mg tablet 325 mg PO Q4 PRN MDD 3g 04/26/20 10/02/21 aspirin 81 mg tablet,delayed 81 mg PO QAM 04/26/20 10/02/21 release (Aspirin Low Dose) tramadol 50 mg tablet 50 mg PO Q6H PRN 04/26/20 10/02/21 [id number] acid 0.4 1 tab PO QAM 09/02/20 10/02/21 mg-lycopene 300 mcg-lutein 250 mcg tablet (Centrum Silver) sertraline 25 mg tablet 25 mg PO QAM 09/02/20 10/02/21 amlodipine 2.5 mg tablet 2.5 mg PO QAM 09/21/20 10/02/21 metoprolol succinate 25 mg 25 mg PO QAM 09/21/20 10/02/21 tablet,extended release 24 hr atorvastatin 20 mg tablet 20 mg PO QAM 10/03/20 10/02/21 donepezil 10 mg tablet (Aricept) 10 mg PO QAM 10/03/20 10/02/21 polyethylene glycol 3350 17 17 g PO 3XWK 01/19/21 10/02/21 gram/dose oral powder (Miralax) Previous Rx's Medication Instructions Recorded acetaminophen 650 mg 650 mg PO Q12H PRN #90 tab 05/10/19 tablet,extended release (Tylenol Arthritis Pain) memantine 10 mg tablet (Namenda) 10 mg PO BID 90 Days #180 tab 05/10/19 Results & Data (ED) Vital Signs Vital Signs - 24 hr 10/02/21 04:03 10/02/21 04:32 10/02/21 05:06 Temperature 39.1 C H 39.1 C H Temperature Source Oral Rectal Pulse Rate 88 Pulse Rate [Apical] 78 Pulse Rhythm [Apical] Regular Pulse Strength [Apical] Normal Respiratory Rate 22 20 Respiratory Effort / Characteristics Non-Labored Spontaneous Non-Labored Spontaneous Respiratory Depth Normal Respiratory Pattern Regular Blood Pressure 144/71 H Blood Pressure [Right Arm] 141/71 H Blood Pressure Mean 95 Blood Pressure Mean [Right Arm] 94 Blood Pressure Position [Right Arm] Semi-fowlers Pulse Oximetry 95 95 94 Oxygen Delivery Method Room Air Room Air Room Air Oxygen Flow Rate Sepsis Recent Fever Within 48 Hours Yes Sepsis New/Unexplained Change in Mental Status Yes Sepsis Action Taken by Nursing Physician Notified 10/02/21 06:00 10/02/21 06:12 Temperature Temperature Source Pulse Rate Pulse Rate [Apical] 76 Pulse Rhythm [Apical] Regular Pulse Strength [Apical] Normal Respiratory Rate 18 20 Respiratory Effort / Characteristics Non-Labored Spontaneous Non-Labored Spontaneous Respiratory Depth Normal Respiratory Pattern Regular Blood Pressure Blood Pressure [Right Arm] 141/71 H Blood Pressure Mean Blood Pressure Mean [Right Arm] 94 Blood Pressure Position [Right Arm] Semi-fowlers Pulse Oximetry 98 98 Oxygen Delivery Method Nasal Cannula Nasal Cannula Oxygen Flow Rate 2 2 Sepsis Recent Fever Within 48 Hours Sepsis New/Unexplained Change in Mental Status Sepsis Action Taken by Nursing Laboratory Data Result diagrams: 10/02/21 04:14 10/02/21 04:14 Lab Results 10/02/21 10/02/21 10/02/21 Range/Units 04:14 04:14 04:14 WBC 8.89 (4.8-10.8) K/uL RBC 4.25 L (4.7-6.1) M/uL Hgb 13.5 L (14.0-18.0) g/dL Hct 39.5 L (42-52) % MCV 92.9 (80-100) fL MCH 31.8 (25-34) pg MCHC 34.2 (32-36) g/dL RDW Std Deviation 47.9 H (36.4-46.3) fL RDW Coeff of Danii 14.1 (11.5-14.5) % Plt Count 183 (130-400) K/uL MPV 10.7 H (7.4-10.4) fL Immature Gran % (Auto) 0.2 % Neut % (Auto) 74.8 % Lymph % (Auto) 11.7 % Bent % (Auto) 13.0 % Eos % (Auto) 0.1 % Baso % (Auto) 0.2 % Neut # (Auto) 6.64 H (1.4-6.5) K/uL Lymph # (Auto) 1.04 L (1.2-3.4) K/uL Bent # (Auto) 1.16 H (0.11-0.59) K/uL Eos # (Auto) 0.01 (0-0.5) K/uL Baso # (Auto) 0.02 (0-0.2) K/uL Immature Gran # (Auto) 0.02 (0.00-0.02) K/uL PT 11.9 (9.0-12.0) Seconds INR 1.1 (0.9-1.1) APTT 27.9 (21.0-31.0) Seconds PTT Ratio 1.0 Sodium (136-145) mmol/L Potassium (3.5-5.1) mmol/L Chloride (98-107) mmol/L Carbon Dioxide (21-32) mmol/L Anion Gap (3-11) BUN (6-23) mg/dl Creatinine (0.6-1.4) mg/dl Est Cr Clr Drug Dosing Est GFR ( Amer) ml/min Est GFR (Non-Af Amer) ml/min BUN/Creatinine Ratio (10-20) Glucose (70-99(Fasting)) mg/dl Lactate (0.4-2.0) mmol/L Calcium (8.5-10.1) mg/dl Magnesium (1.7-2.4) mg/dl Total Bilirubin (0.2-1.0) mg/dl AST (13-39) U/L ALT (7-52) U/L Alkaline Phosphatase (34-104) U/L Troponin I High Sens 157.0 H* (0-20) pg/ml Total Protein (6.0-8.3) gm/dl Albumin (3.4-5.0) gm/dl Globulin (2.5-4.0) gm/dl Albumin/Globulin Ratio (0.9-2) Urine Color Urine Appearance (Clear) Urine pH (4.5-7.5) Ur Specific Girard (1.000-1.030) Urine Protein (Negative) Urine Glucose (UA) (Negative) Urine Ketones (Negative) Urine Blood (Negative) Urine Nitrite (Negative) Urine Bilirubin (Negative) Urine Urobilinogen (Negative) Ur Leukocyte Esterase (Negative) Urine WBC (Auto) (0-5) /hpf Urine RBC (Auto) (0-4) /hpf U Hyaline Cast (Auto) (0-5) /lpf U Epithel Cells (Auto) (0-5) /lpf Urine Bacteria (Auto) (Negative) Urine Yeast SARS-CoV-2 (PCR) (Negative) Influenza Type A (PCR) (Neg) Influenza Type B (PCR) (Neg) RSV (RT-PCR) (Neg) 10/02/21 10/02/21 10/02/21 Range/Units 04:14 04:14 04:35 WBC (4.8-10.8) K/uL RBC (4.7-6.1) M/uL Hgb (14.0-18.0) g/dL Hct (42-52) % MCV (80-100) fL MCH (25-34) pg MCHC (32-36) g/dL RDW Std Deviation (36.4-46.3) fL RDW Coeff of Danii (11.5-14.5) % Plt Count (130-400) K/uL MPV (7.4-10.4) fL Immature Gran % (Auto) % Neut % (Auto) % Lymph % (Auto) % Bent % (Auto) % Eos % (Auto) % Baso % (Auto) % Neut # (Auto) (1.4-6.5) K/uL Lymph # (Auto) (1.2-3.4) K/uL Bent # (Auto) (0.11-0.59) K/uL Eos # (Auto) (0-0.5) K/uL Baso # (Auto) (0-0.2) K/uL Immature Gran # (Auto) (0.00-0.02) K/uL PT (9.0-12.0) Seconds INR (0.9-1.1) APTT (21.0-31.0) Seconds PTT Ratio Sodium 140 (136-145) mmol/L Potassium 4.1 (3.5-5.1) mmol/L Chloride 109 H (98-107) mmol/L Carbon Dioxide 23 (21-32) mmol/L Anion Gap 8 (3-11) BUN 26 H (6-23) mg/dl Creatinine 1.57 H (0.6-1.4) mg/dl Est Cr Clr Drug Dosing Not Reportable Est GFR ( Amer) 44.6 ml/min Est GFR (Non-Af Amer) 38.5 ml/min BUN/Creatinine Ratio 16.6 (10-20) Glucose 114 H (70-99(Fasting)) mg/dl Lactate 1.3 (0.4-2.0) mmol/L Calcium 8.7 (8.5-10.1) mg/dl Magnesium 1.9 (1.7-2.4) mg/dl Total Bilirubin 0.3 (0.2-1.0) mg/dl AST 35 (13-39) U/L ALT 16 (7-52) U/L Alkaline Phosphatase 71 (34-104) U/L Troponin I High Sens (0-20) pg/ml Total Protein 6.7 (6.0-8.3) gm/dl Albumin 3.4 (3.4-5.0) gm/dl Globulin 3.3 (2.5-4.0) gm/dl Albumin/Globulin Ratio 1.0 (0.9-2) Urine Color Urine Appearance (Clear) Urine pH (4.5-7.5) Ur Specific Girard (1.000-1.030) Urine Protein (Negative) Urine Glucose (UA) (Negative) Urine Ketones (Negative) Urine Blood (Negative) Urine Nitrite (Negative) Urine Bilirubin (Negative) Urine Urobilinogen (Negative) Ur Leukocyte Esterase (Negative) Urine WBC (Auto) (0-5) /hpf Urine RBC (Auto) (0-4) /hpf U Hyaline Cast (Auto) (0-5) /lpf U Epithel Cells (Auto) (0-5) /lpf Urine Bacteria (Auto) (Negative) Urine Yeast SARS-CoV-2 (PCR) NEGATIVE (Negative) Influenza Type A (PCR) Positive A* (Neg) Influenza Type B (PCR) Negative (Neg) RSV (RT-PCR) Negative (Neg) 10/02/21 Range/Units 04:54 WBC (4.8-10.8) K/uL RBC (4.7-6.1) M/uL Hgb (14.0-18.0) g/dL Hct (42-52) % MCV (80-100) fL MCH (25-34) pg MCHC (32-36) g/dL RDW Std Deviation (36.4-46.3) fL RDW Coeff of Danii (11.5-14.5) % Plt Count (130-400) K/uL MPV (7.4-10.4) fL Immature Gran % (Auto) % Neut % (Auto) % Lymph % (Auto) % Bent % (Auto) % Eos % (Auto) % Baso % (Auto) % Neut # (Auto) (1.4-6.5) K/uL Lymph # (Auto) (1.2-3.4) K/uL Bent # (Auto) (0.11-0.59) K/uL Eos # (Auto) (0-0.5) K/uL Baso # (Auto) (0-0.2) K/uL Immature Gran # (Auto) (0.00-0.02) K/uL PT (9.0-12.0) Seconds INR (0.9-1.1) APTT (21.0-31.0) Seconds PTT Ratio Sodium (136-145) mmol/L Potassium (3.5-5.1) mmol/L Chloride (98-107) mmol/L Carbon Dioxide (21-32) mmol/L Anion Gap (3-11) BUN (6-23) mg/dl Creatinine (0.6-1.4) mg/dl Est Cr Clr Drug Dosing Est GFR ( Amer) ml/min Est GFR (Non-Af Amer) ml/min BUN/Creatinine Ratio (10-20) Glucose (70-99(Fasting)) mg/dl Lactate (0.4-2.0) mmol/L Calcium (8.5-10.1) mg/dl Magnesium (1.7-2.4) mg/dl Total Bilirubin (0.2-1.0) mg/dl AST (13-39) U/L ALT (7-52) U/L Alkaline Phosphatase (34-104) U/L Troponin I High Sens (0-20) pg/ml Total Protein (6.0-8.3) gm/dl Albumin (3.4-5.0) gm/dl Globulin (2.5-4.0) gm/dl Albumin/Globulin Ratio (0.9-2) Urine Color Yellow Urine Appearance Clear (Clear) Urine pH 5.5 (4.5-7.5) Ur Specific Girard 1.021 (1.000-1.030) Urine Protein 1+ H (Negative) Urine Glucose (UA) Negative (Negative) Urine Ketones Negative (Negative) Urine Blood 2+ H (Negative) Urine Nitrite Negative (Negative) Urine Bilirubin Negative (Negative) Urine Urobilinogen Negative (Negative) Ur Leukocyte Esterase 3+ H (Negative) Urine WBC (Auto) >30 H (0-5) /hpf Urine RBC (Auto) 0-4 (0-4) /hpf U Hyaline Cast (Auto) 5-10 H (0-5) /lpf U Epithel Cells (Auto) 0-5 (0-5) /lpf Urine Bacteria (Auto) Negative (Negative) Urine Yeast Not Reportable SARS-CoV-2 (PCR) (Negative) Influenza Type A (PCR) (Neg) Influenza Type B (PCR) (Neg) RSV (RT-PCR) (Neg) Administered Medications Famotidine 20 mg/ Syringe 5 mls @ 2.5 mls/min IV Q12H DIPESH Stop: 11/01/21 08:40 Last Admin: 10/02/21 10:00 Dose: 2.5 mls/min Documented by: [id number] Lactated Ringer's (Lr) 1,000 mls @ 80 mls/hr IV .[id number] DIPESH Stop: 11/01/21 08:40 Last Admin: 10/02/21 09:59 Dose: 80 mls/hr Documented by: [id number] Ceftriaxone Sodium 2,000 mg/ (Dextrose) 70 mls @ 100 mls/hr IV DAILY DIPESH; Protocol Stop: 10/12/21 08:59 Last Infusion: 10/02/21 10:58 Dose: 0 mls/hr Documented by: [id number] Admin: 10/02/21 09:59 Dose: 100 mls/hr Documented by: [id number] Metoprolol Tartrate (Metoprolol Tartrate 1 Mg/Ml Vial) 5 mg IV Q6 DIPESH Stop: 11/01/21 11:59 Last Admin: 10/02/21 19:03 Dose: Not Given Documented by: [id number] Admin: 10/02/21 12:11 Dose: 5 mg Documented by: [id number] Discontinued Medications Acetaminophen (Acetaminophen 650 Mg Supp) 650 mg DC NOW STA Stop: 10/02/21 04:51 Last Admin: 10/02/21 04:59 Dose: 650 mg Documented by: [id number] Heparin Sodium/Dextrose (Heparin Iv Adult Wt-Based Low-Dose *No* Bolus Protocol) 1 ea IV Q15M DIPESH; Protocol Stop: 10/02/21 08:21 Last Admin: 10/02/21 19:22 Dose: Not Given Documented by: [id number] Admin: 10/02/21 19:22 Dose: Not Given Documented by: [id number] Admin: 10/02/21 19:22 Dose: Not Given Documented by: [id number] Admin: 10/02/21 12:11 Dose: Not Given Documented by: [id number] Admin: 10/02/21 11:08 Dose: Not Given Documented by: [id number] Admin: 10/02/21 10:53 Dose: Not Given Documented by: [id number] Admin: 10/02/21 10:03 Dose: Not Given Documented by: [id number] Admin: 10/02/21 09:58 Dose: Not Given Documented by: [id number] Sodium Chloride (Nss 1000ml) 1,000 mls @ 999 mls/hr IV .Q1H1M DIPESH Stop: 10/02/21 05:30 Last Infusion: 10/02/21 05:45 Dose: 0 mls/hr Documented by: [id number] Admin: 10/02/21 04:40 Dose: 999 mls/hr Documented by: [id number] Heparin Sodium/Dextrose (Heparin Sodium/Dextrose) 25,000 units in 500 mls @ 17 mls/hr IV .Q24H DIPESH; Protocol Stop: 11/01/21 06:44 Last Titration: 10/02/21 19:22 Dose: 0 units/hr, 0 mls/hr Documented by: [id number] Cosigned by: [id number] Titration: 10/02/21 18:17 Dose: 0 units/hr, 0 mls/hr Documented by: [id number] Cosigned by: [id number] Titration: 10/02/21 14:34 Dose: 850 units/hr, 17 mls/hr Documented by: [id number] Cosigned by: [id number] Admin: 10/02/21 07:02 Dose: 750 units/hr, 15 mls/hr Documented by: [id number] Cosigned by: [id number] Acetaminophen (Ofirmev) 1,000 mg in 100 mls @ 200 mls/hr IV NOW ONE; Protocol Stop: 10/02/21 12:59 Last Infusion: 10/02/21 13:51 Dose: 0 mls/hr Documented by: [id number] Admin: 10/02/21 13:12 Dose: 200 mls/hr Documented by: [id number] Nitroglycerin (Nitroglycerin 2% Ointment 30gm Tube) 1 inch EXT Q6H DIPESH Stop: 11/01/21 08:29 Last Admin: 10/02/21 14:27 Dose: 1 inch Documented by: [id number] Admin: 10/02/21 10:01 Dose: 1 inch Documented by: [id number] Imaging Data Radiologist's Impression: Chest X-Ray 10/02/21 04:29 XR chest 1V portable HISTORY: SEPSIS COMPARISON: Chest 09/07/2020. FINDINGS: There are low lung volumes. The cardiac silhouette remains mildly enlarged. No evidence for pulmonary edema. Old, healed left-sided rib fractures. Left lung is clear. There is a patchy airspace opacity within the right lower lobe. This is new from the prior study. IMPRESSION: There is a new patchy right lower lobe airspace opacity. This likely represents a pneumonia. ACT 112: Negative or not required by law. Electronically signed by: Edy Byrd M.D. 10/02/2021 7:58 AM Discharge Plan Visit Data Chief Complaint: Altered Mental Status Stated Complaint: FEVER;ALTERED MENTAL STATUS;DIAPHORETIC ED Provider: Gladys Ward Discharge Problem: Influenza A, Altered mental status, Right lower lobe pneumonia Patient Disposition: Admitted As Inpatient Discharge Instructions Interventions: ED Discharge Assessment Last Done: 10/02/21 07:56 Discharge Problem: Altered mental status Qualifiers: Altered mental status type: somnolence Qualified Code(s): R40.0 - Somnolence Right lower lobe pneumonia Qualifiers: Pneumonia type: due to unspecified organism Qualified Code(s): J18.9 - Pneumonia, unspecified organism
[2021-10-02 05:06] LABS: Alanine Aminotransferase 16 U/L (7-52); Albumin Level 3.4 gm/dl (3.4-5.0); Alkaline Phosphatase 71 U/L (34-104); Anion Gap 8 (3-11); Aspartate Aminotransferase 35 U/L (13-39); BUN Creatinine Ratio 16.6 (10-20); Bilirubin,Total 0.3 mg/dl (0.2-1.0); Blood Urea Nitrogen 26 mg/dl (6-23); Calcium 8.7 mg/dl (8.5-10.1); Carbon Dioxide 23 mmol/L (21-32); Chloride 109 mmol/L (98-107); Est GFR (African American) 44.6 ml/min; Est GFR (Non-African American) 38.5 ml/min; Globulin 3.3 gm/dl (2.5-4.0); Glucose 114 mg/dl (70-99(Fasting)); Magnesium 1.9 mg/dl (1.7-2.4); Potassium 4.1 mmol/L (3.5-5.1); Sodium 140 mmol/L (136-145); Total Protein 6.7 gm/dl (6.0-8.3)
[2021-10-02 05:19] LABS: Influenza B virus by PCR Negative (Neg); RSV by PCR Negative (Neg); SARS CoV2 RNA(COVID-19) InHosp NEGATIVE (Negative)
[2021-10-02 05:51] LABS: Influenza A virus by PCR Positive (Neg)
[2021-10-02 06:23] LABS: Appearance Urine Clear (Clear); Bacteria Urine Automated Negative (Negative); Bilirubin Urine Negative (Negative); Blood Urine 2+ (Negative); Color Urine Yellow; Epithelial Cell Urine Auto 0-5 /lpf (0-5); Glucose Urine UA Negative (Negative); Ketones Urine Negative (Negative); Leukocyte Esterase Urine 3+ (Negative); Nitrite Urine Negative (Negative); Protein Urine 1+ (Negative); RBC Urine Automated 0-4 /hpf (0-4); Specific Gravity Urine 1.021 (1.000-1.030); Urobilinogen Urine Negative (Negative); WBC Urine Automated >30 /hpf (0-5); pH Urine 5.5 (4.5-7.5)
--- NOTE | 2021-10-02 06:30 | History & Physical Report ---
Date of Service October 02, 2021 Assessment & Plan (1) AMS (altered mental status): Plan: Multifactorial: Acute urine tract infection, influenza A, underlying dementia with exacerbation (2) Acute UTI (urinary tract infection): Plan: Follow urine culture and sensitivity Ceftriaxone 2 g IV daily History of previous E. coli infection (3) Acute kidney injury superimposed on CKD: Plan: Creatinine 1.57 upon admission, with range 1.18-1.58 Placed on LR at 80 mils per hour Repeat laboratories every morning (4) NSTEMI (non-ST elevated myocardial infarction): Plan: NSTEMI/hypertension- The patient will be admitted to telemetry for serial cardiac enzymes, serial EKG's, cardiac rhythm monitoring and a 2-D echocardiogram with Dopplers. Highly sensitive troponin 157.0, follow serially. EKG with normal sinus rhythm, left bundle branch block, and ischemic changes in leads I and V6. Started on heparin drip low-dose without bolus and follow per protocol Hold amlodipine and metoprolol while n.p.o. Start Nitropaste 1 inch anterior chest wall every 6 hours DNR/DNI (5) Influenza A: Plan: Patient is influenza A positive. Nursing facility will need to be notified Unable to treat at this time due to decreased responsiveness Hydrate with IV fluids, treat underlying UTI, and will attempt to treat when responsiveness improves Droplet precautions (6) Alzheimer's dementia: Plan: Hold donepezil, memantine and sertraline History of Present Illness Chief Complaint: The patient is brought into the emergency department in an unresponsive state from [facility]. 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 He was brought into the emergency department from his nursing facility and unresponsive state. Significant abnormal laboratories: Influenza A positive. Hemoglobin 13.5, hematocrit 39.5, BUN 26, creatinine 1.57, glucose 114, highly sensitive troponin 157.0. Initial UA results look abnormal, with complete results pending Patient is COVID-19 negative, influenza B negative, and RSV negative. EKG shows new suggestions of ischemia in leads I and V6. Allergies Allergy/AdvReac Type Severity Reaction Status Date / Time hydrochlorothiazide Allergy Unknown UNKNOWN Verified 10/02/21 06:39 Penicillins Allergy Unknown ? UNKNOWN Verified 10/02/21 06:39 Sulfa (Sulfonamide Allergy Unknown ITCHINESS, Verified 10/02/21 06:39 Antibiotics) RED SKIN oxycodone AdvReac Intermediate CONSTIPATION, Verified 10/02/21 06:39 MALAISE Home Medications Medication Instructions Recorded Confirmed Type acetaminophen 650 mg 650 mg PO Q12H PRN #90 tab 05/10/19 01/19/21 Rx tablet,extended release (Tylenol Arthritis Pain) memantine 10 mg tablet (Namenda) 10 mg PO BID 90 Days #180 tab 05/10/19 01/19/21 Rx acetaminophen 325 mg tablet 325 mg PO Q4 PRN MDD 3g 04/26/20 01/19/21 History aspirin 81 mg tablet,delayed 81 mg PO QAM 04/26/20 01/19/21 History release (Aspirin Low Dose) tramadol 50 mg tablet 50 mg PO Q4 PRN 04/26/20 01/19/21 History fbwcjptb-hyu-wzjmn acid 0.4 1 tab PO QAM 09/02/20 01/19/21 History mg-lycopene 300 mcg-lutein 250 mcg tablet (Centrum Silver) sertraline 25 mg tablet 25 mg PO QAM 09/02/20 01/19/21 History amlodipine 2.5 mg tablet 2.5 mg PO QAM 09/21/20 01/19/21 History metoprolol succinate 25 mg 25 mg PO QAM 09/21/20 01/19/21 History tablet,extended release 24 hr atorvastatin 20 mg tablet 20 mg PO QAM 10/03/20 01/19/21 History donepezil 10 mg tablet (Aricept) 10 mg PO QAM 10/03/20 01/19/21 History polyethylene glycol 3350 17 17 g PO 3XWK 01/19/21 01/19/21 History gram/dose oral powder (Miralax) Past Med/Surg History Medical History (Updated 10/02/21 @ 06:44 by Carlos Mckeon MD) VAISHNAVI (acute kidney injury) Alzheimer's dementia Arthritis of neck Benign essential hypertension Dehydration Dyslipidemia Fever Heart attack Hypertension LBBB (left bundle branch block) Respiratory distress Syncope Tachypnea Surgical History History of colonoscopy History of hernia repair History of vasectomy Hx of total knee arthroplasty Family History Father , age 73 stroke and [place] Myocardial infarction Stroke Mother , age 73 parkinson's Parkinsons disease Brother Prostate cancer Unknown Heart disease Hypertension Liver cancer Lung cancer Osteoarthritis Social History Smoking Status: Unknown if ever smoked Second Hand Exposure: No; Hx Substance Use: No Preferred Language: Mongolian Communication Ability: Effective Supervisor Shaving And Splitting Required: No Beliefs That Will Affect Care: None marital status: Current Living Situation: Long Term Current Living Situation Comment: [facility] residence current occupational status: retired How many Children do You have: 6 Feels Safe at Home: Yes Assistive Devices: None Review of Systems Review of Systems: Patient unable to contribute HPI or review of systems due to mental state Physical Exam Physical Exam: The patient is unresponsive, and atraumatic, lying in bed and in no acute distress. HEENT--PERRL, EOMI, mucous membranes and oropharynx dry. Neck--supple. No JVD. No bruits. Thyroid normal, trachea midline, no adenopathy. Heart--normal S1 and S2. No murmurs, rubs or gallops. Lungs--few coarse breath sounds, right greater than left. No respiratory distress, no accessory muscle use. Abdomen--normal bowel sounds and soft. Nontender. Nondistended, no hernias or masses, no organomegaly. Extremities--no cyanosis or clubbing. No edema. Dermatologic--normal skin turgor, normal color, no abnormal lymph nodes, no rash. Neurologic--cranial nerves II through XII grossly intact. Rheumatologic--normal range of motion. Psychiatric--unresponsive Results & Data Results & Data ([facility]) Vital Signs (Past 12 Hours) Vital Signs Temp Pulse Pulse Resp BP BP Pulse Ox 10/02/21 06:12 20 98 10/02/21 06:00 76 18 141/71 H 98 10/02/21 05:06 39.1 C H 78 20 141/71 H 94 10/02/21 04:32 95 10/02/21 04:03 39.1 C H 88 22 144/71 H 95 Laboratory Results Laboratory Results WBC 8.89 K/uL (4.8-10.8) 10/02/21 04:14 RBC 4.25 M/uL (4.7-6.1) L 10/02/21 04:14 Hgb 13.5 g/dL (14.0-18.0) L 10/02/21 04:14 Hct 39.5 % (42-52) L 10/02/21 04:14 MCV 92.9 fL (80-100) 10/02/21 04:14 MCH 31.8 pg (25-34) 10/02/21 04:14 MCHC 34.2 g/dL (32-36) 10/02/21 04:14 RDW Std Deviation 47.9 fL (36.4-46.3) H 10/02/21 04:14 RDW Coeff of Danii 14.1 % (11.5-14.5) 10/02/21 04:14 Plt Count 183 K/uL (130-400) 10/02/21 04:14 MPV 10.7 fL (7.4-10.4) H 10/02/21 04:14 Immature Gran % (Auto) 0.2 % 10/02/21 04:14 Neut % (Auto) 74.8 % 10/02/21 04:14 Lymph % (Auto) 11.7 % 10/02/21 04:14 [place] % (Auto) 13.0 % 10/02/21 04:14 Eos % (Auto) 0.1 % 10/02/21 04:14 Baso % (Auto) 0.2 % 10/02/21 04:14 Neut # (Auto) 6.64 K/uL (1.4-6.5) H 10/02/21 04:14 Lymph # (Auto) 1.04 K/uL (1.2-3.4) L 10/02/21 04:14 [place] # (Auto) 1.16 K/uL (0.11-0.59) H 10/02/21 04:14 Eos # (Auto) 0.01 K/uL (0-0.5) 10/02/21 04:14 Baso # (Auto) 0.02 K/uL (0-0.2) 10/02/21 04:14 Immature Gran # (Auto) 0.02 K/uL (0.00-0.02) 10/02/21 04:14 PT 11.9 Seconds (9.0-12.0) 10/02/21 04:14 INR 1.1 (0.9-1.1) 10/02/21 04:14 APTT 27.9 Seconds (21.0-31.0) 10/02/21 04:14 PTT Ratio 1.0 10/02/21 04:14 Sodium 140 mmol/L (136-145) 10/02/21 04:14 Potassium 4.1 mmol/L (3.5-5.1) 10/02/21 04:14 Chloride 109 mmol/L (98-107) H 10/02/21 04:14 Carbon Dioxide 23 mmol/L (21-32) 10/02/21 04:14 Anion Gap 8 (3-11) 10/02/21 04:14 BUN 26 mg/dl (6-23) H 10/02/21 04:14 Creatinine 1.57 mg/dl (0.6-1.4) H 10/02/21 04:14 Est Cr Clr Drug Dosing Not Reportable 10/02/21 04:14 Est GFR ( Amer) 44.6 ml/min 10/02/21 04:14 Est GFR (Non-Af Amer) 38.5 ml/min 10/02/21 04:14 BUN/Creatinine Ratio 16.6 (10-20) 10/02/21 04:14 Glucose 114 mg/dl (70-99(Fasting)) H 10/02/21 04:14 Lactate 1.3 mmol/L (0.4-2.0) 10/02/21 04:14 Calcium 8.7 mg/dl (8.5-10.1) 10/02/21 04:14 Magnesium 1.9 mg/dl (1.7-2.4) 10/02/21 04:14 Total Bilirubin 0.3 mg/dl (0.2-1.0) 10/02/21 04:14 AST 35 U/L (13-39) 10/02/21 04:14 ALT 16 U/L (7-52) 10/02/21 04:14 Alkaline Phosphatase 71 U/L (34-104) 10/02/21 04:14 Troponin I High Sens 157.0 pg/ml (0-20) H* 10/02/21 04:14 Total Protein 6.7 gm/dl (6.0-8.3) 10/02/21 04:14 Albumin 3.4 gm/dl (3.4-5.0) 10/02/21 04:14 Globulin 3.3 gm/dl (2.5-4.0) 10/02/21 04:14 Albumin/Globulin Ratio 1.0 (0.9-2) 10/02/21 04:14 Urine Color Yellow 10/02/21 04:54 Urine Appearance Clear (Clear) 10/02/21 04:54 Urine pH 5.5 (4.5-7.5) 10/02/21 04:54 Ur Specific [place] 1.021 (1.000-1.030) 10/02/21 04:54 Urine Protein 1+ (Negative) H 10/02/21 04:54 Urine Glucose (UA) Negative (Negative) 10/02/21 04:54 Urine Ketones Negative (Negative) 10/02/21 04:54 Urine Blood 2+ (Negative) H 10/02/21 04:54 Urine Nitrite Negative (Negative) 10/02/21 04:54 Urine Bilirubin Negative (Negative) 10/02/21 04:54 Urine Urobilinogen Negative (Negative) 10/02/21 04:54 Ur Leukocyte Esterase 3+ (Negative) H 10/02/21 04:54 SARS-CoV-2 (PCR) NEGATIVE (Negative) 10/02/21 04:35 Influenza Type A (PCR) Positive (Neg) A* 10/02/21 04:35 Influenza Type B (PCR) Negative (Neg) 10/02/21 04:35 RSV (RT-PCR) Negative (Neg) 10/02/21 04:35 Code Status & VTE Plan Code Status DNR/DNI VTE Prophylaxis Plan VTE Prophylaxis will be ordered: Yes PG Care Time/CCT Total # of Minutes Spent Total Time Spent with Patient: Total time spent is greater than 50% in coordination of care (as documented) at patient's floor/unit and/or counseling patient: Coding Level of Care Code 94552 Initial Inpt Care Lvl 3 Diagnoses Acute UTI (urinary tract infection) N39.0 AMS (altered mental status) R41.82 Altered mental status type: unspecified Acute kidney injury superimposed on CKD N17.9; N18.9 NSTEMI (non-ST elevated myocardial infarction) I21.4 Influenza A J10.1 Alzheimer's dementia G30.9; F02.80 (1) AMS (altered mental status) Altered mental status type: unspecified Qualified Code(s): R41.82 - Altered mental status, unspecified
[2021-10-02] MEDS ORDERED: HEPARIN SODIUM/DEXTROSE 25,000 UNITS/500 ML BAG IV SCH (06:45)
--- NOTE | 2021-10-02 08:00 | XRay Report ---
XR chest 1V portable HISTORY: SEPSIS COMPARISON: Chest 09/07/2020. FINDINGS: There are low lung volumes. The cardiac silhouette remains mildly enlarged. No evidence for pulmonary edema. Old, healed left-sided rib fractures. Left lung is clear. There is a patchy airspac e opacity within the right lower lobe. This is new from the prior study. IMPRESSION: There is a new patchy right lower lobe airspace opacity. This likely represents a pneumonia. ACT 112: Negative or not required by law. Electronically signed by: Edy Byrd M.D. 10/02/2021 7:58 AM
[2021-10-02] MEDS ORDERED: ONDANSETRON INJ 2 MG/ML 2 ML VIAL IV PRN (08:41)
[2021-10-02 09:43] LABS: Partial Thromboplastin Ratio 1.4
[2021-10-02] MEDS: Heparin IV Adult Wt-Based Low-Dose *NO* Bolus Protocol IV SCH ×6 (09:58→19:22)
[2021-10-02] MEDS: LACTATED RINGER'S 1,000 ML IV SCH (09:59)
[2021-10-02] MEDS: cefTRIAXone SODIUM 2,000 MG in DEXTROSE 5% 50 ML IV SCH (09:59)
[2021-10-02] MEDS: FAMOTIDINE 20 MG in SYRINGE 3 ML IV SCH ×2 (10:00→21:55)
[2021-10-02] MEDS: NITROGLYCERIN 2% OINTMENT 30GM TUBE EXT SCH ×2 (10:01→14:27)
[2021-10-02] MEDS: METOPROLOL TARTRATE 1 MG/ML VIAL IV SCH ×2 (12:11→19:03)
[2021-10-02] MEDS ORDERED: ACETAMINOPHEN 1,000 MG/100 ML VIAL IV ONE (12:30)
--- NOTE | 2021-10-02 13:11 | XCELERA ---
[id number]
[2021-10-02 13:22] LABS: Partial Thromboplastin Ratio 1.4; Partial Thromboplastin Time 39.7 Seconds (21.0-31.0)
--- NOTE | 2021-10-02 13:53 | Electrocardiogram Report ---
Test Reason : Blood Pressure : / mmHG Vent. Rate : 095 BPM Atrial Rate : 095 BPM P-R Int : 164 ms QRS Dur : 120 ms QT Int : 408 ms P-R-T Axes : 066 -04 146 degrees QTc Int : 512 ms Poor data quality, interpretation may be adversely affected Normal sinus rhythm Left bundle branch block Abnormal ECG When compared with ECG of 01-SEP-2020 23:40, QRS axis Shifted right T wave inversion now evident in Lateral leads Confirmed by Tyler Cunha ([id number]) on 10/02/2021 1:53:18 PM Referred By: Heriberto Hammer Confirmed By:Tyler Cunha
--- NOTE | 2021-10-02 14:07 | Electrocardiogram Report ---
Test Reason : Blood Pressure : / mmHG Vent. Rate : 076 BPM Atrial Rate : 076 BPM P-R Int : 144 ms QRS Dur : 118 ms QT Int : 446 ms P-R-T Axes : 075 -30 160 degrees QTc Int : 501 ms Sinus rhythm with Premature supraventricular complexes Left axis deviation Left bundle branch block Prolonged QT Abnormal ECG When compared with ECG of 02-OCT-2021 04:03, (unconfirmed) Premature supraventricular complexes are now Present Confirmed by Tyler Cunha ([id number]) on 10/02/2021 2:07:23 PM Referred By: Heriberto Hammer Confirmed By:Tyler Cunha
--- NOTE | 2021-10-02 15:31 | Communication Note ---
Date of Service: October 02, 2021 seen in f/u from early AM admit. resting comfortably. vitals noted, breathing unlabored on 2L delirium/metabolic encephalopathy - appears to be predominantly due to flu and secondary bacterial pneumonia influenza A and secondary bacterial pneumonia - MRSA neg - continue rocephin, O2 to support mild hypoxia, continue supportive care otherwise elevated creatinine appears to be more or less his baseline stage 3 CKD elevated troponin - demand ischemia due to flu/pneumonia otherwise as above
[2021-10-02 20:54] LABS: Partial Thromboplastin Ratio 1.5; Partial Thromboplastin Time 40.8 Seconds (21.0-31.0)
[2021-10-03] MEDS: LACTATED RINGER'S 1,000 ML IV SCH ×4 (00:19→21:13)
[2021-10-03] MEDS: METOPROLOL TARTRATE 1 MG/ML VIAL IV SCH ×2 (00:20→06:21)
[2021-10-03] MEDS ORDERED: ACETAMINOPHEN 1000 MG/100 ML IV IV PRN (00:43)
[2021-10-03 05:43] LABS: Hematocrit (blood only) 37.7 % (42-52); Hemoglobin 12.7 g/dL (14.0-18.0); Mean Corpuscular Hemoglobin 31.9 pg (25-34); Mean Corpuscular Hgb Conc 33.7 g/dL (32-36); Mean Corpuscular Volume 94.7 fL (80-100); Mean Platelet Volume 10.8 fL (7.4-10.4); Platelet Count 155 K/uL (130-400); RDW Coefficient of Variation 14.6 % (11.5-14.5); RDW Standard Deviation 50.5 fL (36.4-46.3); Red Blood Count 3.98 M/uL (4.7-6.1); White Blood Count 14.46 K/uL (4.8-10.8)
[2021-10-03 05:58] LABS: Albumin Level 3.1 gm/dl (3.4-5.0); BUN Creatinine Ratio 20.5 (10-20); Calcium 8.1 mg/dl (8.5-10.1); Creatinine Clr Calc Pharmacy 32.1 ml/min; Est GFR (African American) 43.3 ml/min; Est GFR (Non-African American) 37.4 ml/min; Magnesium 1.9 mg/dl (1.7-2.4); Phosphorus 3.9 mg/dl (2.5-4.9); Potassium 4.1 mmol/L (3.5-5.1)
[2021-10-03 06:01] LABS: Basophils # (auto) 0.02 K/uL (0-0.2); Basophils % (auto) 0.1 %; Immature Granulocytes # (auto) 0.04 K/uL (0.00-0.02); Immature Granulocytes % (auto) 0.3 %; Lymphocytes # (auto) 1.59 K/uL (1.2-3.4); Monocytes # (auto) 1.49 K/uL (0.11-0.59); Monocytes % (auto) 10.3 %; Neutrophils # (auto) 11.32 K/uL (1.4-6.5); Neutrophils % (auto) 78.3 %; RBC Morphology Unremarkable
[2021-10-03] MEDS ORDERED: SODIUM CHLORIDE 0.9% 500 ML IV SCH (07:45)
[2021-10-03] MEDS: FAMOTIDINE 20 MG in SYRINGE 3 ML IV SCH ×2 (08:10→21:08)
[2021-10-03] MEDS: cefTRIAXone SODIUM 2,000 MG in DEXTROSE 5% 50 ML IV SCH (08:10)
--- NOTE | 2021-10-03 12:58 | Hospitalist Progress Note ---
Date of Service October 03, 2021 Assessment & Plan (1) Influenza A: Plan: 89-year-old man with medical history of Alzheimer's dementia, carotid artery occlusion, diverticulosis, [place], who presented with altered mental status, found to be positive for influenza A Influenza A -found to be positive on admission. COVID-19 negative. BCx, UCx show NGTD. -initially presented w/ mildly elevated troponin (since plateaued). Echo showed EF 65 to 70%, no acute changes from last echo done in 2019. * Continue IV CTX, given high rate of bacterial superimposition. * Lactated Ringer's at maintenance rate. * IV Tylenol scheduled q8h for fever * Wean oxygen as able Altered mental status -unclear if patient is at baseline. Pt. has Alzheimer's dementia. Meds held on admission. -Pt. symptomatically improving, less somnolent vs. yesterday. More rousable * continue to monitor as influenza symptoms resolve Alzheimer's dementia -home memantine, donepezil, sertraline held on admission. Will continue to hold until able to tolerate p.o. Code: DNR/DNI Dispo: PCU FEN/GI: NPO + IV NSS DVT Prophylaxis: Lovenox 40 mg q24h (2) Altered mental status: (3) Alzheimer's dementia: Admission and Anticipated Discharge Date Admission Date: October 02, 2021 Supervising Physician Co-Signing Physician Notes I personally examined the patient and verified all ross points of history and exam, discussed case, and agree with decision making with Dr Nelson no menaingful HPI or ROS obtainable. vitals noted resting in bed nad heent nc at mmm lungs coarse b/l rhonchi but o verall good air entry no accessory muscles good effort skin no rashes no pallor or icterus delirium/metabolic encephalopathy - appears to be predominantly due to flu and secondary bacterial pneumonia. supportive care influenza A and secondary bacterial pneumonia - continue rocephin, O2 to support mild hypoxia, continue supportive care otherwise, appears to be improving. conitnue pulmonary toilet elevated creatinine appears to be more or less his baseline stage 3 CKD elevated troponin - demand ischemia due to flu/pneumonia otherwise as above Subjective Patient is asleep but opened his eyes to voice, an improvement from yesterday. He remains not oriented to self, place, or time. Pt. spiked a fever overnight to Review of Systems Review of Systems: All systems reviewed & are unremarkable except as noted in HPI & below Physical Exam Physical Exam: General: Patient is not alert to person, place, or time. Appears tremulous, but is in no acute distress. HEENT: Non-erythematous oropharynx; no lymphadenopathy; normal dentition. CV: Regular rate and rhythm. Normal S1 and S2. No murmurs gallops or rubs. No p edal edema. Pulmonary: Auscultation obscured by bronchial breath sounds. No crackles, rhonchi, or wheezes heard. Abdomen: Soft, nondistended abdomen. No bruits heard on auscultation. No tenderness to deep palpation. No guarding or rebound. Results & Data Results & Data ([facility]) Vital Signs (Past 12 Hours) Vital Signs Temp Pulse Resp BP Pulse Ox 10/03/21 06:21 63 84/41 L 10/03/21 04:30 61 21 111/57 L 98 10/03/21 04:00 36.5 C 66 24 114/58 L 100 10/03/21 03:30 61 22 97/51 L 98 10/03/21 03:01 69 16 116/71 100 10/03/21 02:30 63 0 L 92/48 L 98 10/03/21 01:30 73 24 122/56 L 98 10/03/21 01:00 78 21 128/65 98 10/03/21 00:30 73 10 L 122/64 98 10/03/21 00:20 76 130/68 10/03/21 00:00 38.5 C H 78 29 H 130/68 98 10/02/21 23:30 80 28 H 125/62 98 10/02/21 23:00 84 26 H 130/71 99 10/02/21 22:30 84 30 H 139/71 98 10/02/21 22:00 88 21 148/67 H 98 10/02/21 21:30 91 H 29 H 151/68 H 98 10/02/21 21:00 88 27 H 141/72 H 97 10/02/21 20:00 87 29 H 95 Resident Activity Tracking Resident Involvement: Resident Care Provided Care Provided: Adult Hospital Medicine (1) Altered mental status Altered mental status type: somnolence Qualified Code(s): R40.0 - Somnolence
[2021-10-03] MEDS ORDERED: ACETAMINOPHEN 1000 MG/100 ML IV IV SCH (13:00)
[2021-10-03] MEDS ORDERED: ACETAMINOPHEN 1,000 MG/100 ML VIAL IV ONE (13:00)
--- NOTE | 2021-10-03 17:50 | Billing Data ---
Date of Service October 03, 2021 Coding Level of Care Code 02729 Subseq Hosp Care Lvl 3
[2021-10-03] MEDS: ACETAMINOPHEN 1,000 MG/100 ML VIAL IV SCH (21:07)
[2021-10-03] MEDS ORDERED: RAPID SEQUENCE INDUCTION BAG ONE (23:12)
[2021-10-04] MEDS: LACTATED RINGER'S 1,000 ML IV SCH ×2 (04:55→13:56)
[2021-10-04] MEDS: ACETAMINOPHEN 1,000 MG/100 ML VIAL IV SCH ×3 (05:04→21:03)
[2021-10-04 05:47] LABS: Basophils # (auto) 0.02 K/uL (0-0.2); Basophils % (auto) 0.2 %; Hematocrit (blood only) 38.5 % (42-52); Hemoglobin 12.7 g/dL (14.0-18.0); Immature Granulocytes # (auto) 0.02 K/uL (0.00-0.02); Immature Granulocytes % (auto) 0.2 %; Lymphocytes # (auto) 0.79 K/uL (1.2-3.4); Lymphocytes % (auto) 7.7 %; Mean Corpuscular Hemoglobin 31.1 pg (25-34); Mean Corpuscular Volume 94.1 fL (80-100); Mean Platelet Volume 10.9 fL (7.4-10.4); Monocytes # (auto) 0.98 K/uL (0.11-0.59); Monocytes % (auto) 9.6 %; Neutrophils # (auto) 8.43 K/uL (1.4-6.5); Neutrophils % (auto) 82.3 %; Platelet Count 136 K/uL (130-400); RDW Coefficient of Variation 14.7 % (11.5-14.5); RDW Standard Deviation 50.4 fL (36.4-46.3); Red Blood Count 4.09 M/uL (4.7-6.1); White Blood Count 10.24 K/uL (4.8-10.8)
[2021-10-04 05:56] LABS: BUN Creatinine Ratio 22.5 (10-20); Calcium 8.2 mg/dl (8.5-10.1); Creatinine Clr Calc Pharmacy 37.5 ml/min; Est GFR (African American) 52.2 ml/min; Magnesium 1.8 mg/dl (1.7-2.4); Phosphorus 2.5 mg/dl (2.5-4.9); Potassium 4.2 mmol/L (3.5-5.1)
--- NOTE | 2021-10-04 08:59 | Hospitalist Progress Note ---
Date of Service October 04, 2021 Assessment & Plan (1) Influenza A: Plan: 89-year-old man with medical history of Alzheimer's dementia, carotid artery occlusion, diverticulosis, [place], who presented with altered mental status, found to be positive for influenza A. Influenza A -found to be positive on admission. COVID-19 negative. BCx, UCx show NGTD. -initially presented w/ mildly elevated troponin (since plateaued). Echo showed EF 65 to 70%, no acute changes from last echo done in 2019. -Patient continued to spike fevers, despite being on scheduled IV Tylenol 1000 mg every 8 hours. This morning, patient became tachypneic to the 30s, with persistent fevers. On exam, patient appeared to be wheezy. -ABG showed metabolic alkalosis, procalcitonin elevated at 6.23, lactate still pending. -Obtained chest CT showing new multifocal lobar pneumonia. * Stopped IV CTX and switched to Levaquin 750 mg daily x5 days, per guidelines. * Sputum culture ordered, currently uncollected. * Continue Lactated Ringer's at maintenance rate. * Continue IV Tylenol scheduled q8h for fever * Wean oxygen as able. Patient currently at 1 L nasal cannula, saturating in the mid to high 90s. Altered mental status -Unclear if patient is mentating at baseline. Pt. has Alzheimer's dementia. Meds held on admission due to patient's inability to tolerate p.o. meds (he remains in unable to tolerate them). -Pt. more alert today vs. yesterday though still at baseline level of orientation due to his dementia * continue to monitor as influenza symptoms resolve Alzheimer's dementia -home memantine, donepezil, sertraline held on admission. Will continue to hold until able to tolerate p.o. Code: DNR/DNI Dispo: PCU FEN/GI: NPO + IV NSS DVT Prophylaxis: Lovenox 40 mg q24h (2) Altered mental status: (3) Alzheimer's dementia: Admission and Anticipated Discharge Date Admission Date: October 02, 2021 Supervising Physician Co-Signing Physician Notes I personally examined the patient and verified all ross points of history and exam, discussed case, and agree with decision making with Dr Nelson no meaningful HPI or ROS. nursing notes significant sputum at times for suction, also notes persistent fevers. vitals noted resting in bed nad heent nc at mmm lungs coarse b/l rhonchi but overall good air entry no accessory muscles good effort skin no rashes no pallor or icterus - maybe more clear lungs than yesterday but similar. delirium/metabolic encephalopathy - appears to be predominantly due to flu and secondary bacterial pneumonia. supportive care. will ask speech to see, cautiously trial modified diet pending speech input since he's been NPO since admission -- concerning for worsening nutritional status influenza A and secondary bacterial pneumonia - tachypnea earlier in the day may have been mucous plugging (nebs, suction, pulmonary toilet as best as possible) but persistent fevers concerning for resistent bacteria. CT chest checked - nondescript but not clearly able to attribute purely to flu. ?atypical bacteria vs resistant to ceftriaxone - change to levaquin to cover both possibilities. MRSA nares negative and no dominant lobar consolidation makes MRSA unlikely. limited benefit of tamiflu at best, and mentation thus far has precluded safely taking pills elevated creatinine appears to be more or less his baseline stage 3 CKD elevated troponin - demand ischemia due to flu/pneumonia otherwise as above Subjective Pt asleep this morning but arousable to voice. Patient appears oriented to self, but otherwise remains disoriented. Review of Systems Review of Systems: All systems reviewed & are unremarkable except as noted in HPI & below Physical Exam Physical Exam: General: Patient is not alert to person, place, or time. Appears tremulous, but is in no acute distress. HEENT: Non-erythematous oropharynx; no lymphadenopathy; normal dentition. CV: Regular rate and rhythm. Normal S1 and S2. No murmurs gallops or rubs. No pedal edema. Pulmonary: Bilateral rhonchorous breath sounds on auscultation. No crackles or wheezes heard. Abdomen: Soft, nondistended abdomen. No bruits heard on auscultation. No tenderness to deep palpation. No guarding or rebound. Results & Data Results & Data ([facility]) Vital Signs (Past 12 Hours) Vital Signs Pulse Pulse Resp BP Pulse Ox 10/04/21 03:00 82 28 H 139/64 97 10/03/21 23:45 81 10/03/21 23:30 76 24 143/66 H 98 Resident Activity Tracking Resident Involvement: Resident Care Provided Care Provided: Adult Hospital Medicine (1) Altered mental status Altered mental status type: somnolence Qualified Code(s): R40.0 - Somnolence
[2021-10-04] MEDS: ENOXAPARIN INJ 40 MG/0.4 ML SYR SQ SCH (09:13)
[2021-10-04] MEDS: cefTRIAXone SODIUM 2,000 MG in DEXTROSE 5% 50 ML IV SCH (09:14)
[2021-10-04] MEDS: FAMOTIDINE 20 MG in SYRINGE 3 ML IV SCH ×2 (09:14→20:50)
[2021-10-04] MEDS: ALBUT/IPRATROP 3MG/0.5MG NEB 3 ML VIAL NEB SCH ×3 (11:31→19:22)
[2021-10-04] MEDS ORDERED: METOPROLOL TARTRATE 1 MG/ML VIAL IV STA (12:17)
[2021-10-04 14:33] LABS: iSTAT Allen Test Pass; iSTAT Art Bld Gas pCO2 Correct 30 mmHg (35-46); iSTAT Art Bld Gas pH Corrected 7.447 (7.35-7.45); iSTAT Arterial Blood Gas HCO3 20 meg/L (19-24); iSTAT Arterial Blood Gas pCO2 27 mmHg (35-46); iSTAT Arterial Blood Gas pH 7.47 (7.35-7.45); iSTAT Arterial Blood Gas pO2 67 mmHg (80-95); iSTAT Arterial Blood Gas pO2 C 75; iSTAT Carbon Dioxide 21 mmol/L (24-31); iSTAT Hematocrit 36 % (42-52); iSTAT Hemoglobin 12.2 g/dl (14.0-18.0); iSTAT Potassium 3.4 mmol/L (3.3-5.0); iSTAT Site R Radial; iSTAT Sodium 143 mmol/L (135-144)
[2021-10-04] MEDS ORDERED: OPTIRAY 320 100ml IV ONE (15:15)
--- NOTE | 2021-10-04 15:26 | CT Scan Report ---
CT OF THE CHEST WITH IV CONTRAST CLINICAL HISTORY: worsening work of breathing, Flu pneumonia COMPARISON STUDY: Chest CT April 27, 2020. Chest radiograph October 02, 2021. TECHNIQUE: Following IV administration of 95 mL of Optiray, helical axial images of the chest were o btained. Sagittal and coronal reconstructions were viewed as well as maximal intensity projections o n an independent 3-D workstation. Automated exposure control was utilized for the study. A dose low ering technique was utilized adhering to the principles of ALARA. CT DOSE: 462.52 mGycm FINDINGS: This exam is compromised by respiratory motion. Moderate cardiomegaly is noted. There is n o pericardial effusion. There is moderate coronary artery calcification and mild dilatation of the ce ntral pulmonary arteries. No central pulmonary embolus is identified. Remainder of pulmonary arteries are suboptimally assessed. Prominent subcarinal and bilateral hilar lymph nodes are noted. There are small bilateral pleural effusions. No pneumothorax is present. Subpleural groundglass opacities with in the right upper and middle lobes favor an infectious process. Moderate right lower lobe and mild l eft lower lobe opacities present. This may also be infectious. Lower lobe pulmonary bronchial wall th ickening is present. No central obstructing mass is identified although sensitivity is diminished giv en motion artifact. No suspicious lesions within the visualized bony thorax. Water attenuation right renal lesion is partially imaged on this exam but favors a cyst. IMPRESSION: 1. Multifocal bilateral airspace opacities, most pronounced within the right lung, as described above . The findings favor multifocal pneumonia. 2. Small bilateral pleural effusions. 3. Prominent subcarinal and bilateral hilar lymph nodes which may be reactive. 4. Moderate cardiomegaly and coronary artery calcification. ACT 112: Negative or not required by law. Electronically signed by: Guillaume Irwin M.D. 10/04/2021 3:24 PM
[2021-10-04] MEDS ORDERED: levoFLOXacin/D5W 750 MG/150 ML BAG IV SCH (16:00)
--- NOTE | 2021-10-04 18:25 | Billing Data ---
Date of Service October 04, 2021 Coding Level of Care Code 66099 Subseq Hosp Care Lvl 3
[2021-10-04] MEDS ORDERED: ALBUT/IPRATROP 3MG/0.5MG NEB 3 ML VIAL NEB STA (20:22)
--- NOTE | 2021-10-05 00:18 | Communication Note ---
Date of Service: October 05, 2021 Notified by patient's RN earlier in the evening that his respiratory exam continues to sound quite poor despite scheduled duo nebs and chest percussion therapy. Reviewed patient's chart, which revealed he is here for influenza pneumonia compounded by secondary bacterial infection. To this point, there has been no evidence of volume overload. BP 170/80, HR 85, RR 26-28, T 37, SpO2 >93% on serial checks per recorded VS and while I was in room. On my exam, patient was sleeping on arrival. He awakens easily, but does not provide meaningful history (noted that he is also encephalopathic per day team notes, and this seems to be consistent with previous exams). Cardiacnormal rate regular rhythm, S1 and S2 are present without murmurs rubs or gallops. RespiratoryPatient demonstrates mild to moderate work of breathing with no use of accessory muscles. He has rhonchorus sounding respirations prior to auscultation; auscultatory exam does reveal d iffuse rhonchi, possibly compounded by transmission of upper airway sounds. Neckno obvious JVD, though difficult to assess with tachypenia. Extremitiesno significant peripheral edema. Repeat chest x-ray does demonstrate findings concerning for interval development of pulmonary vascular congestion. Increased WOB - certainly attributable to underlying influenza pneumonia and superimposed bacterial process, on levofloxacin; however, with ongoing IVF, TTE demonstrating severe cLVH, and interval appearance of pulmonary vascular congestion on CXR, suspect there is also component of pulmonary edema at play. Thankfully, his oxygenation continues to be stable. His VBG continues to demonstrate alkalosis without significant changes. Stop IV fluids and give Lasix 40mg IV x 1. Given his incontinence and possible need for further diuresis/I&O monitoring, will place Taylor. Continue duo nebs. Consider increasing frequency of chest percussion therapy. We will escalate to BiPAP/CPAP if needed. Resident Activity Tracking Resident Involvement: Resident Care Provided Care Provided: Adult Hospital Medicine
--- NOTE | 2021-10-05 00:51 | XRay Report ---
SINGLE VIEW CHEST CLINICAL HISTORY: Dyspnea FINDINGS: An AP, portable, upright chest radiograph is compared to study dated 10/02/2021 and correlat ed with chest CT dated 10/04/2021. The examination is degraded by portable technique and patient rotat ion. The heart is enlarged noting atherosclerotic calcification of the thoracic aorta. There is pulmo nary vascular congestion. There are mild bilateral airspace opacities, greatest at the right lung bas e. A small pleural effusion is seen on the right. No pneumothorax is seen. The skeletal structures ar e osteopenic. The bony thorax is grossly intact. IMPRESSION: 1. Cardiomegaly with pulmonary vascular congestion. 2. There are bilateral airspace opacities, most confluent at the right lung base. This could represen t mild pulmonary edema and/or multifocal pneumonia. Clinical correlation will be required and radiogr aphic follow-up to resolution is recommended. 3. Small right pleural effusion. ACT 112: Negative or not required by law. Electronically signed by: Nas Armando M.D. 10/05/2021 12:50 AM
[2021-10-05 00:53] LABS: Base Excess VBG 1.5 mEq/L; HCO3 VBG 25 mmol/L; Oxygen Saturation VBG < 60.0 %; PCO2 VBG 37 mmHg (38-50); PO2 VBG 22 mmHg; pH VBG 7.46 (7.36-7.41)
[2021-10-05] MEDS ORDERED: ALBUT/IPRATROP 3MG/0.5MG NEB 3 ML VIAL NEB PRN (01:02)
[2021-10-05] MEDS ORDERED: FUROSEMIDE 40 MG/4 ML VIAL IV ONE (01:04)
[2021-10-05] MEDS: ACETAMINOPHEN 1,000 MG/100 ML VIAL IV SCH ×3 (05:26→21:11)
[2021-10-05] MEDS: ALBUT/IPRATROP 3MG/0.5MG NEB 3 ML VIAL NEB SCH ×4 (07:15→19:16)
--- NOTE | 2021-10-05 07:42 | Hospitalist Progress Note ---
Date of Service October 05, 2021 Assessment & Plan (1) Influenza A: Plan: 89-year-old man with medical history of Alzheimer's dementia, carotid artery occlusion, diverticulosis, [place], who presented with altered mental status, found to be positive for influenza A. Influenza A -found to be positive on admission. COVID-19 negative. BCx, UCx show NGTD. -initially presented w/ mildly elevated troponin (since plateaued). Echo showed EF 65 to 70%, no acute changes from last echo done in 2019. -Patient continued to spike fevers, despite being on scheduled IV Tylenol 1000 mg every 8 hours. -ABG showed metabolic alkalosis. Procalcitonin trending down to 6.01, lactate 1.3 -Obtained chest CT showing new multifocal lobar pneumonia. * Stopped IV CTX and switched to Levaquin 750 mg daily x5 days, per guidelines. * Sputum culture ordered, currently uncollected. * Fluids stopped after fluid overload. Continue to monitor fluid state. * Continue IV Tylenol scheduled q8h for fever * Wean oxygen as able. Patient saturating well on room air. Altered mental status -Unclear if patient is mentating at baseline. Pt. has Alzheimer's dementia. Able to tolerate oral potassium, will try to restart a few more of his home medications (amlodipine, metoprolol, alzheimer's medications) in the hope he can tolerate. -Pt. alert today though still at baseline level of orientation due to his dementia * continue to monitor as influenza symptoms resolve Alzheimer's dementia -continue home memantine, sertraline. Holding donepezil for interaction with levoquin. Code: DNR/DNI Dispo: PCU FEN/GI: Minced and moist diet - If worsening of symptoms can do Video swallow study although not available until Thursday. DVT Prophylaxis: Lovenox 40 mg q24h (2) Altered mental status: (3) Alzheimer's dementia: Admission and Anticipated Discharge Date Admission Date: October 02, 2021 Supervising Physician Co-Signing Physician Notes I personally examined the patient and verified all ross points of history and exam, discussed case, and agree with decision making with Dr Mccabe no meaningful HPI or ROS. vitals noted resting in bed nad heent nc at mmm lungs coarse b/l rhonchi but overall good air entry no accessory muscles good effort skin no rashes no pallor or icterus delirium/metabolic encephalopathy - appears to be predominantly due to flu and secondary bacterial pneumonia. supportive care. appreciate speech Rx input influenza A and secondary bacterial pneumonia - after extensive thought/discussion yesterday - changed to levaquin out of concern of rocephin resistant organisms - appears to have responded nicely. 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 Patient oriented to self but not place or time. Says the thing bothering him the most is the box at the end of the room. Overnight patient became tachypneic w/ increased respiratory distress. CXR showed pulmonary edema, patient had improvement after administration of 40mg IV lasix and ~2L of urine output. Review of Systems Constitutional: as per Subjective / HPI Physical Exam Constitutional: WD/WN, vitals as above Eyes: PERRL, conjunctivae normal, anicteric sclerae Respiratory: Audible transmitted upper airway sounds, rales on auscultation bilaterally. Cardiovascular: RRR, no murmur, no edema Gastrointestinal (Abdomen): normal bowel sounds, soft, nontender, no hepatosplenomegaly Psychiatric: Orientation: alert and oriented to person Genitourinary: Taylor in place. Results & Data Results & Data ([facility]) Vital Signs (Past 12 Hours) Vital Signs Temp Pulse Pulse Resp BP Pulse Ox 10/05/21 07:15 82 18 96 10/05/21 03:33 97 10/05/21 03:12 36.8 C 80 28 H 146/69 H 91 10/05/21 01:12 85 20 94 10/04/21 23:27 37 C 85 28 H 169/81 H 94 10/04/21 22:30 83 Resident Activity Tracking Resident Involvement: Resident Care Provided Care Provided: Adult Hospital Medicine (1) Altered mental status Altered mental status type: somnolence Qualified Code(s): R40.0 - Somnolence
[2021-10-05 07:50] LABS: BUN Creatinine Ratio 19.5 (10-20); C Reactive Protein 15.32 mg/dl (0-0.5); Calcium 8.1 mg/dl (8.5-10.1); Creatinine Clr Calc Pharmacy 38.9 ml/min; Est GFR (African American) 54.5 ml/min; Est GFR (Non-African American) 47.1 ml/min; Magnesium 1.6 mg/dl (1.7-2.4); Phosphorus 2.2 mg/dl (2.5-4.9); Potassium 3.2 mmol/L (3.5-5.1)
[2021-10-05] MEDS: FAMOTIDINE 20 MG in SYRINGE 3 ML IV SCH ×2 (08:01→21:24)
[2021-10-05 08:07] LABS: Basophils # (auto) 0.01 K/uL (0-0.2); Basophils % (auto) 0.2 %; Eosinophils # (auto) 0.01 K/uL (0-0.5); Eosinophils % (auto) 0.2 %; Hematocrit (blood only) 36.5 % (42-52); Hemoglobin 12.2 g/dL (14.0-18.0); Immature Granulocytes # (auto) 0.02 K/uL (0.00-0.02); Immature Granulocytes % (auto) 0.3 %; Lymphocytes # (auto) 0.44 K/uL (1.2-3.4); Lymphocytes % (auto) 7.7 %; Mean Corpuscular Hemoglobin 30.9 pg (25-34); Mean Corpuscular Hgb Conc 33.4 g/dL (32-36); Mean Corpuscular Volume 92.4 fL (80-100); Mean Platelet Volume 10.8 fL (7.4-10.4); Monocytes # (auto) 0.61 K/uL (0.11-0.59); Monocytes % (auto) 10.6 %; Neutrophils # (auto) 4.66 K/uL (1.4-6.5); Platelet Count 138 K/uL (130-400); RDW Coefficient of Variation 14.4 % (11.5-14.5); RDW Standard Deviation 48.8 fL (36.4-46.3); Red Blood Count 3.95 M/uL (4.7-6.1); White Blood Count 5.75 K/uL (4.8-10.8)
[2021-10-05] MEDS: ENOXAPARIN INJ 40 MG/0.4 ML SYR SQ SCH (09:08)
--- NOTE | 2021-10-05 09:30 | Electrocardiogram Report ---
Test Reason : Blood Pressure : / mmHG Vent. Rate : 084 BPM Atrial Rate : 084 BPM P-R Int : 128 ms QRS Dur : 122 ms QT Int : 440 ms P-R-T Axes : 000 -25 116 degrees QTc Int : 519 ms Poor data quality, interpretation may be adversely affected Normal sinus rhythm Left bundle branch block Nonspecific ST and T wave abnormality Abnormal ECG When compared with ECG of 02-OCT-2021 08:31, Premature supraventricular complexes are no longer Present Confirmed by Jose Arriaza ([id number]) on 10/05/2021 9:30:24 AM Referred By: Heriberto Hammer Confirmed By:Jose Arriaza
[2021-10-05] MEDS ORDERED: POTASSIUM CHLORIDE CRTAB 20 MEQ TABCR PO STA (11:19)
--- NOTE | 2021-10-05 17:06 | Billing Data ---
Date of Service October 05, 2021 Coding Level of Care Code 21012 Subseq Hosp Care Lvl 3
[2021-10-05] MEDS: MEMANTINE HCL 10 MG TAB PO SCH (21:11)
[2021-10-06] MEDS: ACETAMINOPHEN 1,000 MG/100 ML VIAL IV SCH ×2 (06:07→14:02)
--- NOTE | 2021-10-06 06:48 | Hospitalist Progress Note ---
Date of Service October 06, 2021 Assessment & Plan (1) Influenza A: Plan: 89-year-old man with medical history of Alzheimer's dementia, carotid artery occlusion, diverticulosis, [place], who presented with altered mental status, found to be positive for influenza A. Influenza A -found to be positive on admission. COVID-19 negative. BCx, UCx show NGTD. -initially presented w/ mildly elevated troponin (since plateaued). Echo showed EF 65 to 70%, no acute changes from last echo done in 2019. -Patient continued to spike fevers, despite being on scheduled IV Tylenol 1000 mg every 8 hours. -ABG showed metabolic alkalosis. Procalcitonin trending down to 6.01, lactate 1.3 -Obtained chest CT showing new multifocal lobar pneumonia. * Stopped IV CTX and switched to Levaquin 750 mg daily x5 days, per guidelines. * Sputum culture ordered, currently uncollected. * Fluids stopped after fluid overload. Continue to monitor fluid state. * Continue IV Tylenol scheduled q8h for fever * Wean oxygen as able. Patient saturating well on room air. Altered mental status -Unclear if patient is mentating at baseline. Pt. has Alzheimer's dementia. Able to tolerate oral potassium, will try to restart a few more of his home medications (amlodipine, metoprolol, alzheimer's medications) in the hope he can tolerate. -Pt. alert today though still at baseline level of orientation due to his dementia * continue to monitor as influenza symptoms resolve Alzheimer's dementia -continue home memantine, sertraline. Holding donepezil for interaction with levoquin. Code: DNR/DNI Dispo: PCU FEN/GI: Minced and moist diet - If worsening of symptoms can do Video swallow study although not available until Thursday. DVT Prophylaxis: Lovenox 40 mg q24h (2) Altered mental status: (3) Alzheimer's dementia: Admission and Anticipated Discharge Date Admission Date: October 02, 2021 Supervising Physician Co-Signing Physician Notes I personally examined the patient and verified all ross points of history and exam, discussed case, and agree with decision making with Dr Mccabe no meaningful HPI or ROS but does give a "yeah" type acknowledgement about feeling better. vitals noted resting in bed nad heent nc at mmm lungs ovreall much more clear faint rhonchi R sided but far better, good air entry no accessory muscles good effort skin no rashes no pallor or icterus delirium/metabolic encephalopathy - appears to be predominantly due to flu and secondary bacterial pneumonia. supportive care. 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 Patient was asleep in bed when approached. Review of Systems Constitutional: as per Subjective / HPI Physical Exam Constitutional: WD/WN, vitals as above Not in any acute distress. Respiratory: normal respiratory effort, lungs clear to auscultation Cardiovascular: RRR, no murmur, no edema Results & Data Results & Data ([facility]) Vital Signs (Past 12 Hours) Vital Signs Temp Pulse Pulse Resp BP Pulse Ox 10/06/21 03:00 36.5 C 101 H 20 157/79 H 96 10/05/21 22:55 36.8 C 101 H 16 160/77 H 98 10/05/21 22:20 103 H 10/05/21 19:20 106 H 20 95 10/05/21 18:48 36.7 C 91 H 20 150/66 H 94 Resident Activity Tracking Resident Involvement: Resident Care Provided Care Provided: Adult Hospital Medicine (1) Altered mental status Altered mental status type: somnolence Qualified Code(s): R40.0 - Somnolence
[2021-10-06] MEDS: ALBUT/IPRATROP 3MG/0.5MG NEB 3 ML VIAL NEB SCH ×4 (07:15→19:16)
[2021-10-06] MEDS ORDERED: POTASSIUM PHOS 3 MMOL/1 ML INFUSION IV STA (08:04)
[2021-10-06 08:20] LABS: Basophils # (auto) 0.03 K/uL (0-0.2); Basophils % (auto) 0.8 %; Hematocrit (blood only) 35.4 % (42-52); Hemoglobin 12.1 g/dL (14.0-18.0); Immature Granulocytes # (auto) 0.01 K/uL (0.00-0.02); Immature Granulocytes % (auto) 0.3 %; Lymphocytes # (auto) 0.81 K/uL (1.2-3.4); Lymphocytes % (auto) 22.7 %; Mean Corpuscular Hemoglobin 31.3 pg (25-34); Mean Corpuscular Hgb Conc 34.2 g/dL (32-36); Mean Corpuscular Volume 91.5 fL (80-100); Mean Platelet Volume 10.7 fL (7.4-10.4); Monocytes # (auto) 0.55 K/uL (0.11-0.59); Monocytes % (auto) 15.4 %; Neutrophils # (auto) 2.17 K/uL (1.4-6.5); Neutrophils % (auto) 60.8 %; Platelet Count 139 K/uL (130-400); RDW Coefficient of Variation 14.4 % (11.5-14.5); RDW Standard Deviation 48.7 fL (36.4-46.3); Red Blood Count 3.87 M/uL (4.7-6.1); White Blood Count 3.57 K/uL (4.8-10.8)
[2021-10-06] MEDS ORDERED: POTASSIUM PHOSPHATE 15 MMOL in SODIUM CHLORIDE 0.9% 250 ML IV ONE (08:30)
[2021-10-06 08:40] LABS: BUN Creatinine Ratio 17.3 (10-20); Calcium 8.1 mg/dl (8.5-10.1); Creatinine Clr Calc Pharmacy 40.7 ml/min; Est GFR (African American) 57.7 ml/min; Est GFR (Non-African American) 49.8 ml/min; Potassium 3.4 mmol/L (3.5-5.1)
[2021-10-06] MEDS: ENOXAPARIN INJ 40 MG/0.4 ML SYR SQ SCH (09:17)
[2021-10-06] MEDS: MEMANTINE HCL 10 MG TAB PO SCH ×2 (09:17→21:14)
[2021-10-06] MEDS: FAMOTIDINE 20 MG in SYRINGE 3 ML IV SCH ×2 (09:17→21:14)
[2021-10-06] MEDS: METOPROLOL SUCC 25MG EXT REL TAB PO SCH (09:18)
[2021-10-06] MEDS: SERTRALINE HCL 50 MG TABLET PO SCH (09:18)
[2021-10-06] MEDS: amLODIPine BESYLATE 5 MG TAB PO SCH (09:19)
[2021-10-06] MEDS: MAGNESIUM SULFATE / D5W 1 GM/100 ML BAG IV SCH ×2 (09:23→11:37)
--- NOTE | 2021-10-06 14:43 | Electrocardiogram Report ---
Test Reason : Blood Pressure : / mmHG Vent. Rate : 093 BPM Atrial Rate : 093 BPM P-R Int : 136 ms QRS Dur : 120 ms QT Int : 404 ms P-R-T Axes : 064 -33 127 degrees QTc Int : 502 ms Sinus rhythm with Premature atrial complexes Left axis deviation Left bundle branch block Nonspecific ST and T wave abnormality Abnormal ECG When compared with ECG of 05-OCT-2021 05:36, No significant change Confirmed by Jose Arriaza ([id number]) on 10/06/2021 2:43:37 PM Referred By: Heriberto Hammer Confirmed By:Jose Arriaza
--- NOTE | 2021-10-06 16:33 | Billing Data ---
Date of Service October 06, 2021 Coding Level of Care Code 50449 Subseq Hosp Care Lvl 3
[2021-10-06] MEDS: levoFLOXacin/D5W 750 MG/150 ML BAG IV SCH (16:50)
[2021-10-06] MEDS ORDERED: diphenhydrAMINE 50 MG/ML VIAL IM PRN (17:55)
[2021-10-06] MEDS ORDERED: SENNA 8.6 MG TAB PO PRN (18:00)
[2021-10-06] MEDS ORDERED: SENNA 8.6 MG TAB PO SCH (21:00)
[2021-10-07 06:43] LABS: Hematocrit (blood only) 37.1 % (42-52); Hemoglobin 12.4 g/dL (14.0-18.0); Mean Corpuscular Hemoglobin 30.4 pg (25-34); Mean Corpuscular Hgb Conc 33.4 g/dL (32-36); Mean Corpuscular Volume 90.9 fL (80-100); Mean Platelet Volume 10.5 fL (7.4-10.4); Platelet Count 140 K/uL (130-400); RDW Coefficient of Variation 14.5 % (11.5-14.5); RDW Standard Deviation 48.8 fL (36.4-46.3); Red Blood Count 4.08 M/uL (4.7-6.1); White Blood Count 4.12 K/uL (4.8-10.8)
--- NOTE | 2021-10-07 06:50 | Hospitalist Progress Note ---
Date of Service October 07, 2021 Assessment & Plan (1) Influenza A: Plan: 89-year-old man with medical history of Alzheimer's dementia, carotid artery occlusion, diverticulosis, [place], who presented with altered mental status, found to be positive for influenza A. Influenza A/Multifocal PNA -Influenza A positive, Covid negative on admission. Spiked fevers up to 39.6C. -ABG showed metabolic alkalosis. Procalcitonin trending down to 6.01, lactate 1.3 -Chest CT showing new multifocal lobar pneumonia. -Stopped IV Ceftriaxone and switched to Levaquin 750 mg daily x5 days, per guidelines. -Sputum culture w/ many WBCs, epithelial cells, few gram + cocci, rare gram + bacilli. -Fluids stopped after fluid overload. Continue to monitor fluid state. -Continue IV Tylenol scheduled q8h for fever. -Wean oxygen as able. Patient saturating well on room air. Elevated Troponin I -Initially presented w/ troponin I of 157. -Trended upward to 249 -Echo showed EF 65 to 70%, no acute changes from last echo done in 2019. -Likely due to demand ischemia from PNA. Acute on chronic HFpEF - s/p diuretics. - no euvolemic. Altered mental status -Pt. alert today though still at baseline level of orientation due to his dementia -Continue to monitor as influenza symptoms resolve. Alzheimer's dementia -continue home memantine, sertraline. Holding donepezil for interaction with Levaquin. Code: DNR/DNI Dispo: PCU FEN/GI: Minced and moist diet - If worsening of symptoms can do Video swallow study although not available until Thursday. DVT Prophylaxis: Lovenox 40 mg q24h (2) Altered mental status: (3) Alzheimer's dementia: Admission and Anticipated Discharge Date Admission Date: October 02, 2021 Supervising Physician Co-Signing Physician Notes Resident Physician Supervision Note: I independently interviewed and examined the patient and verified the ross history and physical, reviewed labs and image studies and agree with resident Dr. Mccabe findings and care plan. Subjective Patient seen at the bedside today. Patient denied pain or shortness of breath this morning. No complaints from him although difficult to elicit history. When asked whether patient had any questions he said "no, do you need any help from me?" in a pleasant manner to which I politely declined. Review of Systems Constitutional: as per Subjective / HPI Physical Exam Constitutional: WD/WN, vitals as above Eyes: PERRL, conjunctivae normal, anicteric sclerae Respiratory: normal respiratory effort, lungs clear to auscultation Cardiovascular: RRR, no murmur, no edema Gastrointestinal (Abdomen): normal bowel sounds, soft, nontender, no hepatosplenomegaly Results & Data Results & Data ([facility]) Vital Signs (Past 12 Hours) Vital Signs Temp Pulse Pulse Resp BP Pulse Ox 10/07/21 04:00 37.5 C 75 24 146/94 H 95 10/07/21 00:00 83 10/06/21 23:45 37.3 C 87 20 159/81 H 95 10/06/21 19:45 36.9 C 83 18 150/90 H 96 Resident Activity Tracking Resident Involvement: Resident Care Provided Care Provided: Adult Hospital Medicine (1) Altered mental status Altered mental status type: somnolence Qualified Code(s): R40.0 - Somnolence
--- NOTE | 2021-10-07 06:56 | Electrocardiogram Report ---
Test Reason : Blood Pressure : / mmHG Vent. Rate : 083 BPM Atrial Rate : 083 BPM P-R Int : 138 ms QRS Dur : 118 ms QT Int : 442 ms P-R-T Axes : 068 -52 104 degrees QTc Int : 519 ms Sinus rhythm with Premature supraventricular complexes Left axis deviation Left bundle branch block Nonspecific ST and T wave abnormality Prolonged QT Abnormal ECG When compared with ECG of 06-OCT-2021 06:01, No significant change Confirmed by Jose Arriaza ([id number]) on 10/07/2021 6:55:30 AM Referred By: Heriberto Hammer Confirmed By:Jose Arriaza
[2021-10-07 07:13] LABS: Basophils # (auto) 0.04 K/uL (0-0.2); Eosinophils # (auto) 0.03 K/uL (0-0.5); Eosinophils % (auto) 0.7 %; Immature Granulocytes # (auto) 0.04 K/uL (0.00-0.02); Lymphocytes # (auto) 0.94 K/uL (1.2-3.4); Lymphocytes % (auto) 22.8 %; Monocytes # (auto) 0.71 K/uL (0.11-0.59); Monocytes % (auto) 17.2 %; Neutrophils # (auto) 2.36 K/uL (1.4-6.5); Neutrophils % (auto) 57.3 %
[2021-10-07 07:15] LABS: BUN Creatinine Ratio 16.4 (10-20); Creatinine Clr Calc Pharmacy 44.6 ml/min; Est GFR (African American) 64.4 ml/min; Est GFR (Non-African American) 55.5 ml/min; Potassium 4.1 mmol/L (3.5-5.1)
[2021-10-07] MEDS: ALBUT/IPRATROP 3MG/0.5MG NEB 3 ML VIAL NEB SCH ×4 (07:20→19:30)
[2021-10-07] MEDS: ENOXAPARIN INJ 40 MG/0.4 ML SYR SQ SCH (09:08)
[2021-10-07] MEDS: SERTRALINE HCL 50 MG TABLET PO SCH (09:08)
[2021-10-07] MEDS: MEMANTINE HCL 10 MG TAB PO SCH ×2 (09:08→20:53)
[2021-10-07] MEDS: METOPROLOL SUCC 25MG EXT REL TAB PO SCH (09:08)
[2021-10-07] MEDS: amLODIPine BESYLATE 5 MG TAB PO SCH (09:09)
[2021-10-07] MEDS: POLYETHYLENE (MIRALAX) 17 GM PACK PO SCH (09:09)
[2021-10-07] MEDS: FAMOTIDINE 20 MG in SYRINGE 3 ML IV SCH ×2 (09:16→20:53)
--- NOTE | 2021-10-08 06:47 | Hospitalist Progress Note ---
Date of Service October 08, 2021 Assessment & Plan (1) Influenza A: Plan: 89-year-old man with medical history of Alzheimer's dementia, carotid artery occlusion, diverticulosis, [place], who presented with altered mental status, found to be positive for influenza A. Influenza A/Multifocal PNA -Influenza A positive, Covid negative on admission. Spiked fevers up to 39.6C. -ABG showed metabolic alkalosis. Procalcitonin trending down to 6.01, lactate 1.3 -Chest CT showing new multifocal lobar pneumonia. -Stopped IV Ceftriaxone and switched to Levaquin 750 mg daily x5 days, per guidelines. -Sputum culture w/ many WBCs, epithelial cells, few gram + cocci, rare gram + bacilli. -Fluids stopped after fluid overload. Continue to monitor fluid state. -Continue IV Tylenol scheduled q8h for fever. -Wean oxygen as able. Patient saturating well on room air. Elevated Troponin I -Initially presented w/ troponin I of 157. -Trended upward to 249 -Echo showed EF 65 to 70%, no acute changes from last echo done in 2019. -Likely due to demand ischemia from PNA. Acute on chronic HFpEF - s/p diuretics. - no euvolemic. Altered mental status -Pt. alert today though still at baseline level of orientation due to his dementia -Continue to monitor as influenza symptoms resolve. Alzheimer's dementia -continue home memantine, sertraline. Holding donepezil for interaction with Levaquin. Code: DNR/DNI Dispo: PCU FEN/GI: Minced and moist diet - If worsening of symptoms can do Video swallow study although not available until Thursday. DVT Prophylaxis: Lovenox 40 mg q24h (2) Altered mental status: (3) Alzheimer's dementia: Admission and Anticipated Discharge Date Admission Date: October 02, 2021 Review of Systems Constitutional: as per Subjective / HPI Physical Exam Constitutional: WD/WN, vitals as above Eyes: PERRL, conjunctivae normal, anicteric sclerae Respiratory: normal respiratory effort, lungs clear to auscultation Cardiovascular: RRR, no murmur, no edema Gastrointestinal (Abdomen): normal bowel sounds, soft, nontender, no hepatosplenomegaly Psychiatric: Orientation: alert Results & Data Results & Data ([facility]) Vital Signs (Past 12 Hours) Vital Signs Temp Pulse Pulse Resp BP Pulse Ox 05/31/22 03:03 37.1 C 69 18 155/76 H 94 10/07/21 22:55 79 10/07/21 22:39 37.1 C 72 18 149/78 H 95 10/07/21 19:26 83 18 95 10/07/21 18:55 37.2 C 84 18 178/97 H 94 Resident Activity Tracking Resident Involvement: Resident Care Provided Care Provided: Adult Hospital Medicine (1) Altered mental status Altered mental status type: somnolence Qualified Code(s): R40.0 - Somnolence
[2021-10-08] MEDS: ALBUT/IPRATROP 3MG/0.5MG NEB 3 ML VIAL NEB SCH (07:08)
[2021-10-08 08:17] LABS: Hematocrit (blood only) 38.3 % (42-52); Mean Corpuscular Hgb Conc 33.9 g/dL (32-36); Mean Corpuscular Volume 91.4 fL (80-100); Mean Platelet Volume 9.9 fL (7.4-10.4); Platelet Count 154 K/uL (130-400); RDW Coefficient of Variation 14.3 % (11.5-14.5); Red Blood Count 4.19 M/uL (4.7-6.1); White Blood Count 4.98 K/uL (4.8-10.8)
[2021-10-08] MEDS: FAMOTIDINE 20 MG in SYRINGE 3 ML IV SCH (08:27)
[2021-10-08] MEDS: POLYETHYLENE (MIRALAX) 17 GM PACK PO SCH (08:27)
[2021-10-08] MEDS: amLODIPine BESYLATE 5 MG TAB PO SCH (08:28)
[2021-10-08] MEDS: ENOXAPARIN INJ 40 MG/0.4 ML SYR SQ SCH (08:28)
[2021-10-08] MEDS: SERTRALINE HCL 50 MG TABLET PO SCH (08:30)
[2021-10-08] MEDS: MEMANTINE HCL 10 MG TAB PO SCH (08:31)
--- NOTE | 2021-10-08 08:44 | Electrocardiogram Report ---
Test Reason : Blood Pressure : / mmHG Vent. Rate : 072 BPM Atrial Rate : 072 BPM P-R Int : 144 ms QRS Dur : 126 ms QT Int : 472 ms P-R-T Axes : 066 -50 090 degrees QTc Int : 516 ms Sinus rhythm with Premature atrial complexes Left axis deviation Left bundle branch block Abnormal ECG When compared with ECG of 07-OCT-2021 05:08, No significant change Confirmed by Jose Arriaza ([id number]) on 10/08/2021 8:43:54 AM Referred By: Heriberto Hammer Confirmed By:Jose Arriaza
[2021-10-08 08:53] LABS: Basophils # (auto) 0.03 K/uL (0-0.2); Basophils % (auto) 0.6 %; Eosinophils # (auto) 0.07 K/uL (0-0.5); Eosinophils % (auto) 1.4 %; Immature Granulocytes # (auto) 0.06 K/uL (0.00-0.02); Immature Granulocytes % (auto) 1.2 %; Lymphocytes # (auto) 1.25 K/uL (1.2-3.4); Lymphocytes % (auto) 25.1 %; Monocytes % (auto) 18.1 %; Neutrophils # (auto) 2.67 K/uL (1.4-6.5); Neutrophils % (auto) 53.6 %
[2021-10-08] MEDS: METOPROLOL SUCC 25MG EXT REL TAB PO SCH (09:27)
[2021-10-08 09:57] LABS: BUN Creatinine Ratio 18.9 (10-20); Calcium 8.1 mg/dl (8.5-10.1); Creatinine Clr Calc Pharmacy 46.6 ml/min; Est GFR (African American) 67.9 ml/min; Est GFR (Non-African American) 58.6 ml/min; Potassium 3.8 mmol/L (3.5-5.1)
[2021-10-08] MEDS ORDERED: ALBUT/IPRATROP 3MG/0.5MG NEB 3 ML VIAL NEB PRN (09:58)
--- NOTE | 2021-10-08 12:38 | Discharge Summary ---
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 He was brought into the emergency department from his nursing facility and unresponsive state. Significant abnormal laboratories: Influenza A positive. Hemoglobin 13.5, hematocrit 39.5, BUN 26, creatinine 1.57, glucose 114, highly sensitive troponin 157.0. Initial UA results look abnormal, with complete results pending Patient is COVID-19 negative, influenza B negative, and RSV negative. EKG shows new suggestions of ischemia in leads I and V6. Admission Exam Per Admitting Provider The patient is unresponsive, and atraumatic, lying in bed and in no acute distress. HEENT--PERRL, EOMI, mucous membranes and oropharynx dry. Neck--supple. No JVD. No bruits. Thyroid normal, trachea midline, no adenopathy. Heart--normal S1 and S2. No murmurs, rubs or gallops. Lungs--few coarse breath sounds, right greater than left. No respiratory distress, no accessory muscle use. Abdomen--normal bowel sounds and soft. Nontender. Nondistended, no hernias or masses, no organomegaly. Extremities--no cyanosis or clubbing. No edema. Dermatologic--normal skin turgor, normal color, no abnormal lymph nodes, no rash. Neurologic--cranial nerves II through XII grossly intact. Rheumatologic--normal range of motion. Psychiatric--unresponsive Principal Diagnosis Multifocal Pneumonia Discharge Exam Constitutional WD/WN, vitals as above Eyes PERRL, conjunctivae normal, anicteric sclerae Respiratory normal respiratory effort, lungs clear to auscultation Cardiovascular RRR, no murmur, no edema Gastrointestinal (Abdomen) normal bowel sounds, soft, nontender, no hepatosplenomegaly Psychiatric Orientation: alert Discharge Data Allergies Allergy/AdvReac Type Severity Reaction Status Date / Time hydrochlorothiazide Allergy Unknown UNKNOWN Verified 10/02/21 06:39 Penicillins Allergy Unknown ? UNKNOWN Verified 10/02/21 06:39 Sulfa (Sulfonamide Allergy Unknown ITCHINESS, Verified 10/02/21 06:39 Antibiotics) RED SKIN oxycodone AdvReac Intermediate CONSTIPATION, Verified 10/02/21 06:39 MALAISE Consultations 10/02/21 06:08 ED Decision to Admit Stat Ordered Studies 10/04/21 14:13 CT chest diagnostic w con Urgent IMPRESSION: 1. Multifocal bilateral airspace opacities, most pronounced within the right lung, as described above. The findings favor multifocal pneumonia. 2. Small bilateral pleural effusions. 3. Prominent subcarinal and bilateral hilar lymph nodes which may be reactive. 4. Moderate cardiomegaly and coronary artery calcification. Hospital Course (1) Influenza A: 89-year-old man with medical history of Alzheimer's dementia, carotid artery occlusion, diverticulosis, [place], who presented with altered mental status, found to be positive for influenza A. Influenza A/Multifocal PNA -Influenza A positive, Covid negative on admission. Spiked fevers up to 39.6C. -ABG showed metabolic alkalosis. Procalcitonin trending down to 6.01, lactate 1.3 -Chest CT with new multifocal lobar pneumonia. -Sputum culture w/ many WBCs, epithelial cells, few gram + cocci, rare gram + bacilli. -Stopped IV Ceftriaxone and switched to and received Levaquin 750 mg daily x5 days, per guidelines. -Fluids d/archana. -Patient saturating on room air well at time of discharge. Elevated Troponin I -Initially presented w/ troponin I of 157. -Trended upward to 249 -Echo showed EF 65 to 70%, no acute changes from last echo done in 2019. -Likely due to demand ischemia from PNA. Penile irritation: -Patient had some penile irritation from bowel incontinence/fecal matter. -Levaquin should cover for gut bacteria as potential sources of inflammation. -Wound care recommended Xeroform or Sensi Care skin protectant skin barrier. Please continue at facility. (2) Altered mental status: (3) Alzheimer's dementia: Total Time Total Time Spent Total Time Spent (In Minutes): Please see attending attestation Discharge Plan Discharge Items Patient Disposition: Home - Self-Care Reason For Visit: NSTEMI, INFLUENZA A Discharge Diagnosis: Influenza A, Multifocal PNA Activity: Per Instructions section Non-emergency contact: Primary Care Provider Call non-emergency contact if: your symptoms worsen, your pain is worsening, your temperature is above 101 and your wound has increased drainage Follow-up/Referrals: Hattie Quiles [Primary Care Provider] - Diet: Regular Addtl Attending Provider Instructions: 89-year-old man with medical history of Alzheimer's dementia, carotid artery occlusion, diverticulosis, [place], who presented with altered mental status, found to be positive for influenza A. Influenza A/Multifocal PNA -Influenza A positive, Covid negative on admission. Spiked fevers up to 39.6C. -ABG showed metabolic alkalosis. Procalcitonin trending down to 6.01, lactate 1.3 -Chest CT showing new multifocal lobar pneumonia. -Sputum culture w/ many WBCs, epithelial cells, few gram + cocci, rare gram + bacilli. -Stopped IV Ceftriaxone and switched to and received Levaquin 750 mg daily x5 days, per guidelines. -Fluids stopped after fluid overload. Continue to monitor fluid state. -Patient saturating well on room air at time of discharge. Elevated Troponin I -Initially presented w/ troponin I of 157. -Trended upward to 249 -Echo showed EF 65 to 70%, no acute changes from last echo done in 2019. -Likely due to demand ischemia from PNA. Penile irritation: -Patient had some penile irritation from bowel incontinence/fecal matter. -Levaquin should cover for gut bacteria as potential sources of inflammation. -Wound care recommended Xeroform or Sensi Care skin protectant skin barrier. Please continue at facility. Pending Studies at Discharge: No Stand-Alone Forms: My [facility] Second & Fourth, Smoking Cessation Medications and DC Order Prescriptions: Continued acetaminophen [Tylenol Arthritis Pain] 650 mg tablet extended release 650 mg PO Q12H PRN (Reason: Pain) Qty: 90 RF: 1 memantine [Namenda] 10 mg tablet 10 mg PO BID 90 Days Qty: 180 RF: 3 tramadol 50 mg tablet 50 mg PO Q6H PRN (Reason: moderate - severe pain) RF: 0 aspirin [Aspirin Low Dose] 81 mg Tablet,Delayed Release (Dr/Ec) 81 mg PO QAM RF: 0 acetaminophen 325 mg Tablet 325 mg PO Q4 MDD 3g PRN (Reason: Fever Or Pain) RF: 0 sertraline 25 mg tablet 25 mg PO QAM RF: 0 Centrum Silver 0.4-300-250 mg-mcg-mcg Tablet 1 tab PO QAM RF: 0 amlodipine 2.5 mg tablet 2.5 mg PO QAM RF: 0 metoprolol succinate 25 mg tablet extended release 24 hr 25 mg PO QAM RF: 0 atorvastatin 20 mg tablet 20 mg PO QAM RF: 0 donepezil [Aricept] 10 mg tablet 10 mg PO QAM RF: 0 polyethylene glycol 3350 [Miralax] 17 gram/dose Powder 17 g PO 3XWK RF: 0 Discharge Orders: Discharge Order (Routine); Ordered 10/08/21 Ordered By: Tyrel Mccabe Admission Data Admit Date/Time: 10/02/21 06:29 Attending Provider: Nilsa Rodriguez Admit Provider: Carlos Mckeon Primary Care Provider: Hattie Quiles Other Providers: Carlos Mckeon ; Sreedhar Thomason Other Interventions: Discharge Summary Assessment (RN) Last Done: 10/08/21 13:48 Supervising Physician Co-Signing Physician Notes Resident Physician Supervision Note: I independently interviewed and examined the patient and verified the ross history and physical, reviewed labs and image studies and agree with resident Dr. Mccabe findings and care plan. Resident Activity Tracking Resident Involvement: Resident Care Provided Care Provided: Adult Hospital Medicine
[2021-10-08] MEDS: levoFLOXacin/D5W 750 MG/150 ML BAG IV SCH (13:31)
== END 2021-10-08 15:38 | disposition home or self-care (01) | DRG 193 ==
LOC: ED 04:01 → 1E 06:29 → SUATTDRO 06:29 → 1E 07:56 → 2S 10-04 17:39

== ENCOUNTER 2021-12-10 09:50 | Inpatient (IN) ==
[2021-12-10] MEDS ORDERED: SODIUM CHLORIDE 0.9% 1000ML 1,000 ML IV ONE ×2 (10:09→10:17)
[2021-12-10 10:30] LABS: Basophils % (auto) 1.1 %; Eosinophils # (auto) 0.38 K/uL (0-0.50); Eosinophils % (auto) 4.3 %; Hematocrit (blood only) 46.4 % (40.1-51.0); Hemoglobin 15.1 g/dl (14.0-18.0); Immature Granulocytes # (auto) 0.03 K/uL (0.00-0.02); Immature Granulocytes % (auto) 0.3 %; Lymphocytes # (auto) 2.09 K/uL (1.2-3.4); Lymphocytes % (auto) 23.9 %; Mean Corpuscular Hemoglobin 30.4 pg (25.0-34.0); Mean Corpuscular Hgb Conc 32.5 g/dL (32.0-36.0); Mean Corpuscular Volume 93.4 fL (80.0-100.0); Mean Platelet Volume 10.6 fL (9.4-12.4); Monocytes # (auto) 1.29 K/uL (0.24-0.82); Monocytes % (auto) 14.7 %; Neutrophils # (auto) 4.86 K/uL (1.4-6.5); Neutrophils % (auto) 55.7 %; Platelet Count 263 K/uL (130-400); RDW Coefficient of Variation 13.3 % (11.5-14.5); RDW Standard Deviation 45.5 fL (36.4-46.3); Red Blood Count 4.97 M/uL (4.63-6.08); White Blood Count 8.75 K/ul (4.8-10.8)
--- NOTE | 2021-12-10 10:35 | XRay Report ---
XR chest 1V portable CLINICAL HISTORY: SEPSIS COMPARISON STUDY: Chest CT October 04, 2021. Chest radiograph October 05, 2021. FINDINGS: Lung volumes are normal. Airspace opacities and interstitial thickening shown on prior exam have resolved. There is no pneumothorax or pleural effusion. There is mild cardiomegaly. Mediastinal contours are normal. There is no evidence for pulmonary edema. Nodular density projecting over the r ight mid lung likely corresponds to a stable pleural nodule/plaque shown on prior CT. IMPRESSION: No acute cardiopulmonary findings. ACT 112: Negative or not required by law. Electronically signed by: Guillaume Irwin M.D. 12/10/2021 10:34 AM
[2021-12-10 10:43] LABS: Albumin Globulin Ratio 0.9 (0.9-2); Albumin Level 3.4 gm/dl (3.4-5.0); BUN Creatinine Ratio 16.6 (10-20); Bilirubin,Total 0.5 mg/dl (0.2-1.0); Calcium 9.1 mg/dl (8.5-10.1); Creatinine Clr Calc Pharmacy 33.5 ml/min; Est GFR (African American) 40.8 ml/min; Est GFR (Non-African American) 35.2 ml/min; Globulin 3.8 gm/dl (2.5-4.0); Magnesium 2.2 mg/dl (1.7-2.4); Potassium 3.9 mmol/L (3.5-5.1); Total Protein 7.2 gm/dl (6.0-8.3)
[2021-12-10 10:46] LABS: INR 1.1 (0.9-1.1); Partial Thromboplastin Ratio 0.9; Partial Thromboplastin Time 24.7 Seconds (21.0-31.0); Prothrombin Time 11.4 Seconds (9.0-12.0)
[2021-12-10 10:48] LABS: Troponin I High Sensitivity 49.8 pg/ml (0-20)
[2021-12-10] MEDS ORDERED: OPTIRAY 320 100ml IV ONE (11:05)
--- NOTE | 2021-12-10 11:12 | CT Scan Report ---
CT OF THE HEAD WITHOUT CONTRAST CLINICAL HISTORY: Altered mental status. COMPARISON STUDY: Head CT December 01, 2021. CT DOSE: 1365.17 mGy.cm TECHNIQUE: Helical axial images of the head were obtained without IV contrast. Automated exposure con trol was utilized for the study. A dose lowering technique was utilized adhering to the principles o f ALARA. FINDINGS: No acute intracranial hemorrhage, midline shift or mass effect is present. White matter hyp odensities are unchanged and suggest small vessel disease. Ventricular dilatation is again noted and probably related to atrophy. The basal cisterns are patent. No extra-axial collections are present. T here are no findings to suggest acute dural sinus thrombosis or acute territorial infarct. No signifi cant calvarial abnormalities are present. Visualized portions of the sinuses and mastoid air cells ar e clear. IMPRESSION: No acute intracranial findings. No change in appearance of the brain. ACT 112: Negative or not required by law. Electronically signed by: Guillaume Irwin M.D. 12/10/2021 11:11 AM
--- NOTE | 2021-12-10 11:33 | CT Scan Report ---
ABDOMEN AND PELVIS CT WITH IV CONTRAST HISTORY: Acute seizure like activity with urinary tract infection and sepsis uti, ?sepsis TECHNIQUE: Multiaxial CT images of the abdomen and pelvis were performed following the IV administrat ion of 95 cc of Optiray, A dose lowering technique was utilized adhering to the principles of ALARA. COMPARISON STUDY: Chest CT 10/04/2021, CT abdomen and pelvis 03/25/2011 FINDINGS: The imaged inferior cardiac chambers are mildly enlarged. Coronary artery calcifications. S ubsegmental bibasilar atelectasis/scarring. No pneumatosis or pneumoperitoneum. The study is limited secondary to upper extremity positioning and respiratory motion artifact. Unremarkable spleen, mildly atrophic pancreas, gallbladder and adrenal glands. There are a few indeterminate subcentimeter hypod ensities noted within the liver which are too small to characterize and are favored to be benign. Pat ency of the hepatic and portal veins. Mild cortical thinning of the kidneys. Cysts of the right kidney measure up to 3.2 x 6.6 cm. Symmetri c enhancement of the kidneys without hydronephrosis. Prostamegaly with a few urinary bladder calculi measuring up to 8 mm. Mucosal hyperemia of the urinary bladder with circumferential wall thickening, trabeculations and perivesicular stranding. Urinary bladder diverticula measure up to approximately 2 .2 cm. Atherosclerosis of the aorta without aneurysm. No lymphadenopathy. Distended debris-filled stomach suggestive of recent meal. No bowel obstruction. There is moderate fe chaparrita retention of the rectum. Colonic diverticulosis. Noninflamed appendix. Unremarkable soft tissues. No acute fracture or destructive bone lesion. Small fat filled periumbilical hernia. IMPRESSION: 1. Prostamegaly with findings of chronic bladder outlet obstruction. There are findings suggestive of superimposed cystitis. Correlate with urinalysis. 2. Urinary bladder calculi. 3. Moderate rectal fecal retention. 4. Colonic diverticulosis. 5. Additional findings as above. ACT 112: Negative or not required by law. The above report was generated using voice recognition software. It may contain grammatical, syntax o r spelling errors. Electronically signed by: Juan M Campos M.D. 12/10/2021 11:32 AM
--- NOTE | 2021-12-10 11:56 | Electrocardiogram Report ---
Test Reason : Blood Pressure : / mmHG Vent. Rate : 083 BPM Atrial Rate : 083 BPM P-R Int : 158 ms QRS Dur : 124 ms QT Int : 454 ms P-R-T Axes : 059 -16 119 degrees QTc Int : 533 ms Poor data quality, interpretation may be adversely affected Sinus rhythm with Premature atrial complexes Left bundle branch block Abnormal ECG When compared with ECG of 09-DEC-2021 08:06, Premature atrial complexes are now Present Left bundle branch block is now Present Criteria for Anterior infarct are no longer Present Confirmed by Sebas Ugarte ([id number]) on 12/10/2021 11:55:39 AM Referred By: REFERRED SELF Confirmed By:Estevan Ugarte
[2021-12-10 12:43] LABS: Appearance Urine Turbid (Clear); Bilirubin Urine Negative (Negative); Blood Urine 3+ (Negative); Color Urine Red; Glucose Urine UA Negative (Negative); Ketones Urine Negative (Negative); Leukocyte Esterase Urine 1+ (Negative); Nitrite Urine Negative (Negative); Protein Urine 3+ (Negative); Urobilinogen Urine Negative (Negative)
[2021-12-10 12:46] LABS: RBC Urine >30 /hpf (0-4); WBC Urine >30 /hpf (0-5)
[2021-12-10 12:47] LABS: Epithelial Cell Urine 0-5 /lpf (0-5)
[2021-12-10 12:49] LABS: Bacteria Urine Negative (Negative)
[2021-12-10] MEDS ORDERED: cefTRIAXone SODIUM 2,000 MG/70 ML BAG IV STA (13:26)
--- NOTE | 2021-12-10 14:10 | Emergency Department Note ---
Impression & Plan Acute UTI (urinary tract infection), Alzheimer's dementia, Sepsis, Elevated troponin ED Provider Note NAME: GÉNESIS DAVISON AGE: 89 SEX: M ARRIVES VIA: Ambulance INFORMANT: EMS ED PROVIDER(S): Fam Brooks MD CHIEF COMPLAINT: "Seizure" like activity. Hypotension. PLAN: Disposition: Admit MEDICAL DECISION MAKING: The patient is a 89-year-old gentleman with a past medical history of severe dementia who presents to the emergency department from his correction facility at [facility] for evaluation of concern for seizure-like ac tivity this morning in the setting of being seen in the emergency from yesterday and diagnosed with a urinary tract infection. Per staff who reported to EMS they found the patient shaking for several minutes and was with an altered mental status. Of note, the patient appears to have poor baseline mental status where he is nonverbal in setting of his dementia. EMS reported that his blood pressure was hypotensive with systolic blood pressure in the 80s. He received some IV fluid hydration before arrival. The patient is a poor historian. On arrival the patient is chronically ill-appearing but no acute distress, afebrile, HR 90s and otherwise stable vital signs. He appears clinically dry. He is noted to have a subtle tremor of bilateral upper extremities but will open eyes to command and does track staff within the room. He is nonverbal which appears to be his baseline per documentation. WBC, H/H and platelets within normal limits. Chemistry without metabolic acidosis. Creatinine 1.69 increased from recent though within prior range of values. Lactic acid 2.9 likely related to the patient's dehydration improved to 2.4. Electrolytes and LFTs without significant abnormality. High-sensitivity troponin 49.8, nonspecific. Procalcitonin is not elevated. Covid-19 RNA, NAAT negative. UA is suspicious for infection. The patient was treated with ceftriaxone yesterday. He was given repeat dose today as well as total 30cc/kg NSS (including EMS). CT of the head negative for acute process. CT of the abdomen pelvis demonstrates findings consistent with prostamegaly/chronic bladder outlet obstruction with evidence of superimposed cystitis. Urinary bladder calculi are noted. Moderate fecal retention is seen. Given the patient's clinical status appears to be worse in the setting of urinary tract infection and possible sepsis, will admit for further management. Case was discussed with Marcie Holguin with Dr. Beaver, [facility] hospitalist, who will evaluate the patient for admission. Triage Nursing notes reviewed and agree them. Prior medical records reviewed Vital Signs: reviewed and remarkable for no significant abnormalities Differential diagnosis: Infection, dehydration, metabolic abnormality, hypo/hyperglycemia, electrolyte disturbance, anemia, hypoxia, cardiac sources, intracerebral event, toxicologic, neurologic, as well as other pathologies. ER treatment provided: See below. Diagnostics interpreted by me: ECG: Sinus rhythm with PACs, 83 bpm, left bundle branch block, no sgarbossa criteria, QTC 533, QRS 124. Similar to prior. Cardiac Monitoring: An order for continuous cardiac monitoring was placed and demonstrated Laboratory studies: See below Imaging studies: See below Consultation(s): Marcie Holguin PAC with Dr. Beaver [facility] hospitalist HPI: The patient is a 89-year-old gentleman with a past medical history of severe dementia who presents to the emergency department from his correction facility at [facility] for evaluation of concern for seizure- like activity this morning in the setting of being seen in the emergency from yesterday and diagnosed with a urinary tract infection. Per staff who reported to EMS they found the patient shaking for several minutes and was with an altered mental status. Of note, the patient appears to have poor baseline mental status where he is nonverbal in setting of his dementia. EMS reported that his blood pressure was hypotensive with systolic blood pressure in the 80s. He received some IV fluid hydration before arrival. The patient is a poor historian. ROS: See above HPI for pertinent positives & negatives. A total of 10 systems reviewed and were otherwise negative. VITALS:See Below PHYSICAL EXAMINATION: GENERAL: Awake, alert, chronically ill-appearing, in no distress HENT: Normocephalic, atraumatic. Oropharynx with dry mucous membranes and otherwise unremarkable. EYES: Normal conjunctiva. Sclera non-icteric. NECK: Supple. No nuchal rigidity. FROM. No JVD. RESPIRATORY: Clear to auscultation. CARDIAC: Regular rate, normal rhythm. Extremities warm and well perfused. Pulses equal. ABDOMEN: Soft, non-distended. No tenderness to palpation. No rebound or guarding. No masses. RECTAL: Deferred. MUSCULOSKELETAL: Chest examination reveals no tenderness. The back is symm etrical on inspection without obvious abnormality. There is no CVA tenderness to palpation. No joint edema. LOWER EXTREMITIES: Calves are equal size bilaterally and non-tender. No edema. No discoloration. NEURO: Nonverbal. Alert to name. Opens eyes to commands. Mild tremulousness that resolves upon application of warm blankets. SKIN: No rash or jaundice noted. ED COURSE: Critical Care: I have personally spent greater than 35 minutes of critical care time in the direct management of this patient. This includes bedside care, interpretation of diagnostic studies, and testing, discussion with consultants, patient, and family members, and other required patient management activities. This 35 minutes is in excess of all separately billable procedures. Fam Brooks MD Past Med/Surg History Medical History Acute UTI (urinary tract infection) VAISHNAVI (acute kidney injury) Altered mental status Alzheimer's dementia AMS (altered mental status) Benign essential hypertension CAD (coronary artery disease) Dehydration Dyslipidemia Fever Heart attack Hypertension Influenza A LBBB (left bundle branch block) Respiratory distress Right lower lobe pneumonia Syncope Tachypnea Surgical History History of colonoscopy History of hernia repair History of vasectomy Hx of total knee arthroplasty Family History Father , age 73 stroke and [place] Myocardial infarction Stroke Mother , age 73 parkinson's Parkinsons disease Brother Prostate cancer Unknown Heart disease Hypertension Liver cancer Lung cancer Osteoarthritis Social History Smoking Status: Never smoker Second Hand Exposure: No; Hx Alcohol Use: No Hx Substance Use: No Preferred Language: Syrian Communication Ability: Impaired Communication Ability Comment: patient with dementia, not oriented Sack Maker Required: No Beliefs That Will Affect Care: None marital status: / Current Living Situation: [facility] Current Living Situation Comment: [facility] residence current occupational status: retired How many Children do You have: 6 Feels Safe at Home: Yes Safety Concerns: Feels Safe At This Time Assistive Devices: Wheelchair Allergies Allergies Allergy/AdvReac Type Severity Reaction Status Date / Time hydrochlorothiazide Allergy Unknown UNKNOWN Verified 12/10/21 14:59 Penicillins Allergy Unknown ? UNKNOWN Verified 12/10/21 14:59 Sulfa (Sulfonamide Allergy Unknown ITCHINESS, Verified 12/10/21 14:59 Antibiotics) RED SKIN oxycodone AdvReac Intermediate CONSTIPATION, Verified 12/10/21 14:59 MALAISE Home Meds Home Medications Medication Instructions Recorded Confirmed acetaminophen 325 mg tablet 325 mg PO Q4 PRN Fever Or Pain 04/26/20 12/10/21 aspirin 81 mg tablet,delayed 81 mg PO QAM 04/26/20 12/10/21 release (Sarah Low Dose Aspirin) tramadol 50 mg tablet 50 mg PO Q6H PRN moderate - severe 04/26/20 12/10/21 pain [id number] acid 0.4 1 tab PO QAM 09/02/20 12/10/21 mg-lycopene 300 mcg-lutein 250 mcg tablet (Centrum Silver) sertraline 25 mg tablet 25 mg PO QAM 09/02/20 12/10/21 amlodipine 2.5 mg tablet 2.5 mg PO QAM 09/21/20 12/10/21 metoprolol succinate 25 mg 25 mg PO QAM 09/21/20 12/10/21 tablet,extended release 24 hr atorvastatin 20 mg tablet 20 mg PO QAM 10/03/20 12/10/21 donepezil 10 mg tablet (Aricept) 10 mg PO QAM 10/03/20 12/10/21 polyethylene glycol 3350 17 17 g PO 3XWK 01/19/21 12/10/21 gram/dose oral powder (Miralax) cefdinir 300 mg capsule 300 mg PO BID 12/10/21 12/10/21 food supplemt, lactose-reduced 1 ea PO TIDM 12/10/21 12/10/21 (Ensure) Previous Rx's Medication Instructions Recorded acetaminophen 650 mg 650 mg PO Q12H PRN Pain #90 tabs 05/10/19 tablet,extended release (Tylenol Arthritis Pain) memantine 10 mg tablet (Namenda) 10 mg PO BID 90 days #180 tabs 05/10/19 Results & Data (ED) Vital Signs Vital Signs - 24 hr 12/10/21 10:04 12/10/21 10:24 12/10/21 11:22 Temperature 36.5 C Temperature Source Axillary Pulse Rate 71 80 Pulse Rate [Apical] Pulse Rate from SpO2 Sensor Respiratory Rate 26 H Respiratory Effort / Characteristics Non-Labored Non-Labored Respiratory Depth Normal Blood Pressure 145/66 H Blood Pressure [Right Arm] Blood Pressure Mean 92 Blood Pressure Mean [Right Arm] Blood Pressure Position Sitting Pulse Oximetry 96 95 Oxygen Delivery Method Room Air Room Air Sepsis Recent Fever Within 48 Hours No Sepsis New/Unexplained Change in Mental Status Yes Sepsis Action Taken by Nursing Physician Notified 12/10/21 11:22 12/10/21 11:24 12/10/21 12:14 Temperature Temperature Source Pulse Rate Pulse Rate [Apical] 77 Pulse Rate from SpO2 Sensor Respiratory Rate 18 Respiratory Effort / Characteristics Non-Labored Respiratory Depth Blood Pressure Blood Pressure [Right Arm] 165/75 H Blood Pressure Mean Blood Pressure Mean [Right Arm] 105 Blood Pressure Position Pulse Oximetry 98 Oxygen Delivery Method Room Air Sepsis Recent Fever Within 48 Hours Sepsis New/Unexplained Change in Mental Status Sepsis Action Taken by Nursing 12/10/21 12:09 12/10/21 12:09 12/10/21 12:10 Temperature Temperature Source Pulse Rate 92 H Pulse Rate [Apical] Pulse Rate from SpO2 Sensor Respiratory Rate 22 Respiratory Effort / Characteristics Respiratory Depth Blood Pressure 174/83 H Blood Pressure [Right Arm] Blood Pressure Mean 113 Blood Pressure Mean [Right Arm] Blood Pressure Position Pulse Oximetry 99 Oxygen Delivery Method Room Air Sepsis Recent Fever Within 48 Hours Sepsis New/Unexplained Change in Mental Status Sepsis Action Taken by Nursing 12/10/21 12:31 12/10/21 12:31 12/10/21 12:54 Temperature Temperature Source Pulse Rate 82 Pulse Rate [Apical] Pulse Rate from SpO2 Sensor Respiratory Rate 17 Respiratory Effort / Characteristics Non-Labored Respiratory Depth Blood Pressure 127/55 L Blood Pressure [Right Arm] Blood Pressure Mean 79 Blood Pressure Mean [Right Arm] Blood Pressure Position Pulse Oximetry 96 Oxygen Delivery Method Room Air Sepsis Recent Fever Within 48 Hours Sepsis New/Unexplained Change in Mental Status Sepsis Action Taken by Nursing 12/10/21 13:00 12/10/21 13:49 12/10/21 13:50 Temperature 37.1 C Temperature Source Oral Pulse Rate 77 Pulse Rate [Apical] Pulse Rate from SpO2 Sensor 77 Respiratory Rate 16 Respiratory Effort / Characteristics Non-Labored Respiratory Depth Blood Pressure 136/54 L Blood Pressure [Right Arm] Blood Pressure Mean 81 Blood Pressure Mean [Right Arm] Blood Pressure Position Pulse Oximetry 98 Oxygen Delivery Method Sepsis Recent Fever Within 48 Hours Sepsis New/Unexplained Change in Mental Status Sepsis Action Taken by Nursing 12/10/21 13:30 12/10/21 13:30 12/10/21 14:00 Temperature Temperature Source Pulse Rate 77 Pulse Rate [Apical] Pulse Rate from SpO2 Sensor Respiratory Rate 18 Respiratory Effort / Characteristics Respiratory Depth Blood Pressure 119/58 L 134/85 Blood Pressure [Right Arm] Blood Pressure Mean 78 101 Blood Pressure Mean [Right Arm] Blood Pressure Position Pulse Oximetry 100 Oxygen Delivery Method Sepsis Recent Fever Within 48 Hours Sepsis New/Unexplained Change in Mental Status Sepsis Action Taken by Nursing 12/10/21 14:00 Temperature Temperature Source Pulse Rate 75 Pulse Rate [Apical] Pulse Rate from SpO2 Sensor Respiratory Rate 20 Respiratory Effort / Characteristics Respiratory Depth Blood Pressure Blood Pressure [Right Arm] Blood Pressure Mean Blood Pressure Mean [Right Arm] Blood Pressure Position Pulse Oximetry 100 Oxygen Delivery Method Sepsis Recent Fever Within 48 Hours Sepsis New/Unexplained Change in Mental Status Sepsis Action Taken by Nursing Laboratory Data Attestation: I reviewed the patient's lab results. Result diagrams: 12/10/21 10:15 12/10/21 10:15 Lab Results 12/10/21 12/10/21 12/10/21 Range/Units 10:15 10:15 10:15 WBC 8.75 (4.8-10.8) K/ul RBC 4.97 (4.63-6.08) M/uL Hgb 15.1 (14.0-18.0) g/dl Hct 46.4 (40.1-51.0) % MCV 93.4 (80.0-100.0) fL MCH 30.4 (25.0-34.0) pg MCHC 32.5 (32.0-36.0) g/dL RDW Std Deviation 45.5 (36.4-46.3) fL RDW Coeff of Danii 13.3 (11.5-14.5) % Plt Count 263 (130-400) K/uL MPV 10.6 (9.4-12.4) fL Immature Gran % (Auto) 0.3 % Neut % (Auto) 55.7 % Lymph % (Auto) 23.9 % Bibb % (Auto) 14.7 % Eos % (Auto) 4.3 % Baso % (Auto) 1.1 % Neut # (Auto) 4.86 (1.4-6.5) K/uL Lymph # (Auto) 2.09 (1.2-3.4) K/uL Bibb # (Auto) 1.29 H (0.24-0.82) K/uL Eos # (Auto) 0.38 (0-0.50) K/uL Baso # (Auto) 0.10 (0-0.2) K/uL Immature Gran # (Auto) 0.03 H (0.00-0.02) K/uL PT 11.4 (9.0-12.0) Seconds INR 1.1 (0.9-1.1) APTT 24.7 (21.0-31.0) Seconds PTT Ratio 0.9 Sodium 141 (136-145) mmol/L Potassium 3.9 (3.5-5.1) mmol/L Chloride 107 (98-107) mmol/L Carbon Dioxide 24 (21-32) mmol/L Anion Gap 10 (3-11) BUN 28 H (6-23) mg/dl Creatinine 1.69 H (0.6-1.4) mg/dl Est Cr Clr Drug Dosing 33.5 ml/min Est GFR ( Amer) 40.8 ml/min Est GFR (Non-Af Amer) 35.2 ml/min BUN/Creatinine Ratio 16.6 (10-20) Glucose 124 H (70-99(Fasting)) mg/dl Lactate (0.4-2.0) mmol/L Calcium 9.1 (8.5-10.1) mg/dl Phosphorus 3.0 (2.5-4.9) mg/dl Magnesium 2.2 (1.7-2.4) mg/dl Total Bilirubin 0.5 (0.2-1.0) mg/dl AST 23 (13-39) U/L ALT 32 (7-52) U/L Alkaline Phosphatase 87 (34-104) U/L Troponin I High Sens 49.8 H D (0-20) pg/ml Total Protein 7.2 (6.0-8.3) gm/dl Albumin 3.4 (3.4-5.0) gm/dl Globulin 3.8 (2.5-4.0) gm/dl Albumin/Globulin Ratio 0.9 (0.9-2) Procalcitonin (0-0.5) ng/ml Urine Color Urine Appearance (Clear) Urine pH (4.5-7.5) Ur Specific [place] (1.000-1.030) Urine Protein (Negative) Urine Glucose (UA) (Negative) Urine Ketones (Negative) Urine Blood (Negative) Urine Nitrite (Negative) Urine Bilirubin (Negative) Urine Urobilinogen (Negative) Ur Leukocyte Esterase (Negative) Urine RBC (0-4) /hpf Urine WBC (0-5) /hpf Ur Epithelial Cells (0-5) /lpf Urine Bacteria (Negative) SARS-CoV-2, RNA, NAAT (NEGATIVE) 12/10/21 12/10/21 12/10/21 Range/Units 10:15 11:31 12:07 WBC (4.8-10.8) K/ul RBC (4.63-6.08) M/uL Hgb (14.0-18.0) g/dl Hct (40.1-51.0) % MCV (80.0-100.0) fL MCH (25.0-34.0) pg MCHC (32.0-36.0) g/dL RDW Std Deviation (36.4-46.3) fL RDW Coeff of Danii (11.5-14.5) % Plt Count (130-400) K/uL MPV (9.4-12.4) fL Immature Gran % (Auto) % Neut % (Auto) % Lymph % (Auto) % Bibb % (Auto) % Eos % (Auto) % Baso % (Auto) % Neut # (Auto) (1.4-6.5) K/uL Lymph # (Auto) (1.2-3.4) K/uL Bibb # (Auto) (0.24-0.82) K/uL Eos # (Auto) (0-0.50) K/uL Baso # (Auto) (0-0.2) K/uL Immature Gran # (Auto) (0.00-0.02) K/uL PT (9.0-12.0) Seconds INR (0.9-1.1) APTT (21.0-31.0) Seconds PTT Ratio Sodium (136-145) mmol/L Potassium (3.5-5.1) mmol/L Chloride (98-107) mmol/L Carbon Dioxide (21-32) mmol/L Anion Gap (3-11) BUN (6-23) mg/dl Creatinine (0.6-1.4) mg/dl Est Cr Clr Drug Dosing ml/min Est GFR ( Amer) ml/min Est GFR (Non-Af Amer) ml/min BUN/Creatinine Ratio (10-20) Glucose (70-99(Fasting)) mg/dl Lactate 2.9 H* (0.4-2.0) mmol/L Calcium (8.5-10.1) mg/dl Phosphorus (2.5-4.9) mg/dl Magnesium (1.7-2.4) mg/dl Total Bilirubin (0.2-1.0) mg/dl AST (13-39) U/L ALT (7-52) U/L Alkaline Phosphatase (34-104) U/L Troponin I High Sens (0-20) pg/ml Total Protein (6.0-8.3) gm/dl Albumin (3.4-5.0) gm/dl Globulin (2.5-4.0) gm/dl Albumin/Globulin Ratio (0.9-2) Procalcitonin 0.05 (0-0.5) ng/ml Urine Color Red Urine Appearance Turbid A (Clear) Urine pH 7.0 (4.5-7.5) Ur Specific [place] 1.020 (1.000-1.030) Urine Protein 3+ H (Negative) Urine Glucose (UA) Negative (Negative) Urine Ketones Negative (Negative) Urine Blood 3+ H (Negative) Urine Nitrite Negative (Negative) Urine Bilirubin Negative (Negative) Urine Urobilinogen Negative (Negative) Ur Leukocyte Esterase 1+ H (Negative) Urine RBC >30 H (0-4) /hpf Urine WBC >30 H (0-5) /hpf Ur Epithelial Cells 0-5 (0-5) /lpf Urine Bacteria Negative (Negative) SARS-CoV-2, RNA, NAAT (NEGATIVE) 12/10/21 Range/Units 13:50 WBC (4.8-10.8) K/ul RBC (4.63-6.08) M/uL Hgb (14.0-18.0) g/dl Hct (40.1-51.0) % MCV (80.0-100.0) fL MCH (25.0-34.0) pg MCHC (32.0-36.0) g/dL RDW Std Deviation (36.4-46.3) fL RDW Coeff of Danii (11.5-14.5) % Plt Count (130-400) K/uL MPV (9.4-12.4) fL Immature Gran % (Auto) % Neut % (Auto) % Lymph % (Auto) % Bibb % (Auto) % Eos % (Auto) % Baso % (Auto) % Neut # (Auto) (1.4-6.5) K/uL Lymph # (Auto) (1.2-3.4) K/uL Bibb # (Auto) (0.24-0.82) K/uL Eos # (Auto) (0-0.50) K/uL Baso # (Auto) (0-0.2) K/uL Immature Gran # (Auto) (0.00-0.02) K/uL PT (9.0-12.0) Seconds INR (0.9-1.1) APTT (21.0-31.0) Seconds PTT Ratio Sodium (136-145) mmol/L Potassium (3.5-5.1) mmol/L Chloride (98-107) mmol/L Carbon Dioxide (21-32) mmol/L Anion Gap (3-11) BUN (6-23) mg/dl Creatinine (0.6-1.4) mg/dl Est Cr Clr Drug Dosing ml/min Est GFR ( Amer) ml/min Est GFR (Non-Af Amer) ml/min BUN/Creatinine Ratio (10-20) Glucose (70-99(Fasting)) mg/dl Lactate (0.4-2.0) mmol/L Calcium (8.5-10.1) mg/dl Phosphorus (2.5-4.9) mg/dl Magnesium (1.7-2.4) mg/dl Total Bilirubin (0.2-1.0) mg/dl AST (13-39) U/L ALT (7-52) U/L Alkaline Phosphatase (34-104) U/L Troponin I High Sens (0-20) pg/ml Total Protein (6.0-8.3) gm/dl Albumin (3.4-5.0) gm/dl Globulin (2.5-4.0) gm/dl Albumin/Globulin Ratio (0.9-2) Procalcitonin (0-0.5) ng/ml Urine Color Urine Appearance (Clear) Urine pH (4.5-7.5) Ur Specific [place] (1.000-1.030) Urine Protein (Negative) Urine Glucose (UA) (Negative) Urine Ketones (Negative) Urine Blood (Negative) Urine Nitrite (Negative) Urine Bilirubin (Negative) Urine Urobilinogen (Negative) Ur Leukocyte Esterase (Negative) Urine RBC (0-4) /hpf Urine WBC (0-5) /hpf Ur Epithelial Cells (0-5) /lpf Urine Bacteria (Negative) SARS-CoV-2, RNA, NAAT NEGATIVE (NEGATIVE) Administered Medications Heparin Sodium (Porcine) (Heparin Sod 5,000 Unit/0.5 Ml Vial) 5,000 units SQ Q8 DIPESH Stop: 01/09/22 21:59 Last Admin: 12/10/21 21:19 Dose: 5,000 units Documented By: YVETTE Memantine (Memantine Hcl 10 Mg Tab) 10 mg PO BID DIPESH Stop: 01/09/22 20:59 Last Admin: 12/10/21 21:19 Dose: 10 mg Documented By: YVETTE Discontinued Medications Sodium Chloride (Nss 1000ml) 1,000 mls @ 999 mls/hr IV .Q1H1M ONE Stop: 12/10/21 11:09 Last Infusion: 12/10/21 11:32 Dose: 0 mls/hr Documented By: Admin: 12/10/21 10:32 Dose: 999 mls/hr Documented By: GRACE Sodium Chloride (Nss 1000ml) 1,000 mls @ 999 mls/hr IV .Q1H1M ONE Stop: 12/10/21 11:17 Last Infusion: 12/10/21 12:30 Dose: 0 mls/hr Documented By: Admin: 12/10/21 11:40 Dose: 999 mls/hr Documented By: DEEP Ceftriaxone Sodium (Rocephin) 2,000 mg in 70 mls @ 140 mls/hr IV NOW STA Stop: 12/10/21 13:55 Last Infusion: 12/10/21 14:20 Dose: 0 mls/hr Documented By: Admin: 12/10/21 13:50 Dose: 140 mls/hr Documented By: DEEP Sodium Chloride (Nss) 500 mls @ 500 mls/hr IV .Q1H DIPESH Stop: 12/10/21 18:44 Last Infusion: 12/10/21 18:53 Dose: 0 mls/hr Documented By: Admin: 12/10/21 17:53 Dose: 500 mls/hr Documented By: JAK Ioversol (Optiray 320 100ml) 95 ml IV ONCE ONE Stop: 12/10/21 11:06 Last Admin: 12/10/21 10:54 Dose: 95 ml Documented By: SIN Senna/Docusate Sodium (Docusate Sodium/Senna 50/8.6mg Tab) 1 tab PO ONE ONE Stop: 12/10/21 16:16 Last Admin: 12/10/21 17:35 Dose: Not Given Documented By: JAK Imaging Data Radiologist's Impression: Abdomen/Pelvis CT 12/10/21 10:[address] WITH IV CONTRAST HISTORY: Acute seizure like activity with urinary tract infection and sepsis uti, ?sepsis TECHNIQUE: Multiaxial CT images of the abdomen and pelvis were performed following the IV administration of 95 cc of Optiray, A dose lowering technique was utilized adhering to the principles of ALARA. COMPARISON STUDY: Chest CT 10/04/2021, CT abdomen and pelvis 03/25/2011 FINDINGS: The imaged inferior cardiac chambers are mildly enlarged. Coronary artery calcifications. Subsegmental bibasilar atelectasis/scarring. No pneumatosis or pneumoperitoneum. The study is limited secondary to upper extremity positioning and respiratory motion artifact. Unremarkable spleen, mildly atrophic pancreas, gallbladder and adrenal glands. There are a few indete rminate subcentimeter hypodensities noted within the liver which are too small to characterize and are favored to be benign. Patency of the hepatic and portal veins. Mild cortical thinning of the kidneys. Cysts of the right kidney measure up to 3.2 x 6.6 cm. Symmetric enhancement of the kidneys without hydronephrosis. Prostamegaly with a few urinary bladder calculi measuring up to 8 mm. Mucosal hyperemia of the urinary bladder with circumferential wall thickening, trabe culations and perivesicular stranding. Urinary bladder diverticula measure up to approximately 2.2 cm. Atherosclerosis of the aorta without aneurysm. No lymphadenopathy. Distended debris-filled stomach suggestive of recent meal. No bowel obstruction. There is moderate fecal retention of the rectum. Colonic diverticulosis. Noninflamed appendix. Unremarkable soft tissues. No acute fracture or destructive bone lesion. Small fat filled periumbilical hernia. IMPRESSION: 1. Prostamegaly with findings of chronic bladder outlet obstruction. There are findings suggestive of superimposed cystitis. Correlate with urinalysis. 2. Urinary bladder calculi. 3. Moderate rectal fecal retention. 4. Colonic diverticulosis. 5. Additional findings as above. ACT 112: Negative or not required by law. The above report was generated using voice recognition software. It may contain grammatical, syntax or spelling errors. Electronically signed by: Juan M Campos M.D. 12/10/2021 11:[address] 12/10/21 10:10 CT OF THE HEAD WITHOUT CONTRAST CLINICAL HISTORY: Altered mental status. COMPARISON STUDY: Head CT December 01, 2021. CT DOSE: 1365.17 mGy.cm TECHNIQUE: Helical axial images of the head were obtained without IV contrast. Automated exposure control was utilized for the study. A dose lowering technique was utilized adhering to the principles of ALARA. FINDINGS: No acute intracranial hemorrhage, midline shift or mass effect is pr esent. White matter hypodensities are unchanged and suggest small vessel disease. Ventricular dilatation is again noted and probably related to atrophy. The basal cisterns are patent. No extra-axial collections are present. There are no findings to suggest acute dural sinus thrombosis or acute territorial infarct. No significant calvarial abnormalities are present. Visualized portions of the sinuses and mastoid air cells are clear. IMPRESSION: No acute intracranial findings. No change in appearance of the brain. ACT 112: Negative or not required by law. Electronically signed by: Guillaume Irwin M.D. 12/10/2021 11:11 AM Discharge Plan Visit Data Chief Complaint: Illness Stated Complaint: seizure ED Provider: Fam Brooks Discharge Problem: Acute UTI (urinary tract infection), Alzheimer's dementia, Sepsis, Elevated tro ponin Patient Disposition: Admitted As Inpatient Discharge Instructions Interventions: ED Discharge Assessment Last Done: 12/10/21 15:03
--- NOTE | 2021-12-10 14:11 | History & Physical Report ---
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 Tachycardia has resolved as well Lactate 2.9 -->2.4. Continue to trend Procalcitonin normal UA abnomal. Continue empiric Rocephin Follow urine, blood culture Concern for seizure Per son, tremor is baseline for patient. No focal deficits or seizure activity. Does not appear post-ical. Likely a encephalopathic picture in setting of sepsis CT without acute intracranial abnormality Expect improvement with IV fluids and antibiotics. A&O to person only at baseline And sitter neurology consult if mentation does not improve Acute kidney injury Creatinine elevated at 1.69 in setting of urosepsis Baseline creatinine 1.1-1.3 Avoiding nephrotoxic agents Daily BMP Elevated troponin In setting of sepsis, HS troponin 49.8 Repeat trop pending ECG with SR with PACs, LAD and LBBB which is unchanged from prior Repeat ECG in AM Alzheimer's dementia Continue Aricept, Namenda CAD Continue aspirin, statin, Toprol Mood disorder Continue Zoloft DVT Ppx: SQ heparin Code status: DNR/DNI per paperwork, discussion with son PCP: Anay Dispo: Med tele Patient seen in collaboration with Dr. Beaver. Please see addendum. Son Juan R would like updates. 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 Patient was diagnosed with a UTI yesterday in ED and given a dose of Rocephin. Was discharged on Omnicef. Per staff, there was concern for possible seizure-like activity given worsening confusion and some tremoring. Systolic blood pressure was in the 80s and patient was sent to ED for further evaluation. Was given IV fluids prior to arrival and an additional 2 L normal saline in ED. Per conversation with son, patient is oriented to person at baseline but not to place or time. Does have a tremor of bilateral upper extremities at baseline. Is wheelchair-bound and requires help with transfer. Confirmed CODE STATUS is DO NOT RESUSCITATE. Son feels that patient is more confused than usual. Patient is a poor historian stating, "you kids get out of here" to ROS questions. Allergies Allergy/AdvReac Type Severity Reaction Status Date / Time hydrochlorothiazide Allergy Unknown UNKNOWN Verified 12/10/21 14:59 Penicillins Allergy Unknown ? UNKNOWN Verified 12/10/21 14:59 Sulfa (Sulfonamide Allergy Unknown ITCHINESS, Verified 12/10/21 14:59 Antibiotics) RED SKIN oxycodone AdvReac Intermediate CONSTIPATION, Verified 12/10/21 14:59 MALAISE Home Medications Medication Instructions Recorded Confirmed Type acetaminophen 650 mg 650 mg PO Q12H PRN Pain #90 tabs 05/10/19 12/10/21 Rx tablet,extended release (Tylenol Arthritis Pain) memantine 10 mg tablet (Namenda) 10 mg PO BID 90 days #180 tabs 05/10/19 12/10/21 Rx acetaminophen 325 mg tablet 325 mg PO Q4 PRN Fever Or Pain 04/26/20 12/10/21 History aspirin 81 mg tablet,delayed 81 mg PO QAM 04/26/20 12/10/21 History release (Sarah Low Dose Aspirin) tramadol 50 mg tablet 50 mg PO Q6H PRN moderate - severe 04/26/20 12/10/21 History pain [id number] acid 0.4 1 tab PO QAM 09/02/20 12/10/21 History mg-lycopene 300 mcg-lutein 250 mcg tablet (Centrum Silver) sertraline 25 mg tablet 25 mg PO QAM 09/02/20 12/10/21 History amlodipine 2.5 mg tablet 2.5 mg PO QAM 09/21/20 12/10/21 History metoprolol succinate 25 mg 25 mg PO QAM 09/21/20 12/10/21 History tablet,extended release 24 hr atorvastatin 20 mg tablet 20 mg PO QAM 10/03/20 12/10/21 History donepezil 10 mg tablet (Aricept) 10 mg PO QAM 10/03/20 12/10/21 History polyethylene glycol 3350 17 17 g PO 3XWK 01/19/21 12/10/21 History gram/dose oral powder (Miralax) cefdinir 300 mg capsule 300 mg PO BID 12/10/21 12/10/21 History food supplemt, lactose-reduced 1 ea PO TIDM 12/10/21 12/10/21 History (Ensure) Past Med/Surg History Medical History (Updated 12/10/21 @ 15:37 by Lo Hartmann PA-C) Acute UTI (urinary tract infection) VAISHNAVI (acute kidney injury) Altered mental status Alzheimer's dementia AMS (altered mental status) Benign essential hypertension CAD (coronary artery disease) Dehydration Dyslipidemia Fever Heart attack Hypertension Influenza A LBBB (left bundle branch block) Respiratory distress Right lower lobe pneumonia Syncope Tachypnea Surgical History History of colonoscopy History of hernia repair History of vasectomy Hx of total knee arthroplasty Family History Father , age 73 stroke and MD Myocardial infarction Stroke Mother , age 73 parkinson's Parkinsons disease Brother Prostate cancer Unknown Heart disease Hypertension Liver cancer Lung cancer Osteoarthritis Social History Smoking Status: Unknown if ever smoked Second Hand Exposure: No; Hx Substance Use: No Preferred Language: Pashto Communication Ability: Impaired 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 Required: No Beliefs That Will Affect Care: None marital status: / Current Living Situation: Senior Care Current Living Situation Comment: [facility] residence current occupational status: retired How many Children do You have: 6 Feels Safe at Home: Yes Assistive Devices: Hospital Bed and Wheelchair Review of Systems Review of Systems: Unobtainable due to cognitive status Physical Exam Physical Exam: General Appearance: WD/WN, vitals as above, NAD, sitting up in bed, appears chronically ill, confused with intermittent agitation, able to follow commands Head: normocephalic, atraumatic Eyes: normal inspection, PERRL, conjunctivae normal, anicteric sclerae ENT: external ear and nose normal, oropharynx normal Neck: normal visual inspection, trachea midline, no thyromegaly Respiratory: normal respiratory effort, lungs clear to auscultation, no wheeze, rales, rhonchi. No accessory muscle use Cardiovascular: regular rate, rhythm, no murmur, normal peripheral pulses, no BLE edema. Vessels: no JVD Chest: normal inspection of chest Abdomen/GI: normal bowel sounds, soft, nontender, no hepatosplenomegaly Extremities/Musculoskeletal: no cyanosis or clubbing, extremities motor strength 5/5 Neurologic: PERRL, EOMI, accommodation nl, no face palsy, no dysarthria, CN's II-XI intact bilaterally and moves all extremities spontaneously Psychiatric: Alert but not oriented to person, place or time Skin: no rashes, normal color, warm/dry Results & Data Results & Data ([facility]) Vital Signs (Past 12 Hours) Vital Signs Temp Pulse Pulse Resp BP BP Pulse Ox 12/10/21 13:30 77 18 100 12/10/21 13:30 119/58 L 12/10/21 13:50 37.1 C 12/10/21 13:00 77 16 136/54 L 98 12/10/21 12:31 127/55 L 12/10/21 12:31 82 17 96 12/10/21 12:10 92 H 12/10/21 12:09 22 99 12/10/21 12:09 174/83 H 12/10/21 11:24 165/75 H 12/10/21 11:22 77 18 98 12/10/21 10:24 80 95 12/10/21 10:04 36.5 C 71 26 H 145/66 H 96 O2 Del Method 12/10/21 13:30 12/10/21 13:30 12/10/21 13:50 12/10/21 13:00 12/10/21 12:31 12/10/21 12:31 Room Air 12/10/21 12:10 12/10/21 12:09 Room Air 12/10/21 12:09 12/10/21 11:24 12/10/21 11:22 Room Air 12/10/21 10:24 Room Air 12/10/21 10:04 Room Air Laboratory Results Short CBC 12/10/21 Range/Units 10:15 WBC 8.75 (4.8-10.8) K/ul Hgb 15.1 (14.0-18.0) g/dl Hct 46.4 (40.1-51.0) % Plt Count 263 (130-400) K/uL BMP 12/10/21 10:15 Sodium 141 Potassium 3.9 Chloride 107 Carbon Dioxide 24 BUN 28 H Creatinine 1.69 H Glucose 124 H Calcium 9.1 Liver Function 12/10/21 Range/Units 10:15 Total Bilirubin 0.5 (0.2-1.0) mg/dl AST 23 (13-39) U/L ALT 32 (7-52) U/L Alkaline Phosphatase 87 (34-104) U/L Albumin 3.4 (3.4-5.0) gm/dl Urine 12/10/21 Range/Units 12:07 Urine Color Red Urine Appearance Turbid A (Clear) Urine pH 7.0 (4.5-7.5) Ur Specific [place] 1.020 (1.000-1.030) Urine Protein 3+ H (Negative) Urine Glucose (UA) Negative (Negative) Diagnostic Findings Chest X-Ray 12/10/21 10:09 XR chest 1V portable CLINICAL HISTORY: SEPSIS COMPARISON STUDY: Chest CT October 04, 2021. Chest radiograph October 05, 2021. FINDINGS: Lung volumes are normal. Airspace opacities and interstitial thickening shown on prior exam have resolved. There is no pneumothorax or pleural effusion. There is mild cardiomegaly. Mediastinal contours are normal. There is no evidence for pulmonary edema. Nodular density projecting over the right mid lung likely corresponds to a stable pleural nodule/plaque shown on prior CT. IMPRESSION: No acute cardiopulmonary findings. ACT 112: Negative or not required by law. Electronically signed by: Guillaume Irwin M.D. 12/10/2021 10:34 AM Abdomen/Pelvis CT 12/10/21 10:[address] WITH IV CONTRAST HISTORY: Acute seizure like activity with urinary tract infection and sepsis uti, ?sepsis TECHNIQUE: Multiaxial CT images of the abdomen and pelvis were performed following the IV administration of 95 cc of Optiray, A dose lowering technique was utilized adhering to the principles of ALARA. COMPARISON STUDY: Chest CT 10/04/2021, CT abdomen and pelvis 03/25/2011 FINDINGS: The imaged inferior cardiac chambers are mildly enlarged. Coronary artery calcifications. Subsegmental bibasilar atelectasis/scarring. No pneumatosis or pneumoperitoneum. The study is limited secondary to upper extremity positioning and respiratory motion artifact. Unremarkable spleen, mildly atrophic pancreas, gallbladder and adrenal glands. There are a few indeterminate subcentimeter hypodensities noted within the liver which are too small to characterize and are favored to be benign. Patency of the hepatic and portal veins. Mild cortical thinning of the kidneys. Cysts of the right kidney measure up to 3.2 x 6.6 cm. Symmetric enhancement of the kidneys without hydronephrosis. Prostamegaly with a few urinary bladder calculi measuring up to 8 mm. Mucosal hyperemia of the urinary bladder with circumferential wall thickening, trabeculations and perivesicular stranding. Urinary bladder diverticula measure up to approximately 2.2 cm. Atherosclerosis of the aorta without aneurysm. No lymphadenopathy. Distended debris-filled stomach suggestive of recent meal. No bowel obstruction. There is moderate fecal retention of the rectum. Colonic diverticulosis. Noninflamed appendix. Unremarkable soft tissues. No acute fracture or destructive bone lesion. Small fat filled periumbilical hernia. IMPRESSION: 1. Prostamegaly with findings of chronic bladder outlet obstruction. There are findings suggestive of superimposed cystitis. Correlate with urinalysis. 2. Urinary bladder calculi. 3. Moderate rectal fecal retention. 4. Colonic diverticulosis. 5. Additional findings as above. ACT 112: Negative or not required by law. The above report was generated using voice recognition software. It may contain grammatical, syntax or spelling errors. Electronically signed by: Juan M Campos M.D. 12/10/2021 11:[address] 12/10/21 10:10 CT OF THE HEAD WITHOUT CONTRAST CLINICAL HISTORY: Altered mental status. COMPARISON STUDY: Head CT December 01, 2021. CT DOSE: 1365.17 mGy.cm TECHNIQUE: Helical axial images of the head were obtained without IV contrast. Automated exposure control was utilized for the study. A dose lowering technique was utilized adhering to the principles of ALARA. FINDINGS: No acute intracranial hemorrhage, midline shift or mass effect is present. White matter hypodensities are unchanged and suggest small vessel disease. Ventricular dilatation is again noted and probably related to atrophy. The basal cisterns are patent. No extra-axial collections are present. There are no findings to suggest acute dural sinus thrombosis or acute territorial infarct. No significant calvarial abnormalities are present. Visualized portions of the sinuses and mastoid air cells are clear. IMPRESSION: No acute intracranial findings. No change in appearance of the brain. ACT 112: Negative or not required by law. Electronically signed by: Guillaume Irwin M.D. 12/10/2021 11:11 AM Code Status & VTE Plan VTE Prophylaxis Plan VTE Prophylaxis will be ordered: Yes Supervising Physician Co-Signing Physician Notes Pt is a 89 y/o M with hx of Alzheimers severe Dementia, HTN, CAD, carotid disease admitted for metabolic encephalopathy due to UTI PE: NAD, well developed Card: Normal S1/S2, no murmur Lungs: CTA, no wheezing or crackles Abd: ND, soft, NT MSK: no LE edema Psych: AAOx0, pt responds to verbal stimuli but not with appropriate answer A/P: Metabolic encephalopathy 2/2 UTI: -Will contact son to get baseline mental status - CT head: no acute finding - CT abd: Prostamegaly with findings of chronic bladder outlet obstruction. There are findings suggestive of superimposed cystitis -started pt on ceftriaxone -will send UCx and BCx -LA is elevated: likely 2/2 dehydration --- Currently receiving fluids ---- will obtain repeat LA -Cr is elevated --- trend BMP Elevated Trop: -pt did not appeared to be in any cardiac distress - EKG: NSR with LBBB --- LBBB is new but trop is lower compared to previous lab -trend trop - Echo from 09/2021: EF of 65-70% with no wall abnormalities Agree with A/P by Lo Hartmann PA-C (1) Sepsis Sepsis acute organ dysfunction status: without acute organ dysfunction Sepsis type: sepsis due to unspecified organism Qualified Code(s): A41.9 - Sepsis, unspecified organism
[2021-12-10] MEDS ORDERED: traMADol HCL 50 MG TABLET PO PRN (15:48)
[2021-12-10] MEDS ORDERED: ACETAMINOPHEN 325 MG TAB PO PRN ×2 (15:48→16:15)
[2021-12-10] MEDS ORDERED: DOCUSATE SODIUM/SENNA 50/8.6MG TAB PO ONE (16:15)
[2021-12-10] MEDS ORDERED: POLYETHYLENE (MIRALAX) 17 GM PACK PO PRN (16:15)
[2021-12-10] MEDS ORDERED: ONDANSETRON INJ 2 MG/ML 2 ML VIAL IV PRN (16:15)
[2021-12-10] MEDS ORDERED: NON-FORMULARY MEDICATION (Food Supplemt, Lactose-Reduced [Ensure] Liquid) PO SCH (17:00)
[2021-12-10] MEDS ORDERED: SODIUM CHLORIDE 0.9% 500 ML IV SCH (17:45)
[2021-12-10] MEDS: HEPARIN SOD 5,000 UNIT/0.5 ML VIAL SQ SCH (21:19)
[2021-12-10] MEDS: MEMANTINE HCL 10 MG TAB PO SCH (21:19)
[2021-12-11] MEDS: HEPARIN SOD 5,000 UNIT/0.5 ML VIAL SQ SCH ×3 (05:01→21:09)
[2021-12-11 06:19] LABS: BUN Creatinine Ratio 15.2 (10-20); Calcium 7.9 mg/dl (8.5-10.1); Creatinine Clr Calc Pharmacy 50.5 ml/min; Est GFR (African American) 67.1 ml/min; Est GFR (Non-African American) 57.9 ml/min; Potassium 3.9 mmol/L (3.5-5.1)
[2021-12-11 07:22] LABS: Hematocrit (blood only) 37.1 % (40.1-51.0); Hemoglobin 12.1 g/dl (14.0-18.0); Mean Corpuscular Hgb Conc 32.6 g/dL (32.0-36.0); Mean Corpuscular Volume 91.8 fL (80.0-100.0); Mean Platelet Volume 10.3 fL (9.4-12.4); Platelet Count 194 K/uL (130-400); RDW Coefficient of Variation 13.1 % (11.5-14.5); RDW Standard Deviation 43.8 fL (36.4-46.3); Red Blood Count 4.04 M/uL (4.63-6.08); White Blood Count 7.07 K/ul (4.8-10.8)
[2021-12-11] MEDS: SERTRALINE HCL 50 MG TABLET PO SCH (07:59)
[2021-12-11] MEDS: ASPIRIN 81 MG ECTAB PO SCH (07:59)
[2021-12-11] MEDS: amLODIPine BESYLATE 5 MG TAB PO SCH (07:59)
[2021-12-11] MEDS: CEROVITE ADV FORMULA TAB PO SCH (07:59)
[2021-12-11] MEDS: ATORVASTATIN 20 MG TAB PO SCH (07:59)
[2021-12-11] MEDS: METOPROLOL SUCC 25MG EXT REL TAB PO SCH (07:59)
[2021-12-11] MEDS: MEMANTINE HCL 10 MG TAB PO SCH ×2 (07:59→21:07)
[2021-12-11] MEDS ORDERED: cefTRIAXone SODIUM 1,000 MG in DEXTROSE 5% 50 ML IV SCH (09:00)
[2021-12-11] MEDS ORDERED: DONEPEZIL HCL 10 MG TAB PO SCH (09:00)
[2021-12-11] MEDS ORDERED: cefTRIAXone SODIUM 2,000 MG in DEXTROSE 5% 50 ML IV SCH (09:00)
[2021-12-11] MEDS ORDERED: POLYETHYLENE (MIRALAX) 17 GM PACK PO SCH (09:00)
--- NOTE | 2021-12-11 10:06 | Hospitalist Progress Note ---
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 Lactate 2.9 -->2.1. Procalcitonin normal UA abnomal. On empirical ceftriaxone Recent Urine cx from 12/09/21 growing enterococcus. In view of possible penicillin allergy, Abx changed to levofloxacin. Could not confirm this. Pharm could not also confirm with facility. Hold home aricept for now and monitor QTc Follow urine, blood cultures in lab from 12/10/21 Concern for seizure Per Admitting Provider who spoke with son, tremor is baseline for patient. No focal deficits or seizure activity. Likely a encephalopathic picture in setting of sepsis in a patient with dementia CT without acute intracranial abnormality A&O to person only at baseline Acute kidney injury VAISHNAVI on CKD3 Creatinine elevated at 1.69 in setting of urosepsis Baseline creatinine 1.1-1.3 Cr improved to 1.12 today Avoiding nephrotoxic agents Elevated troponin In setting of sepsis, HS troponin 49.8-->46 ECG with SR with PACs, LAD and LBBB which is unchanged from prior Possible due to demand ischemia in setting of infection and VAISHNAVI Alzheimer's dementia Continue Namenda Aricept on hold as above CAD Continue aspirin, statin, Toprol Mood disorder Continue Zoloft DVT Ppx: SQ heparin Code status: DNR/DNI PCP: Anay Dispo: [facility] tele Son Juan R would like updates. 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 Patient seen and examined. Patient is alert and oriented to person only. Occasionally follows command. Review of Systems Review of Systems: Unobtainable due to cognitive status Physical Exam Constitutional: + well hydrated; no acute distress Eyes: PERRL, conjunctivae normal, anicteric sclerae ENMT: external ear and nose normal, oropharynx normal Respiratory: normal respiratory effort, lungs clear to auscultation Cardiovascular: Rate/Rhythm: regular rate and regular rhythm S1-S2 Gastrointestinal (Abdomen): normal bowel sounds, soft, nontender, no hepatosplenomegaly Musculoskeletal: No pedal edema Neurologic: PERRL, EOMI, accommodation nl, no face palsy, no dysarthria Psychiatric: Alert and oriented to person only. Results & Data Results [facility]) Vital Signs (Past 12 Hours) Vital Signs Temp Pulse Pulse Resp BP BP Pulse Ox 12/11/21 07:14 36.7 C 79 18 177/88 H 99 12/11/21 02:39 36.9 C 80 16 153/75 H 98 12/10/21 22:16 72 12/10/21 22:43 37 C 87 16 161/88 H 99 O2 Del Method 12/11/21 07:14 Room Air 12/11/21 02:39 Room Air 12/10/21 22:16 12/10/21 22:43 Nasal Cannula Laboratory Results Abnormal lab results 12/10/21 12/10/21 12/10/21 Range/Units 10:15 10:15 11:31 RBC (4.63-6.08) M/uL Hgb (14.0-18.0) g/dl Hct (40.1-51.0) % [place] # (Auto) 1.29 H (0.24-0.82) K/uL Immature Gran # (Auto) 0.03 H (0.00-0.02) K/uL Chloride (98-107) mmol/L BUN 28 H (6-23) mg/dl Creatinine 1.69 H (0.6-1.4) mg/dl Glucose 124 H (70-99(Fasting)) mg/dl Lactate 2.9 H* (0.4-2.0) mmol/L Calcium (8.5-10.1) mg/dl Troponin I High Sens 49.8 H D (0-20) pg/ml Urine Appearance (Clear) Urine Protein (Negative) Urine Blood (Negative) Ur Leukocyte Esterase (Negative) Urine RBC (0-4) /hpf Urine WBC (0-5) /hpf 12/10/21 12/10/21 12/10/21 Range/Units 12:07 14:31 16:03 RBC (4.63-6.08) M/uL Hgb (14.0-18.0) g/dl Hct (40.1-51.0) % [place] # (Auto) (0.24-0.82) K/uL Immature Gran # (Auto) (0.00-0.02) K/uL Chloride (98-107) mmol/L BUN (6-23) mg/dl Creatinine (0.6-1.4) mg/dl Glucose (70-99(Fasting)) mg/dl Lactate 2.4 H* (0.4-2.0) mmol/L Calcium (8.5-10.1) mg/dl Troponin I High Sens 46.5 H (0-20) pg/ml Urine Appearance Turbid A (Clear) Urine Protein 3+ H (Negative) Urine Blood 3+ H (Negative) Ur Leukocyte Esterase 1+ H (Negative) Urine RBC >30 H (0-4) /hpf Urine WBC >30 H (0-5) /hpf 12/10/21 12/10/21 12/11/21 Range/Units 16:03 18:21 05:38 RBC 4.04 L (4.63-6.08) M/uL Hgb 12.1 L D (14.0-18.0) g/dl Hct 37.1 L (40.1-51.0) % [place] # (Auto) (0.24-0.82) K/uL Immature Gran # (Auto) (0.00-0.02) K/uL Chloride (98-107) mmol/L BUN (6-23) mg/dl Creatinine (0.6-1.4) mg/dl Glucose (70-99(Fasting)) mg/dl Lactate 2.2 H* 2.1 H* (0.4-2.0) mmol/L Calcium (8.5-10.1) mg/dl Troponin I High Sens (0-20) pg/ml Urine Appearance (Clear) Urine Protein (Negative) Urine Blood (Negative) Ur Leukocyte Esterase (Negative) Urine RBC (0-4) /hpf Urine WBC (0-5) /hpf 12/11/21 Range/Units 05:38 RBC (4.63-6.08) M/uL Hgb (14.0-18.0) g/dl Hct (40.1-51.0) % [place] # (Auto) (0.24-0.82) K/uL Immature Gran # (Auto) (0.00-0.02) K/uL Chloride 111 H (98-107) mmol/L BUN (6-23) mg/dl Creatinine (0.6-1.4) mg/dl Glucose (70-99(Fasting)) mg/dl Lactate (0.4-2.0) mmol/L Calcium 7.9 L (8.5-10.1) mg/dl Troponin I High Sens (0-20) pg/ml Urine Appearance (Clear) Urine Protein (Negative) Urine Blood (Negative) Ur Leukocyte Esterase (Negative) Urine RBC (0-4) /hpf Urine WBC (0-5) /hpf
--- NOTE | 2021-12-11 10:55 | Electrocardiogram Report ---
Test Reason : Blood Pressure : / mmHG Vent. Rate : 072 BPM Atrial Rate : 072 BPM P-R Int : 154 ms QRS Dur : 126 ms QT Int : 462 ms P-R-T Axes : 063 -27 134 degrees QTc Int : 505 ms Normal sinus rhythm with sinus arrhythmia Left bundle branch block Abnormal ECG When compared with ECG of 10-DEC-2021 09:59, Premature atrial complexes are no longer Present Confirmed by Sebas Ugarte ([id number]) on 12/11/2021 10:54:52 AM Referred By: REFERRED SELF Confirmed By:Estevan Ugarte
[2021-12-11] MEDS ORDERED: levoFLOXacin/D5W 750 MG/150 ML BAG IV SCH (14:00)
[2021-12-12] MEDS: HEPARIN SOD 5,000 UNIT/0.5 ML VIAL SQ SCH ×4 (05:17→22:14)
[2021-12-12] MEDS: CEROVITE ADV FORMULA TAB PO SCH (07:54)
[2021-12-12] MEDS: MEMANTINE HCL 10 MG TAB PO SCH ×2 (07:54→21:17)
[2021-12-12] MEDS: ATORVASTATIN 20 MG TAB PO SCH (07:54)
[2021-12-12] MEDS: SERTRALINE HCL 50 MG TABLET PO SCH (07:55)
[2021-12-12] MEDS: ASPIRIN 81 MG ECTAB PO SCH (07:55)
[2021-12-12] MEDS: METOPROLOL SUCC 25MG EXT REL TAB PO SCH (07:55)
[2021-12-12] MEDS: amLODIPine BESYLATE 5 MG TAB PO SCH ×2 (07:55→21:17)
[2021-12-12] MEDS ORDERED: DAPTOmycin 300 MG in SYRINGE 0 ML IV ONE (10:00)
[2021-12-12 10:53] LABS: Hemoglobin 13.4 g/dl (14.0-18.0); Mean Corpuscular Hemoglobin 30.2 pg (25.0-34.0); Mean Corpuscular Hgb Conc 33.5 g/dL (32.0-36.0); Mean Corpuscular Volume 90.3 fL (80.0-100.0); Mean Platelet Volume 10.2 fL (9.4-12.4); Platelet Count 230 K/uL (130-400); RDW Coefficient of Variation 13.2 % (11.5-14.5); RDW Standard Deviation 43.2 fL (36.4-46.3); Red Blood Count 4.43 M/uL (4.63-6.08)
[2021-12-12] MEDS ORDERED: levoFLOXacin 750 MG TAB PO SCH (11:00)
[2021-12-12 11:10] LABS: BUN Creatinine Ratio 13.6 (10-20); Calcium 9.2 mg/dl (8.5-10.1); Creatinine Clr Calc Pharmacy 37.1 ml/min; Est GFR (African American) 51.3 ml/min; Est GFR (Non-African American) 44.2 ml/min; Potassium 4.3 mmol/L (3.5-5.1)
[2021-12-12] MEDS ORDERED: MINERAL OIL ENEMA 133 ML BTL PR STA (13:28)
[2021-12-12] MEDS ORDERED: ISOSORBIDE MONO EXTENDED REL 30 MG TABCR PO ONE (16:57)
--- NOTE | 2021-12-12 19:22 | Hospitalist Progress Note ---
Date of Service December 12, 2021 Assessment & Plan (1) Complicated UTI (urinary tract infection): Plan: 2nd to enterococcus & alpha strep. called micro - enterococcus is indeed susceptible to zyvox. gave daptomycin IV x 1 today. levaquin d/c. change to PO zyvox tomorrow AM. stop tramadol while on zyvox. hold SSRI while on zyvox. ideally should have MATHEUS to r/o prostatitis. (2) Elevated troponin: Plan: myocardial demand ischemia from very high BPs and in setting of #1 above. (3) CAD (coronary artery disease): Plan: add imdur for BP control no obvious ischemic symptoms #2 - doubt ACS, likely demand ischemia (4) Alzheimer's dementia: Plan: severe, advanced no behavioral disturbance at this time cont namenda aricept on hold (5) Fecal impaction: Plan: as seen on CT, and abd distension on exam likely due to such enema x 1 today then more aggressive bowel maintenance (dulcolax or senna daily, miralax daily) (6) DVT prophylaxis: Plan: heparin SC Plan left message for family on voicemail today PT, OT evals to ensure safe for d/c back to [facility] Admission and Anticipated Discharge Date Admission Date: December 10, 2021 Subjective due to advanced dementia unable to provide any meaningful history or ROS tele overnight wnl no documented bowel movement since admission eating about 50% of meals Review of Systems Review of Systems: Unobtainable due to cognitive status Physical Exam Physical Exam: gen - awake, alert, but talking nonsensically/stuttering mouth - MMM, no thrush neck - no JVD heart - RRR, s1 s2 lungs - CTA b/l abd - distended but NT, BS+ ext - no edema, pulses 2+b/l neuro - increased tone all 4 exts psych - oriented to person only Results & Data Results & Data ([facility]) Vital Signs (Past 12 Hours) Vital Signs Temp Pulse Pulse Resp BP Pulse Ox O2 Del Method 12/12/21 16:11 65 12/12/21 15:44 36.2 C L 67 16 187/85 H 96 Room Air 12/12/21 09:41 Room Air 12/12/21 08:02 37.0 C 65 16 207/119 H 94 Room Air Laboratory Results Laboratory Results - last 24 hr 12/12/21 12/12/21 10:39 10:39 WBC 7.50 RBC 4.43 L Hgb 13.4 L Hct 40.0 L MCV 90.3 MCH 30.2 MCHC 33.5 RDW Std Deviation 43.2 RDW Coeff of Danii 13.2 Plt Count 230 MPV 10.2 Sodium 141 Potassium 4.3 Chloride 109 H Carbon Dioxide 26 Anion Gap 6 BUN 19 Creatinine 1.40 Est Cr Clr Drug Dosing 37.1 Est GFR ( Amer) 51.3 Est GFR (Non-Af Amer) 44.2 BUN/Creatinine Ratio 13.6 Glucose 92 Calcium 9.2 PG Care Time/CCT Total # of Minutes Spent Total Time Spent with Patient: Total time spent is greater than 50% in coordination of care (as documented) at patient's floor/unit and/or counseling patient: Coding Level of Care Code 18285 Subseq Hosp Care Lvl 2 Diagnoses Complicated UTI (urinary tract infection) N39.0 Elevated troponin R77.8 CAD (coronary artery disease) I25.10 Alzheimer's dementia G30.9; F02.80 Fecal impaction K56.41 DVT prophylaxis Z29.9
[2021-12-13] MEDS: HEPARIN SOD 5,000 UNIT/0.5 ML VIAL SQ SCH ×3 (05:56→21:26)
[2021-12-13] MEDS ORDERED: bisacodyL 5 MG TABEC PO ONE (07:30)
[2021-12-13 08:59] LABS: BUN Creatinine Ratio 15.9 (10-20); Calcium 8.8 mg/dl (8.5-10.1); Creatinine Clr Calc Pharmacy 35.9 ml/min; Est GFR (African American) 49.1 ml/min; Est GFR (Non-African American) 42.4 ml/min; Potassium 3.8 mmol/L (3.5-5.1)
[2021-12-13] MEDS: amLODIPine BESYLATE 5 MG TAB PO SCH (09:28)
[2021-12-13] MEDS: ASPIRIN 81 MG ECTAB PO SCH (09:29)
[2021-12-13] MEDS: MEMANTINE HCL 10 MG TAB PO SCH ×2 (09:30→21:25)
[2021-12-13] MEDS: LINEZOLID 600 MG TAB PO SCH ×2 (09:30→21:25)
[2021-12-13] MEDS: METOPROLOL SUCC 25MG EXT REL TAB PO SCH (09:31)
[2021-12-13] MEDS: POLYETHYLENE (MIRALAX) 17 GM PACK PO SCH (09:31)
[2021-12-13] MEDS: ISOSORBIDE MONO EXTENDED REL 30 MG TABCR PO SCH (09:31)
[2021-12-13] MEDS: CEROVITE ADV FORMULA TAB PO SCH (09:31)
--- NOTE | 2021-12-13 17:05 | Hospitalist Progress Note ---
Date of Service December 13, 2021 Assessment & Plan (1) Complicated UTI (urinary tract infection): Plan: 2nd to enterococcus & alpha strep. called micro - enterococcus is indeed susceptible to zyvox. s/p daptomycin IV x 1 12/12/21. changed to PO zyvox 600mg BID today. thus, today is day #2 of effective antibiotic therapy. plan 7 days in total between daptomycin & zyvox. needs MATHEUS to r/o prostatitis and, if present, would require up to 4 weeks of Rx. stop tramadol while on zyvox. hold SSRI while on zyvox. blood cx's remain negative (2) Elevated troponin: Plan: myocardial demand ischemia from very high BPs and in setting of #1 above. (3) CAD (coronary artery disease): Plan: added imdur for BP control no obvious ischemic symptoms #2 - doubt ACS, likely demand ischemia (4) Alzheimer's dementia: Plan: severe, advanced no behavioral disturbance at this time cont namenda aricept on hold (5) Fecal impaction: Plan: as seen on CT, and abd distension on exam likely due to such improved s/p a few small BMs (6) DVT prophylaxis: Plan: heparin SC Plan left message for pt's son on his voicemail yesterday d/c tele move to med/surg Admission and Anticipated Discharge Date Admission Date: December 10, 2021 Subjective patient unable to provide much in the way of history, ROS, or complaints his sentence structure when talking was mildly better than yesterday, however eating fair/good per nursing flow sheets did move bowels finally tele overnight wnl family wanting patient placed in SNF for rehab Review of Systems Review of Systems: Unobtainable due to cognitive status Physical Exam Physical Exam: gen - awake, alert, but confused & can't offer much history mouth - MMM, no thrush neck - no JVD heart - RRR, s1 s2, no murmur lungs - CTA b/l abd - distension better today; NT, BS+, no HSM ext - no edema, pulses 2+b/l neuro - increased tone all 4 exts psych - oriented to person only Results & Data Results & Data ([facility]) Vital Signs (Past 12 Hours) Vital Signs Temp Pulse Pulse Resp BP BP Pulse Ox 12/13/21 15:48 36.9 C 67 18 119/66 97 12/13/21 12:17 36.8 C 88 19 130/77 96 12/13/21 08:20 36.6 C 76 17 124/79 92 12/13/21 07:00 64 O2 Del Method 12/13/21 15:48 Room Air 12/13/21 12:17 Room Air 12/13/21 08:20 Room Air 12/13/21 07:00 Laboratory Results blood cx's negative to date PG Care Time/CCT Total # of Minutes Spent Total Time Spent with Patient: Total time spent is greater than 50% in coordination of care (as documented) at patient's floor/unit and/or counseling patient: Coding Level of Care Code 40296 Subseq Hosp Care Lvl 2 Diagnoses Complicated UTI (urinary tract infection) N39.0 Elevated troponin R77.8 CAD (coronary artery disease) I25.10 Alzheimer's dementia G30.9; F02.80 Fecal impaction K56.41 DVT prophylaxis Z29.9
[2021-12-14] MEDS: HEPARIN SOD 5,000 UNIT/0.5 ML VIAL SQ SCH ×3 (05:25→22:03)
[2021-12-14] MEDS: POLYETHYLENE (MIRALAX) 17 GM PACK PO SCH (08:57)
[2021-12-14] MEDS: amLODIPine BESYLATE 5 MG TAB PO SCH (08:57)
[2021-12-14] MEDS: ASPIRIN 81 MG ECTAB PO SCH (08:57)
[2021-12-14] MEDS: LINEZOLID 600 MG TAB PO SCH ×2 (08:57→20:55)
[2021-12-14] MEDS: METOPROLOL SUCC 25MG EXT REL TAB PO SCH (08:58)
[2021-12-14] MEDS: CEROVITE ADV FORMULA TAB PO SCH (08:58)
[2021-12-14] MEDS: MEMANTINE HCL 10 MG TAB PO SCH ×2 (08:58→20:55)
[2021-12-14] MEDS: ISOSORBIDE MONO EXTENDED REL 30 MG TABCR PO SCH (08:58)
[2021-12-14] MEDS: ATORVASTATIN 20 MG TAB PO SCH (08:58)
--- NOTE | 2021-12-14 20:38 | Hospitalist Progress Note ---
Date of Service December 14, 2021 Assessment & Plan (1) Complicated UTI (urinary tract infection): Plan: 2nd to enterococcus & alpha strep. enterococcus is susceptible to zyvox. s/p daptomycin IV x 1 12/12/21. changed to PO zyvox 600mg BID on 12/13/21. thus, today is day #3 of effective antibiotic therapy. plan 7 days in total between daptomycin & zyvox. needs MATHEUS to r/o prostatitis and, if present, would require up to 4 weeks of Rx. stop tramadol while on zyvox. hold SSRI while on zyvox. blood cx's remain negative (2) Elevated troponin: Plan: myocardial demand ischemia from very high BPs and in setting of #1 above. (3) CAD (coronary artery disease): Plan: no obvious ischemic symptoms #2 - doubt ACS, likely demand ischemia (4) Alzheimer's dementia: Plan: severe, advanced no behavioral disturbance at this time cont namenda aricept on hold (5) Fecal impaction: Plan: improved s/p a few small BMs add senna to his miralax for bowel maintenance (6) DVT prophylaxis: Plan: heparin SC (7) Hypertension: Plan: had been high earlier in the stay necessitating increase in amlodipine and addition of imdur now, BPs are low and labile stop imdur lower the amlodipine back to once daily dosing follow (8) Acute metabolic encephalopathy: Plan: 2nd to #1 ongoing but mild cont supportive care avoid sedatives Plan left message for pt's son on his voicemail again today dispo - SNF placement Thursday? Thursday? Admission and Anticipated Discharge Date Admission Date: December 10, 2021 Subjective patient resting in bed unable to offer any history or ROS smiled once then went back to bed nursing flowsheets with fair/good appetite no other acute issues Review of Systems Review of Systems: Unobtainable due to cognitive status Physical Exam Physical Exam: gen - tired today, NAD mouth - MM slightly dry neck - no JVD heart - RRR, s1 s2, no murmur lungs - CTA b/l abd - distension resolved; NT, BS+, no HSM ext - no edema, pulses 2+b/l neuro - increased tone all 4 exts psych - oriented to person only Results & Data Results & Data ([facility]) Vital Signs (Past 12 Hours) Vital Signs Temp Pulse Resp BP Pulse Ox O2 Del Method 12/14/21 15:04 36.6 C 65 16 92/55 L 96 Room Air PG Care Time/CCT Total # of Minutes Spent Total Time Spent with Patient: Total time spent is greater than 50% in coordination of care (as documented) at patient's floor/unit and/or counseling patient: Coding Level of Care Code 38699 Subseq Hosp Care Lvl 2 Diagnoses Complicated UTI (urinary tract infection) N39.0 Elevated troponin R77.8 CAD (coronary artery disease) I25.10 Alzheimer's dementia G30.9; F02.80 Fecal impaction K56.41 DVT prophylaxis Z29.9 Hypertension I10 Acute metabolic encephalopathy G93.41
[2021-12-15 05:56] LABS: Hematocrit (blood only) 36.6 % (40.1-51.0); Hemoglobin 12.2 g/dl (14.0-18.0); Mean Corpuscular Hemoglobin 30.7 pg (25.0-34.0); Mean Corpuscular Hgb Conc 33.3 g/dL (32.0-36.0); Mean Platelet Volume 10.1 fL (9.4-12.4); Platelet Count 219 K/uL (130-400); RDW Coefficient of Variation 13.5 % (11.5-14.5); RDW Standard Deviation 45.1 fL (36.4-46.3); Red Blood Count 3.98 M/uL (4.63-6.08)
[2021-12-15] MEDS: HEPARIN SOD 5,000 UNIT/0.5 ML VIAL SQ SCH ×3 (05:58→20:35)
[2021-12-15 06:21] LABS: Calcium 8.7 mg/dl (8.5-10.1); Creatinine Clr Calc Pharmacy 33.4 ml/min; Est GFR (Non-African American) 38.8 ml/min; Potassium 4.2 mmol/L (3.5-5.1)
[2021-12-15] MEDS: CEROVITE ADV FORMULA TAB PO SCH (09:58)
[2021-12-15] MEDS: METOPROLOL SUCC 25MG EXT REL TAB PO SCH (09:58)
[2021-12-15] MEDS: MEMANTINE HCL 10 MG TAB PO SCH ×2 (09:59→20:36)
[2021-12-15] MEDS: ASPIRIN 81 MG ECTAB PO SCH (09:59)
[2021-12-15] MEDS: amLODIPine BESYLATE 5 MG TAB PO SCH (09:59)
[2021-12-15] MEDS: ATORVASTATIN 20 MG TAB PO SCH (09:59)
[2021-12-15] MEDS: LINEZOLID 600 MG TAB PO SCH ×2 (09:59→20:36)
[2021-12-15] MEDS: POLYETHYLENE (MIRALAX) 17 GM PACK PO SCH (10:13)
[2021-12-15] MEDS ORDERED: SODIUM CHLORIDE 0.9% 1000ML 1,000 ML IV SCH (10:15)
[2021-12-15] MEDS: SENNA 8.6 MG TAB PO SCH (10:42)
--- NOTE | 2021-12-15 20:48 | Hospitalist Progress Note ---
Date of Service December 15, 2021 Assessment & Plan (1) Complicated UTI (urinary tract infection): Plan: 2nd to enterococcus & alpha strep. enterococcus is susceptible to zyvox. s/p daptomycin IV x 1 12/12/21. changed to PO zyvox 600mg BID on 12/13/21. thus, today is day #4 of effective antibiotic therapy. plan 7 days in total between daptomycin & zyvox. needs MATHEUS to r/o prostatitis and, if present, would require up to 4 weeks of Rx. stop tramadol while on zyvox. hold SSRI while on zyvox. blood cx's remain negative (2) Elevated troponin: Plan: myocardial demand ischemia from very high BPs and in setting of #1 above. (3) CAD (coronary artery disease): Plan: no obvious ischemic symptoms #2 - doubt ACS, likely demand ischemia (4) Alzheimer's dementia: Plan: severe, advanced no behavioral disturbance at this time cont namenda aricept on hold (5) Fecal impaction: Plan: improved s/p a few small BMs added senna to his miralax for bowel maintenance (6) DVT prophylaxis: Plan: heparin SC (7) Hypertension: Plan: had been high earlier in the stay necessitating increase in amlodipine and addition of imdur then BPs became low and labile stopped imdur lowered the amlodipine back to once daily dosing follow (8) Acute metabolic encephalopathy: Plan: 2nd to #1 ongoing but mild cont supportive care avoid sedatives Plan left message for pt's son on his voicemail multiple times over the last 7 days Creatinine mildly higher today likely from volume depletion - 1 L NS x 1, then repeat BMP am dispo - SNF placement Thursday? Thursday? Admission and Anticipated Discharge Date Admission Date: December 10, 2021 Subjective pt being fed his dinner by staff during my visit appetite is poor I tried myself to feed him - he did eat an entire jar of pudding no other issues overnight remains pleasantly confused Review of Systems Review of Systems: Unobtainable due to cognitive status Physical Exam Physical Exam: gen - NAD, eating mouth - MM more moist today neck - no JVD heart - RRR, s1 s2, no murmur lungs - CTA b/l abd - soft; NT, BS+, no HSM ext - no edema, pulses 2+b/l neuro - increased tone all 4 exts psych - oriented to person only Results & Data Results & [facility]) Vital Signs (Past 12 Hours) Vital Signs Temp Pulse Resp BP Pulse Ox O2 Del Method 12/15/21 14:19 36.6 C 69 16 135/66 97 Room Air 12/15/21 09:58 62 Laboratory Results Laboratory Results - last 24 hr 12/15/21 12/15/21 05:20 05:20 WBC 5.90 RBC 3.98 L Hgb 12.2 L Hct 36.6 L MCV 92.0 MCH 30.7 MCHC 33.3 RDW Std Deviation 45.1 RDW Coeff of Danii 13.5 Plt Count 219 MPV 10.1 Sodium 140 Potassium 4.2 Chloride 110 H Carbon Dioxide 24 Anion Gap 6 BUN 25 H Creatinine 1.56 H Est Cr Clr Drug Dosing 33.4 Est GFR ( Amer) 45.0 Est GFR (Non-Af Amer) 38.8 BUN/Creatinine Ratio 16.0 Glucose 82 Calcium 8.7 PG Care Time/CCT Total # of Minutes Spent Total Time Spent with Patient: Total time spent is greater than 50% in coordination of care (as documented) at patient's floor/unit and/or counseling patient: Coding Level of Care Code 03730 Subseq Hosp Care Lvl 1 Diagnoses Complicated UTI (urinary tract infection) N39.0 Elevated troponin R77.8 CAD (coronary artery disease) I25.10 Alzheimer's dementia G30.9; F02.80 Fecal impaction K56.41 DVT prophylaxis Z29.9 Hypertension I10 Acute metabolic encephalopathy G93.41
[2021-12-16] MEDS: HEPARIN SOD 5,000 UNIT/0.5 ML VIAL SQ SCH ×3 (05:20→21:07)
[2021-12-16] MEDS: amLODIPine BESYLATE 5 MG TAB PO SCH (09:11)
[2021-12-16] MEDS: LINEZOLID 600 MG TAB PO SCH ×2 (09:11→21:07)
[2021-12-16] MEDS: METOPROLOL SUCC 25MG EXT REL TAB PO SCH (09:12)
[2021-12-16] MEDS: MEMANTINE HCL 10 MG TAB PO SCH ×2 (09:12→21:07)
[2021-12-16] MEDS: POLYETHYLENE (MIRALAX) 17 GM PACK PO SCH (09:17)
[2021-12-16] MEDS: ATORVASTATIN 20 MG TAB PO SCH ×2 (09:18→14:46)
[2021-12-16] MEDS: ASPIRIN 81 MG ECTAB PO SCH ×2 (09:18→14:46)
[2021-12-16] MEDS: CEROVITE ADV FORMULA TAB PO SCH ×2 (09:18→14:45)
[2021-12-16] MEDS: SENNA 8.6 MG TAB PO SCH ×2 (09:18→14:45)
[2021-12-16 11:43] LABS: BUN Creatinine Ratio 14.2 (10-20); Calcium 8.7 mg/dl (8.5-10.1); Creatinine Clr Calc Pharmacy 36.9 ml/min; Est GFR (African American) 50.8 ml/min; Est GFR (Non-African American) 43.9 ml/min; Potassium 3.8 mmol/L (3.5-5.1)
[2021-12-16] MEDS ORDERED: MINERAL OIL ENEMA 133 ML BTL PR ONE (15:12)
--- NOTE | 2021-12-16 22:04 | Hospitalist Progress Note ---
Date of Service December 16, 2021 Assessment & Plan (1) Complicated UTI (urinary tract infection): Plan: 2nd to enterococcus & alpha strep. enterococcus is susceptible to zyvox. s/p daptomycin IV x 1 12/12/21. changed to PO zyvox 600mg BID on 12/13/21. thus, today is day #5 of effective antibiotic therapy. plan 7 days in total between daptomycin & zyvox. Consider MATHEUS to r/o prostatitis and, if present, would potentially require up to 4 weeks of Rx. stop tramadol while on zyvox. hold SSRI while on zyvox. blood cx's remain negative (2) Elevated troponin: Plan: myocardial demand ischemia from very high BPs and in setting of #1 above. (3) CAD (coronary artery disease): Plan: no obvious ischemic symptoms #2 - doubt ACS, likely demand ischemia (4) Alzheimer's dementia: Plan: severe, advanced no behavioral disturbance at this time cont namenda aricept on hold chronic poor appetite 2nd to advanced dementia (5) Fecal impaction: Plan: improved s/p a few small BMs earlier this stay now passing smears again will give additional enema today cont senna + miralax for bowel maintenance (6) DVT prophylaxis: Plan: heparin SC (7) Hypertension: Plan: had been high earlier in the stay necessitating increase in amlodipine and addition of imdur then BPs became low and labile stopped imdur lowered the amlodipine back to once daily dosing after the above changes BPs were stable/controlled now high again today simply follow agitation from dementia likely to blame for lability (8) Acute metabolic encephalopathy: Plan: 2nd to #1 ongoing but mild cont supportive care avoid sedatives Plan left message for pt's son on his voicemail multiple times over the last 7 days accepted at SNF - bed available Thursday12/17/21 Admission and Anticipated Discharge Date Admission Date: December 10, 2021 Subjective per staff no major changes no events he is passing tiny "smears" of stools eating is fair at best patient confused during the visit; was talking in his sleep during my visit Review of Systems Review of Systems: Unobtainable due to cognitive status Physical Exam Physical Exam: gen - NAD, comfortable; sleeping/eyes closed -- but talking in his sleep mouth - MMM neck - no JVD heart - RRR, s1 s2, no murmur lungs - CTA b/l abd - soft; NT, BS+, no HSM; minimal distension ext - no edema, pulses 2+b/l neuro - increased tone all 4 exts Results & Data Results & Data ([facility]) Vital Signs (Past 12 Hours) Vital Signs Temp Pulse Resp BP Pulse Ox O2 Del Method 12/16/21 20:56 Room Air 12/16/21 15:40 36.6 C 62 16 149/67 H 98 Room Air Laboratory Results Laboratory Results - last 24 hr 12/16/21 10:47 Sodium 138 Potassium 3.8 Chloride 108 H Carbon Dioxide 24 Anion Gap 6 BUN 20 Creatinine 1.41 H Est Cr Clr Drug Dosing 36.9 Est GFR ( Amer) 50.8 Est GFR (Non-Af Amer) 43.9 BUN/Creatinine Ratio 14.2 Glucose 97 Calcium 8.7 PG Care Time/CCT Total # of Minutes Spent Total Time Spent with Patient: Total time spent is greater than 50% in coordination of care (as documented) at patient's floor/unit and/or counseling patient: Coding Level of Care Code 47619 Subseq Hosp Care Lvl 2 Diagnoses Complicated UTI (urinary tract infection) N39.0 Elevated troponin R77.8 CAD (coronary artery disease) I25.10 Alzheimer's dementia G30.9; F02.80 Fecal impaction K56.41 DVT prophylaxis Z29.9 Hypertension I10 Acute metabolic encephalopathy G93.41
[2021-12-17] MEDS: HEPARIN SOD 5,000 UNIT/0.5 ML VIAL SQ SCH (06:44)
[2021-12-17] MEDS: amLODIPine BESYLATE 5 MG TAB PO SCH (08:19)
[2021-12-17] MEDS: ASPIRIN 81 MG ECTAB PO SCH (08:20)
[2021-12-17] MEDS: LINEZOLID 600 MG TAB PO SCH (08:20)
[2021-12-17] MEDS: ATORVASTATIN 20 MG TAB PO SCH (08:20)
[2021-12-17] MEDS: METOPROLOL SUCC 25MG EXT REL TAB PO SCH (08:20)
[2021-12-17] MEDS: MEMANTINE HCL 10 MG TAB PO SCH (08:20)
[2021-12-17] MEDS: CEROVITE ADV FORMULA TAB PO SCH (08:21)
[2021-12-17] MEDS: SENNA 8.6 MG TAB PO SCH (08:21)
[2021-12-17] MEDS: POLYETHYLENE (MIRALAX) 17 GM PACK PO SCH (08:29)
--- NOTE | 2021-12-17 12:02 | Discharge Summary ---
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 Patient was diagnosed with a UTI yesterday in ED and given a dose of Rocephin. Was discharged on Omnicef. Per staff, there was concern for possible seizure-like activity given worsening confusion and some tremoring. Systolic blood pressure was in the 80s and patient was sent to ED for further evaluation. Was given IV fluids prior to arrival and an additional 2 L normal saline in ED. Per conversation with son, patient is oriented to person at baseline but not to place or time. Does have a tremor of bilateral upper extremities at baseline. Is wheelchair-bound and requires help with transfer. Confirmed CODE STATUS is DO NOT RESUSCITATE. Son feels that patient is more confused than usual. Patient is a poor historian stating, "you kids get out of here" to ROS questions. Principal Diagnosis COmplicated UTI Discharge Exam gen - NAD, comfortable; sleeping/eyes closed mouth - MMM neck - no JVD heart - RRR, s1 s2, no murmur lungs - CTA b/l abd - soft; NT, BS+, no HSM; minimal distension ext - no edema, pulses 2+b/l neuro - increased tone all 4 exts Discharge Data Allergies Allergy/AdvReac Type Severity Reaction Status Date / Time hydrochlorothiazide Allergy Unknown UNKNOWN Verified 12/11/21 13:38 Penicillins Allergy Unknown ? UNKNOWN Verified 12/10/21 14:59 Sulfa (Sulfonamide Allergy Unknown ITCHINESS, Verified 12/10/21 14:59 Antibiotics) RED SKIN oxycodone AdvReac Intermediate CONSTIPATION, Verified 12/10/21 14:59 MALAISE Consultations 12/10/21 13:26 ED Decision to Admit Stat Ordered Studies 12/10/21 10:10 CT abd pelvis IV con only Stat CT head/brain wo con Stat Hospital Course (1) Complicated UTI (urinary tract infection): 2nd to enterococcus & alpha strep. enterococcus is susceptible to zyvox. s/p daptomycin IV x 1 12/12/21. changed to PO zyvox 600mg BID on 12/13/21. thus, today is day #5 of effective antibiotic therapy. plan 10 days in total between daptomycin & zyvox. hold donepezil and sertralinel while on zyvox. blood cx's remain negative (2) Elevated troponin: myocardial demand ischemia from very high BPs and in setting of #1 above. (3) CAD (coronary artery disease): no obvious ischemic symptoms #2 - doubt ACS, likely demand ischemia (4) Alzheimer's dementia: severe, advanced no behavioral disturbance at this time cont namenda aricept on hold chronic poor appetite 2nd to advanced dementia (5) Fecal impaction: improved s/p a few small BMs earlier this stay now passing smears again having BMs now cont senna + miralax for bowel maintenance (6) DVT prophylaxis: heparin SC (7) Hypertension: had been high earlier in the stay necessitating increase in amlodipine and addition of imdur then BPs became low and labile stopped imdur lowered the amlodipine back to once daily dosing after the above changes BPs were stable/controlled simply follow agitation from dementia likely to blame for lability (8) Acute metabolic encephalopathy: 2nd to #1 ongoing but mild cont supportive care avoid sedatives Plan dc to SNF today Total Time Total Time Spent Total Time Spent (In Minutes): 35 min Discharge Plan Discharge Items Patient Disposition: Transfer Long Term Fac Reason For Visit: AMS, UTI, LACTIC ACIDOSIS Discharge Diagnosis: UTI, acute metabolic encephalopathy Condition on Discharge: Fair Activity: As commented below Lifting: Gradually increase as tolerated Bathing: No limitations Exercise/Sports: Gradually increase as tolerated Weightbearing: Full weightbearing Non-emergency contact: Primary Care Provider Call non-emergency contact if: you have any medication questions, your symptoms worsen and you have a fever Follow-up/Referrals: Gerard Cueva DO [Primary Care Provider] - Diet: Regular Diet Texture: Easy to Chew Addtl Attending Provider Instructions: Please finish out 4 more days of linezolid for the UTI. Please HOLD your sertraline and donepezil until the linezolid antibiotic is completed. Pending Studies at Discharge: No Stand-Alone Forms: [facility] Skilled Items Patient informed of condition?: Yes DNR: Yes Discharge Level of Care: Skilled Communicable Disease: No Discharge Prognosis: Improving Lines: None Urinary Catheter: No Medications and DC Order Prescriptions: New linezolid 600 mg Tablet 600 mg PO BID Qty: 8 0RF sennosides [Senokot] 8.6 mg Tablet 17.2 mg PO QAM Qty: 60 0RF Continued acetaminophen [Tylenol Arthritis Pain] 650 mg tablet extended release 650 mg PO Q12H PRN (Reason: Pain) Qty: 90 1RF memantine [Namenda] 10 mg tablet 10 mg PO BID 90 Days Qty: 180 3RF tramadol 50 mg tablet 50 mg PO Q6H PRN (Reason: moderate - severe pain) aspirin [Sarah Low Dose Aspirin] 81 mg Tablet,Delayed Release (Dr/Ec) 81 mg PO QAM acetaminophen 325 mg Tablet 325 mg PO Q4 MDD 3g PRN (Reason: Fever Or Pain) Ensure Liquid 1 ea PO TIDM Centrum Silver 0.4-300-250 mg-mcg-mcg Tablet 1 tab PO QAM amlodipine 2.5 mg tablet 2.5 mg PO QAM Rx Instructions: hold if SBP<105 metoprolol succinate 25 mg tablet extended release 24 hr 25 mg PO QAM Rx Instructions: hold for SBP<105 atorvastatin 20 mg tablet 20 mg PO QAM polyethylene glycol 3350 [Miralax] 17 gram/dose Powder 17 g PO 3XWK Rx Instructions: drink mon,wed,fri sertraline 25 mg tablet 25 mg PO QAM Qty: 30 0RF Rx Instructions: PLEASE HOLD UNTIL RESTART ON 12/21/21 donepezil [Aricept] 10 mg tablet 10 mg PO QAM Qty: 30 0RF Rx Instructions: PLEASE HOLD UNTIL RESTART ON 12/21/21 Discontinued cefdinir 300 mg Capsule 300 mg PO BID Rx Instructions: STARTED 12/10/21 FOR 7 DAYS. Discharge Orders: Discharge Order (Routine); Ordered 12/17/21 Ordered By: Araseli Vines Admission Data Admit Date/Time: 12/10/21 14:10 Attending Provider: Araseli Vines Admit Provider: Mally Beaver Primary Care Provider: Gerard Cueva Other Providers: Mally Beaver ; Debra Reyes at [place] ; [place] ; [facility] Coding Level of Care Code D/C DAY MANAGEMENT >30 MINS Diagnoses Complicated UTI (urinary tract infection) N39.0 Elevated troponin R77.8 CAD (coronary artery disease) I25.10 Alzheimer's dementia G30.9; F02.80 Fecal impaction K56.41 DVT prophylaxis Z29.9 Hypertension I10 Acute metabolic encephalopathy G93.41
== END 2021-12-17 14:01 | DRG 871 ==
LOC: ED 09:50 → SUATTDRO 14:10 → 2N 14:10 → 3W 12-14 02:17